=== PATIENT | male | born 1935 | race Caucasian/White ===

== ENCOUNTER → 2016-05-25 | Outpatient (REF) | payer MEDICARE, MEDICAID ==
[~2016-05-25] MED LIST: AZELASTINE; BENA25CA PO; BENT10CA PO; CALC05CR TOP; CEPH500C PO; CIPR-250 PO; CIPR500T3 PO; CLON1TAB PO; DEPA250C PO; DULC5TAB PO; GABA100C PO; GABA300C2 PO; HALO5OI TOP; IMOD2CHW PO; KLON1TAB PO; MACR100C3 PO; MAG400TA PO; META28.35 PO; MICR10CA PO; NAPR500T2 PO; NIFE15CA PO; OXYB10TA PO; PERC5TAB6 PO; PERCOCET PO; PRED20TA PO; PRIN10TA PO; REST0.05 OU; TOPA50TA PO; TRIA0.5O TOP; VANC50VL PO; VERA24TASA PO; VITA100072 PO; VITA100072 SC; ZANA4CAP PO; ZINC60OI TOP; [UNRECOGNIZED DRUG - OTHER] PO
[2016-05-26 11:51] LABS: MEAN CORPUSCULAR HEMOGLOBIN 24.1 pg (27.0-33.0); MEAN CORPUSCULAR HGB CONC 30.1 g/dl (32.0-36.5); MEAN CORPUSCULAR VOLUME 80.1 fl (80.0-96.0); WHITE BLOOD COUNT 9.7 K/mm3 (4.0-10.0)
== END | disposition home or self-care (01) ==
LOC: M SFHCCLAY 15:34
PROVIDERS: ATTEND Family Medicine
DX: D50.0 Iron deficiency anemia secondary to blood loss (chronic) (principal)
CPT/HCPCS: 36415; 85027; G0463

== ENCOUNTER → 2016-06-17 | Outpatient (CLI) | payer MEDICARE, MEDICAID ==
--- NOTE | 2016-06-17 15:19 | REP ---
LEFT KNEE SERIES: Five views of the left knee are performed. There is no acute fracture or dislocation. There is mild medial joint space narrowing. There is moderate diffuse chondrocalcinosis. Soft tissue calcifications are also seen posteriorly which may be bursal or tendinous. There are vascular calcifications as well. There is a mild to moderate joint effusion. IMPRESSION: Mild degenerative changes with chondrocalcinosis. Mild to moderate joint effusion. Findings are essentially unchanged compared to the prior exam of 12/06/2014.
== END ==
LOC: M CLY 13:51
PROVIDERS: ATTEND Family Medicine
DX: R30.0 Dysuria (principal); M17.12 Unilateral primary osteoarthritis, left knee; M11.20 Other chondrocalcinosis, unspecified site
CPT/HCPCS: 73564; 81002; 87086; G0463

== ENCOUNTER → 2016-06-17 | Outpatient (REF) | payer MEDICARE, MEDICAID | LOC: M SFHCCLAY 12:43 | PROVIDERS: ATTEND Family Medicine | DX: R30.0 Dysuria (principal) ==

== ENCOUNTER → 2016-07-01 | Outpatient (CLI) | payer MEDICARE, MEDICAID ==
--- NOTE | 2016-07-01 14:10 | REP ---
Clinical: Pain. Assess Technique: AP and frog lateral views of the left hip. Comparison: 09/05/2014. Findings: Moderate arthritic degenerative changes appears similar to prior examination. Findings include increased sclerosis to the acetabular roof with spurring at the acetabular margins, predominantly medial joint space narrowing. No acute fracture dislocation. Impression: Moderate arthritic degenerative changes.
== END ==
LOC: M CLY 12:48
PROVIDERS: ATTEND Family Medicine
DX: M16.12 Unilateral primary osteoarthritis, left hip (principal)
CPT/HCPCS: 73502; 81002; G0463

== ENCOUNTER → 2016-07-15 | Outpatient (REF) | payer MEDICARE, MEDICAID | LOC: M SFHCCLAY 15:38 | PROVIDERS: ATTEND Family Medicine | DX: R35.0 Frequency of micturition (principal); Z85.038 Personal history of other malignant neoplasm of large intestine; R15.2 Fecal urgency; F41.1 Generalized anxiety disorder; F31.9 Bipolar disorder, unspecified; M11.262 Other chondrocalcinosis, left knee | CPT/HCPCS: 87086; G0463 ==

== ENCOUNTER → 2016-07-29 | Outpatient (CLI) | payer MEDICARE, MEDICAID ==
--- NOTE | 2016-07-29 17:25 | REP ---
LUMBAR SPINE, FIVE VIEWS: HISTORY: Back pain. COMPARISON: 05/13/2009. There is no acute fracture or subluxation. The intervertebral discs are decreased in height consistent with disc degeneration. Osteophytes are present throughout the lumbar spine. There is narrowing of the L3-4 through L5-S1 facet joints. A surgical slip is present overlying the left L4-5 facets. IMPRESSION: Degenerative change as described above.
== END ==
LOC: M CLY 15:18
PROVIDERS: ATTEND Family Medicine
DX: M51.36 Other intervertebral disc degeneration, lumbar region (principal); M51.37 Other intervertebral disc degeneration, lumbosacral region
CPT/HCPCS: 72110; G0463

== ENCOUNTER → 2016-08-10 | Outpatient (REF) | payer MEDICARE, MEDICAID ==
[2016-08-10 17:42] LABS: MEAN CORPUSCULAR HEMOGLOBIN 25.1 pg (27.0-33.0); MEAN CORPUSCULAR HGB CONC 29.7 g/dl (32.0-36.5); MEAN CORPUSCULAR VOLUME 84.6 fl (80.0-96.0); RED CELL DISTRIBUTION WIDTH 16.6 % (11.5-14.5); WHITE BLOOD COUNT 8.1 K/mm3 (4.0-10.0)
[2016-08-10 19:40] LABS: VITAMIN B12 LEVEL 138 PG/ML (247-911)
[2016-08-10 19:41] LABS: FOLATE 17.1 NG/ML (>5.4)
[2016-08-10 19:43] LABS: ALBUMIN 3.2 GM/DL (3.2-5.2); ALBUMIN/GLOBULIN RATIO 0.94 (1.00-1.93); ALKALINE PHOSPHATASE 91 U/L (45-117); ALT/SGPT 17 U/L (12-78); ANION GAP 7 MEQ/L (8-16); AST/SGOT 9 U/L (15-37); BILIRUBIN,TOTAL 0.2 MG/DL (0.2-1.0); BLOOD UREA NITROGEN 12 MG/DL (7-18); CALCIUM LEVEL 8.3 MG/DL (8.8-10.2); CARBON DIOXIDE LEVEL 27 MEQ/L (21-32); CHLORIDE LEVEL 105 MEQ/L (98-107); CREATININE FOR GFR 0.67 MG/DL (0.70-1.30); GLOMERULAR FILTRATION RATE > 60.0 (>42); GLUCOSE, FASTING 93 MG/DL (83-110); POTASSIUM SERUM 3.9 MEQ/L (3.5-5.1); SODIUM LEVEL 139 MEQ/L (136-145); TOTAL PROTEIN 6.6 GM/DL (6.4-8.2)
== END ==
LOC: M SFHCCLAY 07:42
PROVIDERS: ATTEND Family Medicine
DX: D50.0 Iron deficiency anemia secondary to blood loss (chronic) (principal); C20 Malignant neoplasm of rectum; Z79.52 Long term (current) use of systemic steroids; Z79.1 Long term (current) use of non-steroidal anti-inflammatories (NSAID); Z79.899 Other long term (current) drug therapy

== ENCOUNTER → 2016-08-10 | Outpatient (CLI) | payer MEDICARE, MEDICAID ==
--- NOTE | 2016-08-10 14:38 | REP ---
CHEST, TWO VIEWS: HISTORY: Bronchitis. COMPARISON: 10/17/2015 There is elevation of the right hemidiaphragm. Linear density is present in the right lower lobe consistent with scar. The left lung is clear. The heart is normal in size. The pulmonary vasculature is normal in appearance. The bony structure is intact. IMPRESSION: Right lower lobe scar.
== END ==
LOC: M CLY 13:50
PROVIDERS: ATTEND Family Medicine
DX: J40 Bronchitis, not specified as acute or chronic (principal); J98.4 Other disorders of lung; D50.0 Iron deficiency anemia secondary to blood loss (chronic); Z79.52 Long term (current) use of systemic steroids; Z79.899 Other long term (current) drug therapy; C20 Malignant neoplasm of rectum; Z79.1 Long term (current) use of non-steroidal anti-inflammatories (NSAID)
CPT/HCPCS: 71020; 80053; 82607; 82746; 84443; 85027; G0463

== ENCOUNTER → 2016-10-05 | Outpatient (REF) | payer MEDICARE, MEDICAID ==
[~2016-10-05] MED LIST changes: +APAP325T4 PO; +DESITIN EXT; +HYDR-3363 PO; +HYDR25OIN TOP; +MACR100C43 PO; +OXYB15TA PO; +PERC5TAB12 PO; -PERC5TAB6 PO; +PROAAER10 INH; +REFR0.1D OP
[2016-10-05 18:22] LABS: ALBUMIN 3.9 GM/DL (3.2-5.2); ALBUMIN/GLOBULIN RATIO 1.22 (1.00-1.93); ALKALINE PHOSPHATASE 80 U/L (45-117); ALT/SGPT 19 U/L (12-78); ANION GAP 8 MEQ/L (8-16); AST/SGOT 15 U/L (15-37); BILIRUBIN,TOTAL 0.5 MG/DL (0.2-1.0); BLOOD UREA NITROGEN 16 MG/DL (7-18); CALCIUM LEVEL 9.1 MG/DL (8.8-10.2); CARBON DIOXIDE LEVEL 28 MEQ/L (21-32); CHLORIDE LEVEL 105 MEQ/L (98-107); CREATININE FOR GFR 0.74 MG/DL (0.70-1.30); GLOMERULAR FILTRATION RATE > 60.0 (>42); GLUCOSE, FASTING 96 MG/DL (83-110); POTASSIUM SERUM 3.9 MEQ/L (3.5-5.1); SODIUM LEVEL 141 MEQ/L (136-145); TOTAL PROTEIN 7.1 GM/DL (6.4-8.2)
[2016-10-05 20:38] LABS: MEAN CORPUSCULAR HEMOGLOBIN 24.3 pg (27.0-33.0); MEAN CORPUSCULAR HGB CONC 29.7 g/dl (32.0-36.5); MEAN CORPUSCULAR VOLUME 82.1 fl (80.0-96.0); WHITE BLOOD COUNT 6.7 K/mm3 (4.0-10.0)
== END ==
LOC: M SFHCCLAY 11:27
PROVIDERS: ATTEND Family Medicine
DX: N30.00 Acute cystitis without hematuria (principal); D50.0 Iron deficiency anemia secondary to blood loss (chronic); Z85.038 Personal history of other malignant neoplasm of large intestine
CPT/HCPCS: 80053; 81001; 85027; 87086; G0463

== ENCOUNTER → 2016-10-26 | Outpatient (REF) | payer MEDICARE | LOC: M SFHCCLAY 11:07 | PROVIDERS: ATTEND Family Medicine | DX: R35.0 Frequency of micturition (principal) ==

== ENCOUNTER → 2016-12-14 | Outpatient (REF) | payer MEDICARE, MEDICAID ==
[2016-12-15 12:02] LABS: MEAN CORPUSCULAR HGB CONC 29.5 g/dl (32.0-36.5); RED CELL DISTRIBUTION WIDTH 16.9 % (11.5-14.5); WHITE BLOOD COUNT 9.7 K/mm3 (4.0-10.0)
== END ==
LOC: M SFHCCLAY 15:55
PROVIDERS: ATTEND Family Medicine
DX: D50.0 Iron deficiency anemia secondary to blood loss (chronic) (principal)
CPT/HCPCS: 85027; G0463

== ENCOUNTER 2016-12-22 08:37 | Outpatient (CLI) | payer MEDICARE, MEDICAID ==
[~2016-12-22] VITALS: Ht 167.6 cm; Wt 86.4 kg
[~2016-12-22 08:37] MED LIST changes: -APAP325T4 PO; -DESITIN EXT; -HYDR-3363 PO; -HYDR25OIN TOP; -OXYB15TA PO; -PROAAER10 INH; -REFR0.1D OP
[2016-12-22] MEDS ORDERED: HYDR-3363 PO (08:54)
[2016-12-22] MEDS ORDERED: OXYB15TA PO (08:54)
[2016-12-22] MEDS ORDERED: APAP325T4 PO (08:55)
[2016-12-22] MEDS ORDERED: HYDR25OIN TOP (08:55)
[2016-12-22] MEDS ORDERED: PROAAER10 INH (08:55)
[2016-12-22] MEDS ORDERED: DESITIN EXT (08:55)
[2016-12-22] MEDS ORDERED: REFR0.1D OP (08:55)
[2016-12-22] MEDS ORDERED: diphenhydrAMINE 50 MG CAP PO ONE (13:00)
== END 2016-12-22 17:30 | disposition home or self-care (01) ==
LOC: M INFU 08:37
PROVIDERS: ATTEND Family Medicine
DX: D50.0 Iron deficiency anemia secondary to blood loss (chronic) (principal); Z85.038 Personal history of other malignant neoplasm of large intestine; Z72.0 Tobacco use; Z88.0 Allergy status to penicillin; Z88.2 Allergy status to sulfonamides; Z88.8 Allergy status to other drugs, medicaments and biological substances; Z79.899 Other long term (current) drug therapy
CPT/HCPCS: 36415; 36430; 86850; 86900; 86901; 86920; P9016

== ENCOUNTER 2017-02-02 20:17 | Emergency (ER) | payer MEDICARE, MEDICAID ==
[~2017-02-02] VITALS: Ht 175.3 cm; Wt 84.1 kg
[~2017-02-02 20:17] MED LIST changes: +APAP325T4 PO; +DESITIN EXT; +HYDR-3363 PO; +HYDR25OIN TOP; +OXYB15TA PO; +PROAAER10 INH; +REFR0.1D OP
[2017-02-02] MEDS ORDERED: LORazepam 1 MG TAB PO ONE (22:15)
[2017-02-03] MEDS ORDERED: clonazePAM 1 MG TAB PO ONE
[2017-02-03 06:27] VITALS: BP 139/63
[2017-02-03] MEDS ORDERED: KLON1TAB PO (06:35)
== END 2017-02-03 06:55 | disposition home or self-care (01) ==
LOC: M ED 20:17
DX: F41.1 Generalized anxiety disorder (principal); F13.239 Sedative, hypnotic or anxiolytic dependence with withdrawal, unspecified; Z79.899 Other long term (current) drug therapy; Z88.0 Allergy status to penicillin; Z88.2 Allergy status to sulfonamides; Z88.8 Allergy status to other drugs, medicaments and biological substances; Z88.6 Allergy status to analgesic agent

== ENCOUNTER 2017-02-25 16:06 | Inpatient (IN) | payer MEDICARE, MEDICAID ==
[~2017-02-25] VITALS: Ht 175.3 cm; Wt 82.7 kg
[~2017-02-25 16:06] MED LIST changes: -REFR0.1D OP; +REFR0.1D OU
[2017-02-25 17:27] LABS: MEAN CORPUSCULAR HEMOGLOBIN 26.4 pg (27.0-33.0); MEAN CORPUSCULAR HGB CONC 31.3 g/dl (32.0-36.5); MEAN CORPUSCULAR VOLUME 84.3 fl (80.0-96.0); PLATELET COUNT, AUTOMATED 368 10^3/uL (150-450); RED CELL DISTRIBUTION WIDTH 17.6 % (11.5-14.5); WHITE BLOOD COUNT 12.4 10^3/uL (4.0-10.0)
[2017-02-25 17:52] LABS: METHADONE URINE NEGATIVE (NEGATIVE)
[2017-02-25 18:02] LABS: ALBUMIN 3.7 GM/DL (3.2-5.2); ALBUMIN/GLOBULIN RATIO 1.09 (1.00-1.93); ALKALINE PHOSPHATASE 82 U/L (45-117); ALT/SGPT 21 U/L (12-78); ANION GAP 9 MEQ/L (8-16); AST/SGOT 15 U/L (7-37); BILIRUBIN,DIRECT 0.1 MG/DL (0.0-0.2); BILIRUBIN,TOTAL 0.4 MG/DL (0.2-1.0); BLOOD UREA NITROGEN 18 MG/DL (7-18); CALCIUM LEVEL 8.9 MG/DL (8.8-10.2); CARBON DIOXIDE LEVEL 28 MEQ/L (21-32); CHLORIDE LEVEL 102 MEQ/L (98-107); CREATININE FOR GFR 0.97 MG/DL (0.70-1.30); GLOMERULAR FILTRATION RATE > 60.0 (>35); GLUCOSE, FASTING 94 MG/DL (83-110); POTASSIUM SERUM 3.6 MEQ/L (3.5-5.1); SODIUM LEVEL 139 MEQ/L (136-145); TOTAL PROTEIN 7.1 GM/DL (6.4-8.2)
[2017-02-25] MEDS ORDERED: clonazePAM 1 MG TAB PO ONE (18:30)
[2017-02-25] MEDS ORDERED: clonazePAM 0.5 MG TAB PO ONE ×2 (19:00→22:50)
--- NOTE | 2017-02-25 20:00 | REPUSA ---
CT of the head Clinical history: altered mental status. Protocol: Multiple axial CT images obtained with 5 mm slice thickness were obtained through the head without administration of contrast. Findings: The ventricles and sulci are symmetric but prominent in size bilaterally. There are periven tricular areas of low attenuation throughout the deep white matter. There is no evidence of acute hem orrhage or infarct. There is no midline shift, mass effect, or extra-axial fluid collection. The osse ous structures are unremarkable. The visualized paranasal sinuses and mastoid air cells are clear. Impression: No acute hemorrhage or infarct. 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
[2017-02-25] MEDS ORDERED: traZODone 50 MG TAB PO PRN (22:30)
[2017-02-25] MEDS ORDERED: MOM 30ML SUSPENSION UDC PO PRN (22:30)
[2017-02-25] MEDS ORDERED: MAALOX 30 ML SUSP *UDC PO PRN (22:30)
[2017-02-25] MEDS ORDERED: DOXE10CA PO (22:38)
[2017-02-25 23:10] VITALS: BP 181/91
[2017-02-25] MEDS ORDERED: OLANZapine ORAL DISINTEGRATING TAB 5MG PO PRN (23:30)
[2017-02-26] MEDS ORDERED: HYDROCORTISONE 2.5% 20GM OINTMENT TOP PRN (00:30)
[2017-02-26] MEDS ORDERED: DIAPER RELIEF PASTE (DESITIN) 60GM EXT PRN (00:30)
[2017-02-26] MEDS: MIRTAZAPINE 15 MG TAB PO PRN (01:06)
[2017-02-26] MEDS: OLANZapine ORAL DISINTEGRATING TAB 5MG PO SCH ×3 (06:00→20:18)
[2017-02-26 06:38] VITALS: BP 134/63
[2017-02-26] MEDS: ACETAMINOPHEN TAB 650MG DOSE (2X325MG) PO PRN (10:58)
[2017-02-26] MEDS: oxyBUTYnin *DITROPAN XL* 5 MG TABCR PO SCH (10:59)
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
[2017-02-26] MEDS: clonazePAM 0.5 MG TAB PO PRN (12:45)
[2017-02-26] MEDS: ALBUTEROL 90 MCG/ACT 8GM HFA INHALER INH PRN (12:45)
[2017-02-26] MEDS ORDERED: IPRATROPIUM 0.5MG/ALBUTEROL 2.5MG INH SOL UD 3ML (DUONEB)(J7620) NEB PRN (14:30)
--- NOTE | 2017-02-26 14:58 | REP ---
CHEST, TWO VIEWS: Two views of the chest are performed. Comparison 08/10/2016. There is bibasilar fibroatelectatic change which appears stable compared to the prior study. There is again mild elevation of the right hemidiaphragm. Heart is not significantly enlarged. No acute infiltrate is seen. There is calcified tortuous aorta. Mediastinal silhouette is unchanged. There are degenerative changes of the spine. IMPRESSION: Stable chronic changes. No acute infiltrate. Signed by Jessee Garay MD 02/26/2017 04:20 P
[2017-02-26 15:19] LABS: BASO # 0.1 10^3/uL (0.0-0.2); BASO % 0.7 % (0.0-1.0); EOS # 0.6 10^3/uL (0.0-0.50); EOS % 4.7 % (0.0-3.0); IMMATURE GRANULOCYTE % 0.3 % (0-0); LYMPH # 1.3 10^3/uL (1.5-4.5); LYMPH % 10.7 % (24.0-44.0); MEAN CORPUSCULAR HGB CONC 30.9 g/dl (32.0-36.5); MEAN CORPUSCULAR VOLUME 83.9 fl (80.0-96.0); MONO # 1.6 10^3/uL (0.0-0.8); MONO % 13.7 % (0.0-5.0); NEUTROPHILS # 8.2 10^3/uL (1.8-7.7); NEUTROPHILS % 69.9 % (36.0-66.0); PLATELET COUNT, AUTOMATED 422 10^3/uL (150-450); RED CELL DISTRIBUTION WIDTH 17.6 % (11.5-14.5); WHITE BLOOD COUNT 11.7 10^3/uL (4.0-10.0)
--- NOTE | 2017-02-26 15:19 | CR.PDOC ---
[facility] Consultation Consultation DATE OF CONSULTATION: Feb 25, 2017 at 16:06 PRIMARY CARE PHYSICIAN: Dr. Lewis REFERRING PROVIDER: Dr. Duncan ATTENDING PHYSICIAN: Dr. Mcfarlane REASON FOR CONSULTATION/CHIEF COMPLAINT: Shortness of breath. HISTORY OF PRESENT ILLNESS: Mr. Cosme is an 81-year-old male admitted to the in-patient mental health unit for bipolar disorder who admits to shortness of breath. He states that his shortness of breath and productive cough of ellis/white phlegm has been getting worse over the last week. Reports shortness of breath with rest and ambulation. Sleep has been interrupted due to inability to lay flat which results in worsening of cough. Walks with a cane. Admits to orthopnea, nasal congestion, sore throat, chest pain/congestion , back pain, itchy/watery eyes. Received influenza and pneumonia vaccine. Denies fever, night sweats, chills, headache, peripheral edema, change to bowel/ bladder habits ALLERGIES: Please see below. HOME MEDICATIONS: Please see below. PAST MEDICAL HISTORY: 1. Hypertension. 2. Recurrent urinary tract infection. 3. History of Clostridium difficile infection. 4. Carpal tunnel syndrome. 5. Gout. 6. Degenerative joint disease. 7. Anxiety. 8. Rectal cancer. 9. Migraine. 10. Benign prostatic hyperplasia. 11. Constipation. PAST SURGICAL HISTORY: 1. Carpal tunnel repair. 2. Laparoscopic low anterior resection converted to open low anterior resection. 3. Urinary cystoscopy. 4. Bilateral ureteral catheter placement. 5. Tonsillectomy. 6. Teeth extraction. 7. Nasal surgery. 8. Colostomy with reversal. FAMILY HISTORY: Father: , 95, old age. Mother: , 85, old age. Siblings: - Brother: Alive, healthy. Children: - Son: Alive, healthy. - Son: , brain tumor. 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/[employer] Tobacco use: Current ETOH: Current, 1/2 PPD for 30+ years Illicit drug use: Denies IV drug use: Denies REVIEW OF SYSTEMS: CONSTITUTIONAL: Denies fever, night sweats, chills HEENT: Admits to left ear pain; denies headache CARDIOVASCULAR: Admits to chest pain/chest congestion RESPIRATORY: Admits to shortness of breath with rest and ambulation GENITOURINARY: Denies changes to bowel habits MUSCULOSKELETAL: Admits to back pain GASTROINTESTINAL: Admits to nausea, vomiting; denies abdominal pain SKIN: Admits to multiple skin lesions on face NEUROLOGICAL: Denies numbness, tingling PSYCHIATRIC: Bipolar disorder ENDOCRINE: HEMATOLOGIC/LYMPHATIC: Denies bleeding ALLERGIC/IMMUNOLOGIC: Admits to sore throat, cough, itchy/watery eyes PHYSICAL EXAMINATION: VITAL SIGNS: Please see below. GENERAL APPEARANCE: Elderly male, walks with a cane, transported to examination room by wheelchair, but is ambulatory, HEENT: Atraumatic, normocephalic, PERRL, EOMI, wears spectacles; several areas of excoriation noted around the pinna, mandible, and occiput; oral mucosa appears somewhat dry; left ear external auditory canal is without erythema, edema, or excoriation, TM is somewhat dull and bulging; right ear external auditory canal is without erythema, edema, or excoriation, TM is clear without bulging or retraction; nasal septum appears midline; turbinates are boggy bilaterally, nasal discharge is noted bilaterally and right nares is completely obscured with yellow-florencia discharge RESPIRATORY: Clear to auscultation bilaterally, poor inspiratory and expiratory airway excursion, no wheeze, rhonchi, crackles appreciated CARDIOVASCULAR: Grade II/ systolic murmur appreciated pansystolically ABDOMEN: Soft, non-tender, non-distended, bowel sounds appreciated, healed surgical incisions are clean, dry, intact EXTREMITIES: Radial and posterior pulses equal, symmetrical, +2, trace pitting edema noted around the bilateral ankles NEUROLOGICAL: CN II-XII grossly intact PSYCHIATRIC: Pressured speech, but alert and conversant LABORATORY DATA: Please see below. ASSESSMENT/PLAN: Mr. Cosme is an 81-year-old male with cough and shortness of breath, likely sinusitis/rhinitis. 1. Sinusitis/rhinitis: Obtaining respiratory panel, blood culture, CRP, CBC with differential, CMP, magnesium level. Chest x-ray obtained, report is pending. However, it does not appear that there are any consolidations. Due to patient's medication allergies he will be started on Avelox. Will also symptomatically treated nasal congestion with Mucinex, Claritin, Flonase, and DuoNebs. Tylenol for pain and discomfort. Will obtain CBC with differential and CRP on Tuesday. 2. Anxiety/depression: Continue with Clonazepam and Remeron. 3. Bipolar disorder: Continue with Zyprexa. 4. Hypertension: Continue with Captopril. 5. Constipation: Continue with Milk of Magnesia. 6. Heartburn: Continue with Mylanta. 7. Bladder dysfunction: Continue with Oxybutynin. Vital Signs/I&O Vital Signs Date Time Temp Pulse Resp B/P (MAP) Pulse Ox O2 Delivery O2 Flow Rate FiO2 02/26/17 10:58 134/63 02/26/17 06:38 98.0 68 16 Room Air 02/25/17 22:26 98 Laboratory Data Labs 24H Laboratory Tests 2 02/25/17 16:46: Nucleated Red Blood Cells % (auto) 0.0, Anion Gap 9, Glomerular Filtration Rate > 60.0, Calcium Level 8.9, Aspartate Amino Transf (AST/SGOT) 15, Alanine Aminotransferase (ALT/SGPT) 21, Alkaline Phosphatase 82, Total Bilirubin 0.4, Direct Bilirubin 0.1, Total Protein 7.1, Albumin 3.7, Albumin/Globulin Ratio 1.09, Thyroid Stimulating Hormone (TSH) 1.240, Salicylates Level < 1.7L, Urine Amphetamines Screen NEGATIVE, Urine Benzodiazepines Screen NEGATIVE, Urine Opiates Screen NEGATIVE, Urine Methadone Screen NEGATIVE, Acetaminophen Level < 2.0L, Urine Barbiturates Screen NEGATIVE, Urine Phencyclidine Screen NEGATIVE, Urine Cocaine Metabolite Screen NEGATIVE, Urine Cannabinoids Screen NEGATIVE, Ethyl Alcohol Level 0.004 CBC/BMP Laboratory Tests 02/25/17 16:46 Red Blood Count 3.56 L, Mean Corpuscular Volume 84.3, Mean Corpuscular Hemoglobin 26.4 L, Mean Corpuscular Hemoglobin Concent 31.3 L, Red Cell Distribution Width 17.6 H Allergies Coded Allergies: Penicillins (Verified Allergy, Intermediate, RASH, 09/04/14) Penicillins Cross Reactors (Verified Allergy, Intermediate, RASH, 09/04/14) Nabumetone (Verified Allergy, Unknown, 09/04/14) Cyclobenzaprine (Verified Adverse Reaction, Intermediate, OFFSET LITHOGRAPHIC PRESS OPERATOR SIDE EFFECTS , 09/04/14) Sulfa Drugs (Verified Adverse Reaction, Mild, N/V, 09/04/14) Sulfa Drugs Cross Reactors (Verified Adverse Reaction, Mild, N/V, 09/04/14) Sulfamethoxazole (Verified Adverse Reaction, Mild, N/V, 09/04/14) Trimethoprim (Verified Adverse Reaction, Mild, N/V, 09/04/14) Home Medications Scheduled Clonazepam (Clonazepam) 1 Mg Tab, 1.5 MG PO QHS, (Reported) Oxybutynin Chloride (Oxybutynin Chloride ER) 15 Mg Tab, 15 MG PO DAILY, ( Reported) Scheduled PRN Acetaminophen (Apap) 325 Mg Tab, 325 MG PO Q6H PRN for PAIN, (Reported) Albuterol Sulfate (Proair Hfa) 108 Mcg/Act Aer, 2 PUFF INH Q4HP PRN for SOB/ WHEEZING, (Reported) Carboxymethylcellulose Sodium (Refresh Plus) 1 Ea Ashley, 1 DROP OU TID PRN for EYE IRRITATION, (Reported) Desitin (Desitin) 1 Dose/60 Gm Oin, 1 DOSE EXT PRN PRN for RASH/ITCHING, ( Reported) APPLY TO BUTTOCKS Doxepin HCl (Doxepin HCl) 10 Mg Cap, 10 MG PO TID PRN for ANXIETY/AGITATION, ( Reported) Hydrocortisone (Hydrocortisone 2.5%) 1 Dose/20 Gm Oint, 0 TOP BIDP PRN for RASH/ ITCHING, (Reported) APPLY TO BUTTOCKS Hydroxyzine HCl (Hydroxyzine HCl) 25 Mg Tab, 25 MG PO Q8H PRN for ANXIETY, ( Reported) GME ATTESTATION GME ATTESTATION My faculty preceptor for this patient encounter was physically present during the encounter and was fully available. All aspects of the patient interview, examination, medical decision making process, and medical care plan development were reviewed and approved by the faculty preceptor. The faculty preceptor is aware and concurs with the plan as stated in the body of this note and will attest to such by his/her cosignature. ATTENDING NOTE I have both independently examined this patient as well as reviewed the note. I have discussed in detail with the resident the findings and plan of treatment as documented in the residents note. I will continue to follow the patient and offer further guidance to the patients care as necessary during this hospital stay. TERESA Ortiz MD, DO Feb 26, 2017 13:30 CARLINE MCFARLANE MD Mar 02, 2017 11:31
[2017-02-26 15:43] LABS: ALBUMIN 3.3 GM/DL (3.2-5.2); ALKALINE PHOSPHATASE 76 U/L (45-117); ALT/SGPT 19 U/L (12-78); ANION GAP 6 MEQ/L (8-16); AST/SGOT 12 U/L (7-37); BILIRUBIN,TOTAL 0.3 MG/DL (0.2-1.0); BLOOD UREA NITROGEN 19 MG/DL (7-18); CALCIUM LEVEL 9.1 MG/DL (8.8-10.2); CARBON DIOXIDE LEVEL 30 MEQ/L (21-32); CHLORIDE LEVEL 103 MEQ/L (98-107); CREATININE FOR GFR 0.91 MG/DL (0.70-1.30); GLOMERULAR FILTRATION RATE > 60.0 (>35); GLUCOSE, FASTING 92 MG/DL (83-110); MAGNESIUM LEVEL 2.1 MG/DL (1.8-2.4); POTASSIUM SERUM 3.8 MEQ/L (3.5-5.1); SODIUM LEVEL 139 MEQ/L (136-145); TOTAL PROTEIN 6.6 GM/DL (6.4-8.2)
[2017-02-26] MEDS: MOXIFLOXACIN 400 MG TAB PO SCH (17:32)
[2017-02-26 18:00] VITALS: BP 141/71
[2017-02-26] MEDS: guaiFENesin ER 600 MG TAB PO SCH (20:18)
[2017-02-26] MEDS: LORATADINE 10 MG TAB PO SCH (20:19)
[2017-02-26] MEDS: FLUTICASONE PROP 0.05% NASAL SPRAY 16 GM (FLONASE) SCH (20:21)
[2017-02-26] MEDS: IPRATROPIUM 0.5MG/ALBUTEROL 2.5MG INH SOL UD 3ML (DUONEB)(J7620) NEB SCH (20:44)
[2017-02-27] MEDS: IPRATROPIUM 0.5MG/ALBUTEROL 2.5MG INH SOL UD 3ML (DUONEB)(J7620) NEB SCH ×5 (01:19→23:40)
[2017-02-27] MEDS: MOXIFLOXACIN 400 MG TAB PO SCH (06:15)
[2017-02-27] MEDS: OLANZapine ORAL DISINTEGRATING TAB 5MG PO SCH ×3 (06:15→20:18)
[2017-02-27 06:50] VITALS: BP 146/65
[2017-02-27] MEDS: FLUTICASONE PROP 0.05% NASAL SPRAY 16 GM (FLONASE) SCH ×2 (09:00→20:22)
[2017-02-27] MEDS: oxyBUTYnin *DITROPAN XL* 5 MG TABCR PO SCH (10:18)
[2017-02-27] MEDS: guaiFENesin ER 600 MG TAB PO SCH ×2 (10:18→20:19)
[2017-02-27 18:00] VITALS: BP 134/64
--- NOTE | 2017-02-27 19:49 | MHIPNPDOC ---
[facility] Progress Note Progress Note DATE OF SERVICE: 02/27/17 HISTORY: 81 year old male with history of Panic Disorder and untreated and undiagnosed Bipolar Disorder VITAL SIGNS: See below. NEW TEST RESULTS: N/A CURRENT MEDICATIONS: See below. MENTAL STATUS EXAMINATION: Patient is a 81-year old male, who is alert, irritable, mildly uncooperative, dressed in hospital clothes Speech: Is Rapid/pressured. Language skills are Fair. Thought processes including: Tangential/circumstantial. Thought content: Fixed on his medical problems and his panic attacks Abstract reasoning, and computation: Not assessed at this time. Description of associations: loose Description of abnormal or psychotic thoughts: Grandiose delusions, denies SI/HI , denies A/V cherry.. Judgment: Poor. Insight: Poor. Orientation: Oriented to place and person. Recent and remote memory: Fair Attention span and concentration: Distractible. Language: Unable to assess at this time. Fund of knowledge: Fair. Mood: Irritable/anxious. Affect: irritable/anxious DIAGNOSES: 1. Unspecified bipolar disorder 2. Panic Disorder ASSESSMENT: Patient continues to exhibit signs and symptoms of maciel and anxiety but he has improved since yesterday. will f/u. MANAGEMENT PLAN: Will continue with the same treatment plan TIME SPENT: 20 minutes. Vital Signs Vital Signs Date Time Temp Pulse Resp B/P (MAP) Pulse Ox O2 Delivery O2 Flow Rate FiO2 02/27/17 15:56 140/63 02/27/17 06:50 99.8 75 16 Room Air 02/25/17 22:26 98 Current Medications Current Medications Acetaminophen (Tylenol Tab) 650 mg Q6HP PRN PO HEADACHE or DISCOMFORT Last administered on 02/26/17 10:58; Start 02/25/17 at 22:30; Stop 03/27/17 at 22 :29 Al Hydrox/Mg Hydrox/Simethicone (Mylanta) 30 ml Q4HP PRN PO HEARTBURN/ INDIGESTION; Start 02/25/17 at 22:30; Stop 03/27/17 at 22:29 Albuterol Sulfate (Proventil, Ventolin Hfa) 2 puff Q4HP PRN INH SOB/WHEEZING Last administered on 02/26/17 12:45; Start 02/26/17 at 00:30; Stop 03/28/17 at 00:29 Albuterol/ Ipratropium (Duoneb (Ipr 0.5mg/Alb 2.5mg)) 3 ml Q2HP PRN NEB SOB/ WHEEZING; Start 02/26/17 at 14:30; Stop 03/28/17 at 14:29 Albuterol/ Ipratropium (Duoneb (Ipr 0.5mg/Alb 2.5mg)) 3 ml RQ6H NEB Last administered on 02/27/17 14:05; Start 02/26/17 at 20:00; Stop 03/28/17 at 19 :59 Captopril (CAPOten) 25 mg TID PO Last administered on 02/27/17 15:56; Start 02/25/17 at 23:00; Stop 03/27/17 at 22:59 Clonazepam (KlonoPIN) 0.5 mg BID PRN PO anxiety Last administered on 12:45; Start 02/26/17 at 09:00; Stop 03/05/17 at 08:59 Cod Liver Oil/ Zinc Oxide (Desitin) APPLY TO BUTTOCKS BIDP PRN EXT RASH/ ITCHING Last administered on 02/27/17 15:58; Start 02/26/17 at 00:30; Stop 03/28/17 at 00:29 Fluticasone Propionate (Flonase 0.05% Nasal [place]) 1 spray BID NA Last administered on 02/26/17 20:21; Start 02/26/17 at 21:00; Stop 03/28/17 at 20 :59 Guaifenesin (Mucinex Tab Er) 1,200 mg BID PO Last administered on 02/27/17 10 :18; Start 02/26/17 at 21:00; Stop 03/28/17 at 20:59 Home Med (Med Rec Complete!) ASDIRECTED XX ; Start 02/25/17 at 22:45; Stop at 22:45; Status DC Hydrocortisone (Hydrocortisone 2.5% Ointment) APPLY TO BUTTOCKS BIDP PRN TOP RASH/ITCHING; Start 02/26/17 at 00:30; Stop 03/28/17 at 00:29 Loratadine (Claritin) 10 mg QHS PO Last administered on 02/26/17 20:19; Start 02/26/17 at 21:00; Stop 03/28/17 at 20:59 Magnesium Hydroxide (Milk Of Magnesia) 30 ml DAILYPRN PRN PO CONSTIPATION; Start 02/25/17 at 22:30; Stop 03/27/17 at 22:29 Mirtazapine (Remeron) 15 mg QHS PRN PO insomnia Last administered on 01:06; Start 02/25/17 at 23:30; Stop 03/27/17 at 23:29 Moxifloxacin HCl (Avelox) 400 mg DAILY@06 PO Last administered on 02/27/17 06 :15; Start 02/26/17 at 16:00; Stop 03/05/17 at 15:59 Olanzapine (ZyPREXA ZYDIS) 5 mg Q6HP PRN PO ANXIETY/AGITATION; Start 02/25 at 23:30; Stop 02/26/17 at 00:30; Status DC Olanzapine (ZyPREXA ZYDIS) 5 mg Q8H PO Last administered on 02/27/17 15: 58; Start 02/26/17 at 06:00; Stop 03/27/17 at 05:59 Oxybutynin Chloride (Ditropan Xl) 15 mg DAILY PO Last administered on 10:18; Start 02/26/17 at 09:00; Stop 03/28/17 at 08:59 Trazodone HCl (Desyrel) 50 mg QHSP PRN PO INSOMNIA; Start 02/25/17 at 22:30; Stop 02/25/17 at 23:25; Status DC Allergies Coded Allergies: Penicillins (Verified Allergy, Intermediate, RASH, 09/04/14) Penicillins Cross Reactors (Verified Allergy, Intermediate, RASH, 09/04/14) Nabumetone (Verified Allergy, Unknown, 09/04/14) Cyclobenzaprine (Verified Adverse Reaction, Intermediate, LIQUOR RECTIFIER SIDE EFFECTS , 09/04/14) Sulfa Drugs (Verified Adverse Reaction, Mild, N/V, 09/04/14) Sulfa Drugs Cross Reactors (Verified Adverse Reaction, Mild, N/V, 09/04/14) Sulfamethoxazole (Verified Adverse Reaction, Mild, N/V, 09/04/14) Trimethoprim (Verified Adverse Reaction, Mild, N/V, 09/04/14) ZACH PEREA MD Feb 27, 2017 19:49
[2017-02-27] MEDS: LORATADINE 10 MG TAB PO SCH (20:19)
[2017-02-28] MEDS: OLANZapine ORAL DISINTEGRATING TAB 5MG PO SCH ×3 (06:14→20:08)
[2017-02-28] MEDS: MOXIFLOXACIN 400 MG TAB PO SCH (06:14)
[2017-02-28 06:45] VITALS: BP_SYST 130; BP_SYST 134; BP_DIAS 65; BP_DIAS 70
[2017-02-28 07:24] LABS: BASO # 0.1 10^3/uL (0.0-0.2); BASO % 0.6 % (0.0-1.0); EOS # 0.6 10^3/uL (0.0-0.50); EOS % 4.6 % (0.0-3.0); IMMATURE GRANULOCYTE % 0.3 % (0-0); LYMPH # 1.5 10^3/uL (1.5-4.5); LYMPH % 12.1 % (24.0-44.0); MEAN CORPUSCULAR HEMOGLOBIN 26.3 pg (27.0-33.0); MEAN CORPUSCULAR HGB CONC 31.4 g/dl (32.0-36.5); MEAN CORPUSCULAR VOLUME 83.7 fl (80.0-96.0); MONO % 16.7 % (0.0-5.0); NEUTROPHILS # 8.2 10^3/uL (1.8-7.7); NEUTROPHILS % 65.7 % (36.0-66.0); PLATELET COUNT, AUTOMATED 391 10^3/uL (150-450); RED CELL DISTRIBUTION WIDTH 17.6 % (11.5-14.5); WHITE BLOOD COUNT 12.5 10^3/uL (4.0-10.0)
[2017-02-28 07:52] LABS: ANION GAP 5 MEQ/L (8-16); BLOOD UREA NITROGEN 17 MG/DL (7-18); CALCIUM LEVEL 8.8 MG/DL (8.8-10.2); CARBON DIOXIDE LEVEL 30 MEQ/L (21-32); CHLORIDE LEVEL 107 MEQ/L (98-107); CREATININE FOR GFR 0.82 MG/DL (0.70-1.30); GLOMERULAR FILTRATION RATE > 60.0 (>35); GLUCOSE, FASTING 99 MG/DL (83-110); MAGNESIUM LEVEL 1.9 MG/DL (1.8-2.4); POTASSIUM SERUM 3.6 MEQ/L (3.5-5.1); SODIUM LEVEL 142 MEQ/L (136-145)
[2017-02-28 08:16] LABS: ADD MANUAL DIFFER NO; DIFF SLIDE NUMBER 2; MONO # 2.1 10^3/uL (0.0-0.8); POSITIVE DIFF POS FLAG
[2017-02-28] MEDS: FLUTICASONE PROP 0.05% NASAL SPRAY 16 GM (FLONASE) SCH ×2 (09:00→20:07)
[2017-02-28] MEDS: IPRATROPIUM 0.5MG/ALBUTEROL 2.5MG INH SOL UD 3ML (DUONEB)(J7620) NEB SCH ×4 (09:09→23:40)
[2017-02-28] MEDS: guaiFENesin ER 600 MG TAB PO SCH ×2 (09:28→20:08)
[2017-02-28] MEDS: oxyBUTYnin *DITROPAN XL* 5 MG TABCR PO SCH (09:28)
--- NOTE | 2017-02-28 10:13 | IPNPDOC ---
Date Seen The patient was seen on 02/28/17. Progress Note PCP: Dr Lewis ATTENDING: Dr. Kun Lujan HPI: 81[facility], being medically examined today. Nursing requesting pain consult, PT eval for Chronic LBP. Denies any fevers, chills, weakness, fatigue, WERNER, CP, SOB, cough, palpitations, abdominal pain, N/V/D or changes in bowel or bladder habits. PAST MEDICAL HISTORY: 1. Hypertension. 2. Recurrent urinary tract infection. 3. History of Clostridium difficile infection. 4. Carpal tunnel syndrome. 5. Gout. 6. Degenerative joint disease. 7. Anxiety. 8. Rectal cancer. 9. Migraine. 10. Benign prostatic hyperplasia. 11. Constipation. PAST SURGICAL HISTORY: 1. Carpal tunnel repair. 2. Laparoscopic low anterior resection converted to open low anterior resection. 3. Urinary cystoscopy. 4. Bilateral ureteral catheter placement. 5. Tonsillectomy. 6. Teeth extraction. 7. Nasal surgery. 8. Colostomy with reversal. PE: GEN: 81yoM, appears stated age. Well-nourished, well developed. No acute distress. Alert and oriented x 3. Pleasant, interactive. HEENT: Normocephalic, atraumatic. Sclera are nonicteric. Conjunctiva without injection. Nose midline. No facial asymmetry. Moist mucous membranes. Pharynx CHEST: Regular rate and rhythm, +S1, +S2 LUNGS: Clear to auscultation bilaterally. No wheezes, rales, or rhonchi. ABD: Round, soft, non-tender, non-distended. +Bowel sounds throughout. EXT: No lower extremity edema appreciated. SKIN: No rashes. NEURO: Alert and oriented x 3. Cranial nerves III-XII are intact. No focal deficits appreciated. EKG: pending. LS XR 07/26 There is no acute fracture or subluxation. The intervertebral discs are decreased in height consistent with disc degeneration. Osteophytes are present throughout the lumbar spine. There is narrowing of the L3-4 through L5-S1 facet joints. A surgical slip is present overlying the left L4-5 facets. Respiratory Panel not yet obtained. BC x [address] Head 02/25/17 No acute hemorrhage or infarct. Findings are consistent with age-related atrophy and chronic small vessel ischemic disease A&P: 1. Psych. Plan per Psychiatry. Obtain baseline EKG to assure the safety of psychiatric medications as they can prolong the QT interval. 2. Sinusitis/rhinitis: T ma 99.8. Respiratory panel pending. blood culture x 2 neg. CRP 3.36 CXR 02/26/17 Stable chronic changes. No acute infiltrate. Avelox D2/7. Continue Mucinex, Claritin, Flonase, and DuoNebs. Tylenol for pain and discomfort. Recheck CBC/BMP in am. 3. Hypertension: Continue with Captopril. 4. Bladder dysfunction: Continue with Oxybutynin. 5. Chronic LBP. Update imaging, CT LS spine requested. PT eval. Pain mgmt consult. Tylenol as needed. 6. Follow up with PCP on discharge. VS, I&O, 24H, Fishbone Vital Signs/I&O Vital Signs Date Time Temp Pulse Resp B/P (MAP) Pulse Ox O2 Delivery O2 Flow Rate FiO2 02/28/17 09:28 142/65 02/28/17 06:45 98.8 71 20 02/27/17 06:50 Room Air 02/25/17 22:26 98 Laboratory Data 24H LABS Laboratory Tests 2 02/28/17 07:06: Immature Granulocyte % (Auto) 0.3H, White Blood Count 12.5H, Red Blood Count 3.38L, Hemoglobin 8.9L, Hematocrit 28.3L, Mean Corpuscular Volume 83.7, Mean Corpuscular Hemoglobin 26.3L, Mean Corpuscular Hemoglobin Concent 31.4L, Red Cell Distribution Width 17.6H, Platelet Count 391, Neutrophils (%) (Auto) 65.7, Lymphocytes (%) (Auto) 12.1L, Monocytes (%) (Auto) 16.7H, Eosinophils (%) (Auto ) 4.6H, Basophils (%) (Auto) 0.6, Neutrophils # (Auto) 8.2H, Lymphocytes # (Auto ) 1.5, Monocytes # (Auto) 2.1H, Eosinophils # (Auto) 0.6H, Basophils # (Auto) 0.1, Immature Granulocyte # (Auto) 0.0, Nucleated Red Blood Cells % (auto) 0.0, Anion Gap 5L, Glomerular Filtration Rate > 60.0, Blood Urea Nitrogen 17, Creatinine 0.82, Sodium Level 142, Potassium Level 3.6, Chloride Level 107, Carbon Dioxide Level 30, Calcium Level 8.8, Magnesium Level 1.9, C-Reactive Protein, Quantitative 3.36H CBC/BMP Laboratory Tests 02/28/17 07:06 Red Blood Count 3.38 L, Mean Corpuscular Volume 83.7, Mean Corpuscular Hemoglobin 26.3 L, Mean Corpuscular Hemoglobin Concent 31.4 L, Red Cell Distribution Width 17.6 H, Neutrophils (%) (Auto) 65.7, Lymphocytes (%) (Auto) 12.1 L, Monocytes (%) (Auto) 16.7 H, Eosinophils (%) (Auto) 4.6 H, Basophils (% ) (Auto) 0.6, Neutrophils # (Auto) 8.2 H, Lymphocytes # (Auto) 1.5, Monocytes # (Auto) 2.1 H, Eosinophils # (Auto) 0.6 H, Basophils # (Auto) 0.1, Calcium Level 8.8 Microbiology Microbiology 02/26/17 Blood Culture - Preliminary, Resulted No growth after 24 hours . All specim... 02/26/17 Blood Culture - Preliminary, Resulted No growth after 24 hours . All specim... Alyssa Gonzalez Feb 28, 2017 10:13
--- NOTE | 2017-02-28 12:09 | REP ---
CT STUDY LUMBAR SPINE WITHOUT CONTRAST: HISTORY: Pain. Comparison imaging is of the abdomen and pelvis by CT scanning dated September 07, 2014. TECHNIQUE: Helical scanning is acquired. 4 mm axial images are reformatted. Coronal and sagittal multiplanar re-formation images are generated and reviewed. CT FINDINGS: Incidental note is made of a 7 mm opacity in the descending duodenum probably in the duodenal diverticulum. There is a cyst in the lower pole of the right kidney which measures 3.9 cm in greatest diameter. This is unchanged. There is a smaller cyst posteriorly in the right kidney and another is partially seen at the lower pole of the left kidney. Normal caliber aorta. Vascular calcification is noted. There is a metallic opacity in the dorsal paraspinal musculature to the left of midline at the level of the L3-4 interlaminar space. This is unchanged from the 2015 prior study. Lumbar vertebral body heights are preserved. There is some straightening. There is no evidence of spondylolysis or spondylolisthesis. There is degenerative spondylosis change fairly diffusely. There is advanced degenerative disc narrowing at L4-5. There is diffuse posterior disc bulging at L4-5. Mild facet hypertrophy is noted. There is diffuse disc bulging and some disc calcification at L5-S1. Mild central L5-S1 disc protrusion is seen. There is mild facet hypertrophy bilaterally at L5-S1. No bony neural foraminal encroachment is seen. There is left-sided neural foraminal narrowing at L4-5 due to disc bulging and disc calcification. At L3-4, borderline canal size is seen due to ligamentum flavum hypertrophy and diffuse disc bulging. There is calcification of the bulging disc in the right foraminal segment but no significant neural foraminal compromise is seen. At L2-3, there is similar mild central canal stenosis due to diffuse bulging of calcified disc. Ligamentum flavum hypertrophy and developmentally short pedicles contributes to central canal stenosis at L2-3. At L1-2, there is mild diffuse disc bulging. Canal size is adequate. Mild ligamentum flavum hypertrophy is seen. At T12-L1, there is no significant finding. IMPRESSION: Degenerative spondylosis changes with degenerative disc disease most pronounced at L4-5. There is diffuse bulging of multiple disc margins with disc margin calcification at several levels. Central canal narrowing is felt to be evident at L2-3 and to a lesser extent at L3-4 left-sided L4-5 neural foraminal narrowing. Signed by Gerardo Solano MD 02/28/2017 01:12 P
--- NOTE | 2017-02-28 13:51 | HPE ---
DATE OF ADMISSION: 02/25/2017 Please refer to psychiatric history and evaluation for further details on this admission. This examination and history is intended for medical issues which may need treatment, followup or consult on this 81-year-old male. PRIMARY CARE PHYSICIAN: Dr. Lewis. ALLERGIES: CYCLOBENZAPRINE, NABUMETONE, PENICILLIN, SULFA, SULFA DRUG CROSS REACTORS, BACTRIM. SOCIAL HISTORY: Lives in [place]. 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 Smokes one half pack of cigarettes per day. Recreational drug use: None. LABORATORY STUDIES: White count 12.4, repeat on the 11.7, hemoglobin and hematocrit 9.4 and 30. Repeat on 9.5 and 30.7. CMP on the was normal. On the , electrolytes were normal. BUN was 19. Creatinine was 0.9. CRP was 2.89. Troponin was less than 0.02. Toxicology was negative. PAST MEDICAL HISTORY: Hypertension. Recurrent urinary tract infections (UTI)s. He has an appointment to see Dr. Cason in [place] on 03/02/2017 for urology. Carpal tunnel syndrome. Gout. Degenerative joint disease. History of anxiety. History of panic attacks. History of rectal cancer. History of migraine. History of benign prostatic hypertrophy (BPH). PAST SURGICAL HISTORY: Carpal tunnel repair. Laparoscopic low anterior resection converted to open low anterior resection. Urinary cystoscopy. Bilateral ureteral catheter placement. Tonsillectomy. Teeth extraction. Nasal surgery. Colostomy with reversal. HOME MEDICATIONS: - Tylenol 650 by mouth every 6 hours as needed for pain - clonazepam 1.5 mg by mouth daily at bedtime - Doxepin 10 mg by mouth three times daily as needed anxiety, agitation - hydroxyzine 25 mg by mouth every 8 hours as needed anxiety - Refresh plus eye solution one drop both eyes three times daily as needed eye irritation - ProAir two puffs by mouth every 4 hours as needed for shortness of breath or wheeze - Desitin one dose externally as needed rash, itching - hydrocortisone 2.5% three times daily as needed for itching - oxybutynin 15 mg by mouth daily REVIEW OF SYSTEMS: Patient was seen on Tuesday afternoon for complaint of cough, mucous production, shortness of breath, showed no acute infiltrate. Patient was started on fluticasone for postnasal drip, Mucinex, Claritin, Avelox, nebulizer. He states the mucous is less. He is having no fever or chills. Decreased cough. He has no hemoptysis. No wheezing. Otherwise ten system review is unremarkable. PHYSICAL EXAMINATION: 81-year-old cooperative male in no acute distress. Height 69 inches, weight 82.7 kg. BMI 26.9. The patient is alert and oriented. Pupils equal and reactive to light. Extraocular movements intact. Pharynx, tongue and gums pink and moist. Tongue is midline. Neck is supple, without lymphadenopathy. No thyromegaly. No goiter. Chest clear to auscultation, without wheeze or retraction. Heart is regular with grade 2/6 murmur. Abdomen benign. Bowel sounds positive. Genitourinary ()/Rectal: Not done. Extremities show no cyanosis, clubbing. Trace pitting edema bilateral pedal and ankle. Peripheral pulses equal and palpable bilaterally. Skin is warm and dry. Cranial nerves III-XII grossly intact. Patient ambulating with a cane. IMPRESSION AND PLAN: Sinusitis, rhinitis, upper respiratory infection (URI) with slow improvement. Continue medications and nebs as ordered by Dr. Garvey. Chronic back pain, walks with cane. Tylenol as needed for pain and discomfort. Hypertension, stable. Heartburn, continue Mylanta. No current complaints. Psychiatric: Plan per psychiatry. Followup with Dr. Cason for urological. He has scheduled 03/02/2017. If he is here, we will need to have that rescheduled.
--- NOTE | 2017-02-28 16:17 | MHIPNPDOC ---
[facility] Progress Note Progress Note DATE OF SERVICE: 02/28/17 HISTORY: 81 year old male with history of Panic Disorder and untreated and undiagnosed Bipolar Disorder VITAL SIGNS: See below. NEW TEST RESULTS: 02/28/17 07:06: Immature Granulocyte % (Auto) 0.3H, White Blood Count 12.5H, Red Blood Count 3.38L, Hemoglobin 8.9L, Hematocrit 28.3L, Mean Corpuscular Volume 83.7, Mean Corpuscular Hemoglobin 26.3L, Mean Corpuscular Hemoglobin Concent 31.4L, Red Cell Distribution Width 17.6H, Platelet Count 391, Neutrophils (%) (Auto) 65.7, Lymphocytes (%) (Auto) 12.1L, Monocytes (%) (Auto) 16.7H, Eosinophils (%) (Auto ) 4.6H, Basophils (%) (Auto) 0.6, Neutrophils # (Auto) 8.2H, Lymphocytes # (Auto ) 1.5, Monocytes # (Auto) 2.1H, Eosinophils # (Auto) 0.6H, Basophils # (Auto) 0.1, Immature Granulocyte # (Auto) 0.0, Nucleated Red Blood Cells % (auto) 0.0, Anion Gap 5L, Glomerular Filtration Rate > 60.0, Blood Urea Nitrogen 17, Creatinine 0.82, Sodium Level 142, Potassium Level 3.6, Chloride Level 107, Carbon Dioxide Level 30, Calcium Level 8.8, Magnesium Level 1.9, C-Reactive Protein, Quantitative 3.36H CURRENT MEDICATIONS: See below. MENTAL STATUS EXAMINATION: Patient is a 81-year old male, who is alert, sleepy, tired, with fair eye contact, dressed in hospital clothes Speech: continues to be pressured Language skills are Fair. Thought processes including: circumstantial Thought content: Anxious thoughts about medical problems Abstract reasoning, and computation: Not assessed at this time. Description of associations: loose Description of abnormal or psychotic thoughts: Grandiose delusions, denies SI/HI , denies A/V cherry.. Judgment: Poor. Insight: Poor. Orientation: Oriented to place and person. Recent and remote memory: Fair Attention span and concentration: Slightly less distractible. Language: Unable to assess at this time. Fund of knowledge: Fair. Mood: anxious. Affect: Less irritable DIAGNOSES: 1. Unspecified bipolar disorder 2. Panic Disorder ASSESSMENT: Patient is tired and states he is not feeling well. he complained of back pain and Alyssa SCHWARTZ allowed him to have his brace. A PT consult was placed and apparently the patient doesn't need a walker. Patient has been taking Zyprexa and has been taking his Klonopin. Hopefull, with Zyprexa he will be stabilized. Will f/u MANAGEMENT PLAN: Will continue with the same treatment plan TIME SPENT: 20 minutes. Vital Signs Vital Signs Date Time Temp Pulse Resp B/P (MAP) Pulse Ox O2 Delivery O2 Flow Rate FiO2 02/28/17 09:52 Room Air 02/28/17 09:28 142/65 02/28/17 06:45 98.8 71 20 02/25/17 22:26 98 Laboratory Data 24H Labs Laboratory Tests 2 02/28/17 07:06: Immature Granulocyte % (Auto) 0.3H, White Blood Count 12.5H, Red Blood Count 3.38L, Hemoglobin 8.9L, Hematocrit 28.3L, Mean Corpuscular Volume 83.7, Mean Corpuscular Hemoglobin 26.3L, Mean Corpuscular Hemoglobin Concent 31.4L, Red Cell Distribution Width 17.6H, Platelet Count 391, Neutrophils (%) (Auto) 65.7, Lymphocytes (%) (Auto) 12.1L, Monocytes (%) (Auto) 16.7H, Eosinophils (%) (Auto ) 4.6H, Basophils (%) (Auto) 0.6, Neutrophils # (Auto) 8.2H, Lymphocytes # (Auto ) 1.5, Monocytes # (Auto) 2.1H, Eosinophils # (Auto) 0.6H, Basophils # (Auto) 0.1, Immature Granulocyte # (Auto) 0.0, Nucleated Red Blood Cells % (auto) 0.0, Anion Gap 5L, Glomerular Filtration Rate > 60.0, Blood Urea Nitrogen 17, Creatinine 0.82, Sodium Level 142, Potassium Level 3.6, Chloride Level 107, Carbon Dioxide Level 30, Calcium Level 8.8, Magnesium Level 1.9, C-Reactive Protein, Quantitative 3.36H CBC/BMP Laboratory Tests 02/28/17 07:06 Red Blood Count 3.38 L, Mean Corpuscular Volume 83.7, Mean Corpuscular Hemoglobin 26.3 L, Mean Corpuscular Hemoglobin Concent 31.4 L, Red Cell Distribution Width 17.6 H, Neutrophils (%) (Auto) 65.7, Lymphocytes (%) (Auto) 12.1 L, Monocytes (%) (Auto) 16.7 H, Eosinophils (%) (Auto) 4.6 H, Basophils (% ) (Auto) 0.6, Neutrophils # (Auto) 8.2 H, Lymphocytes # (Auto) 1.5, Monocytes # (Auto) 2.1 H, Eosinophils # (Auto) 0.6 H, Basophils # (Auto) 0.1, Calcium Level 8.8 Current Medications Current Medications Acetaminophen (Tylenol Tab) 650 mg Q6HP PRN PO HEADACHE or DISCOMFORT Last administered on 02/26/17 10:58; Start 02/25/17 at 22:30; Stop 03/27/17 at 22 :29 Al Hydrox/Mg Hydrox/Simethicone (Mylanta) 30 ml Q4HP PRN PO HEARTBURN/ INDIGESTION; Start 02/25/17 at 22:30; Stop 03/27/17 at 22:29 Albuterol Sulfate (Proventil, Ventolin Hfa) 2 puff Q4HP PRN INH SOB/WHEEZING Last administered on 02/26/17 12:45; Start 02/26/17 at 00:30; Stop 03/28/17 at 00:29 Albuterol/ Ipratropium (Duoneb (Ipr 0.5mg/Alb 2.5mg)) 3 ml Q2HP PRN NEB SOB/ WHEEZING; Start 02/26/17 at 14:30; Stop 03/28/17 at 14:29 Albuterol/ Ipratropium (Duoneb (Ipr 0.5mg/Alb 2.5mg)) 3 ml RQ6H NEB Last administered on 02/28/17 09:09; Start 02/26/17 at 20:00; Stop 03/28/17 at 19 :59 Captopril (CAPOten) 25 mg TID PO Last administered on 02/28/17 09:28; Start 02/25/17 at 23:00; Stop 03/27/17 at 22:59 Clonazepam (KlonoPIN) 0.5 mg BID PRN PO anxiety Last administered on 12:45; Start 02/26/17 at 09:00; Stop 03/05/17 at 08:59 Cod Liver Oil/ Zinc Oxide (Desitin) APPLY TO BUTTOCKS BIDP PRN EXT RASH/ ITCHING Last administered on 02/27/17 15:58; Start 02/26/17 at 00:30; Stop 03/28/17 at 00:29 Fluticasone Propionate (Flonase 0.05% Nasal [place]) 1 spray BID NA Last administered on 02/27/17 20:22; Start 02/26/17 at 21:00; Stop 03/28/17 at 20 :59 Guaifenesin (Mucinex Tab Er) 1,200 mg BID PO Last administered on 02/28/17 09 :28; Start 02/26/17 at 21:00; Stop 03/28/17 at 20:59 Home Med (Med Rec Complete!) ASDIRECTED XX ; Start 02/25/17 at 22:45; Stop at 22:45; Status DC Hydrocortisone (Hydrocortisone 2.5% Ointment) APPLY TO BUTTOCKS BIDP PRN TOP RASH/ITCHING; Start 02/26/17 at 00:30; Stop 03/28/17 at 00:29 Loratadine (Claritin) 10 mg QHS PO Last administered on 02/27/17 20:19; Start 02/26/17 at 21:00; Stop 03/28/17 at 20:59 Magnesium Hydroxide (Milk Of Magnesia) 30 ml DAILYPRN PRN PO CONSTIPATION; Start 02/25/17 at 22:30; Stop 03/27/17 at 22:29 Mirtazapine (Remeron) 15 mg QHS PRN PO insomnia Last administered on 01:06; Start 02/25/17 at 23:30; Stop 03/27/17 at 23:29 Moxifloxacin HCl (Avelox) 400 mg DAILY@06 PO Last administered on 02/28/17 06 :14; Start 02/26/17 at 16:00; Stop 03/05/17 at 15:59 Olanzapine (ZyPREXA ZYDIS) 5 mg Q6HP PRN PO ANXIETY/AGITATION; Start 02/25 at 23:30; Stop 02/26/17 at 00:30; Status DC Olanzapine (ZyPREXA ZYDIS) 5 mg Q8H PO Last administered on 02/28/17 13: 13; Start 02/26/17 at 06:00; Stop 03/27/17 at 05:59 Oxybutynin Chloride (Ditropan Xl) 15 mg DAILY PO Last administered on 09:28; Start 02/26/17 at 09:00; Stop 03/28/17 at 08:59 Trazodone HCl (Desyrel) 50 mg QHSP PRN PO INSOMNIA; Start 02/25/17 at 22:30; Stop 02/25/17 at 23:25; Status DC Allergies Coded Allergies: Penicillins (Verified Allergy, Intermediate, RASH, 09/04/14) Penicillins Cross Reactors (Verified Allergy, Intermediate, RASH, 09/04/14) Nabumetone (Verified Allergy, Unknown, 09/04/14) Cyclobenzaprine (Verified Adverse Reaction, Intermediate, 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
[2017-02-28] MEDS: ACETAMINOPHEN TAB 650MG DOSE (2X325MG) PO PRN (16:24)
--- NOTE | 2017-02-28 17:08 | REP ---
Clinical: Right lower extremity pain and swelling . Technique: Garay scale and color Doppler evaluation using linear high frequency transducer. Findings: Ultrasound examination of the right lower extremity deep venous structures from the common femoral vein to the popliteal vein demonstrates normal compressibility flow and wave patterns in response to respiration and augmentation. There is no evidence for deep venous thrombosis. Impression: No evidence for deep venous thrombosis. Signed by Marcelino Garcia MD 02/28/2017 05:00 P
[2017-02-28 18:00] VITALS: BP 135/76
[2017-02-28 18:07] VITALS: BP 102/51
[2017-02-28] MEDS: clonazePAM 0.5 MG TAB PO PRN (20:07)
[2017-02-28] MEDS: LORATADINE 10 MG TAB PO SCH (20:07)
--- NOTE | 2017-02-28 21:18 | ECGEPIP ---
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
[2017-03-01] MEDS: MOXIFLOXACIN 400 MG TAB PO SCH (05:48)
[2017-03-01] MEDS: OLANZapine ORAL DISINTEGRATING TAB 5MG PO SCH ×2 (05:48→13:28)
[2017-03-01] MEDS: ALBUTEROL 90 MCG/ACT 8GM HFA INHALER INH PRN (06:22)
[2017-03-01 06:55] VITALS: BP 151/68
[2017-03-01] MEDS: ACETAMINOPHEN TAB 650MG DOSE (2X325MG) PO PRN ×2 (07:16→16:04)
[2017-03-01] MEDS: IPRATROPIUM 0.5MG/ALBUTEROL 2.5MG INH SOL UD 3ML (DUONEB)(J7620) NEB SCH ×3 (07:20→21:18)
[2017-03-01 07:42] VITALS: BP 151/67
--- NOTE | 2017-03-01 08:14 | ECGEPIP ---
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
[2017-03-01] MEDS: FLUTICASONE PROP 0.05% NASAL SPRAY 16 GM (FLONASE) SCH ×2 (09:39→20:32)
[2017-03-01] MEDS: guaiFENesin ER 600 MG TAB PO SCH ×2 (09:39→20:32)
[2017-03-01] MEDS: oxyBUTYnin *DITROPAN XL* 5 MG TABCR PO SCH (09:40)
[2017-03-01 10:29] LABS: MEAN CORPUSCULAR HEMOGLOBIN 25.9 pg (27.0-33.0); MEAN CORPUSCULAR HGB CONC 31.2 g/dl (32.0-36.5); PLATELET COUNT, AUTOMATED 405 10^3/uL (150-450); RED CELL DISTRIBUTION WIDTH 17.2 % (11.5-14.5); WHITE BLOOD COUNT 13.7 10^3/uL (4.0-10.0)
[2017-03-01] MEDS: clonazePAM 0.5 MG TAB PO SCH ×2 (17:00→20:31)
[2017-03-01 18:00] VITALS: BP 141/67
--- NOTE | 2017-03-01 18:00 | MHIPNPDOC ---
[facility] Progress Note Progress Note DATE OF SERVICE: 03/01/17 HISTORY: 81 year old male with history of Panic Disorder and untreated and undiagnosed Bipolar Disorder VITAL SIGNS: See below. NEW TEST RESULTS: Red Blood Count 3.52 L, Mean Corpuscular Volume 83.0, Mean Corpuscular Hemoglobin 25.9 L, Mean Corpuscular Hemoglobin Concent 31.2 L, Red Cell Distribution Width 17.2 H CURRENT MEDICATIONS: See below. MENTAL STATUS EXAMINATION: Patient is a 81-year old male, who is alert, wide awake, cooperative, pleasant Speech: continues to rapid and pressured but a little less Language skills are Fair. Thought processes including: circumstantial and tangential but less than before Thought content: Anxious thoughts about medical problems Abstract reasoning, and computation: Not assessed at this time. Description of associations: loose Description of abnormal or psychotic thoughts: Grandiose delusions, denies SI/HI , denies A/V cherry. Judgment: Poor. Insight: Poor. Orientation: Oriented to place and person. Recent and remote memory: Fair Attention span and concentration: Slightly less distractible. Language: Unable to assess at this time. Fund of knowledge: Fair. Mood: anxious. Affect: Less irritable DIAGNOSES: 1. Unspecified bipolar disorder 2. Panic Disorder ASSESSMENT: Preoccupied by not being to walk, he wants to use the wheelchair but he was evaluated by PT and they said he can walk on his own, he doesn't need it. He will be encouraged to walk on his own. will continue on the same medications because he is doing better with zyprexa, he has been taking it. MANAGEMENT PLAN: Will continue with the same treatment plan TIME SPENT: 20 minutes. Vital Signs Vital Signs Date Time Temp Pulse Resp B/P (MAP) Pulse Ox O2 Delivery O2 Flow Rate FiO2 03/01/17 15:33 141/67 03/01/17 09:00 Room Air 03/01/17 07:42 99.8 88 18 90 Laboratory Data 24H Labs Laboratory Tests 2 03/01/17 10:17: Nucleated Red Blood Cells % (auto) 0.0 CBC/BMP Laboratory Tests 03/01/17 10:17 Red Blood Count 3.52 L, Mean Corpuscular Volume 83.0, Mean Corpuscular Hemoglobin 25.9 L, Mean Corpuscular Hemoglobin Concent 31.2 L, Red Cell Distribution Width 17.2 H Current Medications Current Medications Acetaminophen (Tylenol Tab) 650 mg Q6HP PRN PO HEADACHE or DISCOMFORT Last administered on 03/01/17 16:04; Start 02/25/17 at 22:30; Stop 03/27/17 at 22 :29 Al Hydrox/Mg Hydrox/Simethicone (Mylanta) 30 ml Q4HP PRN PO HEARTBURN/ INDIGESTION; Start 02/25/17 at 22:30; Stop 03/27/17 at 22:29 Albuterol Sulfate (Proventil, Ventolin Hfa) 2 puff Q4HP PRN INH SOB/WHEEZING Last administered on 03/01/17 06:22; Start 02/26/17 at 00:30; Stop 03/28/17 at 00:29 Albuterol/ Ipratropium (Duoneb (Ipr 0.5mg/Alb 2.5mg)) 3 ml Q2HP PRN NEB SOB/ WHEEZING; Start 02/26/17 at 14:30; Stop 03/28/17 at 14:29 Albuterol/ Ipratropium (Duoneb (Ipr 0.5mg/Alb 2.5mg)) 3 ml RQ6H NEB Last administered on 03/01/17 14:08; Start 02/26/17 at 20:00; Stop 03/28/17 at 19 :59 Captopril (CAPOten) 25 mg TID PO Last administered on 03/01/17 15:33; Start 02/25/17 at 23:00; Stop 03/27/17 at 22:59 Clonazepam (KlonoPIN) 0.5 mg BID PRN PO anxiety Last administered on 20:07; Start 02/26/17 at 09:00; Stop 03/05/17 at 08:59 Cod Liver Oil/ Zinc Oxide (Desitin) APPLY TO BUTTOCKS BIDP PRN EXT RASH/ ITCHING Last administered on 02/27/17 15:58; Start 02/26/17 at 00:30; Stop 03/28/17 at 00:29 Fluticasone Propionate (Flonase 0.05% Nasal [place]) 1 spray BID NA Last administered on 03/01/17 09:39; Start 02/26/17 at 21:00; Stop 03/28/17 at 20 :59 Guaifenesin (Mucinex Tab Er) 1,200 mg BID PO Last administered on 03/01/17 09 :39; Start 02/26/17 at 21:00; Stop 03/28/17 at 20:59 Home Med (Med Rec Complete!) ASDIRECTED XX ; Start 02/25/17 at 22:45; Stop at 22:45; Status DC Hydrocortisone (Hydrocortisone 2.5% Ointment) APPLY TO BUTTOCKS BIDP PRN TOP RASH/ITCHING; Start 02/26/17 at 00:30; Stop 03/28/17 at 00:29 Loratadine (Claritin) 10 mg QHS PO Last administered on 02/28/17 20:07; Start 02/26/17 at 21:00; Stop 03/28/17 at 20:59 Magnesium Hydroxide (Milk Of Magnesia) 30 ml DAILYPRN PRN PO CONSTIPATION; Start 02/25/17 at 22:30; Stop 03/27/17 at 22:29 Mirtazapine (Remeron) 15 mg QHS PRN PO insomnia Last administered on 01:06; Start 02/25/17 at 23:30; Stop 03/27/17 at 23:29 Moxifloxacin HCl (Avelox) 400 mg DAILY@06 PO Last administered on 03/01/17 05 :48; Start 02/26/17 at 16:00; Stop 03/05/17 at 15:59 Olanzapine (ZyPREXA ZYDIS) 5 mg Q6HP PRN PO ANXIETY/AGITATION; Start 02/25 at 23:30; Stop 02/26/17 at 00:30; Status DC Olanzapine (ZyPREXA ZYDIS) 5 mg Q8H PO Last administered on 03/01/17 13: 28; Start 02/26/17 at 06:00; Stop 03/27/17 at 05:59 Oxybutynin Chloride (Ditropan Xl) 15 mg DAILY PO Last administered on 09:40; Start 02/26/17 at 09:00; Stop 03/28/17 at 08:59 Trazodone HCl (Desyrel) 50 mg QHSP PRN PO INSOMNIA; Start 02/25/17 at 22:30; Stop 02/25/17 at 23:25; Status DC Allergies Coded Allergies: Penicillins (Verified Allergy, Intermediate, RASH, 09/04/14) Penicillins Cross Reactors (Verified Allergy, Intermediate, RASH, 09/04/14) Nabumetone (Verified Allergy, Unknown, 09/04/14) Cyclobenzaprine (Verified Adverse Reaction, Intermediate, PERSONAL CARE AIDE SIDE EFFECTS , 09/04/14) Sulfa Drugs (Verified Adverse Reaction, Mild, N/V, 09/04/14) Sulfa Drugs Cross Reactors (Verified Adverse Reaction, Mild, N/V, 09/04/14) Sulfamethoxazole (Verified Adverse Reaction, Mild, N/V, 09/04/14) Trimethoprim (Verified Adverse Reaction, Mild, N/V, 09/04/14) ZACH PEREA MD Mar 01, 2017 18:00
[2017-03-01] MEDS: LORATADINE 10 MG TAB PO SCH (20:31)
[2017-03-01] MEDS: MIRTAZAPINE 15 MG TAB PO PRN (20:33)
[2017-03-02] MEDS: IPRATROPIUM 0.5MG/ALBUTEROL 2.5MG INH SOL UD 3ML (DUONEB)(J7620) NEB SCH ×4 (01:45→20:00)
[2017-03-02] MEDS: MOXIFLOXACIN 400 MG TAB PO SCH (06:32)
[2017-03-02 06:33] VITALS: BP 135/66
[2017-03-02] MEDS: ACETAMINOPHEN TAB 650MG DOSE (2X325MG) PO PRN ×2 (08:39→18:11)
--- NOTE | 2017-03-02 09:57 | REP ---
Duplex extremity venous ultrasound: Right lower extremity History: Pain in the right calf and swelling. Question DVT. Findings: The deep veins are anechoic and fully compressible from the groin to the popliteal fossa in the right lower extremity. Color flow imaging is homogeneous. Spectral Doppler interrogation demonstrates intact respiratory variation in flow and normal manual augmentation of flow. There is no evidence of deep vein thrombosis. Impression: Negative right lower extremity duplex venous ultrasound. No evidence of deep vein thrombosis. Signed by Gerardo Solano MD 03/02/2017 09:49 A
[2017-03-02] MEDS: clonazePAM 0.5 MG TAB PO SCH ×4 (10:28→21:00)
[2017-03-02] MEDS: FLUTICASONE PROP 0.05% NASAL SPRAY 16 GM (FLONASE) SCH ×2 (10:28→21:00)
[2017-03-02] MEDS: guaiFENesin ER 600 MG TAB PO SCH ×2 (10:28→21:00)
[2017-03-02] MEDS: oxyBUTYnin *DITROPAN XL* 5 MG TABCR PO SCH (10:28)
--- NOTE | 2017-03-02 12:09 | REP ---
RIGHT ANKLE: Four views of the right ankle are performed. There is no acute fracture or dislocation. Ankle mortise is anatomic. There appear to be linear ligamentous calcifications just distal to the malleoli. Linear tendinous calcifications are seen along the inferior and posterior calcaneus. There are mild vascular calcifications. IMPRESSION: Tendinous and ligamentous calcifications. No fracture or dislocation. Signed by Jessee Garay MD 03/02/2017 01:54 P
--- NOTE | 2017-03-02 12:10 | REP ---
RIGHT FOOT SERIES: Four views of the right foot are performed. There is no acute fracture or dislocation. There are linear tendinous calcifications along the posterior and inferior calcaneus. There is mild joint space narrowing and subchondral sclerosis at the first metatarsophalangeal joint with mild spurring as well. Mild vascular calcifications are seen in the soft tissues. IMPRESSION: Mild degenerative changes. No fracture or dislocation. Signed by Jessee Garay MD 03/02/2017 01:54 P
[2017-03-02] MEDS: OLANZapine ORAL DISINTEGRATING TAB 5MG PO SCH ×2 (15:33→20:00)
--- NOTE | 2017-03-02 18:09 | MHIPNPDOC ---
[facility] Progress Note Progress Note DATE OF SERVICE: 03/02/17 HISTORY: 81 year old male with history of Panic Disorder and untreated and undiagnosed Bipolar Disorder VITAL SIGNS: See below. NEW TEST RESULTS: RIGHT ANKLE: Four views of the right ankle are performed. There is no acute fracture or dislocation. Ankle mortise is anatomic. There appear to be linear ligamentous calcifications just distal to the malleoli. Linear tendinous calcifications are seen along the inferior and posterior calcaneus. There are mild vascular calcifications. IMPRESSION: Tendinous and ligamentous calcifications. No fracture or dislocation. 2. Duplex extremity venous ultrasound: Right lower extremity History: Pain in the right calf and swelling. Question DVT. Findings: The deep veins are anechoic and fully compressible from the groin to the popliteal fossa in the right lower extremity. Color flow imaging is homogeneous. Spectral Doppler interrogation demonstrates intact respiratory variation in flow and normal manual augmentation of flow. There is no evidence of deep vein thrombosis. Impression: Negative right lower extremity duplex venous ultrasound. No evidence of deep vein thrombosis. CURRENT MEDICATIONS: See below. MENTAL STATUS EXAMINATION: Patient is a 81-year old male, who is alert, cooperative, pleasant, talkative, good eye contact Speech: Rapid and pressured speech but less than before Language skills are good Thought processes including: circumstantial Thought content: Anxious thoughts about his foot being swollen and inflamed Abstract reasoning, and computation: Not assessed at this time. Description of associations: loose Description of abnormal or psychotic thoughts: Grandiose delusions, denies SI/HI , denies A/V cherry. Judgment: Poor. Insight: Poor. Orientation: Oriented to place and person. Recent and remote memory: Fair Attention span and concentration: Slightly less distractible. Language: Unable to assess at this time. Fund of knowledge: Fair. Mood: anxious. Affect: Less irritable DIAGNOSES: 1. Unspecified bipolar disorder 2. Panic Disorder ASSESSMENT: MANAGEMENT PLAN: Will continue with the same treatment plan TIME SPENT: 20 minutes. Vital Signs Vital Signs Date Time Temp Pulse Resp B/P (MAP) Pulse Ox O2 Delivery O2 Flow Rate FiO2 03/02/17 15:34 135/66 03/02/17 08:30 Room Air 03/02/17 06:33 102.0 86 20 03/01/17 18:00 90 Current Medications Current Medications Acetaminophen (Tylenol Tab) 650 mg Q6HP PRN PO HEADACHE or DISCOMFORT Last administered on 03/02/17 08:39; Start 02/25/17 at 22:30; Stop 03/27/17 at 22 :29 Al Hydrox/Mg Hydrox/Simethicone (Mylanta) 30 ml Q4HP PRN PO HEARTBURN/ INDIGESTION; Start 02/25/17 at 22:30; Stop 03/27/17 at 22:29 Albuterol Sulfate (Proventil, Ventolin Hfa) 2 puff Q4HP PRN INH SOB/WHEEZING Last administered on 03/01/17 06:22; Start 02/26/17 at 00:30; Stop 03/28/17 at 00:29 Albuterol/ Ipratropium (Duoneb (Ipr 0.5mg/Alb 2.5mg)) 3 ml Q2HP PRN NEB SOB/ WHEEZING; Start 02/26/17 at 14:30; Stop 03/28/17 at 14:29 Albuterol/ Ipratropium (Duoneb (Ipr 0.5mg/Alb 2.5mg)) 3 ml RQ6H NEB Last administered on 03/02/17 13:59; Start 02/26/17 at 20:00; Stop 03/28/17 at 19 :59 Captopril (CAPOten) 25 mg TID PO Last administered on 03/02/17 15:34; Start 02/25/17 at 23:00; Stop 03/27/17 at 22:59 Clonazepam (KlonoPIN) 0.5 mg BID PRN PO anxiety Last administered on 20:07; Start 02/26/17 at 09:00; Stop 03/01/17 at 18:45; Status DC Clonazepam (KlonoPIN) 0.5 mg QID PO Last administered on 03/02/17 10:28; Start 03/01/17 at 17:00; Stop 03/10/17 at 16:59 Cod Liver Oil/ Zinc Oxide (Desitin) APPLY TO BUTTOCKS BIDP PRN EXT RASH/ ITCHING Last administered on 02/27/17 15:58; Start 02/26/17 at 00:30; Stop 03/28/17 at 00:29 Fluticasone Propionate (Flonase 0.05% Nasal [place]) 1 spray BID NA Last administered on 03/02/17 10:28; Start 02/26/17 at 21:00; Stop 03/28/17 at 20 :59 Guaifenesin (Mucinex Tab Er) 1,200 mg BID PO Last administered on 03/02/17 10 :28; Start 02/26/17 at 21:00; Stop 03/28/17 at 20:59 Home Med (Med Rec Complete!) ASDIRECTED XX ; Start 02/25/17 at 22:45; Stop at 22:45; Status DC Hydrocortisone (Hydrocortisone 2.5% Ointment) APPLY TO BUTTOCKS BIDP PRN TOP RASH/ITCHING; Start 02/26/17 at 00:30; Stop 03/28/17 at 00:29 Loratadine (Claritin) 10 mg QHS PO Last administered on 03/01/17 20:31; Start 02/26/17 at 21:00; Stop 03/28/17 at 20:59 Magnesium Hydroxide (Milk Of Magnesia) 30 ml DAILYPRN PRN PO CONSTIPATION Last administered on 03/01/17 19:00; Start 02/25/17 at 22:30; Stop 03/27/17 at 22 :29 Mirtazapine (Remeron) 15 mg QHS PRN PO insomnia Last administered on 20:33; Start 02/25/17 at 23:30; Stop 03/27/17 at 23:29 Moxifloxacin HCl (Avelox) 400 mg DAILY@06 PO Last administered on 03/02/17 06 :32; Start 02/26/17 at 16:00; Stop 03/05/17 at 15:59 Olanzapine (ZyPREXA ZYDIS) 5 mg Q6H PO Last administered on 03/02/17 15: 33; Start 03/02/17 at 14:00; Stop 04/01/17 at 13:59 Olanzapine (ZyPREXA ZYDIS) 5 mg Q6HP PRN PO ANXIETY/AGITATION; Start 02/25 at 23:30; Stop 02/26/17 at 00:30; Status DC Olanzapine (ZyPREXA ZYDIS) 5 mg Q8H PO Last administered on 03/01/17 13: 28; Start 02/26/17 at 06:00; Stop 03/01/17 at 18:02; Status DC Oxybutynin Chloride (Ditropan Xl) 15 mg DAILY PO Last administered on t 10:28; Start 02/26/17 at 09:00; Stop 03/28/17 at 08:59 Trazodone HCl (Desyrel) 50 mg QHSP PRN PO INSOMNIA; Start 02/25/17 at 22:30; Stop 02/25/17 at 23:25; Status DC Allergies Coded Allergies: Penicillins (Verified Allergy, Intermediate, RASH, 09/04/14) Penicillins Cross Reactors (Verified Allergy, Intermediate, RASH, 09/04/14) Nabumetone (Verified Allergy, Unknown, 09/04/14) Cyclobenzaprine (Verified Adverse Reaction, Intermediate, CRATE ICER SIDE EFFECTS , 09/04/14) Sulfa Drugs (Verified Adverse Reaction, Mild, N/V, 09/04/14) Sulfa Drugs Cross Reactors (Verified Adverse Reaction, Mild, N/V, 09/04/14) Sulfamethoxazole (Verified Adverse Reaction, Mild, N/V, 09/04/14) Trimethoprim (Verified Adverse Reaction, Mild, N/V, 09/04/14) ZACH PEREA MD Mar 02, 2017 18:09
[2017-03-02] MEDS: LORATADINE 10 MG TAB PO SCH (21:00)
[2017-03-03] MEDS: IPRATROPIUM 0.5MG/ALBUTEROL 2.5MG INH SOL UD 3ML (DUONEB)(J7620) NEB SCH ×3 (02:00→13:52)
[2017-03-03] MEDS: ACETAMINOPHEN TAB 650MG DOSE (2X325MG) PO PRN ×3 (03:17→16:12)
[2017-03-03] MEDS: OLANZapine ORAL DISINTEGRATING TAB 5MG PO SCH ×3 (03:17→16:13)
[2017-03-03] MEDS: MOXIFLOXACIN 400 MG TAB PO SCH (06:18)
[2017-03-03 06:39] VITALS: BP 119/58
[2017-03-03 08:04] LABS: ALBUMIN 2.5 GM/DL (3.2-5.2); ALBUMIN/GLOBULIN RATIO 0.56 (1.00-1.93); ALKALINE PHOSPHATASE 66 U/L (45-117); ALT/SGPT 13 U/L (12-78); ANION GAP 8 MEQ/L (8-16); AST/SGOT 11 U/L (7-37); BILIRUBIN,DIRECT < 0.1 MG/DL (0.0-0.2); BILIRUBIN,TOTAL 0.3 MG/DL (0.2-1.0); BLOOD UREA NITROGEN 26 MG/DL (7-18); CALCIUM LEVEL 8.9 MG/DL (8.8-10.2); CARBON DIOXIDE LEVEL 26 MEQ/L (21-32); CHLORIDE LEVEL 106 MEQ/L (98-107); CREATININE FOR GFR 0.62 MG/DL (0.70-1.30); GLOMERULAR FILTRATION RATE > 60.0 (>35); GLUCOSE, FASTING 92 MG/DL (83-110); POTASSIUM SERUM 3.5 MEQ/L (3.5-5.1); SODIUM LEVEL 140 MEQ/L (136-145)
[2017-03-03] MEDS ORDERED: DOXYCYCLINE HYCLATE 100 MG TAB PO SCH (09:00)
[2017-03-03] MEDS: FLUTICASONE PROP 0.05% NASAL SPRAY 16 GM (FLONASE) SCH (09:00)
[2017-03-03 09:45] LABS: BASO # 0.1 10^3/uL (0.0-0.2); BASO % 0.4 % (0.0-1.0); EOS # 0.1 10^3/uL (0.0-0.50); EOS % 0.5 % (0.0-3.0); IMMATURE GRANULOCYTE % 0.4 % (0-0); LYMPH # 0.9 10^3/uL (1.5-4.5); LYMPH % 5.7 % (24.0-44.0); MEAN CORPUSCULAR HEMOGLOBIN 25.9 pg (27.0-33.0); MEAN CORPUSCULAR VOLUME 83.8 fl (80.0-96.0); MONO % 16.3 % (0.0-5.0); NEUTROPHILS # 11.9 10^3/uL (1.8-7.7); NEUTROPHILS % 76.7 % (36.0-66.0); PLATELET COUNT, AUTOMATED 484 10^3/uL (150-450); WHITE BLOOD COUNT 15.5 10^3/uL (4.0-10.0)
[2017-03-03 10:04] LABS: MONO # 2.5 10^3/uL (0.0-0.8); POSITIVE DIFF POS FLAG
[2017-03-03] MEDS: clonazePAM 0.5 MG TAB PO SCH ×2 (10:31→16:13)
[2017-03-03] MEDS: guaiFENesin ER 600 MG TAB PO SCH (10:33)
[2017-03-03] MEDS: oxyBUTYnin *DITROPAN XL* 5 MG TABCR PO SCH (10:33)
--- NOTE | 2017-03-03 11:50 | REP ---
Clinical: Sinusitis. Technique: Jayden Quintana, lateral views of the sinuses. Findings: Mild mucosal thickening cannot be excluded. No fluid level. Osseous structures are intact. Impression: Cannot exclude mucosal thickening to the sinuses. No fluid level. Signed by Marcelino Garcia MD 03/03/2017 11:42 A
--- NOTE | 2017-03-03 12:11 | IPNPDOC ---
Text Note Date of Service The patient was seen on 03/03/17. NOTE Subjective: Patient is an 81 year old male with a PMHx of HTN, Rectal CA, BPH, Migraine headaches, Anxiety, Bipolar disorder, Gout, Hx of recurrent UTI and Hx of C. diff infection who presented to [facility] with panic attacks and was making suicidal / homicidal threats. [facility] and hospitalist team was consulted for fever. Patient was seen and examined at the bedside. He notes that his right foot is in pain. He has been having a sore throat and cough that has been persistant for weeks as he has reported. He has been spiking fevers over the last few days. Objective: Vitals (See below) General: Lying in bed, no acute distress, comfortable, Awake and alert HEENT: NC, AT CVS: RRR, +S1S2 Lungs: Fair air entry b/l, -w/r/r Abdomen: Soft, ND, NT Extremities: Right foot with 2+ pitting edema on anterior side, +tenderness- Calf tenderness Assessment and plan: Right foot pain with swelling - possibly 2/2 tendon rupture - Was called by [facility] you for evaluation of right foot pain and swelling - No evidence of erythema was noted on physical exam - Patient has been febrile over the last 2 days - Duplex ultrasound 02/28 and 03/02: Negative for any acute DVT - Ankle and foot x-ray on 1121: Negative for acute fracture - We will get MRI of right foot to evaluate for soft tissue pathology Fever - possibly 2/2 upper respiratory tract infection, will reevaluate for other etiologies - Noted to have sore throat and cough that has been nonproductive - Physical without any adventitious lung sounds - Tmax of 101.9F noted on 03/01 - Leukocytosis and CRP noted to have increased - Will get repeat blood cultures, urine analysis and urine culture - Will get chest x-ray, Sinus x-ray, MRI foot - Discontinue moxifloxacin - Start doxycycline HTN - Continue with Captopril Rectal CA BPH Migraine headaches Anxiety / Bipolar disorder - Management by psychiatric provider Gout Bladder Dysfunction - Continue oxybutynin Chronic Lower back pain - Continue Tylenol Hx of recurrent UTI and Hx of C. diff infection VS,Fishbone, I+O VS, Fishbone, I+O Laboratory Tests 03/03/17 07:29 Calcium Level 8.9, Aspartate Amino Transf (AST/SGOT) 11, Alanine Aminotransferase (ALT/SGPT) 13, Alkaline Phosphatase 66, Total Bilirubin 0.3, Direct Bilirubin < 0.1, Total Protein 7.0, Albumin 2.5 L 03/03/17 09:36 Red Blood Count 3.70 L, Mean Corpuscular Volume 83.8, Mean Corpuscular Hemoglobin 25.9 L, Mean Corpuscular Hemoglobin Concent 31.0 L, Red Cell Distribution Width 17.0 H, Neutrophils (%) (Auto) 76.7 H, Lymphocytes (%) (Auto ) 5.7 L, Monocytes (%) (Auto) 16.3 H, Eosinophils (%) (Auto) 0.5, Basophils (%) (Auto) 0.4, Neutrophils # (Auto) 11.9 H, Lymphocytes # (Auto) 0.9 L, Monocytes # (Auto) 2.5 H, Eosinophils # (Auto) 0.1, Basophils # (Auto) 0.1 Vital Signs Date Time Temp Pulse Resp B/P (MAP) Pulse Ox O2 Delivery O2 Flow Rate FiO2 03/03/17 10:33 120/72 03/03/17 06:39 99.7 76 16 Room Air 03/01/17 18:00 90 TERESA CONTRERAS MD Mar 03, 2017 12:11
--- NOTE | 2017-03-03 13:24 | REP ---
Clinical: Chest pain. Dyspnea. Technique: PA and lateral. Comparison: 02/26/2017. Findings: Bibasilar atelectasis/infiltrates and small right pleural effusion have increased from prior examination. Mediastinum and cardiac silhouette are stable. No pneumothorax. Skeletal structures intact. Impression: Increasing bibasilar atelectasis/infiltrates and small right pleural effusion. Signed by Marcelino Garcia MD 03/03/2017 01:15 P
[2017-03-03 16:13] VITALS: BP 120/72
[2017-03-03 16:16] VITALS: BP 131/60
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
--- NOTE | 2017-03-06 08:17 | REP ---
Clinical: Pain and swelling with inability to bear weight. Technique: Axial and sagittal STIR, axial and coronal T1, and coronal T2 sequences without contrast. Findings: Moderate soft tissue and subcutaneous swelling and edema/infiltration primarily over the mid and forefoot is appreciated without obvious drainable collection or suspected abscess. There is a moderate effusion to the ankle and predominantly along the posterior tibia in relation to the flexor analysis longus tendon possibly reflecting a synovitis. The visualized Achilles tendon appears intact and normal. The remainder of the visualized musculotendinous structures through the foot appear intact and without evidence for rupture. The osseous structures demonstrate mild arthritic changes involving the first metatarsophalangeal and interphalangeal joint as well as involving the tarsal and tarsometatarsal joints including small areas of subchondral edema and small periarticular cystic changes as well as marginal spurring. There is no evidence for acute fracture. Impression: 1. Swelling, edema and infiltration of the soft tissues suggest the possibility of cellulitis. 2. Small to moderate effusion at the ankle closely approximating the flexor hallicis longus tendon suggesting the possibility of synovitis. 3. Mild/early moderate arthritic changes. Signed by Marcelino Garcia MD 03/06/2017 08:09 A
== END 2017-03-03 18:14 | disposition short-term general hospital (02) | DRG 885 ==
LOC: EDBD 16:06 → M ED 16:06 → M ED INP 22:00 → M PSY 22:37
PROVIDERS: ADMIT Psychiatry & Neurology Psychiatry; ATTEND Psychiatry & Neurology Psychiatry
DX: F31.9 Bipolar disorder, unspecified (principal); J18.9 Pneumonia, unspecified organism; R45.851 Suicidal ideations; F41.0 Panic disorder [episodic paroxysmal anxiety]; R45.850 Homicidal ideations; Z79.899 Other long term (current) drug therapy; Z88.0 Allergy status to penicillin; Z88.2 Allergy status to sulfonamides; Z88.8 Allergy status to other drugs, medicaments and biological substances; I10 Essential (primary) hypertension; M10.9 Gout, unspecified; K59.00 Constipation, unspecified; G43.909 Migraine, unspecified, not intractable, without status migrainosus; M19.90 Unspecified osteoarthritis, unspecified site; N40.0 Benign prostatic hyperplasia without lower urinary tract symptoms; Z85.048 Personal history of other malignant neoplasm of rectum, rectosigmoid junction, and anus; F17.210 Nicotine dependence, cigarettes, uncomplicated; Z68.26 Body mass index [BMI] 26.0-26.9, adult; M54.5 Low back pain

== ENCOUNTER 2017-03-03 18:25 | Inpatient (IN) | payer MEDICARE, MEDICAID ==
[~2017-03-03 18:25] MED LIST changes: +ALBUTEROL 90 MCG/ACT 8GM HFA INHALER INH; -APAP325T4 PO; -AZELASTINE; -BENA25CA PO; -BENT10CA PO; -CALC05CR TOP; -CEPH500C PO; -CIPR-250 PO; -CIPR500T3 PO; -CLON1TAB PO; -DEPA250C PO; -DESITIN EXT; +DIAPER RELIEF PASTE (DESITIN) 60GM TOP; -DULC5TAB PO; -GABA100C PO; -GABA300C2 PO; -HALO5OI TOP; -HYDR-3363 PO; -HYDR25OIN TOP; +HYDROCORTISONE 2.5% 20GM OINTMENT TOP; -IMOD2CHW PO; +IPRATROPIUM 0.5MG/ALBUTEROL 2.5MG INH SOL UD 3ML (DUONEB)(J7620) NEB; -KLON1TAB PO; -MACR100C3 PO; -MACR100C43 PO; -MAG400TA PO; -META28.35 PO; -MICR10CA PO; +MOM 30ML SUSPENSION UDC PO; -NAPR500T2 PO; -NIFE15CA PO; -OXYB10TA PO; -OXYB15TA PO; -PERC5TAB12 PO; -PERCOCET PO; -PRED20TA PO; -PRIN10TA PO; -PROAAER10 INH; -REFR0.1D OU; -REST0.05 OU; -TOPA50TA PO; -TRIA0.5O TOP; -VANC50VL PO; -VERA24TASA PO; -VITA100072 PO; -VITA100072 SC; -ZANA4CAP PO; -ZINC60OI TOP; -[UNRECOGNIZED DRUG - OTHER] PO
[2017-03-03 19:11] LABS: URIC ACID 4.7 MG/DL (3.5-7.2)
[2017-03-03 19:15] LABS: LACTIC ACID SEPSIS PROTOCOL 1.8 MMOL/L (0.4-2.0)
[2017-03-03] MEDS: FLUTICASONE PROP 0.05% NASAL SPRAY 16 GM (FLONASE) (20:15)
[2017-03-03] MEDS: LACTOBACILLUS ACIDOPHILUS CAP (BACID) PO (20:16)
[2017-03-03] MEDS: OLANZapine ORAL DISINTEGRATING TAB 5MG PO (20:16)
[2017-03-03] MEDS: clonazePAM 0.5 MG TAB PO (20:16)
[2017-03-03] MEDS: guaiFENesin ER 600 MG TAB PO (20:16)
[2017-03-03] MEDS: MIRTAZAPINE 15 MG TAB PO (20:17)
[2017-03-03] MEDS: LORATADINE 10 MG TAB PO (20:17)
[2017-03-03] MEDS: NS 1,000 ML IV (20:17)
[2017-03-03] MEDS: MEROPENEM INJ 500 MG in APPROPRIATE DILUENT 1 EA IV (20:18)
[2017-03-03] MEDS: VANCOMYCIN HCL 1,000 MG, VIAL MATE ADAPTER 1 EACH in D5W 250 ML IV (21:01)
[2017-03-03] MEDS: ACETAMINOPHEN TAB 650MG DOSE (2X325MG) PO (22:01)
[2017-03-03] MEDS: IPRATROPIUM 0.5MG/ALBUTEROL 2.5MG INH SOL UD 3ML (DUONEB)(J7620) NEB (22:42)
[2017-03-04] MEDS: diphenhydrAMINE 25 MG CAP PO (00:49)
[2017-03-04] MEDS: OLANZapine ORAL DISINTEGRATING TAB 5MG PO ×4 (00:54→19:57)
[2017-03-04] MEDS: IPRATROPIUM 0.5MG/ALBUTEROL 2.5MG INH SOL UD 3ML (DUONEB)(J7620) NEB ×4 (02:00→21:41)
[2017-03-04] MEDS: ACETAMINOPHEN TAB 650MG DOSE (2X325MG) PO ×3 (02:27→20:41)
[2017-03-04] MEDS: MEROPENEM INJ 500 MG in APPROPRIATE DILUENT 1 EA IV ×3 (04:13→19:57)
[2017-03-04 06:40] LABS: BASO % 0.3 % (0.0-1.0); EOS # 0.2 10^3/uL (0.0-0.50); EOS % 1.1 % (0.0-3.0); HEMATOCRIT 24.4 % (42.0-52.0); HEMOGLOBIN 7.8 g/dl (14.0-18.0); IMMATURE GRANULOCYTE # 0.1 10^3/uL (0-0); IMMATURE GRANULOCYTE % 0.4 % (0-0); LYMPH # 0.9 10^3/uL (1.5-4.5); LYMPH % 6.5 % (24.0-44.0); MEAN CORPUSCULAR HEMOGLOBIN 26.2 pg (27.0-33.0); MEAN CORPUSCULAR VOLUME 81.9 fl (80.0-96.0); MONO # 2.2 10^3/uL (0.0-0.8); MONO % 16.7 % (0.0-5.0); PLATELET COUNT, AUTOMATED 389 10^3/uL (150-450); POSITIVE DIFF POS FLAG; RED BLOOD COUNT 2.98 10^6/uL (4.30-6.10); RED CELL DISTRIBUTION WIDTH 17.2 % (11.5-14.5); WHITE BLOOD COUNT 13.4 10^3/uL (4.0-10.0)
[2017-03-04 06:54] LABS: ANION GAP 7 MEQ/L (8-16); BLOOD UREA NITROGEN 24 MG/DL (7-18); CALCIUM LEVEL 8.4 MG/DL (8.8-10.2); CARBON DIOXIDE LEVEL 27 MEQ/L (21-32); CHLORIDE LEVEL 105 MEQ/L (98-107); GLOMERULAR FILTRATION RATE > 60.0 (>35); GLUCOSE, FASTING 109 MG/DL (83-110); POTASSIUM SERUM 3.2 MEQ/L (3.5-5.1); SODIUM LEVEL 139 MEQ/L (136-145)
[2017-03-04] MEDS: POTASSIUM CHLORIDE 10 MEQ SR TABLET PO (08:15)
[2017-03-04] MEDS: guaiFENesin ER 600 MG TAB PO ×2 (08:15→20:41)
[2017-03-04] MEDS: FLUTICASONE PROP 0.05% NASAL SPRAY 16 GM (FLONASE) ×2 (08:15→20:59)
[2017-03-04] MEDS: oxyBUTYnin *DITROPAN XL* 5 MG TABCR PO (08:16)
[2017-03-04] MEDS: LACTOBACILLUS ACIDOPHILUS CAP (BACID) PO ×2 (08:16→20:41)
[2017-03-04] MEDS: clonazePAM 0.5 MG TAB PO ×4 (08:16→20:40)
[2017-03-04] MEDS: ENOXAPARIN 40 MG/0.4 ML SYRINGE (J1650) SC (08:16)
[2017-03-04 10:12] LABS: ABG BASE EXCESS 3.2 (-2.0-2.0); ABG HCO3 27.4 MEQ/L (22.0-26.0); ABG O2 SATURATION 94.1 % (95.0-99.0); ABG PARTIAL PRESSURE CO2 40.4 mmHg (35.0-45.0); ABG PARTIAL PRESSURE O2 68.9 mmHg (75.0-100.0); ABG STANDARD HCO3 27.3 MEQ/L (22.0-26.0); ABG TOTAL CO2 28.7 MEQ/L (23.0-31.0)
[2017-03-04 12:02] LABS: HEMATOCRIT 27.5 % (42.0-52.0); HEMOGLOBIN 8.6 g/dl (14.0-18.0)
[2017-03-04] MEDS: VANCOMYCIN HCL 1,000 MG, VIAL MATE ADAPTER 1 EACH in D5W 250 ML IV ×2 (13:21→21:18)
[2017-03-04] MEDS: LORATADINE 10 MG TAB PO (20:40)
[2017-03-04] MEDS: MIRTAZAPINE 15 MG TAB PO (20:40)
[2017-03-05] MEDS: OLANZapine ORAL DISINTEGRATING TAB 5MG PO ×4 (01:59→20:37)
[2017-03-05] MEDS: IPRATROPIUM 0.5MG/ALBUTEROL 2.5MG INH SOL UD 3ML (DUONEB)(J7620) NEB ×4 (02:00→20:13)
[2017-03-05] MEDS: MEROPENEM INJ 500 MG in APPROPRIATE DILUENT 1 EA IV ×3 (03:04→20:37)
[2017-03-05 05:53] LABS: BASO % 0.2 % (0.0-1.0); EOS # 0.1 10^3/uL (0.0-0.50); EOS % 0.4 % (0.0-3.0); HEMATOCRIT 27.3 % (42.0-52.0); HEMOGLOBIN 8.6 g/dl (14.0-18.0); IMMATURE GRANULOCYTE # 0.1 10^3/uL (0-0); IMMATURE GRANULOCYTE % 0.6 % (0-0); LYMPH % 5.9 % (24.0-44.0); MEAN CORPUSCULAR HEMOGLOBIN 25.6 pg (27.0-33.0); MEAN CORPUSCULAR HGB CONC 31.5 g/dl (32.0-36.5); MEAN CORPUSCULAR VOLUME 81.3 fl (80.0-96.0); MONO % 17.5 % (0.0-5.0); NEUTROPHILS # 12.2 10^3/uL (1.8-7.7); NEUTROPHILS % 75.4 % (36.0-66.0); PLATELET COUNT, AUTOMATED 446 10^3/uL (150-450); RED BLOOD COUNT 3.36 10^6/uL (4.30-6.10); RED CELL DISTRIBUTION WIDTH 16.9 % (11.5-14.5); WHITE BLOOD COUNT 16.2 10^3/uL (4.0-10.0)
[2017-03-05 06:13] LABS: ANION GAP 10 MEQ/L (8-16); BLOOD UREA NITROGEN 16 MG/DL (7-18); CALCIUM LEVEL 8.4 MG/DL (8.8-10.2); CARBON DIOXIDE LEVEL 25 MEQ/L (21-32); CHLORIDE LEVEL 104 MEQ/L (98-107); CREATININE FOR GFR 0.62 MG/DL (0.70-1.30); GLOMERULAR FILTRATION RATE > 60.0 (>35); GLUCOSE, FASTING 116 MG/DL (83-110); POTASSIUM SERUM 3.8 MEQ/L (3.5-5.1); SODIUM LEVEL 139 MEQ/L (136-145)
[2017-03-05 06:39] LABS: MONO # 2.8 10^3/uL (0.0-0.8); POSITIVE DIFF POS FLAG
[2017-03-05] MEDS: FLUTICASONE PROP 0.05% NASAL SPRAY 16 GM (FLONASE) ×2 (09:00→21:37)
[2017-03-05] MEDS: VANCOMYCIN HCL 1,000 MG, VIAL MATE ADAPTER 1 EACH in D5W 250 ML IV ×2 (09:00→22:14)
[2017-03-05] MEDS: LACTOBACILLUS ACIDOPHILUS CAP (BACID) PO ×2 (09:00→21:37)
[2017-03-05] MEDS: ENOXAPARIN 40 MG/0.4 ML SYRINGE (J1650) SC (09:00)
[2017-03-05] MEDS: guaiFENesin ER 600 MG TAB PO ×2 (09:00→21:37)
[2017-03-05] MEDS: oxyBUTYnin *DITROPAN XL* 5 MG TABCR PO (09:01)
[2017-03-05] MEDS: clonazePAM 0.5 MG TAB PO ×4 (09:03→21:37)
[2017-03-05] MEDS: ACETAMINOPHEN TAB 650MG DOSE (2X325MG) PO (13:13)
[2017-03-05] MEDS: MIRTAZAPINE 15 MG TAB PO (20:37)
[2017-03-05] MEDS: diphenhydrAMINE 25 MG CAP PO (21:37)
[2017-03-06] MEDS: OLANZapine ORAL DISINTEGRATING TAB 5MG PO ×4 (01:19→20:51)
[2017-03-06] MEDS: MEROPENEM INJ 500 MG in APPROPRIATE DILUENT 1 EA IV ×3 (03:27→20:51)
[2017-03-06] MEDS: VANCOMYCIN HCL 1,000 MG, VIAL MATE ADAPTER 1 EACH in D5W 250 ML IV ×3 (05:01→21:34)
[2017-03-06 07:01] LABS: HEMATOCRIT 25.4 % (42.0-52.0); HEMOGLOBIN 8.1 g/dl (14.0-18.0); MEAN CORPUSCULAR HEMOGLOBIN 25.9 pg (27.0-33.0); MEAN CORPUSCULAR HGB CONC 31.9 g/dl (32.0-36.5); MEAN CORPUSCULAR VOLUME 81.2 fl (80.0-96.0); PLATELET COUNT, AUTOMATED 418 10^3/uL (150-450); RED BLOOD COUNT 3.13 10^6/uL (4.30-6.10); WHITE BLOOD COUNT 17.3 10^3/uL (4.0-10.0)
[2017-03-06 07:22] LABS: ANION GAP 8 MEQ/L (8-16); BLOOD UREA NITROGEN 22 MG/DL (7-18); CARBON DIOXIDE LEVEL 27 MEQ/L (21-32); CHLORIDE LEVEL 104 MEQ/L (98-107); CREATININE FOR GFR 0.62 MG/DL (0.70-1.30); GLOMERULAR FILTRATION RATE > 60.0 (>35); GLUCOSE, FASTING 123 MG/DL (83-110); POTASSIUM SERUM 3.4 MEQ/L (3.5-5.1); SODIUM LEVEL 139 MEQ/L (136-145)
[2017-03-06 07:35] LABS: ADD MANUAL DIFFER YES; DIFF SLIDE NUMBER 35; POSITIVE DIFF POS FLAG
[2017-03-06 07:37] LABS: BASOPHILS 1 % (0-4); LYMPHOCYTES 3 % (16-52); MONOCYTES 13 % (0-8); NEUTROPHILS 83 % (35-75); PLATELET ESTIMATE INCREASED (NORMAL)
[2017-03-06 07:38] LABS: ANISOCYTOSIS 1+
[2017-03-06] MEDS ORDERED: ISOVUE-370 76% 100ML VIAL (Q9967) As Ordered (08:04)
[2017-03-06] MEDS: IPRATROPIUM 0.5MG/ALBUTEROL 2.5MG INH SOL UD 3ML (DUONEB)(J7620) NEB ×4 (08:08→19:42)
[2017-03-06 08:12] LABS: LACTIC ACID SEPSIS PROTOCOL 0.8 MMOL/L (0.4-2.0)
[2017-03-06] MEDS: ENOXAPARIN 40 MG/0.4 ML SYRINGE (J1650) SC (09:00)
[2017-03-06] MEDS: clonazePAM 0.5 MG TAB PO ×4 (10:12→20:51)
[2017-03-06] MEDS: LACTOBACILLUS ACIDOPHILUS CAP (BACID) PO ×2 (10:14→20:51)
[2017-03-06] MEDS: oxyBUTYnin *DITROPAN XL* 5 MG TABCR PO (10:14)
[2017-03-06] MEDS: POTASSIUM CHLORIDE 10 MEQ SR TABLET PO (10:15)
[2017-03-06] MEDS: guaiFENesin ER 600 MG TAB PO ×2 (10:18→20:50)
[2017-03-06] MEDS: FLUTICASONE PROP 0.05% NASAL SPRAY 16 GM (FLONASE) ×2 (10:18→21:00)
[2017-03-06] MEDS: NS 1,000 ML IV ×2 (11:42→17:30)
[2017-03-06 12:50] LABS: VANCOMYCIN LEVEL TROUGH 13.5 UG/ML (10.0-20.0)
[2017-03-06] MEDS: ACETAMINOPHEN 325 MG TAB PO (17:30)
[2017-03-06] MEDS: ACETAMINOPHEN TAB 650MG DOSE (2X325MG) PO (20:50)
[2017-03-06] MEDS: MIRTAZAPINE 15 MG TAB PO (20:51)
[2017-03-07] MEDS: IPRATROPIUM 0.5MG/ALBUTEROL 2.5MG INH SOL UD 3ML (DUONEB)(J7620) NEB ×4 (00:17→19:59)
[2017-03-07] MEDS: OLANZapine ORAL DISINTEGRATING TAB 5MG PO ×4 (01:22→20:57)
[2017-03-07] MEDS: MEROPENEM INJ 500 MG in APPROPRIATE DILUENT 1 EA IV ×3 (03:37→20:00)
[2017-03-07] MEDS: VANCOMYCIN HCL 1,000 MG, VIAL MATE ADAPTER 1 EACH in D5W 250 ML IV ×3 (04:12→22:09)
[2017-03-07] MEDS: MORPHINE 2 MG/ML 1ML SYRINGE IV ×2 (06:27→22:57)
[2017-03-07 07:07] LABS: BASO % 0.2 % (0.0-1.0); EOS # 0.2 10^3/uL (0.0-0.50); EOS % 0.9 % (0.0-3.0); HEMATOCRIT 24.6 % (42.0-52.0); HEMOGLOBIN 7.9 g/dl (14.0-18.0); IMMATURE GRANULOCYTE # 0.1 10^3/uL (0-0); IMMATURE GRANULOCYTE % 0.5 % (0-0); LYMPH % 5.5 % (24.0-44.0); MEAN CORPUSCULAR HGB CONC 32.1 g/dl (32.0-36.5); MEAN CORPUSCULAR VOLUME 80.9 fl (80.0-96.0); NEUTROPHILS # 14.1 10^3/uL (1.8-7.7); NEUTROPHILS % 80.9 % (36.0-66.0); PLATELET COUNT, AUTOMATED 436 10^3/uL (150-450); RED BLOOD COUNT 3.04 10^6/uL (4.30-6.10); RED CELL DISTRIBUTION WIDTH 17.2 % (11.5-14.5); WHITE BLOOD COUNT 17.4 10^3/uL (4.0-10.0)
[2017-03-07 07:11] LABS: MONO # 2.1 10^3/uL (0.0-0.8); POSITIVE DIFF POS FLAG
[2017-03-07 07:27] LABS: ANION GAP 9 MEQ/L (8-16); BLOOD UREA NITROGEN 30 MG/DL (7-18); CALCIUM LEVEL 8.4 MG/DL (8.8-10.2); CARBON DIOXIDE LEVEL 27 MEQ/L (21-32); CHLORIDE LEVEL 104 MEQ/L (98-107); CREATININE FOR GFR 0.71 MG/DL (0.70-1.30); GLOMERULAR FILTRATION RATE > 60.0 (>35); GLUCOSE, FASTING 116 MG/DL (83-110); MAGNESIUM LEVEL 2.4 MG/DL (1.8-2.4); POTASSIUM SERUM 3.9 MEQ/L (3.5-5.1); SODIUM LEVEL 140 MEQ/L (136-145)
[2017-03-07] MEDS: ENOXAPARIN 40 MG/0.4 ML SYRINGE (J1650) SC (08:18)
[2017-03-07] MEDS: guaiFENesin ER 600 MG TAB PO (08:19)
[2017-03-07] MEDS: FLUTICASONE PROP 0.05% NASAL SPRAY 16 GM (FLONASE) ×2 (08:19→22:10)
[2017-03-07] MEDS: oxyBUTYnin *DITROPAN XL* 5 MG TABCR PO (08:19)
[2017-03-07] MEDS: ACETAMINOPHEN TAB 650MG DOSE (2X325MG) PO ×3 (08:21→20:56)
[2017-03-07] MEDS: LACTOBACILLUS ACIDOPHILUS CAP (BACID) PO ×2 (08:23→22:09)
[2017-03-07] MEDS: clonazePAM 0.5 MG TAB PO ×4 (08:42→22:09)
[2017-03-07 12:03] LABS: HEMATOCRIT 23.9 % (42.0-52.0); HEMOGLOBIN 7.6 g/dl (14.0-18.0)
[2017-03-07 16:06] LABS: FERRITIN 78 NG/ML (26-388); IRON (FE) 10 UG/DL (65-175); PERCENT SATURATION 4.2 % (19.7-50.0); TOTAL IRON BINDING CAPACITY 240 UG/DL (250-450)
[2017-03-07 16:21] LABS: REASON FOR REVIEW COMPREHENSIVE REVIEW; SLIDE REVIEW Report; SOURCE PERIPHERAL SMEAR
[2017-03-07 16:53] LABS: FOLATE 13.6 NG/ML (>5.4)
[2017-03-07 19:07] LABS: URIC ACID 3.2 MG/DL (3.5-7.2)
[2017-03-07] MEDS: predniSONE 20 MG TAB PO (20:58)
[2017-03-07] MEDS ORDERED: guaiFENesin 200 MG TAB PO (21:00)
[2017-03-07] MEDS: guaiFENesin 200 MG TAB PO (22:09)
[2017-03-07] MEDS: MIRTAZAPINE 15 MG TAB PO (22:09)
[2017-03-07 23:35] LABS: IMMEDIATE SPIN CROSSMATCH 1 2
[2017-03-08] MEDS: IPRATROPIUM 0.5MG/ALBUTEROL 2.5MG INH SOL UD 3ML (DUONEB)(J7620) NEB ×4 (01:10→20:43)
[2017-03-08] MEDS: OLANZapine ORAL DISINTEGRATING TAB 5MG PO ×4 (01:43→21:26)
[2017-03-08] MEDS: guaiFENesin 200 MG TAB PO ×6 (01:43→21:26)
[2017-03-08] MEDS: ACETAMINOPHEN TAB 650MG DOSE (2X325MG) PO ×3 (01:44→17:54)
[2017-03-08] MEDS: MEROPENEM INJ 500 MG in APPROPRIATE DILUENT 1 EA IV ×3 (04:00→21:26)
[2017-03-08 04:18] LABS: VANCOMYCIN LEVEL TROUGH 16.9 UG/ML (10.0-20.0)
[2017-03-08] MEDS: NS 1,000 ML IV ×5 (05:26→21:25)
[2017-03-08] MEDS: VANCOMYCIN HCL 1,000 MG, VIAL MATE ADAPTER 1 EACH in D5W 250 ML IV ×3 (05:26→21:27)
[2017-03-08 08:13] LABS: ANION GAP 8 MEQ/L (8-16); BLOOD UREA NITROGEN 27 MG/DL (7-18); CALCIUM LEVEL 8.9 MG/DL (8.8-10.2); CARBON DIOXIDE LEVEL 27 MEQ/L (21-32); CHLORIDE LEVEL 106 MEQ/L (98-107); GLOMERULAR FILTRATION RATE > 60.0 (>35); GLUCOSE, FASTING 121 MG/DL (83-110); POTASSIUM SERUM 4.4 MEQ/L (3.5-5.1); RHEUMATOID FACTOR QUANT < 10.0 IU/ML (0-15.0); SODIUM LEVEL 141 MEQ/L (136-145)
[2017-03-08 09:53] LABS: CSF RBC < 2 10^3/uL (<2)
[2017-03-08 09:54] LABS: APPEARANCE, CSF CLEAR (CLEAR); COLOR, CSF COLORLESS (COLORLESS); CSF TUBE# CELL CNT TUBE 1; CSF WBC 3 /uL (0-10)
[2017-03-08 09:55] LABS: APPEARANCE, CSF CLEAR (CLEAR); COLOR, CSF COLORLESS (COLORLESS); CSF DIFF IF INDICATED? NO (NO); CSF RBC < 2 10^3/uL (<2); CSF TUBE# CELL CNT TUBE 4; CSF WBC 2 /uL (0-10)
[2017-03-08 10:09] LABS: BASO % 0.1 % (0.0-1.0); EOS % 0.1 % (0.0-3.0); HEMATOCRIT 28.3 % (42.0-52.0); HEMOGLOBIN 9.1 g/dl (14.0-18.0); IMMATURE GRANULOCYTE # 0.1 10^3/uL (0-0); IMMATURE GRANULOCYTE % 0.5 % (0-0); LYMPH # 0.7 10^3/uL (1.5-4.5); LYMPH % 4.9 % (24.0-44.0); MEAN CORPUSCULAR HEMOGLOBIN 26.7 pg (27.0-33.0); MEAN CORPUSCULAR HGB CONC 32.2 g/dl (32.0-36.5); MONO # 1.5 10^3/uL (0.0-0.8); MONO % 11.2 % (0.0-5.0); NEUTROPHILS # 11.3 10^3/uL (1.8-7.7); NEUTROPHILS % 83.2 % (36.0-66.0); PLATELET COUNT, AUTOMATED 450 10^3/uL (150-450); RED BLOOD COUNT 3.41 10^6/uL (4.30-6.10); WHITE BLOOD COUNT 13.6 10^3/uL (4.0-10.0)
[2017-03-08 10:12] LABS: CSF TUBE# GLU TUBE 2; CSF TUBE# TP TUBE 2; GLUCOSE CSF 85 MG/DL (40-75); TOTAL PROTEIN,CSF 37.9 MG/DL (15-45)
[2017-03-08] MEDS: clonazePAM 0.5 MG TAB PO ×4 (10:18→21:26)
[2017-03-08] MEDS: LACTOBACILLUS ACIDOPHILUS CAP (BACID) PO ×2 (10:18→21:26)
[2017-03-08] MEDS: oxyBUTYnin 5 MG TAB PO ×2 (10:18→21:26)
[2017-03-08] MEDS: predniSONE 20 MG TAB PO (10:18)
[2017-03-08] MEDS: FLUTICASONE PROP 0.05% NASAL SPRAY 16 GM (FLONASE) ×2 (10:19→21:27)
[2017-03-08 10:36] LABS: ERYTHROCYTE SEDIMENTATION RATE 128 mm/hr (0-20)
[2017-03-08] MEDS: MIRTAZAPINE 15 MG TAB PO (21:26)
[2017-03-08] MEDS: MORPHINE 2 MG/ML 1ML SYRINGE IV (23:53)
[2017-03-09] MEDS: guaiFENesin 200 MG TAB PO ×4 (01:00→13:06)
[2017-03-09] MEDS: OLANZapine ORAL DISINTEGRATING TAB 5MG PO ×4 (01:46→20:42)
[2017-03-09] MEDS: IPRATROPIUM 0.5MG/ALBUTEROL 2.5MG INH SOL UD 3ML (DUONEB)(J7620) NEB ×4 (02:00→19:58)
[2017-03-09] MEDS: MEROPENEM INJ 500 MG in APPROPRIATE DILUENT 1 EA IV ×2 (04:57→13:06)
[2017-03-09] MEDS: VANCOMYCIN HCL 1,000 MG, VIAL MATE ADAPTER 1 EACH in D5W 250 ML IV ×2 (04:57→15:29)
[2017-03-09] MEDS: MORPHINE 2 MG/ML 1ML SYRINGE IV (06:17)
[2017-03-09 07:11] LABS: ANION GAP 7 MEQ/L (8-16); BLOOD UREA NITROGEN 21 MG/DL (7-18); CALCIUM LEVEL 8.7 MG/DL (8.8-10.2); CARBON DIOXIDE LEVEL 28 MEQ/L (21-32); CHLORIDE LEVEL 106 MEQ/L (98-107); CREATININE FOR GFR 0.52 MG/DL (0.70-1.30); GLOMERULAR FILTRATION RATE > 60.0 (>35); GLUCOSE, FASTING 95 MG/DL (83-110); POTASSIUM SERUM 3.8 MEQ/L (3.5-5.1); SODIUM LEVEL 141 MEQ/L (136-145)
[2017-03-09 07:16] LABS: BASO % 0.1 % (0.0-1.0); EOS # 0.3 10^3/uL (0.0-0.50); EOS % 1.8 % (0.0-3.0); HEMATOCRIT 27.9 % (42.0-52.0); IMMATURE GRANULOCYTE # 0.1 10^3/uL (0-0); IMMATURE GRANULOCYTE % 0.8 % (0-0); LYMPH # 1.1 10^3/uL (1.5-4.5); LYMPH % 8.2 % (24.0-44.0); MEAN CORPUSCULAR HEMOGLOBIN 26.5 pg (27.0-33.0); MEAN CORPUSCULAR HGB CONC 32.3 g/dl (32.0-36.5); MEAN CORPUSCULAR VOLUME 82.3 fl (80.0-96.0); MONO # 1.6 10^3/uL (0.0-0.8); MONO % 11.8 % (0.0-5.0); NEUTROPHILS # 10.6 10^3/uL (1.8-7.7); NEUTROPHILS % 77.3 % (36.0-66.0); PLATELET COUNT, AUTOMATED 489 10^3/uL (150-450); RED BLOOD COUNT 3.39 10^6/uL (4.30-6.10); RED CELL DISTRIBUTION WIDTH 17.1 % (11.5-14.5); WHITE BLOOD COUNT 13.7 10^3/uL (4.0-10.0)
[2017-03-09] MEDS: ENOXAPARIN 40 MG/0.4 ML SYRINGE (J1650) SC (09:03)
[2017-03-09] MEDS: predniSONE 20 MG TAB PO (09:03)
[2017-03-09] MEDS: LACTOBACILLUS ACIDOPHILUS CAP (BACID) PO ×2 (09:04→20:41)
[2017-03-09] MEDS: clonazePAM 0.5 MG TAB PO ×4 (09:04→20:41)
[2017-03-09] MEDS: oxyBUTYnin 5 MG TAB PO ×2 (09:04→20:42)
[2017-03-09] MEDS: FLUTICASONE PROP 0.05% NASAL SPRAY 16 GM (FLONASE) ×2 (09:09→20:42)
[2017-03-09] MEDS: LIDOCAINE 1% MDV 20ML VIAL SC (09:09)
[2017-03-09 09:15] LABS: NT-PRO BNP 803 PG/ML (<450)
[2017-03-09 17:13] LABS: RETIC HEMOGLOBIN EQUIVALENT 24.9 pg (24-36); RETICULOCYTE # 27.6 10^9/L (17-77); RETICULOCYTE % 0.8 % (0.5-1.5)
[2017-03-09 17:19] LABS: ALBUMIN 1.8 GM/DL (3.2-5.2); ALBUMIN/GLOBULIN RATIO 0.38 (1.00-1.93); ALKALINE PHOSPHATASE 158 U/L (45-117); ALT/SGPT 78 U/L (12-78); AST/SGOT 73 U/L (7-37); BILIRUBIN,DIRECT 0.1 MG/DL (0.0-0.2); BILIRUBIN,TOTAL 0.3 MG/DL (0.2-1.0); TOTAL PROTEIN 6.6 GM/DL (6.4-8.2)
[2017-03-09 17:40] LABS: FERRITIN 96 NG/ML (26-388); IRON (FE) 11 UG/DL (65-175); PERCENT SATURATION 4.3 % (19.7-50.0); TOTAL IRON BINDING CAPACITY 254 UG/DL (250-450)
[2017-03-09] MEDS: ACETAMINOPHEN TAB 650MG DOSE (2X325MG) PO (17:45)
[2017-03-09] MEDS: FUROSEMIDE 40 MG/4 ML VIAL (J1940) IV (17:45)
[2017-03-09] MEDS: diphenhydrAMINE 25 MG CAP PO (20:41)
[2017-03-09] MEDS: MIRTAZAPINE 15 MG TAB PO (20:41)
[2017-03-10 00:07] LABS: ANTINUCLEAR ANTIBODIES DIRECT Negative (Negative)
[2017-03-10 00:07] LABS: CYCLIC CITRULLINATED PEPTIDE 7 units (0-19)
[2017-03-10] MEDS: IPRATROPIUM 0.5MG/ALBUTEROL 2.5MG INH SOL UD 3ML (DUONEB)(J7620) NEB ×3 (01:16→13:19)
[2017-03-10] MEDS: OLANZapine ORAL DISINTEGRATING TAB 5MG PO ×4 (01:43→22:02)
[2017-03-10] MEDS: ACETAMINOPHEN TAB 650MG DOSE (2X325MG) PO ×5 (01:43→22:02)
[2017-03-10 06:53] LABS: BASO % 0.2 % (0.0-1.0); EOS # 0.4 10^3/uL (0.0-0.50); EOS % 2.9 % (0.0-3.0); HEMATOCRIT 30.3 % (42.0-52.0); HEMOGLOBIN 9.5 g/dl (14.0-18.0); IMMATURE GRANULOCYTE # 0.2 10^3/uL (0-0); IMMATURE GRANULOCYTE % 1.4 % (0-0); LYMPH # 1.2 10^3/uL (1.5-4.5); LYMPH % 9.1 % (24.0-44.0); MEAN CORPUSCULAR HEMOGLOBIN 25.8 pg (27.0-33.0); MEAN CORPUSCULAR HGB CONC 31.4 g/dl (32.0-36.5); MEAN CORPUSCULAR VOLUME 82.3 fl (80.0-96.0); MONO # 1.7 10^3/uL (0.0-0.8); MONO % 13.1 % (0.0-5.0); NEUTROPHILS # 9.6 10^3/uL (1.8-7.7); NEUTROPHILS % 73.3 % (36.0-66.0); PLATELET COUNT, AUTOMATED 549 10^3/uL (150-450); RED BLOOD COUNT 3.68 10^6/uL (4.30-6.10); RED CELL DISTRIBUTION WIDTH 16.8 % (11.5-14.5); WHITE BLOOD COUNT 13.1 10^3/uL (4.0-10.0)
[2017-03-10 07:17] LABS: ANION GAP 6 MEQ/L (8-16); BLOOD UREA NITROGEN 18 MG/DL (7-18); C REACTIVE PROTEIN QUANTITATIV 9.77 MG/DL (0.00-0.30); CALCIUM LEVEL 8.4 MG/DL (8.8-10.2); CARBON DIOXIDE LEVEL 32 MEQ/L (21-32); CHLORIDE LEVEL 102 MEQ/L (98-107); CREATININE FOR GFR 0.55 MG/DL (0.70-1.30); GLOMERULAR FILTRATION RATE > 60.0 (>35); GLUCOSE, FASTING 94 MG/DL (83-110); POTASSIUM SERUM 4.1 MEQ/L (3.5-5.1); SODIUM LEVEL 140 MEQ/L (136-145)
[2017-03-10] MEDS: clonazePAM 0.5 MG TAB PO ×3 (08:42→17:51)
[2017-03-10] MEDS: FLUTICASONE PROP 0.05% NASAL SPRAY 16 GM (FLONASE) ×2 (08:43→22:01)
[2017-03-10] MEDS: LACTOBACILLUS ACIDOPHILUS CAP (BACID) PO ×2 (08:43→22:00)
[2017-03-10] MEDS: ENOXAPARIN 40 MG/0.4 ML SYRINGE (J1650) SC (08:43)
[2017-03-10] MEDS: predniSONE 20 MG TAB PO (08:43)
[2017-03-10] MEDS: oxyBUTYnin 5 MG TAB PO ×2 (08:43→22:02)
[2017-03-10] MEDS: FUROSEMIDE 40 MG/4 ML VIAL (J1940) IV (11:03)
[2017-03-10] MEDS ORDERED: POLYVINYL ALCOHOL OPHTH SOLN 15 ML(LIQUITEARS) OU (13:00)
[2017-03-10] MEDS: diphenhydrAMINE 25 MG CAP PO (22:01)
[2017-03-10] MEDS: MIRTAZAPINE 15 MG TAB PO (22:01)
[2017-03-11] MEDS: IPRATROPIUM 0.5MG/ALBUTEROL 2.5MG INH SOL UD 3ML (DUONEB)(J7620) NEB ×5 (00:01→19:30)
[2017-03-11] MEDS: OLANZapine ORAL DISINTEGRATING TAB 5MG PO ×4 (02:18→20:42)
[2017-03-11] MEDS: ACETAMINOPHEN TAB 650MG DOSE (2X325MG) PO ×3 (02:18→20:42)
[2017-03-11 08:25] LABS: ERYTHROCYTE SEDIMENTATION RATE 118 mm/hr (0-20)
[2017-03-11] MEDS: LACTOBACILLUS ACIDOPHILUS CAP (BACID) PO ×2 (08:39→20:42)
[2017-03-11] MEDS: predniSONE 20 MG TAB PO (08:40)
[2017-03-11] MEDS: oxyBUTYnin 5 MG TAB PO ×2 (08:40→20:41)
[2017-03-11] MEDS: ENOXAPARIN 40 MG/0.4 ML SYRINGE (J1650) SC (08:40)
[2017-03-11] MEDS: FLUTICASONE PROP 0.05% NASAL SPRAY 16 GM (FLONASE) ×2 (08:40→20:51)
[2017-03-11 12:46] LABS: HEMATOCRIT 33.8 % (42.0-52.0); HEMOGLOBIN 10.7 g/dl (14.0-18.0); MEAN CORPUSCULAR HEMOGLOBIN 26.2 pg (27.0-33.0); MEAN CORPUSCULAR HGB CONC 31.7 g/dl (32.0-36.5); MEAN CORPUSCULAR VOLUME 82.8 fl (80.0-96.0); PLATELET COUNT, AUTOMATED 696 10^3/uL (150-450); RED BLOOD COUNT 4.08 10^6/uL (4.30-6.10); RED CELL DISTRIBUTION WIDTH 17.2 % (11.5-14.5); WHITE BLOOD COUNT 13.6 10^3/uL (4.0-10.0)
[2017-03-11 13:07] LABS: ANION GAP 6 MEQ/L (8-16); BLOOD UREA NITROGEN 27 MG/DL (7-18); CALCIUM LEVEL 9.3 MG/DL (8.8-10.2); CARBON DIOXIDE LEVEL 35 MEQ/L (21-32); CHLORIDE LEVEL 99 MEQ/L (98-107); CREATININE FOR GFR 0.65 MG/DL (0.70-1.30); GLOMERULAR FILTRATION RATE > 60.0 (>35); GLUCOSE, FASTING 148 MG/DL (83-110); POTASSIUM SERUM 4.4 MEQ/L (3.5-5.1); SODIUM LEVEL 140 MEQ/L (136-145)
[2017-03-11] MEDS: clonazePAM 0.5 MG TAB PO ×3 (14:18→20:42)
[2017-03-11] MEDS: diphenhydrAMINE 25 MG CAP PO (20:42)
[2017-03-11] MEDS: MIRTAZAPINE 15 MG TAB PO (20:42)
[2017-03-12 00:09] LABS: VIT B12 UNSAT BINDING CAPACITY 1472 pg/mL (725-2045)
[2017-03-12] MEDS: IPRATROPIUM 0.5MG/ALBUTEROL 2.5MG INH SOL UD 3ML (DUONEB)(J7620) NEB ×5 (02:00→20:54)
[2017-03-12] MEDS: ACETAMINOPHEN TAB 650MG DOSE (2X325MG) PO (02:58)
[2017-03-12] MEDS: OLANZapine ORAL DISINTEGRATING TAB 5MG PO ×4 (02:58→21:28)
[2017-03-12 05:51] LABS: HEMATOCRIT 29.7 % (42.0-52.0); HEMOGLOBIN 9.3 g/dl (14.0-18.0); MEAN CORPUSCULAR HEMOGLOBIN 26.1 pg (27.0-33.0); MEAN CORPUSCULAR HGB CONC 31.3 g/dl (32.0-36.5); MEAN CORPUSCULAR VOLUME 83.4 fl (80.0-96.0); PLATELET COUNT, AUTOMATED 681 10^3/uL (150-450); RED BLOOD COUNT 3.56 10^6/uL (4.30-6.10); RED CELL DISTRIBUTION WIDTH 17.2 % (11.5-14.5); WHITE BLOOD COUNT 13.1 10^3/uL (4.0-10.0)
[2017-03-12 06:06] LABS: ANION GAP 7 MEQ/L (8-16); BLOOD UREA NITROGEN 24 MG/DL (7-18); CALCIUM LEVEL 8.9 MG/DL (8.8-10.2); CARBON DIOXIDE LEVEL 34 MEQ/L (21-32); CHLORIDE LEVEL 101 MEQ/L (98-107); CREATININE FOR GFR 0.62 MG/DL (0.70-1.30); GLOMERULAR FILTRATION RATE > 60.0 (>35); GLUCOSE, FASTING 92 MG/DL (83-110); POTASSIUM SERUM 3.8 MEQ/L (3.5-5.1); SODIUM LEVEL 142 MEQ/L (136-145)
[2017-03-12] MEDS: LACTOBACILLUS ACIDOPHILUS CAP (BACID) PO ×2 (10:20→21:29)
[2017-03-12] MEDS: predniSONE 20 MG TAB PO (10:20)
[2017-03-12] MEDS: oxyBUTYnin 5 MG TAB PO ×2 (10:21→21:00)
[2017-03-12] MEDS: clonazePAM 0.5 MG TAB PO ×2 (10:21→23:53)
[2017-03-12] MEDS: ENOXAPARIN 40 MG/0.4 ML SYRINGE (J1650) SC (10:22)
[2017-03-12] MEDS: FLUTICASONE PROP 0.05% NASAL SPRAY 16 GM (FLONASE) ×2 (10:23→21:31)
[2017-03-12] MEDS: MIRTAZAPINE 15 MG TAB PO (21:31)
[2017-03-13] MEDS: OLANZapine ORAL DISINTEGRATING TAB 5MG PO ×4 (03:00→21:23)
[2017-03-13 06:11] LABS: HEMATOCRIT 31.4 % (42.0-52.0); HEMOGLOBIN 9.9 g/dl (14.0-18.0); MEAN CORPUSCULAR HGB CONC 31.5 g/dl (32.0-36.5); MEAN CORPUSCULAR VOLUME 82.4 fl (80.0-96.0); PLATELET COUNT, AUTOMATED 761 10^3/uL (150-450); RED BLOOD COUNT 3.81 10^6/uL (4.30-6.10); RED CELL DISTRIBUTION WIDTH 17.3 % (11.5-14.5)
[2017-03-13 06:30] LABS: ANION GAP 5 MEQ/L (8-16); BLOOD UREA NITROGEN 19 MG/DL (7-18); CALCIUM LEVEL 9.2 MG/DL (8.8-10.2); CARBON DIOXIDE LEVEL 33 MEQ/L (21-32); CHLORIDE LEVEL 102 MEQ/L (98-107); CREATININE FOR GFR 0.59 MG/DL (0.70-1.30); GLOMERULAR FILTRATION RATE > 60.0 (>35); GLUCOSE, FASTING 94 MG/DL (83-110); SODIUM LEVEL 140 MEQ/L (136-145)
[2017-03-13] MEDS: IPRATROPIUM 0.5MG/ALBUTEROL 2.5MG INH SOL UD 3ML (DUONEB)(J7620) NEB ×4 (08:41→23:32)
[2017-03-13] MEDS: LACTOBACILLUS ACIDOPHILUS CAP (BACID) PO ×2 (11:15→21:23)
[2017-03-13] MEDS: clonazePAM 0.5 MG TAB PO ×4 (11:15→21:23)
[2017-03-13] MEDS: predniSONE 20 MG TAB PO (11:16)
[2017-03-13] MEDS: oxyBUTYnin 5 MG TAB PO ×2 (11:17→21:24)
[2017-03-13] MEDS: ENOXAPARIN 40 MG/0.4 ML SYRINGE (J1650) SC (11:19)
[2017-03-13] MEDS: FLUTICASONE PROP 0.05% NASAL SPRAY 16 GM (FLONASE) ×2 (11:19→21:24)
[2017-03-13] MEDS: ACETAMINOPHEN TAB 650MG DOSE (2X325MG) PO ×3 (11:20→21:23)
[2017-03-13] MEDS: MIRTAZAPINE 15 MG TAB PO (21:23)
[2017-03-14] MEDS: OLANZapine ORAL DISINTEGRATING TAB 5MG PO ×5 (02:00→21:01)
[2017-03-14] MEDS: IPRATROPIUM 0.5MG/ALBUTEROL 2.5MG INH SOL UD 3ML (DUONEB)(J7620) NEB ×3 (07:21→20:00)
[2017-03-14 07:38] LABS: HEMATOCRIT 31.9 % (42.0-52.0); HEMOGLOBIN 9.9 g/dl (14.0-18.0); MEAN CORPUSCULAR HEMOGLOBIN 26.2 pg (27.0-33.0); MEAN CORPUSCULAR VOLUME 84.4 fl (80.0-96.0); PLATELET COUNT, AUTOMATED 845 10^3/uL (150-450); RED BLOOD COUNT 3.78 10^6/uL (4.30-6.10); RED CELL DISTRIBUTION WIDTH 17.2 % (11.5-14.5)
[2017-03-14 07:53] LABS: ANION GAP 4 MEQ/L (8-16); BLOOD UREA NITROGEN 17 MG/DL (7-18); CALCIUM LEVEL 9.3 MG/DL (8.8-10.2); CARBON DIOXIDE LEVEL 34 MEQ/L (21-32); CHLORIDE LEVEL 102 MEQ/L (98-107); CREATININE FOR GFR 0.64 MG/DL (0.70-1.30); GLOMERULAR FILTRATION RATE > 60.0 (>35); GLUCOSE, FASTING 90 MG/DL (83-110); POTASSIUM SERUM 4.1 MEQ/L (3.5-5.1); SODIUM LEVEL 140 MEQ/L (136-145)
[2017-03-14] MEDS: FLUTICASONE PROP 0.05% NASAL SPRAY 16 GM (FLONASE) ×2 (09:00→21:02)
[2017-03-14] MEDS: clonazePAM 0.5 MG TAB PO ×4 (09:10→21:00)
[2017-03-14] MEDS: predniSONE 20 MG TAB PO (09:10)
[2017-03-14] MEDS: oxyBUTYnin 5 MG TAB PO ×2 (09:10→20:59)
[2017-03-14] MEDS: LACTOBACILLUS ACIDOPHILUS CAP (BACID) PO ×2 (09:11→21:00)
[2017-03-14] MEDS: ENOXAPARIN 40 MG/0.4 ML SYRINGE (J1650) SC (09:11)
[2017-03-14] MEDS: ACETAMINOPHEN TAB 650MG DOSE (2X325MG) PO ×3 (09:12→21:01)
[2017-03-14] MEDS: MOM 30ML SUSPENSION UDC PO (13:11)
[2017-03-14 15:34] LABS: C REACTIVE PROTEIN QUANTITATIV 2.31 MG/DL (0.00-0.30)
[2017-03-14] MEDS: MIRTAZAPINE 15 MG TAB PO (21:00)
[2017-03-15] MEDS: IPRATROPIUM 0.5MG/ALBUTEROL 2.5MG INH SOL UD 3ML (DUONEB)(J7620) NEB ×4 (00:01→22:55)
[2017-03-15] MEDS: ACETAMINOPHEN TAB 650MG DOSE (2X325MG) PO ×4 (01:08→21:56)
[2017-03-15] MEDS: clonazePAM 0.5 MG TAB PO ×5 (01:09→20:16)
[2017-03-15] MEDS: OLANZapine ORAL DISINTEGRATING TAB 5MG PO ×4 (01:09→20:16)
[2017-03-15] MEDS: ENOXAPARIN 40 MG/0.4 ML SYRINGE (J1650) SC (08:38)
[2017-03-15] MEDS: LACTOBACILLUS ACIDOPHILUS CAP (BACID) PO ×2 (08:40→20:16)
[2017-03-15] MEDS: predniSONE 20 MG TAB PO (08:41)
[2017-03-15] MEDS: oxyBUTYnin 5 MG TAB PO ×2 (08:41→20:16)
[2017-03-15] MEDS: FLUTICASONE PROP 0.05% NASAL SPRAY 16 GM (FLONASE) ×2 (08:42→20:17)
[2017-03-15 08:49] LABS: HEMOGLOBIN 10.5 g/dl (14.0-18.0); MEAN CORPUSCULAR HEMOGLOBIN 25.8 pg (27.0-33.0); MEAN CORPUSCULAR HGB CONC 30.9 g/dl (32.0-36.5); MEAN CORPUSCULAR VOLUME 83.5 fl (80.0-96.0); PLATELET COUNT, AUTOMATED 902 10^3/uL (150-450); RED BLOOD COUNT 4.07 10^6/uL (4.30-6.10); RED CELL DISTRIBUTION WIDTH 17.3 % (11.5-14.5); WHITE BLOOD COUNT 13.7 10^3/uL (4.0-10.0)
[2017-03-15 09:13] LABS: ANION GAP 6 MEQ/L (8-16); BLOOD UREA NITROGEN 20 MG/DL (7-18); CALCIUM LEVEL 9.2 MG/DL (8.8-10.2); CARBON DIOXIDE LEVEL 34 MEQ/L (21-32); CHLORIDE LEVEL 99 MEQ/L (98-107); CREATININE FOR GFR 0.81 MG/DL (0.70-1.30); GLOMERULAR FILTRATION RATE > 60.0 (>35); GLUCOSE, FASTING 129 MG/DL (83-110); SODIUM LEVEL 139 MEQ/L (136-145)
[2017-03-15] MEDS: MOM 30ML SUSPENSION UDC PO (14:39)
[2017-03-15] MEDS: SENOKOT S TAB PO ×2 (14:39→20:17)
[2017-03-15] MEDS: MIRTAZAPINE 15 MG TAB PO (20:16)
[2017-03-16] MEDS: IPRATROPIUM 0.5MG/ALBUTEROL 2.5MG INH SOL UD 3ML (DUONEB)(J7620) NEB ×4 (02:00→20:37)
[2017-03-16] MEDS: OLANZapine ORAL DISINTEGRATING TAB 5MG PO ×4 (03:00→20:33)
[2017-03-16 07:30] LABS: HEMATOCRIT 31.9 % (42.0-52.0); HEMOGLOBIN 9.9 g/dl (14.0-18.0); MEAN CORPUSCULAR VOLUME 83.7 fl (80.0-96.0); PLATELET COUNT, AUTOMATED 871 10^3/uL (150-450); RED BLOOD COUNT 3.81 10^6/uL (4.30-6.10); RED CELL DISTRIBUTION WIDTH 17.3 % (11.5-14.5); WHITE BLOOD COUNT 12.1 10^3/uL (4.0-10.0)
[2017-03-16 07:43] LABS: ANION GAP 4 MEQ/L (8-16); BLOOD UREA NITROGEN 23 MG/DL (7-18); CALCIUM LEVEL 9.2 MG/DL (8.8-10.2); CARBON DIOXIDE LEVEL 34 MEQ/L (21-32); CHLORIDE LEVEL 101 MEQ/L (98-107); CREATININE FOR GFR 0.74 MG/DL (0.70-1.30); GLOMERULAR FILTRATION RATE > 60.0 (>35); GLUCOSE, FASTING 86 MG/DL (83-110); POTASSIUM SERUM 4.5 MEQ/L (3.5-5.1); SODIUM LEVEL 139 MEQ/L (136-145)
[2017-03-16] MEDS: oxyBUTYnin 5 MG TAB PO ×2 (08:08→20:34)
[2017-03-16] MEDS: ENOXAPARIN 40 MG/0.4 ML SYRINGE (J1650) SC (08:08)
[2017-03-16] MEDS: ACETAMINOPHEN TAB 650MG DOSE (2X325MG) PO ×2 (08:08→20:36)
[2017-03-16] MEDS: LACTOBACILLUS ACIDOPHILUS CAP (BACID) PO ×2 (08:08→20:35)
[2017-03-16] MEDS: SENOKOT S TAB PO ×2 (08:09→20:44)
[2017-03-16] MEDS: predniSONE 20 MG TAB PO (08:09)
[2017-03-16] MEDS: clonazePAM 0.5 MG TAB PO ×4 (08:09→20:35)
[2017-03-16] MEDS: FLUTICASONE PROP 0.05% NASAL SPRAY 16 GM (FLONASE) ×2 (08:10→20:44)
[2017-03-16] MEDS: MIRTAZAPINE 15 MG TAB PO (20:35)
[2017-03-17] MEDS: IPRATROPIUM 0.5MG/ALBUTEROL 2.5MG INH SOL UD 3ML (DUONEB)(J7620) NEB ×4 (01:37→19:40)
[2017-03-17] MEDS: OLANZapine ORAL DISINTEGRATING TAB 5MG PO ×4 (03:29→20:40)
[2017-03-17 06:44] LABS: HEMATOCRIT 31.7 % (42.0-52.0); MEAN CORPUSCULAR HEMOGLOBIN 26.2 pg (27.0-33.0); MEAN CORPUSCULAR HGB CONC 31.5 g/dl (32.0-36.5); MEAN CORPUSCULAR VOLUME 83.2 fl (80.0-96.0); PLATELET COUNT, AUTOMATED 813 10^3/uL (150-450); RED BLOOD COUNT 3.81 10^6/uL (4.30-6.10); RED CELL DISTRIBUTION WIDTH 17.2 % (11.5-14.5); WHITE BLOOD COUNT 11.5 10^3/uL (4.0-10.0)
[2017-03-17 07:01] LABS: ANION GAP 8 MEQ/L (8-16); BLOOD UREA NITROGEN 25 MG/DL (7-18); CALCIUM LEVEL 8.9 MG/DL (8.8-10.2); CARBON DIOXIDE LEVEL 31 MEQ/L (21-32); CHLORIDE LEVEL 103 MEQ/L (98-107); CREATININE FOR GFR 0.94 MG/DL (0.70-1.30); GLOMERULAR FILTRATION RATE > 60.0 (>35); GLUCOSE, FASTING 93 MG/DL (83-110); POTASSIUM SERUM 4.2 MEQ/L (3.5-5.1); SODIUM LEVEL 142 MEQ/L (136-145)
[2017-03-17] MEDS: clonazePAM 0.5 MG TAB PO ×4 (08:12→20:39)
[2017-03-17] MEDS: LACTOBACILLUS ACIDOPHILUS CAP (BACID) PO ×2 (08:12→20:39)
[2017-03-17] MEDS: FLUTICASONE PROP 0.05% NASAL SPRAY 16 GM (FLONASE) ×2 (08:13→20:40)
[2017-03-17] MEDS: ENOXAPARIN 40 MG/0.4 ML SYRINGE (J1650) SC (08:13)
[2017-03-17] MEDS: oxyBUTYnin 5 MG TAB PO ×2 (08:13→20:39)
[2017-03-17] MEDS: predniSONE 20 MG TAB PO (08:13)
[2017-03-17] MEDS: SENOKOT S TAB PO ×2 (08:13→20:40)
[2017-03-17] MEDS: ACETAMINOPHEN TAB 650MG DOSE (2X325MG) PO ×3 (08:13→20:39)
[2017-03-17] MEDS ORDERED: ISOVUE-370 76% 100ML VIAL (Q9967) As Ordered (14:30)
[2017-03-17] MEDS: NORCO, ANEXSIA 5/325MG TABLET (HYDROcodone/ACETAMINOPHEN) PO (17:37)
[2017-03-17] MEDS: MIRTAZAPINE 15 MG TAB PO (20:40)
[2017-03-18] MEDS: NORCO, ANEXSIA 5/325MG TABLET (HYDROcodone/ACETAMINOPHEN) PO ×3 (01:17→19:57)
[2017-03-18] MEDS: OLANZapine ORAL DISINTEGRATING TAB 5MG PO ×4 (01:18→19:57)
[2017-03-18] MEDS: IPRATROPIUM 0.5MG/ALBUTEROL 2.5MG INH SOL UD 3ML (DUONEB)(J7620) NEB ×4 (02:00→20:29)
[2017-03-18 06:57] LABS: HEMATOCRIT 31.7 % (42.0-52.0); HEMOGLOBIN 9.8 g/dl (14.0-18.0); MEAN CORPUSCULAR HEMOGLOBIN 25.8 pg (27.0-33.0); MEAN CORPUSCULAR HGB CONC 30.9 g/dl (32.0-36.5); MEAN CORPUSCULAR VOLUME 83.4 fl (80.0-96.0); PLATELET COUNT, AUTOMATED 828 10^3/uL (150-450); RED CELL DISTRIBUTION WIDTH 17.2 % (11.5-14.5); WHITE BLOOD COUNT 11.8 10^3/uL (4.0-10.0)
[2017-03-18 07:13] LABS: ANION GAP 7 MEQ/L (8-16); BLOOD UREA NITROGEN 21 MG/DL (7-18); CALCIUM LEVEL 9.2 MG/DL (8.8-10.2); CARBON DIOXIDE LEVEL 29 MEQ/L (21-32); CHLORIDE LEVEL 104 MEQ/L (98-107); CREATININE FOR GFR 0.75 MG/DL (0.70-1.30); GLOMERULAR FILTRATION RATE > 60.0 (>35); GLUCOSE, FASTING 88 MG/DL (83-110); POTASSIUM SERUM 4.1 MEQ/L (3.5-5.1); SODIUM LEVEL 140 MEQ/L (136-145)
[2017-03-18] MEDS: ENOXAPARIN 40 MG/0.4 ML SYRINGE (J1650) SC (09:00)
[2017-03-18] MEDS: LACTOBACILLUS ACIDOPHILUS CAP (BACID) PO ×2 (09:00→19:58)
[2017-03-18] MEDS: SENOKOT S TAB PO ×2 (09:01→19:58)
[2017-03-18] MEDS: clonazePAM 0.5 MG TAB PO ×4 (09:01→20:00)
[2017-03-18] MEDS: oxyBUTYnin 5 MG TAB PO ×2 (09:01→19:59)
[2017-03-18] MEDS: predniSONE 20 MG TAB PO (09:01)
[2017-03-18] MEDS: FLUTICASONE PROP 0.05% NASAL SPRAY 16 GM (FLONASE) ×2 (09:02→20:00)
[2017-03-18 10:40] LABS: ALPHA FETOPROTEIN TUMOR QUANT 2.6 NG/ML (<8.1); CARCINOEMBRYONIC ANTIGEN 3.6 NG/ML (<2.5)
[2017-03-18] MEDS: MIRTAZAPINE 15 MG TAB PO (20:00)
[2017-03-19] MEDS: IPRATROPIUM 0.5MG/ALBUTEROL 2.5MG INH SOL UD 3ML (DUONEB)(J7620) NEB ×4 (01:15→21:09)
[2017-03-19] MEDS: OLANZapine ORAL DISINTEGRATING TAB 5MG PO ×4 (02:20→19:39)
[2017-03-19] MEDS: ACETAMINOPHEN TAB 650MG DOSE (2X325MG) PO ×2 (02:20→17:24)
[2017-03-19] MEDS: NORCO, ANEXSIA 5/325MG TABLET (HYDROcodone/ACETAMINOPHEN) PO ×2 (05:46→19:39)
[2017-03-19 06:56] LABS: HEMATOCRIT 31.9 % (42.0-52.0); HEMOGLOBIN 9.9 g/dl (14.0-18.0); MEAN CORPUSCULAR HEMOGLOBIN 25.9 pg (27.0-33.0); MEAN CORPUSCULAR VOLUME 83.5 fl (80.0-96.0); PLATELET COUNT, AUTOMATED 817 10^3/uL (150-450); RED BLOOD COUNT 3.82 10^6/uL (4.30-6.10); RED CELL DISTRIBUTION WIDTH 17.3 % (11.5-14.5); WHITE BLOOD COUNT 11.5 10^3/uL (4.0-10.0)
[2017-03-19 07:11] LABS: ANION GAP 5 MEQ/L (8-16); BLOOD UREA NITROGEN 25 MG/DL (7-18); CALCIUM LEVEL 9.2 MG/DL (8.8-10.2); CARBON DIOXIDE LEVEL 31 MEQ/L (21-32); CHLORIDE LEVEL 103 MEQ/L (98-107); CREATININE FOR GFR 0.69 MG/DL (0.70-1.30); GLOMERULAR FILTRATION RATE > 60.0 (>35); GLUCOSE, FASTING 104 MG/DL (83-110); POTASSIUM SERUM 3.9 MEQ/L (3.5-5.1); SODIUM LEVEL 139 MEQ/L (136-145)
[2017-03-19] MEDS: ENOXAPARIN 40 MG/0.4 ML SYRINGE (J1650) SC (09:00)
[2017-03-19] MEDS: LACTOBACILLUS ACIDOPHILUS CAP (BACID) PO ×2 (09:00→21:51)
[2017-03-19] MEDS: predniSONE 20 MG TAB PO (09:00)
[2017-03-19] MEDS: clonazePAM 0.5 MG TAB PO ×4 (09:00→21:52)
[2017-03-19] MEDS: FLUTICASONE PROP 0.05% NASAL SPRAY 16 GM (FLONASE) ×2 (09:00→21:53)
[2017-03-19] MEDS: SENOKOT S TAB PO ×2 (10:27→21:52)
[2017-03-19] MEDS: oxyBUTYnin 5 MG TAB PO ×2 (10:27→21:52)
[2017-03-19] MEDS: MOM 30ML SUSPENSION UDC PO (17:23)
[2017-03-19] MEDS: MIRTAZAPINE 15 MG TAB PO (21:52)
[2017-03-20] MEDS: IPRATROPIUM 0.5MG/ALBUTEROL 2.5MG INH SOL UD 3ML (DUONEB)(J7620) NEB ×3 (01:52→20:01)
[2017-03-20] MEDS: OLANZapine ORAL DISINTEGRATING TAB 5MG PO ×4 (02:00→19:57)
[2017-03-20 06:54] LABS: HEMATOCRIT 32.5 % (42.0-52.0); HEMOGLOBIN 10.2 g/dl (14.0-18.0); MEAN CORPUSCULAR HEMOGLOBIN 26.2 pg (27.0-33.0); MEAN CORPUSCULAR HGB CONC 31.4 g/dl (32.0-36.5); MEAN CORPUSCULAR VOLUME 83.5 fl (80.0-96.0); PLATELET COUNT, AUTOMATED 781 10^3/uL (150-450); RED BLOOD COUNT 3.89 10^6/uL (4.30-6.10); RED CELL DISTRIBUTION WIDTH 17.3 % (11.5-14.5); WHITE BLOOD COUNT 12.7 10^3/uL (4.0-10.0)
[2017-03-20 07:11] LABS: ANION GAP 6 MEQ/L (8-16); BLOOD UREA NITROGEN 25 MG/DL (7-18); CALCIUM LEVEL 9.4 MG/DL (8.8-10.2); CARBON DIOXIDE LEVEL 31 MEQ/L (21-32); CHLORIDE LEVEL 103 MEQ/L (98-107); CREATININE FOR GFR 0.69 MG/DL (0.70-1.30); GLOMERULAR FILTRATION RATE > 60.0 (>35); GLUCOSE, FASTING 88 MG/DL (83-110); SODIUM LEVEL 140 MEQ/L (136-145)
[2017-03-20] MEDS: ENOXAPARIN 40 MG/0.4 ML SYRINGE (J1650) SC (09:00)
[2017-03-20] MEDS: FLUTICASONE PROP 0.05% NASAL SPRAY 16 GM (FLONASE) ×2 (09:00→21:30)
[2017-03-20] MEDS: SENOKOT S TAB PO ×2 (10:50→21:28)
[2017-03-20] MEDS: clonazePAM 0.5 MG TAB PO ×4 (10:51→21:28)
[2017-03-20] MEDS: predniSONE 20 MG TAB PO (10:51)
[2017-03-20] MEDS: oxyBUTYnin 5 MG TAB PO ×2 (10:51→21:27)
[2017-03-20] MEDS: LACTOBACILLUS ACIDOPHILUS CAP (BACID) PO ×2 (10:52→21:28)
[2017-03-20] MEDS: NORCO, ANEXSIA 5/325MG TABLET (HYDROcodone/ACETAMINOPHEN) PO (19:57)
[2017-03-20] MEDS: MIRTAZAPINE 15 MG TAB PO (21:28)
[2017-03-21] MEDS: OLANZapine ORAL DISINTEGRATING TAB 5MG PO ×4 (02:00→20:22)
[2017-03-21] MEDS: IPRATROPIUM 0.5MG/ALBUTEROL 2.5MG INH SOL UD 3ML (DUONEB)(J7620) NEB ×4 (02:00→20:01)
[2017-03-21] MEDS: FLUTICASONE PROP 0.05% NASAL SPRAY 16 GM (FLONASE) ×2 (09:56→20:23)
[2017-03-21] MEDS: predniSONE 20 MG TAB PO (09:56)
[2017-03-21] MEDS: ENOXAPARIN 40 MG/0.4 ML SYRINGE (J1650) SC (09:56)
[2017-03-21] MEDS: oxyBUTYnin 5 MG TAB PO ×2 (09:57→20:23)
[2017-03-21] MEDS: LACTOBACILLUS ACIDOPHILUS CAP (BACID) PO ×2 (09:57→20:23)
[2017-03-21] MEDS: SENOKOT S TAB PO ×2 (09:58→20:23)
[2017-03-21] MEDS: clonazePAM 0.5 MG TAB PO ×4 (09:58→20:23)
[2017-03-21] MEDS: NORCO, ANEXSIA 5/325MG TABLET (HYDROcodone/ACETAMINOPHEN) PO ×2 (09:58→17:01)
[2017-03-21] MEDS: MIRTAZAPINE 15 MG TAB PO (20:23)
[2017-03-21] MEDS: ACETAMINOPHEN TAB 650MG DOSE (2X325MG) PO (21:38)
[2017-03-22] MEDS: OLANZapine ORAL DISINTEGRATING TAB 5MG PO ×4 (02:00→21:32)
[2017-03-22 06:51] LABS: HEMATOCRIT 31.1 % (42.0-52.0); HEMOGLOBIN 9.8 g/dl (14.0-18.0); MEAN CORPUSCULAR HGB CONC 31.5 g/dl (32.0-36.5); MEAN CORPUSCULAR VOLUME 82.5 fl (80.0-96.0); PLATELET COUNT, AUTOMATED 582 10^3/uL (150-450); RED BLOOD COUNT 3.77 10^6/uL (4.30-6.10); RED CELL DISTRIBUTION WIDTH 17.3 % (11.5-14.5); WHITE BLOOD COUNT 11.7 10^3/uL (4.0-10.0)
[2017-03-22 07:11] LABS: ANION GAP 8 MEQ/L (8-16); BLOOD UREA NITROGEN 34 MG/DL (7-18); CALCIUM LEVEL 8.7 MG/DL (8.8-10.2); CARBON DIOXIDE LEVEL 29 MEQ/L (21-32); CHLORIDE LEVEL 107 MEQ/L (98-107); CREATININE FOR GFR 1.07 MG/DL (0.70-1.30); GLUCOSE, FASTING 102 MG/DL (83-110); POTASSIUM SERUM 3.9 MEQ/L (3.5-5.1); SODIUM LEVEL 144 MEQ/L (136-145)
[2017-03-22 07:12] LABS: GLOMERULAR FILTRATION RATE > 60.0 (>35)
[2017-03-22] MEDS: IPRATROPIUM 0.5MG/ALBUTEROL 2.5MG INH SOL UD 3ML (DUONEB)(J7620) NEB ×3 (07:47→20:50)
[2017-03-22] MEDS: LACTOBACILLUS ACIDOPHILUS CAP (BACID) PO ×2 (08:35→21:32)
[2017-03-22] MEDS: clonazePAM 0.5 MG TAB PO ×4 (08:35→21:34)
[2017-03-22] MEDS: NORCO, ANEXSIA 5/325MG TABLET (HYDROcodone/ACETAMINOPHEN) PO (08:35)
[2017-03-22] MEDS: oxyBUTYnin 5 MG TAB PO ×2 (08:35→21:37)
[2017-03-22] MEDS: SENOKOT S TAB PO ×2 (08:35→21:34)
[2017-03-22] MEDS: ENOXAPARIN 40 MG/0.4 ML SYRINGE (J1650) SC (08:36)
[2017-03-22] MEDS: FLUTICASONE PROP 0.05% NASAL SPRAY 16 GM (FLONASE) ×2 (08:36→21:37)
[2017-03-22] MEDS: MIRTAZAPINE 15 MG TAB PO (21:34)
[2017-03-23] MEDS: IPRATROPIUM 0.5MG/ALBUTEROL 2.5MG INH SOL UD 3ML (DUONEB)(J7620) NEB ×4 (01:54→20:43)
[2017-03-23] MEDS: OLANZapine ORAL DISINTEGRATING TAB 5MG PO ×4 (02:00→21:05)
[2017-03-23] MEDS: NORCO, ANEXSIA 5/325MG TABLET (HYDROcodone/ACETAMINOPHEN) PO ×2 (05:38→21:08)
[2017-03-23] MEDS: SENOKOT S TAB PO ×2 (07:56→21:05)
[2017-03-23] MEDS: oxyBUTYnin 5 MG TAB PO ×2 (07:56→21:06)
[2017-03-23] MEDS: clonazePAM 0.5 MG TAB PO ×4 (07:56→21:05)
[2017-03-23] MEDS: LACTOBACILLUS ACIDOPHILUS CAP (BACID) PO ×2 (07:56→21:05)
[2017-03-23] MEDS: ENOXAPARIN 40 MG/0.4 ML SYRINGE (J1650) SC (07:57)
[2017-03-23] MEDS: FLUTICASONE PROP 0.05% NASAL SPRAY 16 GM (FLONASE) ×2 (07:57→21:08)
[2017-03-23] MEDS: MIRTAZAPINE 15 MG TAB PO (21:06)
[2017-03-24] MEDS: IPRATROPIUM 0.5MG/ALBUTEROL 2.5MG INH SOL UD 3ML (DUONEB)(J7620) NEB ×4 (01:51→20:00)
[2017-03-24] MEDS: OLANZapine ORAL DISINTEGRATING TAB 5MG PO ×4 (01:54→20:25)
[2017-03-24] MEDS: NORCO, ANEXSIA 5/325MG TABLET (HYDROcodone/ACETAMINOPHEN) PO ×2 (06:51→21:15)
[2017-03-24] MEDS: clonazePAM 0.5 MG TAB PO ×4 (09:27→20:25)
[2017-03-24] MEDS: LACTOBACILLUS ACIDOPHILUS CAP (BACID) PO ×2 (09:27→20:24)
[2017-03-24] MEDS: SENOKOT S TAB PO ×2 (09:27→20:25)
[2017-03-24] MEDS: oxyBUTYnin 5 MG TAB PO ×2 (09:27→20:25)
[2017-03-24] MEDS: FLUTICASONE PROP 0.05% NASAL SPRAY 16 GM (FLONASE) ×2 (09:28→20:25)
[2017-03-24] MEDS: ENOXAPARIN 40 MG/0.4 ML SYRINGE (J1650) SC (09:28)
[2017-03-24] MEDS: MIRTAZAPINE 15 MG TAB PO (20:24)
[2017-03-24] MEDS: NYSTATIN 100,000 UNITS/GM TOPICAL PWD 15 GM TOP (21:00)
[2017-03-25] MEDS: IPRATROPIUM 0.5MG/ALBUTEROL 2.5MG INH SOL UD 3ML (DUONEB)(J7620) NEB ×5 (01:16→23:55)
[2017-03-25] MEDS: OLANZapine ORAL DISINTEGRATING TAB 5MG PO ×4 (01:52→19:47)
[2017-03-25] MEDS: NORCO, ANEXSIA 5/325MG TABLET (HYDROcodone/ACETAMINOPHEN) PO (03:17)
[2017-03-25 07:13] LABS: HEMATOCRIT 31.5 % (42.0-52.0); HEMOGLOBIN 9.8 g/dl (14.0-18.0); MEAN CORPUSCULAR HEMOGLOBIN 25.9 pg (27.0-33.0); MEAN CORPUSCULAR HGB CONC 31.1 g/dl (32.0-36.5); MEAN CORPUSCULAR VOLUME 83.1 fl (80.0-96.0); PLATELET COUNT, AUTOMATED 400 10^3/uL (150-450); RED BLOOD COUNT 3.79 10^6/uL (4.30-6.10); RED CELL DISTRIBUTION WIDTH 17.2 % (11.5-14.5)
[2017-03-25 07:34] LABS: ANION GAP 8 MEQ/L (8-16); BLOOD UREA NITROGEN 44 MG/DL (7-18); CARBON DIOXIDE LEVEL 29 MEQ/L (21-32); CHLORIDE LEVEL 104 MEQ/L (98-107); CREATININE FOR GFR 1.56 MG/DL (0.70-1.30); GLOMERULAR FILTRATION RATE 45.8 (>35); GLUCOSE, FASTING 86 MG/DL (83-110); POTASSIUM SERUM 4.2 MEQ/L (3.5-5.1); SODIUM LEVEL 141 MEQ/L (136-145)
[2017-03-25] MEDS: oxyBUTYnin 5 MG TAB PO ×2 (08:28→19:49)
[2017-03-25] MEDS: clonazePAM 0.5 MG TAB PO ×4 (08:34→19:49)
[2017-03-25] MEDS: SENOKOT S TAB PO ×2 (08:35→19:48)
[2017-03-25] MEDS: LACTOBACILLUS ACIDOPHILUS CAP (BACID) PO ×2 (08:37→19:48)
[2017-03-25] MEDS: ENOXAPARIN 40 MG/0.4 ML SYRINGE (J1650) SC (08:42)
[2017-03-25] MEDS: FLUTICASONE PROP 0.05% NASAL SPRAY 16 GM (FLONASE) ×2 (08:43→19:49)
[2017-03-25] MEDS: NYSTATIN 100,000 UNITS/GM TOPICAL PWD 15 GM TOP ×2 (08:44→19:50)
[2017-03-25] MEDS: diphenhydrAMINE 25 MG CAP PO (19:47)
[2017-03-25] MEDS: amLODIPine 10 MG TAB PO (19:47)
[2017-03-25] MEDS: MIRTAZAPINE 15 MG TAB PO (19:49)
[2017-03-26] MEDS: NORCO, ANEXSIA 5/325MG TABLET (HYDROcodone/ACETAMINOPHEN) PO ×3 (00:07→13:50)
[2017-03-26] MEDS: OLANZapine ORAL DISINTEGRATING TAB 5MG PO ×4 (02:17→21:21)
[2017-03-26] MEDS: IPRATROPIUM 0.5MG/ALBUTEROL 2.5MG INH SOL UD 3ML (DUONEB)(J7620) NEB ×3 (07:54→19:48)
[2017-03-26 08:04] LABS: ANION GAP 5 MEQ/L (8-16); BLOOD UREA NITROGEN 42 MG/DL (7-18); CALCIUM LEVEL 9.2 MG/DL (8.8-10.2); CARBON DIOXIDE LEVEL 31 MEQ/L (21-32); CHLORIDE LEVEL 105 MEQ/L (98-107); CREATININE FOR GFR 1.41 MG/DL (0.70-1.30); GLOMERULAR FILTRATION RATE 51.5 (>35); GLUCOSE, FASTING 84 MG/DL (83-110); POTASSIUM SERUM 4.2 MEQ/L (3.5-5.1); SODIUM LEVEL 141 MEQ/L (136-145)
[2017-03-26] MEDS: LACTOBACILLUS ACIDOPHILUS CAP (BACID) PO ×2 (09:00→21:20)
[2017-03-26] MEDS: oxyBUTYnin 5 MG TAB PO ×2 (11:57→21:20)
[2017-03-26] MEDS: clonazePAM 0.5 MG TAB PO ×4 (11:57→21:20)
[2017-03-26] MEDS: FLUTICASONE PROP 0.05% NASAL SPRAY 16 GM (FLONASE) ×2 (11:57→21:21)
[2017-03-26] MEDS: SENOKOT S TAB PO ×2 (11:57→21:20)
[2017-03-26] MEDS: ENOXAPARIN 40 MG/0.4 ML SYRINGE (J1650) SC (11:57)
[2017-03-26] MEDS: NYSTATIN 100,000 UNITS/GM TOPICAL PWD 15 GM TOP ×2 (11:58→21:21)
[2017-03-26] MEDS: MIRTAZAPINE 15 MG TAB PO (21:20)
[2017-03-26] MEDS: amLODIPine 10 MG TAB PO (21:20)
[2017-03-26] MEDS: diphenhydrAMINE 25 MG CAP PO (21:21)
[2017-03-27] MEDS: IPRATROPIUM 0.5MG/ALBUTEROL 2.5MG INH SOL UD 3ML (DUONEB)(J7620) NEB ×4 (01:43→20:00)
[2017-03-27] MEDS: OLANZapine ORAL DISINTEGRATING TAB 5MG PO ×4 (02:04→18:32)
[2017-03-27] MEDS: NORCO, ANEXSIA 5/325MG TABLET (HYDROcodone/ACETAMINOPHEN) PO ×2 (05:09→22:15)
[2017-03-27 08:19] LABS: ANION GAP 8 MEQ/L (8-16); BLOOD UREA NITROGEN 35 MG/DL (7-18); CARBON DIOXIDE LEVEL 29 MEQ/L (21-32); CHLORIDE LEVEL 106 MEQ/L (98-107); CREATININE FOR GFR 1.52 MG/DL (0.70-1.30); GLOMERULAR FILTRATION RATE 47.2 (>35); GLUCOSE, FASTING 91 MG/DL (83-110); POTASSIUM SERUM 4.5 MEQ/L (3.5-5.1); SODIUM LEVEL 143 MEQ/L (136-145)
[2017-03-27] MEDS: SENOKOT S TAB PO ×2 (09:00→22:16)
[2017-03-27] MEDS: FLUTICASONE PROP 0.05% NASAL SPRAY 16 GM (FLONASE) ×2 (09:00→22:16)
[2017-03-27] MEDS: NYSTATIN 100,000 UNITS/GM TOPICAL PWD 15 GM TOP ×2 (09:00→22:16)
[2017-03-27] MEDS: LACTOBACILLUS ACIDOPHILUS CAP (BACID) PO ×2 (09:00→22:14)
[2017-03-27] MEDS: ENOXAPARIN 40 MG/0.4 ML SYRINGE (J1650) SC (09:00)
[2017-03-27] MEDS: oxyBUTYnin 5 MG TAB PO ×2 (09:00→22:14)
[2017-03-27] MEDS: clonazePAM 0.5 MG TAB PO ×4 (09:00→22:16)
[2017-03-27] MEDS: amLODIPine 10 MG TAB PO (22:15)
[2017-03-27] MEDS: MIRTAZAPINE 15 MG TAB PO (22:16)
[2017-03-28] MEDS: IPRATROPIUM 0.5MG/ALBUTEROL 2.5MG INH SOL UD 3ML (DUONEB)(J7620) NEB ×4 (02:00→20:01)
[2017-03-28] MEDS: OLANZapine ORAL DISINTEGRATING TAB 5MG PO ×4 (02:00→21:50)
[2017-03-28 07:09] LABS: HEMATOCRIT 30.3 % (42.0-52.0); HEMOGLOBIN 9.6 g/dl (14.0-18.0); MEAN CORPUSCULAR HEMOGLOBIN 26.3 pg (27.0-33.0); MEAN CORPUSCULAR HGB CONC 31.7 g/dl (32.0-36.5); PLATELET COUNT, AUTOMATED 229 10^3/uL (150-450); RED BLOOD COUNT 3.65 10^6/uL (4.30-6.10); RED CELL DISTRIBUTION WIDTH 16.8 % (11.5-14.5); WHITE BLOOD COUNT 7.5 10^3/uL (4.0-10.0)
[2017-03-28 07:28] LABS: ANION GAP 8 MEQ/L (8-16); BLOOD UREA NITROGEN 32 MG/DL (7-18); CALCIUM LEVEL 9.4 MG/DL (8.8-10.2); CARBON DIOXIDE LEVEL 29 MEQ/L (21-32); CHLORIDE LEVEL 107 MEQ/L (98-107); CREATININE FOR GFR 1.43 MG/DL (0.70-1.30); GLOMERULAR FILTRATION RATE 50.7 (>35); GLUCOSE, FASTING 84 MG/DL (83-110); SODIUM LEVEL 144 MEQ/L (136-145)
[2017-03-28] MEDS: SENOKOT S TAB PO ×2 (09:12→21:51)
[2017-03-28] MEDS: oxyBUTYnin 5 MG TAB PO ×2 (09:12→21:50)
[2017-03-28] MEDS: clonazePAM 0.5 MG TAB PO ×4 (09:12→21:51)
[2017-03-28] MEDS: LACTOBACILLUS ACIDOPHILUS CAP (BACID) PO ×2 (09:12→21:50)
[2017-03-28] MEDS: FLUTICASONE PROP 0.05% NASAL SPRAY 16 GM (FLONASE) ×2 (09:19→21:51)
[2017-03-28] MEDS: NYSTATIN 100,000 UNITS/GM TOPICAL PWD 15 GM TOP ×2 (09:19→21:51)
[2017-03-28] MEDS: ENOXAPARIN 40 MG/0.4 ML SYRINGE (J1650) SC (09:20)
[2017-03-28] MEDS: NORCO, ANEXSIA 5/325MG TABLET (HYDROcodone/ACETAMINOPHEN) PO ×2 (13:25→21:51)
[2017-03-28] MEDS: MOM 30ML SUSPENSION UDC PO (13:27)
[2017-03-28] MEDS: amLODIPine 10 MG TAB PO (21:51)
[2017-03-28] MEDS: MIRTAZAPINE 15 MG TAB PO (21:51)
[2017-03-29] MEDS: IPRATROPIUM 0.5MG/ALBUTEROL 2.5MG INH SOL UD 3ML (DUONEB)(J7620) NEB ×4 (01:35→20:00)
[2017-03-29] MEDS: OLANZapine ORAL DISINTEGRATING TAB 5MG PO ×4 (02:25→21:29)
[2017-03-29] MEDS: ACETAMINOPHEN TAB 650MG DOSE (2X325MG) PO ×2 (02:26→21:28)
[2017-03-29 08:17] LABS: ANION GAP 9 MEQ/L (8-16); BLOOD UREA NITROGEN 31 MG/DL (7-18); CARBON DIOXIDE LEVEL 30 MEQ/L (21-32); CHLORIDE LEVEL 105 MEQ/L (98-107); CREATININE FOR GFR 1.55 MG/DL (0.70-1.30); GLOMERULAR FILTRATION RATE 46.2 (>35); GLUCOSE, FASTING 106 MG/DL (83-110); SODIUM LEVEL 144 MEQ/L (136-145)
[2017-03-29] MEDS: LACTOBACILLUS ACIDOPHILUS CAP (BACID) PO ×2 (09:35→21:29)
[2017-03-29] MEDS: oxyBUTYnin 5 MG TAB PO ×2 (09:35→21:29)
[2017-03-29] MEDS: SENOKOT S TAB PO ×2 (09:36→21:29)
[2017-03-29] MEDS: clonazePAM 0.5 MG TAB PO ×4 (09:36→21:29)
[2017-03-29] MEDS: MIRALAX *UNIT DOSE* 17GM PACKET PO (09:37)
[2017-03-29] MEDS: ENOXAPARIN 40 MG/0.4 ML SYRINGE (J1650) SC (09:45)
[2017-03-29] MEDS: FLUTICASONE PROP 0.05% NASAL SPRAY 16 GM (FLONASE) ×2 (09:46→21:55)
[2017-03-29] MEDS: NYSTATIN 100,000 UNITS/GM TOPICAL PWD 15 GM TOP ×2 (09:47→21:56)
[2017-03-29] MEDS: MIRTAZAPINE 15 MG TAB PO (21:29)
[2017-03-29] MEDS: amLODIPine 10 MG TAB PO (21:55)
[2017-03-30] MEDS: IPRATROPIUM 0.5MG/ALBUTEROL 2.5MG INH SOL UD 3ML (DUONEB)(J7620) NEB ×4 (01:28→20:00)
[2017-03-30] MEDS: OLANZapine ORAL DISINTEGRATING TAB 5MG PO ×5 (02:00→20:18)
[2017-03-30] MEDS: NORCO, ANEXSIA 5/325MG TABLET (HYDROcodone/ACETAMINOPHEN) PO ×2 (02:22→09:27)
[2017-03-30] MEDS: oxyBUTYnin 5 MG TAB PO ×2 (08:21→20:18)
[2017-03-30] MEDS: clonazePAM 0.5 MG TAB PO ×4 (08:22→20:18)
[2017-03-30] MEDS: LACTOBACILLUS ACIDOPHILUS CAP (BACID) PO ×2 (08:22→20:17)
[2017-03-30] MEDS: SENOKOT S TAB PO ×2 (08:22→20:17)
[2017-03-30] MEDS: ENOXAPARIN 40 MG/0.4 ML SYRINGE (J1650) SC (08:32)
[2017-03-30] MEDS: NYSTATIN 100,000 UNITS/GM TOPICAL PWD 15 GM TOP ×2 (08:34→20:19)
[2017-03-30] MEDS: FLUTICASONE PROP 0.05% NASAL SPRAY 16 GM (FLONASE) ×2 (08:34→20:18)
[2017-03-30] MEDS: MIRALAX *UNIT DOSE* 17GM PACKET PO (08:35)
[2017-03-30] MEDS: MIRTAZAPINE 15 MG TAB PO (20:18)
[2017-03-30] MEDS: amLODIPine 10 MG TAB PO (20:18)
[2017-03-31] MEDS: IPRATROPIUM 0.5MG/ALBUTEROL 2.5MG INH SOL UD 3ML (DUONEB)(J7620) NEB ×4 (02:00→20:00)
[2017-03-31] MEDS: OLANZapine ORAL DISINTEGRATING TAB 5MG PO ×4 (02:00→19:54)
[2017-03-31 07:10] LABS: HEMATOCRIT 30.7 % (42.0-52.0); HEMOGLOBIN 9.6 g/dl (14.0-18.0); MEAN CORPUSCULAR HEMOGLOBIN 25.7 pg (27.0-33.0); MEAN CORPUSCULAR HGB CONC 31.3 g/dl (32.0-36.5); MEAN CORPUSCULAR VOLUME 82.1 fl (80.0-96.0); PLATELET COUNT, AUTOMATED 159 10^3/uL (150-450); RED BLOOD COUNT 3.74 10^6/uL (4.30-6.10); RED CELL DISTRIBUTION WIDTH 16.6 % (11.5-14.5)
[2017-03-31 07:30] LABS: ANION GAP 5 MEQ/L (8-16); BLOOD UREA NITROGEN 21 MG/DL (7-18); CALCIUM LEVEL 9.6 MG/DL (8.8-10.2); CARBON DIOXIDE LEVEL 32 MEQ/L (21-32); CHLORIDE LEVEL 106 MEQ/L (98-107); CREATININE FOR GFR 1.42 MG/DL (0.70-1.30); GLOMERULAR FILTRATION RATE 51.1 (>35); GLUCOSE, FASTING 90 MG/DL (83-110); POTASSIUM SERUM 4.1 MEQ/L (3.5-5.1); SODIUM LEVEL 143 MEQ/L (136-145)
[2017-03-31] MEDS: FLUTICASONE PROP 0.05% NASAL SPRAY 16 GM (FLONASE) ×2 (08:39→19:55)
[2017-03-31] MEDS: NYSTATIN 100,000 UNITS/GM TOPICAL PWD 15 GM TOP ×2 (08:39→19:56)
[2017-03-31] MEDS: LACTOBACILLUS ACIDOPHILUS CAP (BACID) PO ×2 (08:40→19:55)
[2017-03-31] MEDS: ENOXAPARIN 40 MG/0.4 ML SYRINGE (J1650) SC (08:40)
[2017-03-31] MEDS: SENOKOT S TAB PO ×2 (08:41→19:55)
[2017-03-31] MEDS: clonazePAM 0.5 MG TAB PO ×4 (08:41→19:55)
[2017-03-31] MEDS: oxyBUTYnin 5 MG TAB PO ×2 (08:41→19:55)
[2017-03-31] MEDS: NORCO, ANEXSIA 5/325MG TABLET (HYDROcodone/ACETAMINOPHEN) PO ×2 (10:36→17:17)
[2017-03-31] MEDS: predniSONE 10 MG TAB PO (13:29)
[2017-03-31] MEDS: MIRTAZAPINE 15 MG TAB PO (19:55)
[2017-03-31] MEDS: amLODIPine 10 MG TAB PO (19:56)
[2017-04-01] MEDS: OLANZapine ORAL DISINTEGRATING TAB 5MG PO ×4 (01:17→21:06)
[2017-04-01] MEDS: IPRATROPIUM 0.5MG/ALBUTEROL 2.5MG INH SOL UD 3ML (DUONEB)(J7620) NEB ×4 (02:00→19:53)
[2017-04-01 07:42] LABS: ANION GAP 7 MEQ/L (8-16); BLOOD UREA NITROGEN 19 MG/DL (7-18); CALCIUM LEVEL 9.3 MG/DL (8.8-10.2); CARBON DIOXIDE LEVEL 32 MEQ/L (21-32); CHLORIDE LEVEL 105 MEQ/L (98-107); CREATININE FOR GFR 1.16 MG/DL (0.70-1.30); GLOMERULAR FILTRATION RATE > 60.0 (>35); GLUCOSE, FASTING 82 MG/DL (83-110); POTASSIUM SERUM 3.5 MEQ/L (3.5-5.1); SODIUM LEVEL 144 MEQ/L (136-145)
[2017-04-01] MEDS: SENOKOT S TAB PO ×2 (09:23→21:06)
[2017-04-01] MEDS: LACTOBACILLUS ACIDOPHILUS CAP (BACID) PO ×2 (09:23→21:06)
[2017-04-01] MEDS: oxyBUTYnin 5 MG TAB PO ×2 (09:23→21:06)
[2017-04-01] MEDS: clonazePAM 0.5 MG TAB PO ×4 (09:23→21:06)
[2017-04-01] MEDS: NORCO, ANEXSIA 5/325MG TABLET (HYDROcodone/ACETAMINOPHEN) PO (09:28)
[2017-04-01] MEDS: MIRALAX *UNIT DOSE* 17GM PACKET PO (09:30)
[2017-04-01] MEDS: NYSTATIN 100,000 UNITS/GM TOPICAL PWD 15 GM TOP ×2 (09:32→21:07)
[2017-04-01] MEDS: FLUTICASONE PROP 0.05% NASAL SPRAY 16 GM (FLONASE) ×2 (09:32→21:07)
[2017-04-01] MEDS: ENOXAPARIN 40 MG/0.4 ML SYRINGE (J1650) SC (09:33)
[2017-04-01] MEDS: MOM 30ML SUSPENSION UDC PO (17:18)
[2017-04-01] MEDS: amLODIPine 10 MG TAB PO (21:06)
[2017-04-01] MEDS: MIRTAZAPINE 15 MG TAB PO (21:06)
[2017-04-02] MEDS: OLANZapine ORAL DISINTEGRATING TAB 5MG PO ×3 (02:00→20:02)
[2017-04-02] MEDS: IPRATROPIUM 0.5MG/ALBUTEROL 2.5MG INH SOL UD 3ML (DUONEB)(J7620) NEB ×4 (02:00→20:00)
[2017-04-02] MEDS: LACTOBACILLUS ACIDOPHILUS CAP (BACID) PO ×2 (08:12→20:03)
[2017-04-02] MEDS: NYSTATIN 100,000 UNITS/GM TOPICAL PWD 15 GM TOP ×2 (08:12→20:11)
[2017-04-02] MEDS: MOM 30ML SUSPENSION UDC PO ×2 (08:12→20:02)
[2017-04-02] MEDS: oxyBUTYnin 5 MG TAB PO ×2 (08:12→20:02)
[2017-04-02] MEDS: NORCO, ANEXSIA 5/325MG TABLET (HYDROcodone/ACETAMINOPHEN) PO ×2 (08:13→20:03)
[2017-04-02] MEDS: clonazePAM 0.5 MG TAB PO ×4 (08:13→20:03)
[2017-04-02] MEDS: FLUTICASONE PROP 0.05% NASAL SPRAY 16 GM (FLONASE) ×2 (08:13→20:10)
[2017-04-02] MEDS: MIRALAX *UNIT DOSE* 17GM PACKET PO (08:13)
[2017-04-02] MEDS: SENOKOT S TAB PO ×2 (08:13→20:02)
[2017-04-02] MEDS: ENOXAPARIN 40 MG/0.4 ML SYRINGE (J1650) SC (08:13)
[2017-04-02 09:00] LABS: ANION GAP 7 MEQ/L (8-16); BLOOD UREA NITROGEN 17 MG/DL (7-18); CALCIUM LEVEL 9.1 MG/DL (8.8-10.2); CARBON DIOXIDE LEVEL 34 MEQ/L (21-32); CHLORIDE LEVEL 103 MEQ/L (98-107); CREATININE FOR GFR 1.23 MG/DL (0.70-1.30); GLOMERULAR FILTRATION RATE > 60.0 (>35); GLUCOSE, FASTING 114 MG/DL (83-110); POTASSIUM SERUM 3.6 MEQ/L (3.5-5.1); SODIUM LEVEL 144 MEQ/L (136-145)
[2017-04-02] MEDS ORDERED: FLEET ENEMA PR (17:30)
[2017-04-02] MEDS: amLODIPine 10 MG TAB PO (20:03)
[2017-04-03] MEDS: IPRATROPIUM 0.5MG/ALBUTEROL 2.5MG INH SOL UD 3ML (DUONEB)(J7620) NEB ×4 (01:07→20:00)
[2017-04-03] MEDS: SENOKOT S TAB PO ×2 (09:00→19:53)
[2017-04-03 09:22] LABS: HEMATOCRIT 29.6 % (42.0-52.0); HEMOGLOBIN 9.2 g/dl (14.0-18.0); MEAN CORPUSCULAR HEMOGLOBIN 25.9 pg (27.0-33.0); MEAN CORPUSCULAR HGB CONC 31.1 g/dl (32.0-36.5); MEAN CORPUSCULAR VOLUME 83.4 fl (80.0-96.0); PLATELET COUNT, AUTOMATED 199 10^3/uL (150-450); RED BLOOD COUNT 3.55 10^6/uL (4.30-6.10); RED CELL DISTRIBUTION WIDTH 16.4 % (11.5-14.5); WHITE BLOOD COUNT 7.5 10^3/uL (4.0-10.0)
[2017-04-03 09:48] LABS: ANION GAP 6 MEQ/L (8-16); BLOOD UREA NITROGEN 13 MG/DL (7-18); CALCIUM LEVEL 8.7 MG/DL (8.8-10.2); CARBON DIOXIDE LEVEL 34 MEQ/L (21-32); CHLORIDE LEVEL 105 MEQ/L (98-107); CREATININE FOR GFR 1.04 MG/DL (0.70-1.30); GLOMERULAR FILTRATION RATE > 60.0 (>35); GLUCOSE, FASTING 88 MG/DL (83-110); POTASSIUM SERUM 3.8 MEQ/L (3.5-5.1); SODIUM LEVEL 145 MEQ/L (136-145)
[2017-04-03] MEDS: ENOXAPARIN 40 MG/0.4 ML SYRINGE (J1650) SC (10:46)
[2017-04-03] MEDS: LACTOBACILLUS ACIDOPHILUS CAP (BACID) PO ×2 (10:47→19:49)
[2017-04-03] MEDS: oxyBUTYnin 5 MG TAB PO ×2 (10:47→19:49)
[2017-04-03] MEDS: clonazePAM 0.5 MG TAB PO ×4 (10:48→19:49)
[2017-04-03] MEDS: FLUTICASONE PROP 0.05% NASAL SPRAY 16 GM (FLONASE) ×2 (10:48→19:52)
[2017-04-03] MEDS: OLANZapine 10 MG TAB PO ×2 (10:48→19:48)
[2017-04-03] MEDS: NYSTATIN 100,000 UNITS/GM TOPICAL PWD 15 GM TOP ×2 (10:49→19:52)
[2017-04-03] MEDS: NORCO, ANEXSIA 5/325MG TABLET (HYDROcodone/ACETAMINOPHEN) PO (17:31)
[2017-04-03] MEDS: MIRTAZAPINE 15 MG TAB PO (19:48)
[2017-04-03] MEDS: amLODIPine 10 MG TAB PO (19:48)
[2017-04-04] MEDS: IPRATROPIUM 0.5MG/ALBUTEROL 2.5MG INH SOL UD 3ML (DUONEB)(J7620) NEB ×3 (07:07→21:28)
[2017-04-04] MEDS: SENOKOT S TAB PO ×2 (09:00→21:20)
[2017-04-04 09:25] LABS: ANION GAP 7 MEQ/L (8-16); BLOOD UREA NITROGEN 14 MG/DL (7-18); CALCIUM LEVEL 8.7 MG/DL (8.8-10.2); CARBON DIOXIDE LEVEL 34 MEQ/L (21-32); CHLORIDE LEVEL 104 MEQ/L (98-107); CREATININE FOR GFR 1.26 MG/DL (0.70-1.30); GLOMERULAR FILTRATION RATE 58.6 (>35); GLUCOSE, FASTING 105 MG/DL (83-110); POTASSIUM SERUM 3.8 MEQ/L (3.5-5.1); SODIUM LEVEL 145 MEQ/L (136-145)
[2017-04-04] MEDS: LACTOBACILLUS ACIDOPHILUS CAP (BACID) PO ×2 (10:23→21:20)
[2017-04-04] MEDS: OLANZapine 10 MG TAB PO ×2 (10:24→21:19)
[2017-04-04] MEDS: oxyBUTYnin 5 MG TAB PO ×2 (10:24→21:20)
[2017-04-04] MEDS: clonazePAM 0.5 MG TAB PO ×4 (10:24→21:00)
[2017-04-04] MEDS: ENOXAPARIN 40 MG/0.4 ML SYRINGE (J1650) SC (10:31)
[2017-04-04] MEDS: FLUTICASONE PROP 0.05% NASAL SPRAY 16 GM (FLONASE) ×2 (10:32→21:21)
[2017-04-04] MEDS: NYSTATIN 100,000 UNITS/GM TOPICAL PWD 15 GM TOP ×2 (10:33→21:20)
[2017-04-04] MEDS: amLODIPine 10 MG TAB PO (21:20)
[2017-04-04] MEDS: MIRTAZAPINE 15 MG TAB PO (21:20)
[2017-04-05] MEDS: NORCO, ANEXSIA 5/325MG TABLET (HYDROcodone/ACETAMINOPHEN) PO ×3 (00:28→16:01)
[2017-04-05] MEDS: IPRATROPIUM 0.5MG/ALBUTEROL 2.5MG INH SOL UD 3ML (DUONEB)(J7620) NEB ×4 (02:00→20:00)
[2017-04-05] MEDS: SENOKOT S TAB PO ×2 (10:52→21:26)
[2017-04-05] MEDS: LACTOBACILLUS ACIDOPHILUS CAP (BACID) PO ×3 (10:52→21:00)
[2017-04-05] MEDS: oxyBUTYnin 5 MG TAB PO ×2 (10:52→21:25)
[2017-04-05] MEDS: clonazePAM 0.5 MG TAB PO ×4 (10:52→21:00)
[2017-04-05] MEDS: OLANZapine 10 MG TAB PO ×2 (10:52→21:26)
[2017-04-05] MEDS: FLUTICASONE PROP 0.05% NASAL SPRAY 16 GM (FLONASE) ×2 (10:53→21:24)
[2017-04-05] MEDS: NYSTATIN 100,000 UNITS/GM TOPICAL PWD 15 GM TOP ×2 (10:53→21:25)
[2017-04-05] MEDS: ENOXAPARIN 40 MG/0.4 ML SYRINGE (J1650) SC (10:53)
[2017-04-05] MEDS: MIRTAZAPINE 15 MG TAB PO (21:26)
[2017-04-05] MEDS: amLODIPine 10 MG TAB PO (21:26)
[2017-04-06] MEDS: NORCO, ANEXSIA 5/325MG TABLET (HYDROcodone/ACETAMINOPHEN) PO ×2 (00:06→23:04)
[2017-04-06] MEDS: IPRATROPIUM 0.5MG/ALBUTEROL 2.5MG INH SOL UD 3ML (DUONEB)(J7620) NEB ×3 (07:28→19:13)
[2017-04-06] MEDS: LACTOBACILLUS ACIDOPHILUS CAP (BACID) PO ×2 (08:34→23:05)
[2017-04-06] MEDS: oxyBUTYnin 5 MG TAB PO ×2 (08:34→23:05)
[2017-04-06] MEDS: clonazePAM 0.5 MG TAB PO ×3 (08:34→17:00)
[2017-04-06] MEDS: OLANZapine 10 MG TAB PO ×2 (08:35→23:05)
[2017-04-06] MEDS: SENOKOT S TAB PO ×2 (08:35→23:06)
[2017-04-06] MEDS: ENOXAPARIN 40 MG/0.4 ML SYRINGE (J1650) SC (08:40)
[2017-04-06] MEDS: NYSTATIN 100,000 UNITS/GM TOPICAL PWD 15 GM TOP ×2 (08:41→23:07)
[2017-04-06] MEDS: FLUTICASONE PROP 0.05% NASAL SPRAY 16 GM (FLONASE) ×2 (08:41→23:07)
[2017-04-06] MEDS: amLODIPine 10 MG TAB PO (23:06)
[2017-04-06] MEDS: MIRTAZAPINE 15 MG TAB PO (23:06)
[2017-04-07] MEDS: IPRATROPIUM 0.5MG/ALBUTEROL 2.5MG INH SOL UD 3ML (DUONEB)(J7620) NEB ×4 (01:28→20:27)
[2017-04-07] MEDS: NORCO, ANEXSIA 5/325MG TABLET (HYDROcodone/ACETAMINOPHEN) PO ×3 (07:17→22:32)
[2017-04-07] MEDS: LACTOBACILLUS ACIDOPHILUS CAP (BACID) PO ×2 (09:31→22:07)
[2017-04-07] MEDS: oxyBUTYnin 5 MG TAB PO ×2 (09:32→22:08)
[2017-04-07] MEDS: OLANZapine 10 MG TAB PO ×2 (09:32→22:06)
[2017-04-07] MEDS: SENOKOT S TAB PO ×2 (09:32→22:09)
[2017-04-07] MEDS: NYSTATIN 100,000 UNITS/GM TOPICAL PWD 15 GM TOP ×2 (09:38→22:10)
[2017-04-07] MEDS: ENOXAPARIN 40 MG/0.4 ML SYRINGE (J1650) SC (09:39)
[2017-04-07] MEDS: FLUTICASONE PROP 0.05% NASAL SPRAY 16 GM (FLONASE) ×2 (09:40→22:10)
[2017-04-07] MEDS: amLODIPine 10 MG TAB PO (21:00)
[2017-04-07] MEDS: MIRTAZAPINE 15 MG TAB PO (22:10)
[2017-04-08] MEDS: IPRATROPIUM 0.5MG/ALBUTEROL 2.5MG INH SOL UD 3ML (DUONEB)(J7620) NEB ×4 (01:54→20:00)
[2017-04-08] MEDS: FLUTICASONE PROP 0.05% NASAL SPRAY 16 GM (FLONASE) ×2 (08:59→22:31)
[2017-04-08] MEDS: oxyBUTYnin 5 MG TAB PO ×2 (08:59→22:32)
[2017-04-08] MEDS: ENOXAPARIN 40 MG/0.4 ML SYRINGE (J1650) SC (09:00)
[2017-04-08] MEDS: LACTOBACILLUS ACIDOPHILUS CAP (BACID) PO ×2 (09:00→22:33)
[2017-04-08] MEDS: SENOKOT S TAB PO ×2 (09:00→22:32)
[2017-04-08] MEDS: OLANZapine 10 MG TAB PO ×2 (09:00→22:33)
[2017-04-08] MEDS: NYSTATIN 100,000 UNITS/GM TOPICAL PWD 15 GM TOP ×2 (13:37→22:31)
[2017-04-08] MEDS: NORCO, ANEXSIA 5/325MG TABLET (HYDROcodone/ACETAMINOPHEN) PO (13:37)
[2017-04-08] MEDS: MIRTAZAPINE 15 MG TAB PO (22:33)
[2017-04-08] MEDS: amLODIPine 10 MG TAB PO (22:36)
[2017-04-09] MEDS: NORCO, ANEXSIA 5/325MG TABLET (HYDROcodone/ACETAMINOPHEN) PO (01:15)
[2017-04-09] MEDS: IPRATROPIUM 0.5MG/ALBUTEROL 2.5MG INH SOL UD 3ML (DUONEB)(J7620) NEB ×4 (02:00→20:00)
[2017-04-09 09:44] LABS: HEMOGLOBIN 9.9 g/dl (14.0-18.0); MEAN CORPUSCULAR HEMOGLOBIN 26.3 pg (27.0-33.0); MEAN CORPUSCULAR HGB CONC 31.9 g/dl (32.0-36.5); MEAN CORPUSCULAR VOLUME 82.4 fl (80.0-96.0); PLATELET COUNT, AUTOMATED 544 10^3/uL (150-450); RED BLOOD COUNT 3.76 10^6/uL (4.30-6.10); RED CELL DISTRIBUTION WIDTH 16.8 % (11.5-14.5); WHITE BLOOD COUNT 9.9 10^3/uL (4.0-10.0)
[2017-04-09] MEDS: LACTOBACILLUS ACIDOPHILUS CAP (BACID) PO ×2 (10:20→21:07)
[2017-04-09] MEDS: SENOKOT S TAB PO ×2 (10:20→21:07)
[2017-04-09] MEDS: oxyBUTYnin 5 MG TAB PO ×2 (10:21→21:08)
[2017-04-09] MEDS: OLANZapine 10 MG TAB PO ×2 (10:21→21:07)
[2017-04-09] MEDS: FLUTICASONE PROP 0.05% NASAL SPRAY 16 GM (FLONASE) ×2 (10:23→21:07)
[2017-04-09] MEDS: ENOXAPARIN 40 MG/0.4 ML SYRINGE (J1650) SC (10:23)
[2017-04-09] MEDS: NYSTATIN 100,000 UNITS/GM TOPICAL PWD 15 GM TOP ×2 (10:23→21:08)
[2017-04-09] MEDS: clonazePAM 0.5 MG TAB PO ×2 (10:48→21:14)
[2017-04-09] MEDS: MIRTAZAPINE 15 MG TAB PO (21:07)
[2017-04-09] MEDS: amLODIPine 10 MG TAB PO (21:07)
[2017-04-10] MEDS: IPRATROPIUM 0.5MG/ALBUTEROL 2.5MG INH SOL UD 3ML (DUONEB)(J7620) NEB ×4 (02:00→20:00)
[2017-04-10] MEDS: clonazePAM 0.5 MG TAB PO ×4 (06:11→23:41)
[2017-04-10] MEDS: SENOKOT S TAB PO ×2 (09:00→22:04)
[2017-04-10] MEDS: LACTOBACILLUS ACIDOPHILUS CAP (BACID) PO ×2 (09:46→22:05)
[2017-04-10] MEDS: oxyBUTYnin 5 MG TAB PO ×2 (09:46→22:03)
[2017-04-10] MEDS: FLUTICASONE PROP 0.05% NASAL SPRAY 16 GM (FLONASE) ×2 (09:47→22:05)
[2017-04-10] MEDS: OLANZapine 10 MG TAB PO ×2 (09:47→22:03)
[2017-04-10] MEDS: ENOXAPARIN 40 MG/0.4 ML SYRINGE (J1650) SC (09:47)
[2017-04-10] MEDS: NYSTATIN 100,000 UNITS/GM TOPICAL PWD 15 GM TOP ×2 (09:48→22:06)
[2017-04-10] MEDS: MIRTAZAPINE 15 MG TAB PO (22:05)
[2017-04-10] MEDS: amLODIPine 10 MG TAB PO (22:10)
[2017-04-11] MEDS: IPRATROPIUM 0.5MG/ALBUTEROL 2.5MG INH SOL UD 3ML (DUONEB)(J7620) NEB ×4 (02:00→21:14)
[2017-04-11] MEDS: clonazePAM 0.5 MG TAB PO ×3 (05:37→20:09)
[2017-04-11] MEDS: oxyBUTYnin 5 MG TAB PO ×2 (09:33→20:10)
[2017-04-11] MEDS: OLANZapine 10 MG TAB PO ×2 (09:33→20:09)
[2017-04-11] MEDS: SENOKOT S TAB PO ×2 (09:34→20:09)
[2017-04-11] MEDS: ENOXAPARIN 40 MG/0.4 ML SYRINGE (J1650) SC (09:34)
[2017-04-11] MEDS: LACTOBACILLUS ACIDOPHILUS CAP (BACID) PO ×2 (09:34→20:14)
[2017-04-11] MEDS: FLUTICASONE PROP 0.05% NASAL SPRAY 16 GM (FLONASE) ×2 (09:35→20:17)
[2017-04-11] MEDS: NYSTATIN 100,000 UNITS/GM TOPICAL PWD 15 GM TOP ×2 (09:35→20:15)
[2017-04-11] MEDS: NORCO, ANEXSIA 5/325MG TABLET (HYDROcodone/ACETAMINOPHEN) PO (15:25)
[2017-04-11] MEDS: clonazePAM 1 MG TAB PO (20:08)
[2017-04-11] MEDS: MIRTAZAPINE 15 MG TAB PO (20:09)
[2017-04-11] MEDS: amLODIPine 10 MG TAB PO (20:09)
[2017-04-12] MEDS: IPRATROPIUM 0.5MG/ALBUTEROL 2.5MG INH SOL UD 3ML (DUONEB)(J7620) NEB ×4 (02:00→20:41)
[2017-04-12] MEDS: LACTOBACILLUS ACIDOPHILUS CAP (BACID) PO ×2 (08:40→22:09)
[2017-04-12] MEDS: oxyBUTYnin 5 MG TAB PO ×2 (08:40→22:09)
[2017-04-12] MEDS: SENOKOT S TAB PO ×2 (08:41→22:10)
[2017-04-12] MEDS: clonazePAM 0.5 MG TAB PO ×3 (08:41→22:10)
[2017-04-12] MEDS: OLANZapine 10 MG TAB PO ×2 (08:57→22:09)
[2017-04-12] MEDS: ENOXAPARIN 40 MG/0.4 ML SYRINGE (J1650) SC (09:01)
[2017-04-12] MEDS: FLUTICASONE PROP 0.05% NASAL SPRAY 16 GM (FLONASE) ×2 (09:02→22:09)
[2017-04-12] MEDS: NYSTATIN 100,000 UNITS/GM TOPICAL PWD 15 GM TOP ×2 (09:03→22:08)
[2017-04-12] MEDS: NORCO, ANEXSIA 5/325MG TABLET (HYDROcodone/ACETAMINOPHEN) PO ×2 (15:08→22:11)
[2017-04-12] MEDS: MOM 30ML SUSPENSION UDC PO (18:20)
[2017-04-12] MEDS: MAALOX 30 ML SUSP *UDC PO (18:20)
[2017-04-12] MEDS: ACETAMINOPHEN TAB 650MG DOSE (2X325MG) PO (18:20)
[2017-04-12] MEDS: clonazePAM 1 MG TAB PO (22:09)
[2017-04-12] MEDS: MIRTAZAPINE 15 MG TAB PO (22:09)
[2017-04-12] MEDS: amLODIPine 10 MG TAB PO (22:10)
[2017-04-13] MEDS: IPRATROPIUM 0.5MG/ALBUTEROL 2.5MG INH SOL UD 3ML (DUONEB)(J7620) NEB ×4 (02:00→19:40)
[2017-04-13] MEDS: ACETAMINOPHEN TAB 650MG DOSE (2X325MG) PO ×2 (02:55→20:15)
[2017-04-13] MEDS: SENOKOT S TAB PO ×2 (09:34→20:13)
[2017-04-13] MEDS: oxyBUTYnin 5 MG TAB PO ×2 (09:34→20:13)
[2017-04-13] MEDS: clonazePAM 0.5 MG TAB PO ×3 (09:34→20:13)
[2017-04-13] MEDS: LACTOBACILLUS ACIDOPHILUS CAP (BACID) PO ×2 (09:34→20:12)
[2017-04-13] MEDS: OLANZapine 10 MG TAB PO ×2 (09:35→20:13)
[2017-04-13] MEDS: ENOXAPARIN 40 MG/0.4 ML SYRINGE (J1650) SC (09:39)
[2017-04-13] MEDS: NYSTATIN 100,000 UNITS/GM TOPICAL PWD 15 GM TOP ×2 (09:40→20:14)
[2017-04-13] MEDS: FLUTICASONE PROP 0.05% NASAL SPRAY 16 GM (FLONASE) ×2 (09:40→20:13)
[2017-04-13] MEDS: MOM 30ML SUSPENSION UDC PO (16:19)
[2017-04-13] MEDS: MIRALAX *UNIT DOSE* 17GM PACKET PO (16:19)
[2017-04-13] MEDS: clonazePAM 1 MG TAB PO (20:13)
[2017-04-13] MEDS: MIRTAZAPINE 15 MG TAB PO (20:13)
[2017-04-13] MEDS: amLODIPine 10 MG TAB PO (20:13)
[2017-04-13] MEDS: NORCO, ANEXSIA 5/325MG TABLET (HYDROcodone/ACETAMINOPHEN) PO (21:33)
[2017-04-14] MEDS: IPRATROPIUM 0.5MG/ALBUTEROL 2.5MG INH SOL UD 3ML (DUONEB)(J7620) NEB ×3 (00:46→13:39)
[2017-04-14] MEDS: MAALOX 30 ML SUSP *UDC PO (09:00)
[2017-04-14] MEDS: ENOXAPARIN 40 MG/0.4 ML SYRINGE (J1650) SC (09:00)
[2017-04-14] MEDS: oxyBUTYnin 5 MG TAB PO (09:00)
[2017-04-14] MEDS: clonazePAM 0.5 MG TAB PO (09:00)
[2017-04-14] MEDS: FLUTICASONE PROP 0.05% NASAL SPRAY 16 GM (FLONASE) (09:00)
[2017-04-14] MEDS: LACTOBACILLUS ACIDOPHILUS CAP (BACID) PO (09:00)
[2017-04-14] MEDS: OLANZapine 10 MG TAB PO (09:00)
[2017-04-14] MEDS: MIRALAX *UNIT DOSE* 17GM PACKET PO (09:00)
[2017-04-14] MEDS: MOM 30ML SUSPENSION UDC PO (09:00)
[2017-04-14] MEDS: NYSTATIN 100,000 UNITS/GM TOPICAL PWD 15 GM TOP (09:01)
[2017-04-14] MEDS: NORCO, ANEXSIA 5/325MG TABLET (HYDROcodone/ACETAMINOPHEN) PO (09:01)
[2017-04-14] MEDS: SENOKOT S TAB PO (09:01)
== END 2017-04-14 14:35 | DRG 554 ==
LOC: M MS5PR 18:25
PROVIDERS: Internal Medicine
PROC: 30233N1 Transfusion of Nonautologous Red Blood Cells into Peripheral Vein, Percutaneous Approach (ICD-10-PCS; 2017-03-07)
PROC: 009U3ZX Drainage of Spinal Canal, Percutaneous Approach, Diagnostic (ICD-10-PCS; principal; 2017-03-08)
DX: M13.0 Polyarthritis, unspecified (principal); L03.115 Cellulitis of right lower limb; N17.9 Acute kidney failure, unspecified; R45.851 Suicidal ideations; D64.9 Anemia, unspecified; M10.9 Gout, unspecified; J06.9 Acute upper respiratory infection, unspecified; I10 Essential (primary) hypertension; N32.81 Overactive bladder; F17.210 Nicotine dependence, cigarettes, uncomplicated; F41.0 Panic disorder [episodic paroxysmal anxiety]; J44.9 Chronic obstructive pulmonary disease, unspecified; M54.5 Low back pain; F31.9 Bipolar disorder, unspecified; Z85.048 Personal history of other malignant neoplasm of rectum, rectosigmoid junction, and anus; Z87.440 Personal history of urinary (tract) infections; Z79.899 Other long term (current) drug therapy; Z88.0 Allergy status to penicillin; Z88.2 Allergy status to sulfonamides; Z88.8 Allergy status to other drugs, medicaments and biological substances

== ENCOUNTER → 2017-04-19 | Outpatient (REF) | payer MEDICARE, MEDICAID ==
[2017-04-19 12:50] LABS: HEMATOCRIT 32.2 % (42.0-52.0); HEMOGLOBIN 10.3 g/dl (14.0-18.0); MEAN CORPUSCULAR HEMOGLOBIN 25.7 pg (27.0-33.0); MEAN CORPUSCULAR VOLUME 80.3 fl (80.0-96.0); PLATELET COUNT, AUTOMATED 406 10^3/uL (150-450); RED BLOOD COUNT 4.01 10^6/uL (4.30-6.10); RED CELL DISTRIBUTION WIDTH 17.1 % (11.5-14.5); WHITE BLOOD COUNT 14.8 10^3/uL (4.0-10.0)
[2017-04-19 13:21] LABS: ANION GAP 7 MEQ/L (8-16); BLOOD UREA NITROGEN 23 MG/DL (7-18); CALCIUM LEVEL 9.6 MG/DL (8.8-10.2); CARBON DIOXIDE LEVEL 29 MEQ/L (21-32); CHLORIDE LEVEL 103 MEQ/L (98-107); CREATININE FOR GFR 0.98 MG/DL (0.70-1.30); GLOMERULAR FILTRATION RATE > 60.0 (>35); GLUCOSE, FASTING 111 MG/DL (83-110); POTASSIUM SERUM 4.1 MEQ/L (3.5-5.1); SODIUM LEVEL 139 MEQ/L (136-145)
== END ==
LOC: SKLAB4 11:34
DX: J98.11 Atelectasis (principal); R50.9 Fever, unspecified
CPT/HCPCS: 71045

== ENCOUNTER → 2017-04-21 | Outpatient (REF) ==
[2017-04-21 09:42] LABS: HEMATOCRIT 29.4 % (42.0-52.0); HEMOGLOBIN 9.3 g/dl (14.0-18.0); MEAN CORPUSCULAR HEMOGLOBIN 25.5 pg (27.0-33.0); MEAN CORPUSCULAR HGB CONC 31.6 g/dl (32.0-36.5); MEAN CORPUSCULAR VOLUME 80.8 fl (80.0-96.0); PLATELET COUNT, AUTOMATED 376 10^3/uL (150-450); RED BLOOD COUNT 3.64 10^6/uL (4.30-6.10); RED CELL DISTRIBUTION WIDTH 17.5 % (11.5-14.5); WHITE BLOOD COUNT 11.8 10^3/uL (4.0-10.0)
[2017-04-21 10:20] LABS: ANION GAP 7 MEQ/L (8-16); BLOOD UREA NITROGEN 19 MG/DL (7-18); CALCIUM LEVEL 9.2 MG/DL (8.8-10.2); CARBON DIOXIDE LEVEL 29 MEQ/L (21-32); CHLORIDE LEVEL 106 MEQ/L (98-107); CREATININE FOR GFR 0.77 MG/DL (0.70-1.30); GLOMERULAR FILTRATION RATE > 60.0 (>35); GLUCOSE, FASTING 126 MG/DL (83-110); POTASSIUM SERUM 3.7 MEQ/L (3.5-5.1); SODIUM LEVEL 142 MEQ/L (136-145)
== END ==
LOC: SKLAB5 06:57
DX: Z79.899 Other long term (current) drug therapy (principal)

== ENCOUNTER → 2017-04-25 | Outpatient (REF) | LOC: SKLAB4 12:11 | DX: D64.9 Anemia, unspecified (principal); F31.9 Bipolar disorder, unspecified; F41.9 Anxiety disorder, unspecified ==

== ENCOUNTER → 2017-05-02 | Outpatient (REF) | payer MEDICARE, MEDICAID | LOC: SKLAB4 14:12 | DX: R07.89 Other chest pain (principal) | CPT/HCPCS: 93005 ==

== ENCOUNTER 2017-05-06 19:13 | Inpatient (IN) | payer MEDICARE, MEDICAID, OTHER ==
[2017-05-06] MEDS: NS 1,000 ML IV (19:30)
[2017-05-06] MEDS: IPRATROPIUM 0.5MG/ALBUTEROL 2.5MG INH SOL UD 3ML (DUONEB)(J7620) NEB ×3 (20:21→20:28)
[2017-05-06 20:28] LABS: ABG HCO3 30.1 MEQ/L (22.0-26.0); ABG O2 SATURATION 94.7 % (95.0-99.0); ABG PARTIAL PRESSURE O2 67.5 mmHg (75.0-100.0); ABG STANDARD HCO3 31.7 MEQ/L (22.0-26.0); ABG TOTAL CO2 31.1 MEQ/L (23.0-31.0); ABG pH (ARTERIAL) 7.578 UNITS (7.350-7.450)
[2017-05-06 20:38] LABS: BASO # 0.1 10^3/uL (0.0-0.2); BASO % 0.5 % (0.0-1.0); EOS # 0.4 10^3/uL (0.0-0.50); EOS % 2.6 % (0.0-3.0); HEMATOCRIT 30.7 % (42.0-52.0); HEMOGLOBIN 9.8 g/dl (14.0-18.0); IMMATURE GRANULOCYTE # 0.1 10^3/uL (0-0); IMMATURE GRANULOCYTE % 0.4 % (0-0); LYMPH # 1.5 10^3/uL (1.5-4.5); LYMPH % 10.7 % (24.0-44.0); MEAN CORPUSCULAR HEMOGLOBIN 25.4 pg (27.0-33.0); MEAN CORPUSCULAR HGB CONC 31.9 g/dl (32.0-36.5); MEAN CORPUSCULAR VOLUME 79.5 fl (80.0-96.0); MONO % 14.2 % (0.0-5.0); NEUTROPHILS # 9.8 10^3/uL (1.8-7.7); NEUTROPHILS % 71.6 % (36.0-66.0); PLATELET COUNT, AUTOMATED 745 10^3/uL (150-450); RED BLOOD COUNT 3.86 10^6/uL (4.30-6.10); RED CELL DISTRIBUTION WIDTH 17.7 % (11.5-14.5); WHITE BLOOD COUNT 13.8 10^3/uL (4.0-10.0)
[2017-05-06 21:05] LABS: ALBUMIN 2.6 GM/DL (3.2-5.2); ALBUMIN/GLOBULIN RATIO 0.52 (1.00-1.93); ALKALINE PHOSPHATASE 188 U/L (45-117); ALT/SGPT 28 U/L (12-78); ANION GAP 8 MEQ/L (8-16); AST/SGOT 24 U/L (7-37); BILIRUBIN,DIRECT 0.1 MG/DL (0.0-0.2); BILIRUBIN,TOTAL 0.4 MG/DL (0.2-1.0); CALCIUM LEVEL 9.9 MG/DL (8.8-10.2); CARBON DIOXIDE LEVEL 31 MEQ/L (21-32); CHLORIDE LEVEL 96 MEQ/L (98-107); CPK CREATINE PHOSPHOKINASE 19 U/L (39-308); CREATININE FOR GFR 1.08 MG/DL (0.70-1.30); GLOMERULAR FILTRATION RATE > 60.0 (>35); GLUCOSE, FASTING 140 MG/DL (70-100); SODIUM LEVEL 135 MEQ/L (136-145); TOTAL PROTEIN 7.6 GM/DL (6.4-8.2); TROPONIN I < 0.02 NG/ML (< 0.10)
[2017-05-06 21:09] LABS: BLOOD UREA NITROGEN 25 MG/DL (7-18); MB/CK RELATIVE INDEX 5.26 (< OR =4); NT-PRO BNP 404 PG/ML (<450)
[2017-05-06 21:10] LABS: LACTIC ACID SEPSIS PROTOCOL 1.8 MMOL/L (0.4-2.0)
[2017-05-06 21:10] LABS: POTASSIUM SERUM 5.2 MEQ/L (3.5-5.1)
[2017-05-06 21:25] LABS: PROTHROMBIN TIME 14.4 SECONDS (12.4-14.5)
[2017-05-06] MEDS: MOXIFLOXACIN HCL 400 MG in APPROPRIATE DILUENT 1 EA IV (22:15)
[2017-05-06] MEDS ORDERED: ONDANSETRON 4MG/2ML VIAL (J2405) IV (22:15)
[2017-05-06] MEDS: NS 500 ML IV (22:45)
[2017-05-07 00:20] LABS: CPK CREATINE PHOSPHOKINASE 13 U/L (39-308); MB/CK RELATIVE INDEX 7.69 (< OR =4); TROPONIN I < 0.02 NG/ML (< 0.10)
[2017-05-07] MEDS: ACETAMINOPHEN TAB 650MG DOSE (2X325MG) PO ×2 (02:32→23:04)
[2017-05-07] MEDS: SOD POLYSTYRENE SULFONATE SUSP 15 GM/60 ML UD PO (02:38)
[2017-05-07] MEDS: CLINDAMYCIN 600 MG in APPROPRIATE DILUENT 1 EA IV ×2 (02:39→09:24)
[2017-05-07] MEDS: CALCIUM GLUCONATE 1,000 MG in D5W MINI-BAG PLUS 100 ML IV (03:27)
[2017-05-07 07:48] LABS: BASO # 0.1 10^3/uL (0.0-0.2); BASO % 0.4 % (0.0-1.0); EOS # 0.2 10^3/uL (0.0-0.50); EOS % 1.6 % (0.0-3.0); HEMOGLOBIN 8.6 g/dl (14.0-18.0); IMMATURE GRANULOCYTE # 0.1 10^3/uL (0-0); IMMATURE GRANULOCYTE % 0.6 % (0-0); LYMPH # 1.2 10^3/uL (1.5-4.5); LYMPH % 9.2 % (24.0-44.0); MEAN CORPUSCULAR HEMOGLOBIN 25.4 pg (27.0-33.0); MEAN CORPUSCULAR HGB CONC 31.9 g/dl (32.0-36.5); MEAN CORPUSCULAR VOLUME 79.9 fl (80.0-96.0); MONO # 1.9 10^3/uL (0.0-0.8); MONO % 14.5 % (0.0-5.0); NEUTROPHILS # 9.4 10^3/uL (1.8-7.7); NEUTROPHILS % 73.7 % (36.0-66.0); PLATELET COUNT, AUTOMATED 647 10^3/uL (150-450); RED BLOOD COUNT 3.38 10^6/uL (4.30-6.10); RED CELL DISTRIBUTION WIDTH 17.6 % (11.5-14.5); WHITE BLOOD COUNT 12.8 10^3/uL (4.0-10.0)
[2017-05-07 08:20] LABS: ANION GAP 7 MEQ/L (8-16); BLOOD UREA NITROGEN 23 MG/DL (7-18); CALCIUM LEVEL 9.8 MG/DL (8.8-10.2); CARBON DIOXIDE LEVEL 31 MEQ/L (21-32); CHLORIDE LEVEL 100 MEQ/L (98-107); CPK CREATINE PHOSPHOKINASE 16 U/L (39-308); CREATININE FOR GFR 0.88 MG/DL (0.70-1.30); GLOMERULAR FILTRATION RATE > 60.0 (>35); GLUCOSE, FASTING 109 MG/DL (70-100); POTASSIUM SERUM 4.4 MEQ/L (3.5-5.1); SODIUM LEVEL 138 MEQ/L (136-145); TROPONIN I < 0.02 NG/ML (< 0.10)
[2017-05-07 08:21] LABS: MB/CK RELATIVE INDEX 6.25 (< OR =4)
[2017-05-07] MEDS: LACTOBACILLUS ACIDOPHILUS CAP (BACID) PO ×2 (09:24→17:53)
[2017-05-07] MEDS: ENOXAPARIN 30 MG/0.3 ML SYR (J1650) SC (09:24)
[2017-05-07] MEDS ORDERED: DOXEPIN 10 MG CAP PO (11:15)
[2017-05-07] MEDS ORDERED: **NOTE PATIENT COMMENT** MISC XX (11:15)
[2017-05-07] MEDS: OLANZapine 5 MG TAB PO ×2 (12:21→21:57)
[2017-05-07] MEDS: clonazePAM 0.5 MG TAB PO ×3 (12:21→21:57)
[2017-05-07] MEDS: MEROPENEM INJ 1 GM in APPROPRIATE DILUENT 1 EA IV ×2 (12:21→21:57)
[2017-05-07 15:41] LABS: CPK CREATINE PHOSPHOKINASE 16 U/L (39-308); MB/CK RELATIVE INDEX 6.25 (< OR =4); TROPONIN I < 0.02 NG/ML (< 0.10)
[2017-05-07] MEDS ORDERED: MOXIFLOXACIN 400 MG TAB PO (18:00)
[2017-05-07] MEDS: MIRTAZAPINE 15 MG TAB PO (21:57)
[2017-05-08] MEDS: MEROPENEM INJ 1 GM in APPROPRIATE DILUENT 1 EA IV ×3 (04:18→20:05)
[2017-05-08 07:48] LABS: BASO # 0.1 10^3/uL (0.0-0.2); BASO % 0.6 % (0.0-1.0); EOS # 0.4 10^3/uL (0.0-0.50); EOS % 3.2 % (0.0-3.0); HEMATOCRIT 27.8 % (42.0-52.0); HEMOGLOBIN 8.8 g/dl (14.0-18.0); IMMATURE GRANULOCYTE # 0.1 10^3/uL (0-0); IMMATURE GRANULOCYTE % 0.8 % (0-0); LYMPH # 1.3 10^3/uL (1.5-4.5); MEAN CORPUSCULAR HEMOGLOBIN 25.1 pg (27.0-33.0); MEAN CORPUSCULAR HGB CONC 31.7 g/dl (32.0-36.5); MEAN CORPUSCULAR VOLUME 79.4 fl (80.0-96.0); MONO # 1.5 10^3/uL (0.0-0.8); MONO % 12.5 % (0.0-5.0); NEUTROPHILS # 8.5 10^3/uL (1.8-7.7); NEUTROPHILS % 71.9 % (36.0-66.0); PLATELET COUNT, AUTOMATED 636 10^3/uL (150-450); RED CELL DISTRIBUTION WIDTH 17.8 % (11.5-14.5); WHITE BLOOD COUNT 11.9 10^3/uL (4.0-10.0)
[2017-05-08 07:57] LABS: ANION GAP 9 MEQ/L (8-16); BLOOD UREA NITROGEN 19 MG/DL (7-18); CALCIUM LEVEL 9.2 MG/DL (8.8-10.2); CARBON DIOXIDE LEVEL 30 MEQ/L (21-32); CHLORIDE LEVEL 103 MEQ/L (98-107); CREATININE FOR GFR 0.69 MG/DL (0.70-1.30); GLOMERULAR FILTRATION RATE > 60.0 (>35); GLUCOSE, FASTING 84 MG/DL (70-100); POTASSIUM SERUM 3.8 MEQ/L (3.5-5.1); SODIUM LEVEL 142 MEQ/L (136-145)
[2017-05-08] MEDS: LACTOBACILLUS ACIDOPHILUS CAP (BACID) PO ×2 (08:08→17:51)
[2017-05-08] MEDS: clonazePAM 0.5 MG TAB PO ×3 (08:08→20:05)
[2017-05-08] MEDS: ENOXAPARIN 30 MG/0.3 ML SYR (J1650) SC (08:09)
[2017-05-08] MEDS: OLANZapine 5 MG TAB PO ×2 (08:09→20:05)
[2017-05-08] MEDS: ACETAMINOPHEN TAB 650MG DOSE (2X325MG) PO (14:59)
[2017-05-08] MEDS: MIRTAZAPINE 15 MG TAB PO (20:04)
[2017-05-09] MEDS: ACETAMINOPHEN TAB 650MG DOSE (2X325MG) PO ×2 (01:09→20:42)
[2017-05-09] MEDS: MEROPENEM INJ 1 GM in APPROPRIATE DILUENT 1 EA IV ×3 (04:34→20:42)
[2017-05-09] MEDS: KETOROLAC 30 MG/ML VIAL (J1885) IV (05:45)
[2017-05-09 06:07] LABS: BASO # 0.1 10^3/uL (0.0-0.2); BASO % 0.6 % (0.0-1.0); EOS # 0.3 10^3/uL (0.0-0.50); HEMATOCRIT 27.9 % (42.0-52.0); HEMOGLOBIN 8.8 g/dl (14.0-18.0); IMMATURE GRANULOCYTE # 0.1 10^3/uL (0-0); IMMATURE GRANULOCYTE % 0.7 % (0-0); LYMPH # 1.1 10^3/uL (1.5-4.5); LYMPH % 9.8 % (24.0-44.0); MEAN CORPUSCULAR HGB CONC 31.5 g/dl (32.0-36.5); MEAN CORPUSCULAR VOLUME 79.3 fl (80.0-96.0); MONO # 1.3 10^3/uL (0.0-0.8); MONO % 11.2 % (0.0-5.0); NEUTROPHILS # 8.5 10^3/uL (1.8-7.7); NEUTROPHILS % 74.7 % (36.0-66.0); PLATELET COUNT, AUTOMATED 597 10^3/uL (150-450); RED BLOOD COUNT 3.52 10^6/uL (4.30-6.10); RED CELL DISTRIBUTION WIDTH 17.6 % (11.5-14.5); WHITE BLOOD COUNT 11.4 10^3/uL (4.0-10.0)
[2017-05-09 06:35] LABS: ANION GAP 8 MEQ/L (8-16); BLOOD UREA NITROGEN 17 MG/DL (7-18); CALCIUM LEVEL 9.3 MG/DL (8.8-10.2); CARBON DIOXIDE LEVEL 28 MEQ/L (21-32); CHLORIDE LEVEL 105 MEQ/L (98-107); CREATININE FOR GFR 0.63 MG/DL (0.70-1.30); GLOMERULAR FILTRATION RATE > 60.0 (>35); GLUCOSE, FASTING 96 MG/DL (70-100); POTASSIUM SERUM 3.6 MEQ/L (3.5-5.1); SODIUM LEVEL 141 MEQ/L (136-145)
[2017-05-09] MEDS: clonazePAM 0.5 MG TAB PO ×3 (09:07→20:42)
[2017-05-09] MEDS: OLANZapine 5 MG TAB PO ×2 (09:08→20:42)
[2017-05-09] MEDS: ENOXAPARIN 30 MG/0.3 ML SYR (J1650) SC (09:08)
[2017-05-09] MEDS: LACTOBACILLUS ACIDOPHILUS CAP (BACID) PO ×2 (09:09→16:16)
[2017-05-09] MEDS ORDERED: VARIBAR NECTAR 40% w/v 240ML SUSP BTL As Ordered (11:59)
[2017-05-09] MEDS ORDERED: VARIBAR PUDDING 40% w/v 230ML TUBE As Ordered (12:00)
[2017-05-09] MEDS ORDERED: E-Z-PAQUE 96% w/w SUSP 176GM BTL As Ordered (12:00)
[2017-05-09] MEDS: MIRTAZAPINE 15 MG TAB PO (20:42)
[2017-05-09] MEDS: POTASSIUM CHLORIDE 10 MEQ SR TABLET PO (22:14)
[2017-05-10] MEDS: KETOROLAC 30 MG/ML VIAL (J1885) IV (01:16)
[2017-05-10] MEDS: MEROPENEM INJ 1 GM in APPROPRIATE DILUENT 1 EA IV ×3 (05:14→21:01)
[2017-05-10 07:00] LABS: BASO # 0.1 10^3/uL (0.0-0.2); BASO % 0.7 % (0.0-1.0); EOS # 0.5 10^3/uL (0.0-0.50); EOS % 4.4 % (0.0-3.0); HEMATOCRIT 26.6 % (42.0-52.0); HEMOGLOBIN 8.4 g/dl (14.0-18.0); IMMATURE GRANULOCYTE # 0.1 10^3/uL (0-0); IMMATURE GRANULOCYTE % 1.1 % (0-0); LYMPH # 1.3 10^3/uL (1.5-4.5); MEAN CORPUSCULAR HEMOGLOBIN 25.6 pg (27.0-33.0); MEAN CORPUSCULAR HGB CONC 31.6 g/dl (32.0-36.5); MEAN CORPUSCULAR VOLUME 81.1 fl (80.0-96.0); MONO # 1.3 10^3/uL (0.0-0.8); MONO % 12.5 % (0.0-5.0); NEUTROPHILS # 7.3 10^3/uL (1.8-7.7); NEUTROPHILS % 69.3 % (36.0-66.0); PLATELET COUNT, AUTOMATED 529 10^3/uL (150-450); RED BLOOD COUNT 3.28 10^6/uL (4.30-6.10); RED CELL DISTRIBUTION WIDTH 17.7 % (11.5-14.5); WHITE BLOOD COUNT 10.5 10^3/uL (4.0-10.0)
[2017-05-10 07:19] LABS: ANION GAP 6 MEQ/L (8-16); BLOOD UREA NITROGEN 17 MG/DL (7-18); CALCIUM LEVEL 9.4 MG/DL (8.8-10.2); CARBON DIOXIDE LEVEL 30 MEQ/L (21-32); CHLORIDE LEVEL 106 MEQ/L (98-107); CREATININE FOR GFR 0.61 MG/DL (0.70-1.30); GLOMERULAR FILTRATION RATE > 60.0 (>35); GLUCOSE, FASTING 84 MG/DL (70-100); POTASSIUM SERUM 3.9 MEQ/L (3.5-5.1); SODIUM LEVEL 142 MEQ/L (136-145)
[2017-05-10] MEDS: LIDOCAINE 5% OINT 30 GM TOP (09:00)
[2017-05-10] MEDS: LACTOBACILLUS ACIDOPHILUS CAP (BACID) PO ×2 (09:27→18:09)
[2017-05-10] MEDS: OLANZapine 5 MG TAB PO ×2 (09:27→21:01)
[2017-05-10] MEDS: GABAPENTIN 100 MG CAP PO ×2 (09:27→21:01)
[2017-05-10] MEDS: ENOXAPARIN 30 MG/0.3 ML SYR (J1650) SC (09:28)
[2017-05-10] MEDS: clonazePAM 0.5 MG TAB PO ×3 (10:22→21:00)
[2017-05-10 13:27] LABS: C REACTIVE PROTEIN QUANTITATIV 9.47 MG/DL (0.00-0.30)
[2017-05-10] MEDS: predniSONE 20 MG TAB PO (14:04)
[2017-05-10] MEDS: ACETAMINOPHEN TAB 650MG DOSE (2X325MG) PO (21:00)
[2017-05-10] MEDS: MIRTAZAPINE 15 MG TAB PO (21:01)
[2017-05-10] MEDS: FERROUS GLUCONATE 324 MG TAB PO (21:01)
[2017-05-11] MEDS: LevoFLOXacin 500 MG TABLET PO (05:51)
[2017-05-11 06:29] LABS: BASO % 0.2 % (0.0-1.0); EOS % 0.2 % (0.0-3.0); HEMATOCRIT 27.3 % (42.0-52.0); HEMOGLOBIN 8.5 g/dl (14.0-18.0); IMMATURE GRANULOCYTE # 0.1 10^3/uL (0-0); IMMATURE GRANULOCYTE % 0.7 % (0-0); LYMPH # 1.2 10^3/uL (1.5-4.5); LYMPH % 11.6 % (24.0-44.0); MEAN CORPUSCULAR HEMOGLOBIN 25.1 pg (27.0-33.0); MEAN CORPUSCULAR HGB CONC 31.1 g/dl (32.0-36.5); MEAN CORPUSCULAR VOLUME 80.8 fl (80.0-96.0); MONO # 0.9 10^3/uL (0.0-0.8); MONO % 8.3 % (0.0-5.0); NEUTROPHILS # 8.2 10^3/uL (1.8-7.7); PLATELET COUNT, AUTOMATED 540 10^3/uL (150-450); RED BLOOD COUNT 3.38 10^6/uL (4.30-6.10); RED CELL DISTRIBUTION WIDTH 17.8 % (11.5-14.5); WHITE BLOOD COUNT 10.4 10^3/uL (4.0-10.0)
[2017-05-11 06:47] LABS: ANION GAP 6 MEQ/L (8-16); BLOOD UREA NITROGEN 17 MG/DL (7-18); C REACTIVE PROTEIN QUANTITATIV 5.71 MG/DL (0.00-0.30); CALCIUM LEVEL 9.3 MG/DL (8.8-10.2); CARBON DIOXIDE LEVEL 29 MEQ/L (21-32); CHLORIDE LEVEL 106 MEQ/L (98-107); CREATININE FOR GFR 0.52 MG/DL (0.70-1.30); GLOMERULAR FILTRATION RATE > 60.0 (>35); GLUCOSE, FASTING 121 MG/DL (70-100); POTASSIUM SERUM 4.1 MEQ/L (3.5-5.1); SODIUM LEVEL 141 MEQ/L (136-145)
[2017-05-11] MEDS: GABAPENTIN 100 MG CAP PO ×2 (09:19→21:59)
[2017-05-11] MEDS: ENOXAPARIN 30 MG/0.3 ML SYR (J1650) SC (09:19)
[2017-05-11] MEDS: LACTOBACILLUS ACIDOPHILUS CAP (BACID) PO ×2 (09:19→16:57)
[2017-05-11] MEDS: clonazePAM 0.5 MG TAB PO ×3 (09:20→22:00)
[2017-05-11] MEDS: predniSONE 20 MG TAB PO ×2 (09:20→10:22)
[2017-05-11] MEDS: OLANZapine 5 MG TAB PO ×2 (09:20→22:00)
[2017-05-11] MEDS: FERROUS GLUCONATE 324 MG TAB PO ×2 (09:21→22:00)
[2017-05-11] MEDS: LIDOCAINE 5% OINT 30 GM TOP (09:21)
[2017-05-11] MEDS: ACETAMINOPHEN TAB 650MG DOSE (2X325MG) PO (09:42)
[2017-05-11 09:51] LABS: VITAMIN B12 LEVEL 301 PG/ML (247-911)
[2017-05-11 09:52] LABS: FOLATE 14.7 NG/ML (>5.4)
[2017-05-11] MEDS: PERCOCET 5MG/325MG TAB PO (10:22)
[2017-05-11] MEDS: MIRTAZAPINE 15 MG TAB PO (22:00)
[2017-05-12 00:07] LABS: BODY FLUID CULTURE Not Indicated (.); LEGIONELLA ANTIGEN URINE Negative (Negative); ORGANISM ID Not indicated. (.); SPECIMEN SOURCE Urine (.); URINE STREP PNEUMONIAE ANTIGEN Negative (Negative)
[2017-05-12] MEDS: LevoFLOXacin 500 MG TABLET PO (05:41)
[2017-05-12] MEDS: ACETAMINOPHEN TAB 650MG DOSE (2X325MG) PO (05:41)
[2017-05-12] MEDS: OLANZapine 5 MG TAB PO (09:51)
[2017-05-12] MEDS: GABAPENTIN 400 MG CAP PO (09:51)
[2017-05-12] MEDS: FERROUS GLUCONATE 324 MG TAB PO (09:51)
[2017-05-12] MEDS: LACTOBACILLUS ACIDOPHILUS CAP (BACID) PO (09:51)
[2017-05-12] MEDS: clonazePAM 0.5 MG TAB PO (09:51)
[2017-05-12] MEDS: predniSONE 20 MG TAB PO (09:52)
[2017-05-12] MEDS: LIDOCAINE 5% OINT 30 GM TOP (09:57)
== END 2017-05-12 14:04 | DRG 195 ==
LOC: M MSPAV 05-11 14:25 → M ED 19:13 → M ED INP 22:06
DX: J18.9 Pneumonia, unspecified organism (principal); J69.0 Pneumonitis due to inhalation of food and vomit; F31.9 Bipolar disorder, unspecified; I10 Essential (primary) hypertension; M06.9 Rheumatoid arthritis, unspecified; N40.0 Benign prostatic hyperplasia without lower urinary tract symptoms; Z85.038 Personal history of other malignant neoplasm of large intestine; Z88.0 Allergy status to penicillin; Z79.899 Other long term (current) drug therapy; Z88.2 Allergy status to sulfonamides; Z88.8 Allergy status to other drugs, medicaments and biological substances; F03.90 Unspecified dementia, unspecified severity, without behavioral disturbance, psychotic disturbance, mood disturbance, and anxiety

== ENCOUNTER → 2017-05-30 | Outpatient (REF) | payer MEDICARE, MEDICAID ==
[2017-05-30 10:42] LABS: INFLUENZA A AMPLIFICATION NEGATIVE (NEGATIVE); INFLUENZA B AMPLIFICATION NEGATIVE (NEGATIVE); RSV AMPLIFICATION NEGATIVE (NEGATIVE)
== END ==
LOC: SKLAB4 09:47
DX: R50.9 Fever, unspecified (principal)
CPT/HCPCS: 87631

== ENCOUNTER → 2017-08-08 | Outpatient (REF) | payer MEDICARE, MEDICAID ==
[2017-08-08 12:52] LABS: HEMATOCRIT 39.8 % (42.0-52.0); HEMOGLOBIN 12.4 g/dl (13.5-17.5); MEAN CORPUSCULAR HEMOGLOBIN 25.9 pg (27.0-33.0); MEAN CORPUSCULAR HGB CONC 31.2 g/dl (32.0-36.5); MEAN CORPUSCULAR VOLUME 83.1 fl (80.0-96.0); PLATELET COUNT, AUTOMATED 458 10^3/uL (150-450); RED BLOOD COUNT 4.79 10^6/uL (4.30-6.10); RED CELL DISTRIBUTION WIDTH 16.5 % (11.5-14.5); WHITE BLOOD COUNT 12.3 10^3/uL (4.0-10.0)
[2017-08-08 13:22] LABS: ANION GAP 6 MEQ/L (8-16); BLOOD UREA NITROGEN 22 MG/DL (7-18); CALCIUM LEVEL 10.2 MG/DL (8.8-10.2); CARBON DIOXIDE LEVEL 33 MEQ/L (21-32); CHLORIDE LEVEL 102 MEQ/L (98-107); CREATININE FOR GFR 0.77 MG/DL (0.70-1.30); GLOMERULAR FILTRATION RATE > 60.0 (>35); GLUCOSE, FASTING 104 MG/DL (70-100); POTASSIUM SERUM 4.2 MEQ/L (3.5-5.1); SODIUM LEVEL 141 MEQ/L (136-145)
== END ==
LOC: SKLAB4 11:58
DX: R50.9 Fever, unspecified (principal); R06.02 Shortness of breath
CPT/HCPCS: 71046

== ENCOUNTER → 2017-08-10 | Outpatient (REF) | payer MEDICARE, MEDICAID | LOC: SKLAB4 08:00 | DX: D64.9 Anemia, unspecified (principal); R06.02 Shortness of breath; R50.9 Fever, unspecified | CPT/HCPCS: 82270 ==

== ENCOUNTER → 2017-08-11 | Outpatient (REF) | payer MEDICARE, MEDICAID | LOC: SKLAB4 09:51 | DX: R19.5 Other fecal abnormalities (principal) | CPT/HCPCS: 82270 ==

== ENCOUNTER → 2017-10-31 | Outpatient (REF) | payer MEDICARE, MEDICAID ==
[2017-10-31 08:33] LABS: HEMATOCRIT 36.2 % (42.0-52.0); HEMOGLOBIN 11.9 g/dl (13.5-17.5); MEAN CORPUSCULAR HGB CONC 32.9 g/dl (32.0-36.5); MEAN CORPUSCULAR VOLUME 85.2 fl (80.0-96.0); PLATELET COUNT, AUTOMATED 267 10^3/uL (150-450); RED BLOOD COUNT 4.25 10^6/uL (4.30-6.10); RED CELL DISTRIBUTION WIDTH 17.2 % (11.5-14.5); WHITE BLOOD COUNT 8.2 10^3/uL (4.0-10.0)
[2017-10-31 08:48] LABS: ALBUMIN 3.3 GM/DL (3.2-5.2); ALBUMIN/GLOBULIN RATIO 1.03 (1.00-1.93); ALKALINE PHOSPHATASE 85 U/L (45-117); ALT/SGPT 13 U/L (12-78); ANION GAP 6 MEQ/L (8-16); AST/SGOT 8 U/L (7-37); BILIRUBIN,TOTAL 0.3 MG/DL (0.2-1.0); BLOOD UREA NITROGEN 22 MG/DL (7-18); CALCIUM LEVEL 9.1 MG/DL (8.8-10.2); CARBON DIOXIDE LEVEL 31 MEQ/L (21-32); CHLORIDE LEVEL 104 MEQ/L (98-107); CREATININE FOR GFR 0.76 MG/DL (0.70-1.30); GLOMERULAR FILTRATION RATE > 60.0 (>35); GLUCOSE, FASTING 86 MG/DL (70-100); IRON (FE) 41 UG/DL (65-175); SODIUM LEVEL 141 MEQ/L (136-145); TOTAL PROTEIN 6.5 GM/DL (6.4-8.2)
== END ==
LOC: SKLAB4 09:43
DX: D64.9 Anemia, unspecified (principal); I10 Essential (primary) hypertension
CPT/HCPCS: 83540

== ENCOUNTER → 2017-11-07 | Outpatient (REF) | payer MEDICARE, MEDICAID ==
[2017-11-07 11:45] LABS: ANION GAP 8 MEQ/L (8-16); BLOOD UREA NITROGEN 19 MG/DL (7-18); CALCIUM LEVEL 9.3 MG/DL (8.8-10.2); CARBON DIOXIDE LEVEL 29 MEQ/L (21-32); CHLORIDE LEVEL 105 MEQ/L (98-107); CREATININE FOR GFR 0.68 MG/DL (0.70-1.30); GLOMERULAR FILTRATION RATE > 60.0 (>35); GLUCOSE, FASTING 91 MG/DL (70-100); POTASSIUM SERUM 4.2 MEQ/L (3.5-5.1); SODIUM LEVEL 142 MEQ/L (136-145); TROPONIN I < 0.02 NG/ML (< 0.10)
== END ==
LOC: SKLAB4 10:15
DX: I47.1 Supraventricular tachycardia (principal); Z87.448 Personal history of other diseases of urinary system
CPT/HCPCS: 93005

== ENCOUNTER → 2017-11-09 | Outpatient (REF) | payer MEDICARE, MEDICAID | LOC: SKLAB4 08:31 | DX: R00.0 Tachycardia, unspecified (principal) | CPT/HCPCS: 93225 ==

== ENCOUNTER → 2017-11-16 | Outpatient (REF) | payer MEDICARE, MEDICAID ==
[2017-11-16 18:39] LABS: BASO # 0.1 10^3/uL (0.0-0.2); BASO % 0.4 % (0.0-1.0); EOS # 0.2 10^3/uL (0.0-0.50); EOS % 1.1 % (0.0-3.0); HEMOGLOBIN 12.1 g/dl (13.5-17.5); IMMATURE GRANULOCYTE % 0.7 % (0-3.0); LYMPH # 1.5 10^3/uL (1.5-4.5); LYMPH % 8.5 % (24.0-44.0); MEAN CORPUSCULAR HEMOGLOBIN 29.2 pg (27.0-33.0); MEAN CORPUSCULAR HGB CONC 33.6 g/dl (32.0-36.5); MONO # 1.6 10^3/uL (0.0-0.8); MONO % 9.4 % (0.0-5.0); NEUTROPHILS # 13.9 10^3/uL (1.8-7.7); NEUTROPHILS % 79.9 % (36.0-66.0); PLATELET COUNT, AUTOMATED 247 10^3/uL (150-450); RED BLOOD COUNT 4.14 10^6/uL (4.30-6.10); RED CELL DISTRIBUTION WIDTH 16.2 % (11.5-14.5); WHITE BLOOD COUNT 17.4 10^3/uL (4.0-10.0)
[2017-11-16 18:53] LABS: ANION GAP 10 MEQ/L (8-16); BLOOD UREA NITROGEN 21 MG/DL (7-18); CALCIUM LEVEL 9.1 MG/DL (8.8-10.2); CARBON DIOXIDE LEVEL 28 MEQ/L (21-32); CHLORIDE LEVEL 101 MEQ/L (98-107); CREATININE FOR GFR 0.93 MG/DL (0.70-1.30); GLOMERULAR FILTRATION RATE > 60.0 (>35); GLUCOSE, FASTING 156 MG/DL (70-100); POTASSIUM SERUM 4.3 MEQ/L (3.5-5.1); SODIUM LEVEL 139 MEQ/L (136-145)
[2017-11-16 19:44] LABS: APPEARANCE, URINE CLOUDY (CLEAR); BACTERIA, URINE AUTO 3+ (NEGATIVE); BILIRUBIN, URINE AUTO NEGATIVE (NEGATIVE); BLOOD, URINE BLOOD 1+ (NEGATIVE); COLOR, URINE YELLOW (YELLOW); GLUCOSE, URINE (UA) AUTO NEGATIVE (NEGATIVE); KETONE, URINE AUTO NEGATIVE (NEGATIVE); LEUKOCYTE ESTERASE, URINE AUTO 3+ (NEGATIVE); NITRITE, URINE AUTO POSITIVE (NEGATIVE); PROTEIN, URINE AUTO 1+ mg/dL (NEGATIVE); RBC, URINE AUTO 34 /HPF (0-3); SPECIFIC GRAVITY URINE AUTO 1.016 (1.002-1.035); SQUAMOUS EPITHELIAL CELL UR AU 0 /HPF (0-6); UROBILINOGEN, URINE AUTO 0.2 mg/dL (0.0-2.0); WBC, URINE AUTO TNTC /HPF (0-3)
== END ==
LOC: SKLAB4 17:19
DX: R06.02 Shortness of breath (principal); R10.9 Unspecified abdominal pain
CPT/HCPCS: 71046

== ENCOUNTER 2017-11-19 21:05 | Inpatient (IN) | payer MEDICARE, MEDICAID ==
[~2017-11-19 21:05] MED LIST changes: -ALBUTEROL 90 MCG/ACT 8GM HFA INHALER INH; -DIAPER RELIEF PASTE (DESITIN) 60GM TOP; -HYDROCORTISONE 2.5% 20GM OINTMENT TOP; -IPRATROPIUM 0.5MG/ALBUTEROL 2.5MG INH SOL UD 3ML (DUONEB)(J7620) NEB; -MOM 30ML SUSPENSION UDC PO; +clonazePAM 0.5 MG TAB PO
[2017-11-19] MEDS: METOPROLOL 5 MG/5 ML VIAL IV (21:44)
[2017-11-19 21:50] LABS: BASO # 0.1 10^3/uL (0.0-0.2); BASO % 0.9 % (0.0-1.0); EOS # 0.4 10^3/uL (0.0-0.50); EOS % 4.1 % (0.0-3.0); HEMATOCRIT 39.8 % (42.0-52.0); HEMOGLOBIN 12.9 g/dl (13.5-17.5); IMMATURE GRANULOCYTE % 1.1 % (0-3.0); LYMPH # 1.4 10^3/uL (1.5-4.5); LYMPH % 16.6 % (24.0-44.0); MEAN CORPUSCULAR HEMOGLOBIN 28.4 pg (27.0-33.0); MEAN CORPUSCULAR HGB CONC 32.4 g/dl (32.0-36.5); MEAN CORPUSCULAR VOLUME 87.5 fl (80.0-96.0); MONO # 1.2 10^3/uL (0.0-0.8); MONO % 14.3 % (0.0-5.0); NEUTROPHILS # 5.4 10^3/uL (1.8-7.7); PLATELET COUNT, AUTOMATED 307 10^3/uL (150-450); RED BLOOD COUNT 4.55 10^6/uL (4.30-6.10); RED CELL DISTRIBUTION WIDTH 15.6 % (11.5-14.5); WHITE BLOOD COUNT 8.5 10^3/uL (4.0-10.0)
[2017-11-19] MEDS: NS 500 ML IV (22:00)
[2017-11-19 22:07] LABS: PARTIAL THROMBOPLASTIN TIME 31.6 SECONDS (25.4-37.6); PROTHROMBIN TIME 14.3 SECONDS (12.1-14.4)
[2017-11-19 22:13] LABS: ALBUMIN 3.4 GM/DL (3.2-5.2); ALBUMIN/GLOBULIN RATIO 0.83 (1.00-1.93); ALKALINE PHOSPHATASE 106 U/L (45-117); ALT/SGPT 20 U/L (12-78); ANION GAP 8 MEQ/L (8-16); AST/SGOT 11 U/L (7-37); BILIRUBIN,DIRECT < 0.1 MG/DL (0.0-0.2); BILIRUBIN,TOTAL 0.2 MG/DL (0.2-1.0); BLOOD UREA NITROGEN 21 MG/DL (7-18); C REACTIVE PROTEIN QUANTITATIV 3.54 MG/DL (0.00-0.30); CALCIUM LEVEL 9.1 MG/DL (8.8-10.2); CARBON DIOXIDE LEVEL 28 MEQ/L (21-32); CHLORIDE LEVEL 104 MEQ/L (98-107); CPK CREATINE PHOSPHOKINASE 40 U/L (39-308); CREATININE FOR GFR 0.89 MG/DL (0.70-1.30); GLOMERULAR FILTRATION RATE > 60.0 (>35); GLUCOSE, FASTING 130 MG/DL (70-100); LIPASE 114 U/L (73-393); POTASSIUM SERUM 4.1 MEQ/L (3.5-5.1); SODIUM LEVEL 140 MEQ/L (136-145); TOTAL PROTEIN 7.5 GM/DL (6.4-8.2); TROPONIN I < 0.02 NG/ML (< 0.10)
[2017-11-19 22:18] LABS: CK-MB VALUE MASS 1.5 NG/ML (<3.6); MB/CK RELATIVE INDEX 3.75 (< OR =4); NT-PRO BNP 595 PG/ML (<450)
[2017-11-20] MEDS: MEROPENEM INJ 1 GM in APPROPRIATE DILUENT 1 EA IV (00:10)
[2017-11-20] MEDS ORDERED: ACETAMINOPHEN 325 MG TAB PO (00:30)
[2017-11-20] MEDS ORDERED: POLYVINYL ALCOHOL OPHTH SOLN 15 ML(LIQUITEARS) OU ×2 (00:30)
[2017-11-20] MEDS ORDERED: MIRALAX *UNIT DOSE* 17GM PACKET PO (00:30)
[2017-11-20] MEDS ORDERED: FLEET ENEMA PR (00:30)
[2017-11-20] MEDS ORDERED: MAALOX 30 ML SUSP *UDC PO (00:30)
[2017-11-20] MEDS ORDERED: HYDROCORTISONE 2.5% 20GM OINTMENT TOP (00:30)
[2017-11-20] MEDS ORDERED: MOM 30ML SUSPENSION UDC PO (00:30)
[2017-11-20] MEDS ORDERED: BISACODYL 10 MG SUPP PR (00:30)
[2017-11-20 00:46] LABS: LACTIC ACID SEPSIS PROTOCOL 1.9 MMOL/L (0.4-2.0)
[2017-11-20 00:54] LABS: FREE T4 1.03 NG/DL (0.76-1.46)
[2017-11-20] MEDS ORDERED: PILL CRUSHER/CUTTER 1 EACH XX (01:00)
[2017-11-20] MEDS: NS 1,000 ML IV ×3 (01:05→20:08)
[2017-11-20] MEDS ORDERED: ACETAMINOPHEN TAB 650MG DOSE (2X325MG) PO (01:15)
[2017-11-20] MEDS ORDERED: IPRATROPIUM 0.5MG/ALBUTEROL 2.5MG INH SOL UD 3ML (DUONEB)(J7620) NEB (01:15)
[2017-11-20] MEDS: FLEET ENEMA PR (03:09)
[2017-11-20] MEDS: LevoFLOXacin IV 750 MG in APPROPRIATE DILUENT 1 EA IV (03:20)
[2017-11-20] MEDS ORDERED: NORCO, ANEXSIA 5/325MG TABLET (HYDROcodone/ACETAMINOPHEN) PO (03:45)
[2017-11-20 07:58] LABS: HEMATOCRIT 39.9 % (42.0-52.0); HEMOGLOBIN 12.8 g/dl (13.5-17.5); MEAN CORPUSCULAR HEMOGLOBIN 28.3 pg (27.0-33.0); MEAN CORPUSCULAR HGB CONC 32.1 g/dl (32.0-36.5); MEAN CORPUSCULAR VOLUME 88.1 fl (80.0-96.0); PLATELET COUNT, AUTOMATED 250 10^3/uL (150-450); RED BLOOD COUNT 4.53 10^6/uL (4.30-6.10); RED CELL DISTRIBUTION WIDTH 15.6 % (11.5-14.5); WHITE BLOOD COUNT 10.3 10^3/uL (4.0-10.0)
[2017-11-20 08:12] LABS: ANION GAP 8 MEQ/L (8-16); BLOOD UREA NITROGEN 19 MG/DL (7-18); CALCIUM LEVEL 8.7 MG/DL (8.8-10.2); CARBON DIOXIDE LEVEL 28 MEQ/L (21-32); CHLORIDE LEVEL 105 MEQ/L (98-107); CREATININE FOR GFR 0.68 MG/DL (0.70-1.30); GLOMERULAR FILTRATION RATE > 60.0 (>35); GLUCOSE, FASTING 90 MG/DL (70-100); POTASSIUM SERUM 3.9 MEQ/L (3.5-5.1); SODIUM LEVEL 141 MEQ/L (136-145)
[2017-11-20] MEDS: METOPROLOL TART 25 MG TABLET PO ×3 (09:41→20:13)
[2017-11-20] MEDS: guaiFENesin ER 600 MG TAB PO ×2 (09:41→20:09)
[2017-11-20] MEDS: GABAPENTIN 400 MG CAP PO ×2 (09:41→20:10)
[2017-11-20] MEDS: clonazePAM 0.5 MG TAB PO ×2 (09:41→20:09)
[2017-11-20] MEDS: APIXABAN 5 MG TAB (ELIQUIS) PO ×2 (09:41→20:09)
[2017-11-20] MEDS: MULTIVITAMINS/MINERALS THERAP 1 TAB PO (09:41)
[2017-11-20] MEDS: FERROUS GLUCONATE 324 MG TAB PO ×2 (09:41→20:09)
[2017-11-20] MEDS: DOXEPIN 10 MG CAP PO ×2 (09:41→20:09)
[2017-11-20] MEDS: FLUTICASONE PROP 0.05% NASAL SPRAY 16 GM (FLONASE) ×2 (09:42→20:09)
[2017-11-20] MEDS: oxyBUTYnin *DITROPAN XL* 5 MG TABCR PO (09:44)
[2017-11-20] MEDS: OLANZapine 2.5MG TABLET PO ×2 (09:45→20:09)
[2017-11-20] MEDS: NORCO, ANEXSIA 5/325MG TABLET (HYDROcodone/ACETAMINOPHEN) PO (09:45)
[2017-11-20] MEDS: MIRTAZAPINE 15 MG TAB PO (20:09)
[2017-11-21] MEDS ORDERED: FUROSEMIDE 20 MG/2 ML VIAL (J1940) As Ordered (00:02)
[2017-11-21] MEDS: NORCO, ANEXSIA 5/325MG TABLET (HYDROcodone/ACETAMINOPHEN) PO ×2 (00:05→21:37)
[2017-11-21] MEDS: FUROSEMIDE 20 MG/2 ML VIAL (J1940) IV ×2 (00:06→01:53)
[2017-11-21] MEDS: FERROUS GLUCONATE 324 MG TAB PO ×2 (09:04→21:00)
[2017-11-21] MEDS: clonazePAM 0.5 MG TAB PO ×2 (09:04→21:00)
[2017-11-21] MEDS: guaiFENesin ER 600 MG TAB PO ×2 (09:05→21:00)
[2017-11-21] MEDS: MULTIVITAMINS/MINERALS THERAP 1 TAB PO (09:05)
[2017-11-21] MEDS: oxyBUTYnin *DITROPAN XL* 5 MG TABCR PO (09:05)
[2017-11-21] MEDS: GABAPENTIN 400 MG CAP PO ×2 (09:05→21:00)
[2017-11-21] MEDS: DOXEPIN 10 MG CAP PO ×2 (09:05→21:00)
[2017-11-21] MEDS: APIXABAN 5 MG TAB (ELIQUIS) PO ×2 (09:05→21:00)
[2017-11-21] MEDS: OLANZapine 2.5MG TABLET PO ×2 (09:05→21:00)
[2017-11-21] MEDS: METOPROLOL TART 25 MG TABLET PO ×2 (09:06→21:00)
[2017-11-21] MEDS: FLUTICASONE PROP 0.05% NASAL SPRAY 16 GM (FLONASE) ×2 (09:06→21:01)
[2017-11-21] MEDS: MIRTAZAPINE 15 MG TAB PO (21:00)
[2017-11-21] MEDS: LevoFLOXacin IV 750 MG in APPROPRIATE DILUENT 1 EA IV ×2 (23:06)
[2017-11-22 08:18] LABS: BASO # 0.1 10^3/uL (0.0-0.2); BASO % 0.6 % (0.0-1.0); EOS # 0.3 10^3/uL (0.0-0.50); EOS % 3.3 % (0.0-3.0); HEMATOCRIT 36.2 % (42.0-52.0); HEMOGLOBIN 11.9 g/dl (13.5-17.5); LYMPH # 1.2 10^3/uL (1.5-4.5); LYMPH % 12.2 % (24.0-44.0); MEAN CORPUSCULAR HEMOGLOBIN 28.7 pg (27.0-33.0); MEAN CORPUSCULAR HGB CONC 32.9 g/dl (32.0-36.5); MEAN CORPUSCULAR VOLUME 87.2 fl (80.0-96.0); MONO # 1.5 10^3/uL (0.0-0.8); MONO % 15.9 % (0.0-5.0); NEUTROPHILS # 6.3 10^3/uL (1.8-7.7); PLATELET COUNT, AUTOMATED 280 10^3/uL (150-450); RED BLOOD COUNT 4.15 10^6/uL (4.30-6.10); RED CELL DISTRIBUTION WIDTH 14.9 % (11.5-14.5); WHITE BLOOD COUNT 9.4 10^3/uL (4.0-10.0)
[2017-11-22] MEDS: MULTIVITAMINS/MINERALS THERAP 1 TAB PO (08:41)
[2017-11-22] MEDS: GABAPENTIN 400 MG CAP PO ×2 (08:41→20:56)
[2017-11-22] MEDS: FERROUS GLUCONATE 324 MG TAB PO ×2 (08:42→20:56)
[2017-11-22] MEDS: oxyBUTYnin *DITROPAN XL* 5 MG TABCR PO (08:42)
[2017-11-22] MEDS: OLANZapine 2.5MG TABLET PO ×2 (08:42→20:56)
[2017-11-22] MEDS: APIXABAN 5 MG TAB (ELIQUIS) PO ×2 (08:42→20:56)
[2017-11-22] MEDS: DOXEPIN 10 MG CAP PO ×2 (08:42→20:56)
[2017-11-22] MEDS: guaiFENesin ER 600 MG TAB PO ×2 (08:42→20:56)
[2017-11-22] MEDS: clonazePAM 0.5 MG TAB PO ×2 (08:43→20:56)
[2017-11-22] MEDS: FLUTICASONE PROP 0.05% NASAL SPRAY 16 GM (FLONASE) ×2 (08:43→20:56)
[2017-11-22] MEDS: METOPROLOL TART 25 MG TABLET PO ×2 (08:44→20:56)
[2017-11-22 08:51] LABS: ANION GAP 7 MEQ/L (8-16); BLOOD UREA NITROGEN 18 MG/DL (7-18); C REACTIVE PROTEIN QUANTITATIV 6.51 MG/DL (0.00-0.30); CALCIUM LEVEL 8.5 MG/DL (8.8-10.2); CARBON DIOXIDE LEVEL 30 MEQ/L (21-32); CHLORIDE LEVEL 105 MEQ/L (98-107); GLOMERULAR FILTRATION RATE > 60.0 (>35); GLUCOSE, FASTING 90 MG/DL (70-100); MAGNESIUM LEVEL 1.9 MG/DL (1.8-2.4); POTASSIUM SERUM 3.6 MEQ/L (3.5-5.1); SODIUM LEVEL 142 MEQ/L (136-145)
[2017-11-22] MEDS: MIRTAZAPINE 15 MG TAB PO (20:56)
[2017-11-22] MEDS: LevoFLOXacin IV 750 MG in APPROPRIATE DILUENT 1 EA IV (23:25)
[2017-11-22] MEDS: NORCO, ANEXSIA 5/325MG TABLET (HYDROcodone/ACETAMINOPHEN) PO (23:25)
[2017-11-23] MEDS: METOPROLOL TART 25 MG TABLET PO (09:00)
[2017-11-23] MEDS: GABAPENTIN 400 MG CAP PO (09:16)
[2017-11-23] MEDS: oxyBUTYnin *DITROPAN XL* 5 MG TABCR PO (09:17)
[2017-11-23] MEDS: MULTIVITAMINS/MINERALS THERAP 1 TAB PO (09:17)
[2017-11-23] MEDS: FERROUS GLUCONATE 324 MG TAB PO (09:17)
[2017-11-23] MEDS: APIXABAN 5 MG TAB (ELIQUIS) PO (09:17)
[2017-11-23] MEDS: DOXEPIN 10 MG CAP PO (09:17)
[2017-11-23] MEDS: guaiFENesin ER 600 MG TAB PO (09:17)
[2017-11-23] MEDS: clonazePAM 0.5 MG TAB PO (09:19)
[2017-11-23] MEDS: OLANZapine 2.5MG TABLET PO (09:19)
[2017-11-23] MEDS: FLUTICASONE PROP 0.05% NASAL SPRAY 16 GM (FLONASE) (09:19)
[2017-11-23] MEDS ORDERED: LevoFLOXacin 750 MG TABLET PO (18:00)
== END 2017-11-23 11:23 | DRG 178 ==
LOC: M ED INP 11-20 01:05 → M MSPAV 11-20 02:56 → M ED 21:05
DX: J69.0 Pneumonitis due to inhalation of food and vomit (principal); I50.32 Chronic diastolic (congestive) heart failure; I48.0 Paroxysmal atrial fibrillation; K21.9 Gastro-esophageal reflux disease without esophagitis; I11.0 Hypertensive heart disease with heart failure; E03.9 Hypothyroidism, unspecified; K59.00 Constipation, unspecified; F31.9 Bipolar disorder, unspecified; F41.9 Anxiety disorder, unspecified; R33.9 Retention of urine, unspecified; N40.0 Benign prostatic hyperplasia without lower urinary tract symptoms; R13.10 Dysphagia, unspecified; Z79.899 Other long term (current) drug therapy; Z88.0 Allergy status to penicillin; Z88.2 Allergy status to sulfonamides; Z88.8 Allergy status to other drugs, medicaments and biological substances; Z79.01 Long term (current) use of anticoagulants; Z85.048 Personal history of other malignant neoplasm of rectum, rectosigmoid junction, and anus

== ENCOUNTER → 2017-11-26 | Outpatient (CLI) | payer MEDICARE, MEDICAID | LOC: M LAB 22:14 → SKLAB4 22:35 → M LAB 22:35 | DX: N39.0 Urinary tract infection, site not specified (principal) ==

== ENCOUNTER 2017-11-27 21:26 | Inpatient (IN) | payer MEDICARE, MEDICAID ==
[2017-11-27] MEDS: FLUTICASONE PROP 0.05% NASAL SPRAY 16 GM (FLONASE) (21:00)
[2017-11-27] MEDS: MIRTAZAPINE 15 MG TAB PO (21:00)
[~2017-11-27 21:26] MED LIST changes: +SENOKOT S TAB PO; -clonazePAM 0.5 MG TAB PO
[2017-11-27] MEDS: NS 500 ML IV (22:00)
[2017-11-27 22:07] LABS: BASO # 0.1 10^3/uL (0.0-0.2); BASO % 0.6 % (0.0-1.0); EOS # 0.4 10^3/uL (0.0-0.50); EOS % 2.8 % (0.0-3.0); HEMATOCRIT 34.6 % (42.0-52.0); HEMOGLOBIN 11.3 g/dl (13.5-17.5); IMMATURE GRANULOCYTE % 1.1 % (0-3.0); LYMPH # 1.8 10^3/uL (1.5-4.5); LYMPH % 14.1 % (24.0-44.0); MEAN CORPUSCULAR HEMOGLOBIN 28.3 pg (27.0-33.0); MEAN CORPUSCULAR HGB CONC 32.7 g/dl (32.0-36.5); MEAN CORPUSCULAR VOLUME 86.7 fl (80.0-96.0); MONO # 1.4 10^3/uL (0.0-0.8); MONO % 10.9 % (0.0-5.0); NEUTROPHILS # 8.8 10^3/uL (1.8-7.7); NEUTROPHILS % 70.5 % (36.0-66.0); PLATELET COUNT, AUTOMATED 356 10^3/uL (150-450); RED BLOOD COUNT 3.99 10^6/uL (4.30-6.10); RED CELL DISTRIBUTION WIDTH 14.6 % (11.5-14.5); WHITE BLOOD COUNT 12.5 10^3/uL (4.0-10.0)
[2017-11-27] MEDS: METOPROLOL TART 25 MG TABLET PO (22:15)
[2017-11-27] MEDS: MEROPENEM INJ 1 GM in APPROPRIATE DILUENT 1 EA IV (22:30)
[2017-11-27 22:39] LABS: ALBUMIN/GLOBULIN RATIO 0.71 (1.00-1.93); ALKALINE PHOSPHATASE 87 U/L (45-117); ALT/SGPT 14 U/L (12-78); ANION GAP 7 MEQ/L (8-16); AST/SGOT 9 U/L (7-37); BILIRUBIN,DIRECT < 0.1 MG/DL (0.0-0.2); BILIRUBIN,TOTAL 0.2 MG/DL (0.2-1.0); BLOOD UREA NITROGEN 20 MG/DL (7-18); CALCIUM LEVEL 8.8 MG/DL (8.8-10.2); CARBON DIOXIDE LEVEL 30 MEQ/L (21-32); CHLORIDE LEVEL 103 MEQ/L (98-107); CK-MB VALUE MASS 1.4 NG/ML (<3.6); CPK CREATINE PHOSPHOKINASE 47 U/L (39-308); CREATININE FOR GFR 0.85 MG/DL (0.70-1.30); GLOMERULAR FILTRATION RATE > 60.0 (>35); GLUCOSE, FASTING 118 MG/DL (70-100); MB/CK RELATIVE INDEX 2.97 (< OR =4); NT-PRO BNP 2095 PG/ML (<450); POTASSIUM SERUM 4.3 MEQ/L (3.5-5.1); SODIUM LEVEL 140 MEQ/L (136-145); TOTAL PROTEIN 7.2 GM/DL (6.4-8.2); TROPONIN I 0.02 NG/ML (< 0.10)
[2017-11-27] MEDS ORDERED: FLEET ENEMA PR (23:30)
[2017-11-27] MEDS ORDERED: IPRATROPIUM 0.5MG/ALBUTEROL 2.5MG INH SOL UD 3ML (DUONEB)(J7620) INH (23:30)
[2017-11-27] MEDS ORDERED: MIRALAX *UNIT DOSE* 17GM PACKET PO (23:30)
[2017-11-27] MEDS ORDERED: HYDROCORTISONE 2.5% 20GM OINTMENT TOP (23:30)
[2017-11-27] MEDS ORDERED: POLYVINYL ALCOHOL OPHTH SOLN 15 ML(LIQUITEARS) OU (23:30)
[2017-11-27] MEDS: FUROSEMIDE 40 MG/4 ML VIAL (J1940) IV (23:59)
[2017-11-28] MEDS ORDERED: PILL CRUSHER/CUTTER 1 EACH XX (01:00)
[2017-11-28 05:12] LABS: BASO # 0.1 10^3/uL (0.0-0.2); BASO % 0.7 % (0.0-1.0); EOS # 0.3 10^3/uL (0.0-0.50); EOS % 3.5 % (0.0-3.0); HEMATOCRIT 29.6 % (42.0-52.0); HEMOGLOBIN 9.7 g/dl (13.5-17.5); IMMATURE GRANULOCYTE % 0.8 % (0-3.0); LYMPH # 1.5 10^3/uL (1.5-4.5); MEAN CORPUSCULAR HEMOGLOBIN 28.6 pg (27.0-33.0); MEAN CORPUSCULAR HGB CONC 32.8 g/dl (32.0-36.5); MEAN CORPUSCULAR VOLUME 87.3 fl (80.0-96.0); MONO # 1.1 10^3/uL (0.0-0.8); MONO % 12.3 % (0.0-5.0); NEUTROPHILS # 6.1 10^3/uL (1.8-7.7); NEUTROPHILS % 66.7 % (36.0-66.0); PLATELET COUNT, AUTOMATED 306 10^3/uL (150-450); RED BLOOD COUNT 3.39 10^6/uL (4.30-6.10); RED CELL DISTRIBUTION WIDTH 14.7 % (11.5-14.5); WHITE BLOOD COUNT 9.2 10^3/uL (4.0-10.0)
[2017-11-28 05:30] LABS: TROPONIN I 0.03 NG/ML (< 0.10)
[2017-11-28 05:44] LABS: ANION GAP 6 MEQ/L (8-16); BLOOD UREA NITROGEN 19 MG/DL (7-18); CALCIUM LEVEL 8.4 MG/DL (8.8-10.2); CARBON DIOXIDE LEVEL 31 MEQ/L (21-32); CHLORIDE LEVEL 103 MEQ/L (98-107); CREATININE FOR GFR 0.65 MG/DL (0.70-1.30); GLOMERULAR FILTRATION RATE > 60.0 (>35); GLUCOSE, FASTING 126 MG/DL (70-100); POTASSIUM SERUM 4.3 MEQ/L (3.5-5.1); SODIUM LEVEL 140 MEQ/L (136-145)
[2017-11-28] MEDS: IPRATROPIUM 0.5MG/ALBUTEROL 2.5MG INH SOL UD 3ML (DUONEB)(J7620) INH ×2 (07:41→12:00)
[2017-11-28] MEDS: clonazePAM 0.5 MG TAB PO ×2 (09:23→20:50)
[2017-11-28] MEDS: DOXEPIN 10 MG CAP PO ×2 (09:23→20:51)
[2017-11-28] MEDS: FERROUS GLUCONATE 324 MG TAB PO ×2 (09:24→20:50)
[2017-11-28] MEDS: OLANZapine 2.5MG TABLET PO ×2 (09:24→20:51)
[2017-11-28] MEDS: MULTIVITAMINS/MINERALS THERAP 1 TAB PO (09:24)
[2017-11-28] MEDS: APIXABAN 5 MG TAB (ELIQUIS) PO ×2 (09:24→20:50)
[2017-11-28] MEDS: SENOKOT S TAB PO ×2 (09:24→20:50)
[2017-11-28] MEDS: GABAPENTIN 400 MG CAP PO ×2 (09:24→20:50)
[2017-11-28] MEDS: oxyBUTYnin *DITROPAN XL* 5 MG TABCR PO (09:24)
[2017-11-28] MEDS: NORCO, ANEXSIA 5/325MG TABLET (HYDROcodone/ACETAMINOPHEN) PO ×3 (09:24→20:51)
[2017-11-28] MEDS: FLUTICASONE PROP 0.05% NASAL SPRAY 16 GM (FLONASE) ×2 (09:25→20:51)
[2017-11-28] MEDS: METOPROLOL TART 25 MG TABLET PO ×2 (09:25→20:26)
[2017-11-28] MEDS: guaiFENesin ER 600 MG TAB PO ×2 (09:25→20:50)
[2017-11-28] MEDS: LevoFLOXacin 750 MG TABLET PO (09:27)
[2017-11-28] MEDS: FUROSEMIDE 40 MG/4 ML VIAL (J1940) IV (12:46)
[2017-11-28] MEDS ORDERED: LEVALBUTEROL 1.25 MG/0.5 ML CONCENTRATE NEB INH (13:45)
[2017-11-28 14:35] LABS: TROPONIN I 0.03 NG/ML (< 0.10)
[2017-11-28] MEDS ORDERED: E-Z-PAQUE 96% w/w SUSP 176GM BTL As Ordered (15:02)
[2017-11-28] MEDS ORDERED: VARIBAR NECTAR 40% w/v 240ML SUSP BTL As Ordered (15:02)
[2017-11-28] MEDS ORDERED: VARIBAR PUDDING 40% w/v 230ML TUBE As Ordered (15:02)
[2017-11-28] MEDS: LEVALBUTEROL 1.25 MG/0.5 ML CONCENTRATE NEB INH ×3 (16:14→23:37)
[2017-11-28] MEDS: MORPHINE 4 MG/ML 1ML VIAL/SYRINGE (J2270) IV (18:39)
[2017-11-28] MEDS: MIRTAZAPINE 15 MG TAB PO (20:50)
[2017-11-28 22:34] LABS: TROPONIN I 0.02 NG/ML (< 0.10)
[2017-11-29] MEDS: LEVALBUTEROL 1.25 MG/0.5 ML CONCENTRATE NEB INH ×5 (04:00→19:43)
[2017-11-29] MEDS: LevoFLOXacin 750 MG TABLET PO (05:39)
[2017-11-29 05:46] LABS: BASO # 0.1 10^3/uL (0.0-0.2); BASO % 0.7 % (0.0-1.0); EOS # 0.3 10^3/uL (0.0-0.50); EOS % 3.7 % (0.0-3.0); HEMATOCRIT 29.6 % (42.0-52.0); HEMOGLOBIN 9.5 g/dl (13.5-17.5); IMMATURE GRANULOCYTE % 0.9 % (0-3.0); LYMPH # 1.3 10^3/uL (1.5-4.5); LYMPH % 15.9 % (24.0-44.0); MEAN CORPUSCULAR HEMOGLOBIN 28.4 pg (27.0-33.0); MEAN CORPUSCULAR HGB CONC 32.1 g/dl (32.0-36.5); MEAN CORPUSCULAR VOLUME 88.4 fl (80.0-96.0); MONO # 0.9 10^3/uL (0.0-0.8); MONO % 11.5 % (0.0-5.0); NEUTROPHILS # 5.5 10^3/uL (1.8-7.7); NEUTROPHILS % 67.3 % (36.0-66.0); PLATELET COUNT, AUTOMATED 329 10^3/uL (150-450); RED BLOOD COUNT 3.35 10^6/uL (4.30-6.10); RED CELL DISTRIBUTION WIDTH 14.6 % (11.5-14.5); WHITE BLOOD COUNT 8.1 10^3/uL (4.0-10.0)
[2017-11-29 06:11] LABS: ANION GAP 6 MEQ/L (8-16); BLOOD UREA NITROGEN 18 MG/DL (7-18); CALCIUM LEVEL 8.7 MG/DL (8.8-10.2); CARBON DIOXIDE LEVEL 32 MEQ/L (21-32); CHLORIDE LEVEL 103 MEQ/L (98-107); CREATININE FOR GFR 0.73 MG/DL (0.70-1.30); GLOMERULAR FILTRATION RATE > 60.0 (>35); GLUCOSE, FASTING 96 MG/DL (70-100); SODIUM LEVEL 141 MEQ/L (136-145)
[2017-11-29] MEDS: GABAPENTIN 400 MG CAP PO ×2 (10:02→20:15)
[2017-11-29] MEDS: APIXABAN 5 MG TAB (ELIQUIS) PO (10:02)
[2017-11-29] MEDS: guaiFENesin ER 600 MG TAB PO ×2 (10:02→20:14)
[2017-11-29] MEDS: METOPROLOL TART 25 MG TABLET PO ×2 (10:03→20:16)
[2017-11-29] MEDS: oxyBUTYnin *DITROPAN XL* 5 MG TABCR PO (10:03)
[2017-11-29] MEDS: DOXEPIN 10 MG CAP PO ×2 (10:03→20:14)
[2017-11-29] MEDS: clonazePAM 0.5 MG TAB PO ×2 (10:04→20:14)
[2017-11-29] MEDS: NORCO, ANEXSIA 5/325MG TABLET (HYDROcodone/ACETAMINOPHEN) PO ×3 (10:04→20:14)
[2017-11-29] MEDS: OLANZapine 2.5MG TABLET PO ×2 (10:04→20:14)
[2017-11-29] MEDS: MULTIVITAMINS/MINERALS THERAP 1 TAB PO (10:04)
[2017-11-29] MEDS: SENOKOT S TAB PO ×2 (10:04→20:14)
[2017-11-29] MEDS: FLUTICASONE PROP 0.05% NASAL SPRAY 16 GM (FLONASE) ×2 (10:04→20:16)
[2017-11-29] MEDS: FERROUS GLUCONATE 324 MG TAB PO ×2 (10:04→20:14)
[2017-11-29] MEDS: GASTROGRAFIN SOLUTION 30ML PO ×2 (11:30→12:00)
[2017-11-29 12:17] LABS: INR 1.33; PROTHROMBIN TIME 16.7 SECONDS (12.1-14.4)
[2017-11-29] MEDS ORDERED: ISOVUE-370 76% 100ML VIAL (Q9967) As Ordered (12:21)
[2017-11-29] MEDS: WARFARIN SOD 3 MG TAB PO (17:26)
[2017-11-29 19:12] LABS: APPEARANCE, URINE CLEAR (CLEAR); BACTERIA, URINE AUTO NEGATIVE (NEGATIVE); BILIRUBIN, URINE AUTO NEGATIVE (NEGATIVE); BLOOD, URINE BLOOD NEGATIVE (NEGATIVE); COLOR, URINE STRAW (YELLOW); GLUCOSE, URINE (UA) AUTO NEGATIVE (NEGATIVE); KETONE, URINE AUTO NEGATIVE (NEGATIVE); LEUKOCYTE ESTERASE, URINE AUTO NEGATIVE (NEGATIVE); NITRITE, URINE AUTO NEGATIVE (NEGATIVE); PROTEIN, URINE AUTO NEGATIVE (NEGATIVE); RBC, URINE AUTO 0 /HPF (0-3); SPECIFIC GRAVITY URINE AUTO 1.016 (1.002-1.035); SQUAMOUS EPITHELIAL CELL UR AU 0 /HPF (0-6); UROBILINOGEN, URINE AUTO 0.2 mg/dL (0.0-2.0); WBC, URINE AUTO 1 /HPF (0-3)
[2017-11-29] MEDS: MIRTAZAPINE 15 MG TAB PO (20:14)
[2017-11-29] MEDS: FINASTERIDE 5 MG TAB PO (20:14)
[2017-11-29] MEDS: ENOXAPARIN 80 MG/0.8 ML SYRINGE (J1650) SC (20:16)
[2017-11-30] MEDS: LEVALBUTEROL 1.25 MG/0.5 ML CONCENTRATE NEB INH ×6 (04:00→20:49)
[2017-11-30] MEDS: LevoFLOXacin 750 MG TABLET PO (06:00)
[2017-11-30 06:12] LABS: INR 1.13; PROTHROMBIN TIME 14.7 SECONDS (12.1-14.4)
[2017-11-30 08:11] LABS: BASO # 0.1 10^3/uL (0.0-0.2); BASO % 0.6 % (0.0-1.0); EOS # 0.3 10^3/uL (0.0-0.50); EOS % 3.1 % (0.0-3.0); HEMATOCRIT 30.5 % (42.0-52.0); HEMOGLOBIN 9.9 g/dl (13.5-17.5); IMMATURE GRANULOCYTE % 0.6 % (0-3.0); LYMPH # 1.2 10^3/uL (1.5-4.5); MEAN CORPUSCULAR HEMOGLOBIN 28.6 pg (27.0-33.0); MEAN CORPUSCULAR HGB CONC 32.5 g/dl (32.0-36.5); MEAN CORPUSCULAR VOLUME 88.2 fl (80.0-96.0); NEUTROPHILS # 5.8 10^3/uL (1.8-7.7); NEUTROPHILS % 69.7 % (36.0-66.0); PLATELET COUNT, AUTOMATED 373 10^3/uL (150-450); RED BLOOD COUNT 3.46 10^6/uL (4.30-6.10); RED CELL DISTRIBUTION WIDTH 14.6 % (11.5-14.5); WHITE BLOOD COUNT 8.4 10^3/uL (4.0-10.0)
[2017-11-30 08:21] LABS: ANION GAP 8 MEQ/L (8-16); BLOOD UREA NITROGEN 18 MG/DL (7-18); CALCIUM LEVEL 8.3 MG/DL (8.8-10.2); CARBON DIOXIDE LEVEL 31 MEQ/L (21-32); CHLORIDE LEVEL 104 MEQ/L (98-107); CREATININE FOR GFR 0.58 MG/DL (0.70-1.30); GLOMERULAR FILTRATION RATE > 60.0 (>35); GLUCOSE, FASTING 87 MG/DL (70-100); MAGNESIUM LEVEL 1.9 MG/DL (1.8-2.4); POTASSIUM SERUM 4.4 MEQ/L (3.5-5.1); SODIUM LEVEL 143 MEQ/L (136-145)
[2017-11-30] MEDS: ENOXAPARIN 80 MG/0.8 ML SYRINGE (J1650) SC ×2 (09:17→20:27)
[2017-11-30] MEDS: clonazePAM 0.5 MG TAB PO ×3 (09:19→22:51)
[2017-11-30] MEDS: SENOKOT S TAB PO ×2 (09:20→20:26)
[2017-11-30] MEDS: FERROUS GLUCONATE 324 MG TAB PO ×2 (09:20→20:25)
[2017-11-30] MEDS: DOXEPIN 10 MG CAP PO ×2 (09:20→20:24)
[2017-11-30] MEDS: NORCO, ANEXSIA 5/325MG TABLET (HYDROcodone/ACETAMINOPHEN) PO ×4 (09:20→20:25)
[2017-11-30] MEDS: GABAPENTIN 400 MG CAP PO ×2 (09:20→20:24)
[2017-11-30] MEDS: oxyBUTYnin *DITROPAN XL* 5 MG TABCR PO (09:20)
[2017-11-30] MEDS: MULTIVITAMINS/MINERALS THERAP 1 TAB PO (09:21)
[2017-11-30] MEDS: METOPROLOL TART 25 MG TABLET PO ×2 (09:21→20:26)
[2017-11-30] MEDS: guaiFENesin ER 600 MG TAB PO ×2 (09:21→20:26)
[2017-11-30] MEDS: OLANZapine 2.5MG TABLET PO ×2 (09:21→20:25)
[2017-11-30] MEDS: FLUTICASONE PROP 0.05% NASAL SPRAY 16 GM (FLONASE) ×2 (09:22→20:27)
[2017-11-30] MEDS: MOM 30ML SUSPENSION UDC PO (10:35)
[2017-11-30] MEDS: BISACODYL 10 MG SUPP PR (10:35)
[2017-11-30] MEDS: DICYCLOMINE 10 MG CAP PO (12:32)
[2017-11-30] MEDS: MAALOX 30 ML SUSP *UDC PO (13:40)
[2017-11-30] MEDS: WARFARIN SOD 3 MG TAB PO (16:46)
[2017-11-30 17:21] LABS: HEMATOCRIT 31.8 % (42.0-52.0); HEMOGLOBIN 10.5 g/dl (13.5-17.5)
[2017-11-30] MEDS: FINASTERIDE 5 MG TAB PO (20:26)
[2017-11-30] MEDS: MIRTAZAPINE 15 MG TAB PO (20:26)
[2017-12-01] MEDS: LEVALBUTEROL 1.25 MG/0.5 ML CONCENTRATE NEB INH ×6 (00:03→20:30)
[2017-12-01 06:28] LABS: BASO # 0.1 10^3/uL (0.0-0.2); BASO % 0.7 % (0.0-1.0); EOS # 0.3 10^3/uL (0.0-0.50); EOS % 2.9 % (0.0-3.0); HEMATOCRIT 30.3 % (42.0-52.0); HEMOGLOBIN 9.8 g/dl (13.5-17.5); IMMATURE GRANULOCYTE % 0.7 % (0-3.0); LYMPH # 1.3 10^3/uL (1.5-4.5); LYMPH % 15.2 % (24.0-44.0); MEAN CORPUSCULAR HEMOGLOBIN 27.9 pg (27.0-33.0); MEAN CORPUSCULAR HGB CONC 32.3 g/dl (32.0-36.5); MEAN CORPUSCULAR VOLUME 86.3 fl (80.0-96.0); MONO # 1.2 10^3/uL (0.0-0.8); MONO % 13.4 % (0.0-5.0); NEUTROPHILS # 5.8 10^3/uL (1.8-7.7); NEUTROPHILS % 67.1 % (36.0-66.0); PLATELET COUNT, AUTOMATED 387 10^3/uL (150-450); RED BLOOD COUNT 3.51 10^6/uL (4.30-6.10); RED CELL DISTRIBUTION WIDTH 14.6 % (11.5-14.5); WHITE BLOOD COUNT 8.7 10^3/uL (4.0-10.0)
[2017-12-01 06:38] LABS: PROTHROMBIN TIME 14.3 SECONDS (12.1-14.4)
[2017-12-01 06:42] LABS: ANION GAP 6 MEQ/L (8-16); BLOOD UREA NITROGEN 17 MG/DL (7-18); CALCIUM LEVEL 8.7 MG/DL (8.8-10.2); CARBON DIOXIDE LEVEL 33 MEQ/L (21-32); CHLORIDE LEVEL 101 MEQ/L (98-107); CREATININE FOR GFR 0.66 MG/DL (0.70-1.30); GLOMERULAR FILTRATION RATE > 60.0 (>35); GLUCOSE, FASTING 90 MG/DL (70-100); MAGNESIUM LEVEL 2.3 MG/DL (1.8-2.4); SODIUM LEVEL 140 MEQ/L (136-145)
[2017-12-01] MEDS: LevoFLOXacin 750 MG TABLET PO (06:49)
[2017-12-01] MEDS: FLUTICASONE PROP 0.05% NASAL SPRAY 16 GM (FLONASE) ×2 (09:00→20:05)
[2017-12-01] MEDS: clonazePAM 0.5 MG TAB PO ×3 (10:16→20:06)
[2017-12-01] MEDS: oxyBUTYnin *DITROPAN XL* 5 MG TABCR PO (10:16)
[2017-12-01] MEDS: OLANZapine 2.5MG TABLET PO ×2 (10:16→20:05)
[2017-12-01] MEDS: MULTIVITAMINS/MINERALS THERAP 1 TAB PO (10:16)
[2017-12-01] MEDS: guaiFENesin ER 600 MG TAB PO ×2 (10:17→20:06)
[2017-12-01] MEDS: DOXEPIN 10 MG CAP PO ×2 (10:17→20:06)
[2017-12-01] MEDS: METOPROLOL TART 25 MG TABLET PO ×2 (10:17→20:08)
[2017-12-01] MEDS: NORCO, ANEXSIA 5/325MG TABLET (HYDROcodone/ACETAMINOPHEN) PO ×3 (10:19→20:06)
[2017-12-01] MEDS: SENOKOT S TAB PO ×2 (10:19→20:06)
[2017-12-01] MEDS: ENOXAPARIN 80 MG/0.8 ML SYRINGE (J1650) SC ×2 (10:19→20:05)
[2017-12-01] MEDS: FERROUS GLUCONATE 324 MG TAB PO ×2 (10:19→20:09)
[2017-12-01] MEDS: GABAPENTIN 400 MG CAP PO ×2 (10:19→20:08)
[2017-12-01 11:49] LABS: C REACTIVE PROTEIN QUANTITATIV 2.02 MG/DL (0.00-0.30)
[2017-12-01 11:58] LABS: ERYTHROCYTE SEDIMENTATION RATE 85 mm/hr (0-20)
[2017-12-01] MEDS: DICYCLOMINE 10 MG CAP PO ×2 (15:49→23:53)
[2017-12-01] MEDS: WARFARIN SOD 3 MG TAB PO (17:16)
[2017-12-01] MEDS: BISACODYL 10 MG SUPP PR (17:16)
[2017-12-01] MEDS: FINASTERIDE 5 MG TAB PO (20:06)
[2017-12-01] MEDS: MIRTAZAPINE 15 MG TAB PO (20:09)
[2017-12-01] MEDS: MOM 30ML SUSPENSION UDC PO (22:49)
[2017-12-02] MEDS: NORCO, ANEXSIA 5/325MG TABLET (HYDROcodone/ACETAMINOPHEN) PO ×4 (02:51→21:01)
[2017-12-02] MEDS: LEVALBUTEROL 1.25 MG/0.5 ML CONCENTRATE NEB INH ×6 (03:57→19:49)
[2017-12-02] MEDS: guaiFENesin ER 600 MG TAB PO ×2 (09:23→21:02)
[2017-12-02] MEDS: DOXEPIN 10 MG CAP PO ×2 (09:23→21:02)
[2017-12-02] MEDS: clonazePAM 0.5 MG TAB PO ×3 (09:23→21:01)
[2017-12-02] MEDS: oxyBUTYnin *DITROPAN XL* 5 MG TABCR PO (09:24)
[2017-12-02] MEDS: SENOKOT S TAB PO ×2 (09:25→21:01)
[2017-12-02] MEDS: GABAPENTIN 400 MG CAP PO ×2 (09:25→21:02)
[2017-12-02] MEDS: MULTIVITAMINS/MINERALS THERAP 1 TAB PO (09:26)
[2017-12-02] MEDS: FERROUS GLUCONATE 324 MG TAB PO ×2 (09:26→21:02)
[2017-12-02] MEDS: METOPROLOL TART 25 MG TABLET PO ×2 (09:27→20:50)
[2017-12-02] MEDS: OLANZapine 2.5MG TABLET PO ×2 (09:28→21:02)
[2017-12-02] MEDS: FLUTICASONE PROP 0.05% NASAL SPRAY 16 GM (FLONASE) ×2 (09:29→21:02)
[2017-12-02] MEDS: ENOXAPARIN 80 MG/0.8 ML SYRINGE (J1650) SC (09:29)
[2017-12-02] MEDS: ACETAMINOPHEN TAB 650MG DOSE (2X325MG) PO (13:16)
[2017-12-02] MEDS: FINASTERIDE 5 MG TAB PO (21:02)
[2017-12-02] MEDS: MIRTAZAPINE 15 MG TAB PO (21:02)
[2017-12-03] MEDS: LEVALBUTEROL 1.25 MG/0.5 ML CONCENTRATE NEB INH ×7 (04:00→23:14)
[2017-12-03 06:14] LABS: BASO # 0.1 10^3/uL (0.0-0.2); EOS # 0.2 10^3/uL (0.0-0.50); EOS % 3.7 % (0.0-3.0); HEMATOCRIT 30.6 % (42.0-52.0); HEMOGLOBIN 9.8 g/dl (13.5-17.5); IMMATURE GRANULOCYTE % 0.3 % (0-3.0); LYMPH # 1.2 10^3/uL (1.5-4.5); LYMPH % 19.7 % (24.0-44.0); MEAN CORPUSCULAR HEMOGLOBIN 28.2 pg (27.0-33.0); MEAN CORPUSCULAR VOLUME 87.9 fl (80.0-96.0); MONO # 0.9 10^3/uL (0.0-0.8); MONO % 14.6 % (0.0-5.0); NEUTROPHILS # 3.8 10^3/uL (1.8-7.7); NEUTROPHILS % 60.7 % (36.0-66.0); PLATELET COUNT, AUTOMATED 375 10^3/uL (150-450); RED BLOOD COUNT 3.48 10^6/uL (4.30-6.10); RED CELL DISTRIBUTION WIDTH 14.6 % (11.5-14.5); WHITE BLOOD COUNT 6.2 10^3/uL (4.0-10.0)
[2017-12-03 06:29] LABS: INR 1.09; PROTHROMBIN TIME 14.2 SECONDS (12.1-14.4)
[2017-12-03 06:31] LABS: ANION GAP 3 MEQ/L (8-16); BLOOD UREA NITROGEN 17 MG/DL (7-18); CALCIUM LEVEL 8.7 MG/DL (8.8-10.2); CARBON DIOXIDE LEVEL 33 MEQ/L (21-32); CHLORIDE LEVEL 103 MEQ/L (98-107); CREATININE FOR GFR 0.61 MG/DL (0.70-1.30); GLOMERULAR FILTRATION RATE > 60.0 (>35); GLUCOSE, FASTING 89 MG/DL (70-100); MAGNESIUM LEVEL 2.1 MG/DL (1.8-2.4); SODIUM LEVEL 139 MEQ/L (136-145)
[2017-12-03] MEDS: METOPROLOL TART 25 MG TABLET PO ×2 (08:50→20:10)
[2017-12-03] MEDS: FERROUS GLUCONATE 324 MG TAB PO ×2 (08:56→20:09)
[2017-12-03] MEDS: GABAPENTIN 400 MG CAP PO ×2 (08:56→20:10)
[2017-12-03] MEDS: guaiFENesin ER 600 MG TAB PO ×2 (08:56→20:10)
[2017-12-03] MEDS: MULTIVITAMINS/MINERALS THERAP 1 TAB PO (08:56)
[2017-12-03] MEDS: SENOKOT S TAB PO ×2 (08:56→20:10)
[2017-12-03] MEDS: DOXEPIN 10 MG CAP PO ×2 (08:56→20:10)
[2017-12-03] MEDS: oxyBUTYnin *DITROPAN XL* 5 MG TABCR PO (08:56)
[2017-12-03] MEDS: OLANZapine 2.5MG TABLET PO ×2 (08:56→20:10)
[2017-12-03] MEDS: NORCO, ANEXSIA 5/325MG TABLET (HYDROcodone/ACETAMINOPHEN) PO ×2 (08:56→20:09)
[2017-12-03] MEDS: ASPIRIN 325 MG TAB PO (08:56)
[2017-12-03] MEDS: FLUTICASONE PROP 0.05% NASAL SPRAY 16 GM (FLONASE) ×2 (08:57→20:06)
[2017-12-03] MEDS: clonazePAM 0.5 MG TAB PO ×3 (08:57→20:08)
[2017-12-03] MEDS: MIRTAZAPINE 15 MG TAB PO (20:10)
[2017-12-03] MEDS: FINASTERIDE 5 MG TAB PO (20:10)
[2017-12-04] MEDS: LEVALBUTEROL 1.25 MG/0.5 ML CONCENTRATE NEB INH ×6 (03:28→23:37)
[2017-12-04] MEDS: ASPIRIN 325 MG TAB PO (08:16)
[2017-12-04] MEDS: FERROUS GLUCONATE 324 MG TAB PO ×2 (08:23→20:15)
[2017-12-04] MEDS: OLANZapine 2.5MG TABLET PO ×2 (08:23→20:14)
[2017-12-04] MEDS: GABAPENTIN 400 MG CAP PO ×2 (08:23→20:15)
[2017-12-04] MEDS: SENOKOT S TAB PO ×2 (08:23→20:15)
[2017-12-04] MEDS: DOXEPIN 10 MG CAP PO ×2 (08:23→20:15)
[2017-12-04] MEDS: MULTIVITAMINS/MINERALS THERAP 1 TAB PO (08:23)
[2017-12-04] MEDS: FLUTICASONE PROP 0.05% NASAL SPRAY 16 GM (FLONASE) ×2 (08:24→20:16)
[2017-12-04] MEDS: clonazePAM 0.5 MG TAB PO ×3 (08:24→20:15)
[2017-12-04] MEDS: guaiFENesin ER 600 MG TAB PO ×2 (08:24→20:15)
[2017-12-04] MEDS: oxyBUTYnin *DITROPAN XL* 5 MG TABCR PO (08:24)
[2017-12-04] MEDS: METOPROLOL TART 25 MG TABLET PO ×2 (08:24→09:33)
[2017-12-04] MEDS: NORCO, ANEXSIA 5/325MG TABLET (HYDROcodone/ACETAMINOPHEN) PO ×2 (08:24→20:15)
[2017-12-04 08:31] LABS: BASO # 0.1 10^3/uL (0.0-0.2); BASO % 1.1 % (0.0-1.0); EOS # 0.2 10^3/uL (0.0-0.50); EOS % 3.6 % (0.0-3.0); HEMATOCRIT 29.9 % (42.0-52.0); HEMOGLOBIN 9.6 g/dl (13.5-17.5); IMMATURE GRANULOCYTE % 0.4 % (0-3.0); LYMPH # 1.1 10^3/uL (1.5-4.5); LYMPH % 18.7 % (24.0-44.0); MEAN CORPUSCULAR HEMOGLOBIN 28.5 pg (27.0-33.0); MEAN CORPUSCULAR HGB CONC 32.1 g/dl (32.0-36.5); MEAN CORPUSCULAR VOLUME 88.7 fl (80.0-96.0); MONO # 0.8 10^3/uL (0.0-0.8); MONO % 14.4 % (0.0-5.0); NEUTROPHILS # 3.5 10^3/uL (1.8-7.7); NEUTROPHILS % 61.8 % (36.0-66.0); PLATELET COUNT, AUTOMATED 380 10^3/uL (150-450); RED BLOOD COUNT 3.37 10^6/uL (4.30-6.10); RED CELL DISTRIBUTION WIDTH 14.6 % (11.5-14.5); WHITE BLOOD COUNT 5.6 10^3/uL (4.0-10.0)
[2017-12-04 08:42] LABS: INR 1.03; PROTHROMBIN TIME 13.6 SECONDS (12.1-14.4)
[2017-12-04 08:53] LABS: ANION GAP 4 MEQ/L (8-16); BLOOD UREA NITROGEN 17 MG/DL (7-18); CALCIUM LEVEL 8.9 MG/DL (8.8-10.2); CARBON DIOXIDE LEVEL 34 MEQ/L (21-32); CHLORIDE LEVEL 102 MEQ/L (98-107); CREATININE FOR GFR 0.62 MG/DL (0.70-1.30); GLOMERULAR FILTRATION RATE > 60.0 (>35); GLUCOSE, FASTING 88 MG/DL (70-100); POTASSIUM SERUM 4.1 MEQ/L (3.5-5.1); SODIUM LEVEL 140 MEQ/L (136-145)
[2017-12-04] MEDS: DIGOXIN 0.25 MG TAB PO (11:58)
[2017-12-04] MEDS ORDERED: ISOVUE-370 76% 100ML VIAL (Q9967) As Ordered (12:53)
[2017-12-04] MEDS ORDERED: MIDAZOLAM INJ 2 MG/2 ML VIAL (J2250) As Ordered (13:48)
[2017-12-04] MEDS ORDERED: fentaNYL 100 MCG/2 ML INJECTION (J3010) As Ordered (13:48)
[2017-12-04] MEDS ORDERED: PHENYLephrine HCL 500 MCG/5 ML (100MCG/ML) SYRINGE (J2370) As Ordered (13:54)
[2017-12-04] MEDS: LR 1,000 ML IV (15:00)
[2017-12-04] MEDS ORDERED: PERCOCET 5MG/325MG TAB PO (15:00)
[2017-12-04] MEDS ORDERED: ONDANSETRON 4MG/2ML VIAL (J2405) IV (15:00)
[2017-12-04] MEDS: ePHEDrine SULFATE 25 MG/5 ML(5MG/ML) SYRINGE IV ×4 (15:20→15:29)
[2017-12-04] MEDS: ePHEDrine INJ 50 MG/ML VIAL IV ×4 (15:20→15:51)
[2017-12-04] MEDS ORDERED: HEPARIN DRIP 25,000 UNITS in APPROPRIATE DILUENT 1 EA IV (16:23)
[2017-12-04] MEDS: NS 1,000 ML IV (16:30)
[2017-12-04 17:01] LABS: PARTIAL THROMBOPLASTIN TIME 27.3 SECONDS (25.4-37.6)
[2017-12-04] MEDS: HEPARIN DRIP 25,000 UNITS in APPROPRIATE DILUENT 1 EA IV (18:17)
[2017-12-04] MEDS: AMIODARONE 200 MG TAB (PACERONE) PO (20:14)
[2017-12-04] MEDS: MIRTAZAPINE 15 MG TAB PO (20:15)
[2017-12-04] MEDS: FINASTERIDE 5 MG TAB PO (20:15)
[2017-12-05 00:20] LABS: PARTIAL THROMBOPLASTIN TIME 46.1 SECONDS (25.4-37.6)
[2017-12-05] MEDS: HEPARIN SOD (PORCINE) 5000 UNITS/ML VIAL IV (00:52)
[2017-12-05] MEDS: LEVALBUTEROL 1.25 MG/0.5 ML CONCENTRATE NEB INH ×7 (04:00→23:31)
[2017-12-05 06:10] LABS: BASO # 0.1 10^3/uL (0.0-0.2); BASO % 0.7 % (0.0-1.0); EOS # 0.3 10^3/uL (0.0-0.50); HEMOGLOBIN 9.2 g/dl (13.5-17.5); IMMATURE GRANULOCYTE % 0.4 % (0-3.0); LYMPH # 1.5 10^3/uL (1.5-4.5); LYMPH % 17.4 % (24.0-44.0); MEAN CORPUSCULAR HEMOGLOBIN 28.8 pg (27.0-33.0); MEAN CORPUSCULAR HGB CONC 32.9 g/dl (32.0-36.5); MEAN CORPUSCULAR VOLUME 87.8 fl (80.0-96.0); MONO # 1.3 10^3/uL (0.0-0.8); MONO % 15.6 % (0.0-5.0); NEUTROPHILS # 5.3 10^3/uL (1.8-7.7); NEUTROPHILS % 62.9 % (36.0-66.0); PLATELET COUNT, AUTOMATED 342 10^3/uL (150-450); RED BLOOD COUNT 3.19 10^6/uL (4.30-6.10); RED CELL DISTRIBUTION WIDTH 14.5 % (11.5-14.5); WHITE BLOOD COUNT 8.4 10^3/uL (4.0-10.0)
[2017-12-05 07:16] LABS: ANION GAP 7 MEQ/L (8-16); BLOOD UREA NITROGEN 18 MG/DL (7-18); CALCIUM LEVEL 8.4 MG/DL (8.8-10.2); CARBON DIOXIDE LEVEL 31 MEQ/L (21-32); CHLORIDE LEVEL 103 MEQ/L (98-107); CREATININE FOR GFR 0.67 MG/DL (0.70-1.30); GLOMERULAR FILTRATION RATE > 60.0 (>35); GLUCOSE, FASTING 120 MG/DL (70-100); MAGNESIUM LEVEL 2.1 MG/DL (1.8-2.4); POTASSIUM SERUM 4.1 MEQ/L (3.5-5.1); SODIUM LEVEL 141 MEQ/L (136-145)
[2017-12-05 08:00] LABS: PARTIAL THROMBOPLASTIN TIME 125.6 SECONDS (25.4-37.6)
[2017-12-05] MEDS: MULTIVITAMINS/MINERALS THERAP 1 TAB PO (09:53)
[2017-12-05] MEDS: guaiFENesin ER 600 MG TAB PO ×2 (09:55→21:56)
[2017-12-05] MEDS: ASPIRIN 325 MG TAB PO (09:55)
[2017-12-05] MEDS: oxyBUTYnin *DITROPAN XL* 5 MG TABCR PO (09:55)
[2017-12-05] MEDS: OLANZapine 2.5MG TABLET PO ×2 (09:55→21:56)
[2017-12-05] MEDS: GABAPENTIN 400 MG CAP PO ×2 (09:55→21:56)
[2017-12-05] MEDS: clonazePAM 0.5 MG TAB PO ×3 (09:55→21:56)
[2017-12-05] MEDS: AMIODARONE 200 MG TAB (PACERONE) PO ×2 (09:56→21:56)
[2017-12-05] MEDS: SENOKOT S TAB PO ×2 (09:56→21:56)
[2017-12-05] MEDS: DOXEPIN 10 MG CAP PO ×2 (09:56→21:00)
[2017-12-05] MEDS: FERROUS GLUCONATE 324 MG TAB PO ×2 (09:56→21:57)
[2017-12-05] MEDS: NORCO, ANEXSIA 5/325MG TABLET (HYDROcodone/ACETAMINOPHEN) PO ×2 (09:57→21:56)
[2017-12-05] MEDS: FLUTICASONE PROP 0.05% NASAL SPRAY 16 GM (FLONASE) ×2 (09:57→21:57)
[2017-12-05 12:02] LABS: C REACTIVE PROTEIN QUANTITATIV 1.38 MG/DL (0.00-0.30)
[2017-12-05 12:23] LABS: ERYTHROCYTE SEDIMENTATION RATE 55 mm/hr (0-20)
[2017-12-05 12:28] LABS: PARTIAL THROMBOPLASTIN TIME 26.8 SECONDS (25.4-37.6)
[2017-12-05 18:25] LABS: PARTIAL THROMBOPLASTIN TIME 26.9 SECONDS (25.4-37.6)
[2017-12-05] MEDS: DICYCLOMINE 10 MG CAP PO (21:56)
[2017-12-05] MEDS: MIRTAZAPINE 15 MG TAB PO (21:56)
[2017-12-05] MEDS: FINASTERIDE 5 MG TAB PO (21:57)
[2017-12-06 00:10] LABS: PARTIAL THROMBOPLASTIN TIME 26.7 SECONDS (25.4-37.6)
[2017-12-06] MEDS: LEVALBUTEROL 1.25 MG/0.5 ML CONCENTRATE NEB INH ×4 (08:10→20:05)
[2017-12-06 08:13] LABS: BASO # 0.1 10^3/uL (0.0-0.2); BASO % 0.7 % (0.0-1.0); EOS # 0.2 10^3/uL (0.0-0.50); EOS % 2.8 % (0.0-3.0); HEMATOCRIT 28.6 % (42.0-52.0); HEMOGLOBIN 9.3 g/dl (13.5-17.5); IMMATURE GRANULOCYTE % 0.4 % (0-3.0); LYMPH # 1.1 10^3/uL (1.5-4.5); LYMPH % 16.1 % (24.0-44.0); MEAN CORPUSCULAR HEMOGLOBIN 28.8 pg (27.0-33.0); MEAN CORPUSCULAR HGB CONC 32.5 g/dl (32.0-36.5); MEAN CORPUSCULAR VOLUME 88.5 fl (80.0-96.0); MONO % 14.5 % (0.0-5.0); NEUTROPHILS # 4.7 10^3/uL (1.8-7.7); NEUTROPHILS % 65.5 % (36.0-66.0); PLATELET COUNT, AUTOMATED 342 10^3/uL (150-450); RED BLOOD COUNT 3.23 10^6/uL (4.30-6.10); RED CELL DISTRIBUTION WIDTH 14.6 % (11.5-14.5); WHITE BLOOD COUNT 7.1 10^3/uL (4.0-10.0)
[2017-12-06 08:36] LABS: ANION GAP 6 MEQ/L (8-16); BLOOD UREA NITROGEN 14 MG/DL (7-18); CALCIUM LEVEL 8.6 MG/DL (8.8-10.2); CARBON DIOXIDE LEVEL 32 MEQ/L (21-32); CHLORIDE LEVEL 105 MEQ/L (98-107); CREATININE FOR GFR 0.66 MG/DL (0.70-1.30); GLOMERULAR FILTRATION RATE > 60.0 (>35); GLUCOSE, FASTING 90 MG/DL (70-100); MAGNESIUM LEVEL 1.9 MG/DL (1.8-2.4); POTASSIUM SERUM 4.2 MEQ/L (3.5-5.1); SODIUM LEVEL 143 MEQ/L (136-145)
[2017-12-06 08:38] LABS: PARTIAL THROMBOPLASTIN TIME 25.9 SECONDS (25.4-37.6)
[2017-12-06] MEDS: ASPIRIN 325 MG TAB PO (10:02)
[2017-12-06] MEDS: oxyBUTYnin *DITROPAN XL* 5 MG TABCR PO (10:02)
[2017-12-06] MEDS: OLANZapine 2.5MG TABLET PO ×2 (10:02→20:49)
[2017-12-06] MEDS: NORCO, ANEXSIA 5/325MG TABLET (HYDROcodone/ACETAMINOPHEN) PO ×2 (10:04→20:49)
[2017-12-06] MEDS: clonazePAM 0.5 MG TAB PO (10:04)
[2017-12-06] MEDS: MULTIVITAMINS/MINERALS THERAP 1 TAB PO (10:04)
[2017-12-06] MEDS: GABAPENTIN 400 MG CAP PO ×2 (10:04→20:49)
[2017-12-06] MEDS: AMIODARONE 200 MG TAB (PACERONE) PO ×2 (10:05→20:49)
[2017-12-06] MEDS: SENOKOT S TAB PO ×2 (10:05→20:49)
[2017-12-06] MEDS: DOXEPIN 10 MG CAP PO ×2 (10:05→20:50)
[2017-12-06] MEDS: FERROUS GLUCONATE 324 MG TAB PO ×3 (10:05→21:00)
[2017-12-06] MEDS: guaiFENesin ER 600 MG TAB PO ×2 (10:05→20:49)
[2017-12-06] MEDS: FLUTICASONE PROP 0.05% NASAL SPRAY 16 GM (FLONASE) ×2 (10:05→21:00)
[2017-12-06] MEDS ORDERED: VARIBAR PUDDING 40% w/v 230ML TUBE As Ordered (11:13)
[2017-12-06] MEDS ORDERED: VARIBAR NECTAR 40% w/v 240ML SUSP BTL As Ordered (11:13)
[2017-12-06] MEDS ORDERED: E-Z-PAQUE 96% w/w SUSP 176GM BTL As Ordered (11:13)
[2017-12-06] MEDS: clonazePAM 1 MG TAB PO ×3 (17:09→20:50)
[2017-12-06 18:26] LABS: PARTIAL THROMBOPLASTIN TIME 25.7 SECONDS (25.4-37.6)
[2017-12-06] MEDS: MIRTAZAPINE 15 MG TAB PO (20:50)
[2017-12-06] MEDS: FINASTERIDE 5 MG TAB PO (20:50)
[2017-12-07] MEDS: LEVALBUTEROL 1.25 MG/0.5 ML CONCENTRATE NEB INH ×6 (03:46→20:32)
[2017-12-07] MEDS: FLUTICASONE PROP 0.05% NASAL SPRAY 16 GM (FLONASE) ×2 (09:34→21:00)
[2017-12-07] MEDS: NORCO, ANEXSIA 5/325MG TABLET (HYDROcodone/ACETAMINOPHEN) PO ×4 (09:36→21:17)
[2017-12-07] MEDS: clonazePAM 1 MG TAB PO ×3 (09:36→21:17)
[2017-12-07] MEDS: FERROUS GLUCONATE 324 MG TAB PO ×2 (09:36→21:00)
[2017-12-07] MEDS: MULTIVITAMINS/MINERALS THERAP 1 TAB PO (09:36)
[2017-12-07] MEDS: OLANZapine 2.5MG TABLET PO ×2 (09:37→21:17)
[2017-12-07] MEDS: SENOKOT S TAB PO ×2 (09:37→21:16)
[2017-12-07] MEDS: DOXEPIN 10 MG CAP PO ×2 (09:37→21:17)
[2017-12-07] MEDS: GABAPENTIN 400 MG CAP PO ×2 (09:37→21:17)
[2017-12-07] MEDS: oxyBUTYnin *DITROPAN XL* 5 MG TABCR PO (09:37)
[2017-12-07] MEDS: ASPIRIN 325 MG TAB PO (09:38)
[2017-12-07] MEDS: guaiFENesin ER 600 MG TAB PO ×2 (09:38→21:17)
[2017-12-07] MEDS: AMIODARONE 200 MG TAB (PACERONE) PO ×2 (09:38→21:17)
[2017-12-07 10:39] LABS: BASO # 0.1 10^3/uL (0.0-0.2); EOS # 0.2 10^3/uL (0.0-0.50); EOS % 3.5 % (0.0-3.0); HEMATOCRIT 30.8 % (42.0-52.0); IMMATURE GRANULOCYTE % 0.4 % (0-3.0); LYMPH # 1.1 10^3/uL (1.5-4.5); LYMPH % 16.7 % (24.0-44.0); MEAN CORPUSCULAR HEMOGLOBIN 28.9 pg (27.0-33.0); MEAN CORPUSCULAR HGB CONC 32.5 g/dl (32.0-36.5); MONO % 14.5 % (0.0-5.0); NEUTROPHILS # 4.4 10^3/uL (1.8-7.7); NEUTROPHILS % 63.9 % (36.0-66.0); PLATELET COUNT, AUTOMATED 330 10^3/uL (150-450); RED BLOOD COUNT 3.46 10^6/uL (4.30-6.10); RED CELL DISTRIBUTION WIDTH 14.9 % (11.5-14.5); WHITE BLOOD COUNT 6.8 10^3/uL (4.0-10.0)
[2017-12-07 11:01] LABS: ANION GAP 7 MEQ/L (8-16); BLOOD UREA NITROGEN 15 MG/DL (7-18); C REACTIVE PROTEIN QUANTITATIV 0.71 MG/DL (0.00-0.30); CALCIUM LEVEL 8.8 MG/DL (8.8-10.2); CARBON DIOXIDE LEVEL 31 MEQ/L (21-32); CHLORIDE LEVEL 104 MEQ/L (98-107); CREATININE FOR GFR 0.66 MG/DL (0.70-1.30); GLOMERULAR FILTRATION RATE > 60.0 (>35); GLUCOSE, FASTING 79 MG/DL (70-100); MAGNESIUM LEVEL 1.9 MG/DL (1.8-2.4); POTASSIUM SERUM 4.5 MEQ/L (3.5-5.1); SODIUM LEVEL 142 MEQ/L (136-145)
[2017-12-07] MEDS: MIRTAZAPINE 15 MG TAB PO (21:17)
[2017-12-07] MEDS: FINASTERIDE 5 MG TAB PO (21:17)
[2017-12-08] MEDS: LEVALBUTEROL 1.25 MG/0.5 ML CONCENTRATE NEB INH ×3 (04:00→07:22)
[2017-12-08] MEDS: MULTIVITAMINS/MINERALS THERAP 1 TAB PO (09:04)
[2017-12-08] MEDS: OLANZapine 2.5MG TABLET PO (09:04)
[2017-12-08] MEDS: DOXEPIN 10 MG CAP PO (09:04)
[2017-12-08] MEDS: FERROUS GLUCONATE 324 MG TAB PO (09:04)
[2017-12-08] MEDS: ASPIRIN 325 MG TAB PO (09:04)
[2017-12-08] MEDS: guaiFENesin ER 600 MG TAB PO (09:04)
[2017-12-08] MEDS: GABAPENTIN 400 MG CAP PO (09:04)
[2017-12-08] MEDS: oxyBUTYnin *DITROPAN XL* 5 MG TABCR PO (09:04)
[2017-12-08] MEDS: NORCO, ANEXSIA 5/325MG TABLET (HYDROcodone/ACETAMINOPHEN) PO (09:04)
[2017-12-08] MEDS: FLUTICASONE PROP 0.05% NASAL SPRAY 16 GM (FLONASE) (09:05)
[2017-12-08] MEDS: SENOKOT S TAB PO (09:05)
[2017-12-08] MEDS: AMIODARONE 200 MG TAB (PACERONE) PO (09:05)
[2017-12-08] MEDS: clonazePAM 1 MG TAB PO (09:05)
== END 2017-12-08 11:15 | DRG 253 ==
LOC: M PCU 12-04 13:54 → M MSPAV 11-30 21:22 → M ED 21:26 → M ED INP 23:13
PROC: 06H03DZ Insertion of Intraluminal Device into Inferior Vena Cava, Percutaneous Approach (ICD-10-PCS; principal; 2017-12-04 13:00)
DX: I11.0 Hypertensive heart disease with heart failure (principal); I47.1 Supraventricular tachycardia; I82.411 Acute embolism and thrombosis of right femoral vein; I48.0 Paroxysmal atrial fibrillation; I50.31 Acute diastolic (congestive) heart failure; J44.9 Chronic obstructive pulmonary disease, unspecified; F31.9 Bipolar disorder, unspecified; N40.0 Benign prostatic hyperplasia without lower urinary tract symptoms; Z79.899 Other long term (current) drug therapy; Z88.0 Allergy status to penicillin; Z88.2 Allergy status to sulfonamides; Z88.8 Allergy status to other drugs, medicaments and biological substances; Z79.01 Long term (current) use of anticoagulants; Z85.038 Personal history of other malignant neoplasm of large intestine; Z87.891 Personal history of nicotine dependence

== ENCOUNTER → 2017-11-28 | Outpatient (REF) | payer MEDICARE, MEDICAID | LOC: SKLAB4 11:04 | DX: D64.9 Anemia, unspecified (principal); Z53.8 Procedure and treatment not carried out for other reasons ==

== ENCOUNTER → 2017-12-15 | Outpatient (REF) | payer MEDICAID, MEDICARE ==
[2017-12-15 08:12] LABS: HEMATOCRIT 29.6 % (42.0-52.0); HEMOGLOBIN 9.4 g/dl (13.5-17.5); MEAN CORPUSCULAR HGB CONC 31.8 g/dl (32.0-36.5); MEAN CORPUSCULAR VOLUME 91.4 fl (80.0-96.0); PLATELET COUNT, AUTOMATED 257 10^3/uL (150-450); RED BLOOD COUNT 3.24 10^6/uL (4.30-6.10); RED CELL DISTRIBUTION WIDTH 16.7 % (11.5-14.5); WHITE BLOOD COUNT 7.7 10^3/uL (4.0-10.0)
== END ==
LOC: SKLAB4 09:58
DX: D64.9 Anemia, unspecified (principal)

== ENCOUNTER → 2017-12-21 | Outpatient (REF) | payer MEDICARE, SELFPAY, MEDICAID ==
[2017-12-21 10:17] LABS: HEMOGLOBIN 10.7 g/dl (13.5-17.5); MEAN CORPUSCULAR HEMOGLOBIN 29.6 pg (27.0-33.0); MEAN CORPUSCULAR HGB CONC 32.4 g/dl (32.0-36.5); MEAN CORPUSCULAR VOLUME 91.4 fl (80.0-96.0); PLATELET COUNT, AUTOMATED 210 10^3/uL (150-450); RED BLOOD COUNT 3.61 10^6/uL (4.30-6.10); RED CELL DISTRIBUTION WIDTH 17.2 % (11.5-14.5); WHITE BLOOD COUNT 8.3 10^3/uL (4.0-10.0)
[2017-12-21 10:58] LABS: ANION GAP 10 MEQ/L (8-16); BLOOD UREA NITROGEN 19 MG/DL (7-18); CALCIUM LEVEL 9.2 MG/DL (8.8-10.2); CARBON DIOXIDE LEVEL 26 MEQ/L (21-32); CHLORIDE LEVEL 103 MEQ/L (98-107); GLOMERULAR FILTRATION RATE > 60.0 (>35); GLUCOSE, FASTING 111 MG/DL (70-100); POTASSIUM SERUM 4.5 MEQ/L (3.5-5.1); SODIUM LEVEL 139 MEQ/L (136-145)
== END ==
LOC: SKLAB4 01:50
DX: R10.2 Pelvic and perineal pain (principal)
CPT/HCPCS: 80048

== ENCOUNTER → 2017-12-22 | Outpatient (REF) ==
[2017-12-22 10:44] LABS: HEMATOCRIT 31.8 % (42.0-52.0); HEMOGLOBIN 10.3 g/dl (13.5-17.5); MEAN CORPUSCULAR HEMOGLOBIN 29.1 pg (27.0-33.0); MEAN CORPUSCULAR HGB CONC 32.4 g/dl (32.0-36.5); MEAN CORPUSCULAR VOLUME 89.8 fl (80.0-96.0); PLATELET COUNT, AUTOMATED 215 10^3/uL (150-450); RED BLOOD COUNT 3.54 10^6/uL (4.30-6.10); RED CELL DISTRIBUTION WIDTH 17.4 % (11.5-14.5)
== END ==
LOC: SKLAB4 09:21
DX: D64.9 Anemia, unspecified (principal)

== ENCOUNTER → 2017-12-23 | Outpatient (REF) ==
[2017-12-23 08:47] LABS: HEMATOCRIT 31.8 % (42.0-52.0); HEMOGLOBIN 10.4 g/dl (13.5-17.5); MEAN CORPUSCULAR HEMOGLOBIN 29.6 pg (27.0-33.0); MEAN CORPUSCULAR HGB CONC 32.7 g/dl (32.0-36.5); MEAN CORPUSCULAR VOLUME 90.6 fl (80.0-96.0); PLATELET COUNT, AUTOMATED 208 10^3/uL (150-450); RED BLOOD COUNT 3.51 10^6/uL (4.30-6.10); RED CELL DISTRIBUTION WIDTH 17.5 % (11.5-14.5); WHITE BLOOD COUNT 5.8 10^3/uL (4.0-10.0)
== END ==
LOC: SKLAB4 10:06
DX: D64.9 Anemia, unspecified (principal)

== ENCOUNTER → 2017-12-29 | Outpatient (REF) ==
[2017-12-29 14:08] LABS: HEMOGLOBIN 12.2 g/dl (13.5-17.5); MEAN CORPUSCULAR HEMOGLOBIN 29.5 pg (27.0-33.0); MEAN CORPUSCULAR HGB CONC 32.1 g/dl (32.0-36.5); MEAN CORPUSCULAR VOLUME 91.8 fl (80.0-96.0); PLATELET COUNT, AUTOMATED 338 10^3/uL (150-450); RED BLOOD COUNT 4.14 10^6/uL (4.30-6.10); RED CELL DISTRIBUTION WIDTH 16.9 % (11.5-14.5); WHITE BLOOD COUNT 6.2 10^3/uL (4.0-10.0)
== END ==
LOC: SKLAB4 09:22
DX: D64.9 Anemia, unspecified (principal)

== ENCOUNTER → 2018-01-05 | Outpatient (REF) | payer MEDICAID, MEDICARE ==
[2018-01-05 09:07] LABS: HEMATOCRIT 34.1 % (42.0-52.0); HEMOGLOBIN 11.1 g/dl (13.5-17.5); MEAN CORPUSCULAR HEMOGLOBIN 29.6 pg (27.0-33.0); MEAN CORPUSCULAR HGB CONC 32.6 g/dl (32.0-36.5); MEAN CORPUSCULAR VOLUME 90.9 fl (80.0-96.0); PLATELET COUNT, AUTOMATED 347 10^3/uL (150-450); RED BLOOD COUNT 3.75 10^6/uL (4.30-6.10); RED CELL DISTRIBUTION WIDTH 16.1 % (11.5-14.5); WHITE BLOOD COUNT 6.9 10^3/uL (4.0-10.0)
== END ==
LOC: SKLAB4 09:43
DX: D64.9 Anemia, unspecified (principal)
CPT/HCPCS: 36415

== ENCOUNTER → 2018-01-12 | Outpatient (REF) | payer MEDICARE, MEDICAID ==
[2018-01-12 09:20] LABS: HEMATOCRIT 36.4 % (42.0-52.0); HEMOGLOBIN 11.6 g/dl (13.5-17.5); MEAN CORPUSCULAR HEMOGLOBIN 29.6 pg (27.0-33.0); MEAN CORPUSCULAR HGB CONC 31.9 g/dl (32.0-36.5); MEAN CORPUSCULAR VOLUME 92.9 fl (80.0-96.0); PLATELET COUNT, AUTOMATED 282 10^3/uL (150-450); RED BLOOD COUNT 3.92 10^6/uL (4.30-6.10); RED CELL DISTRIBUTION WIDTH 15.7 % (11.5-14.5); WHITE BLOOD COUNT 7.7 10^3/uL (4.0-10.0)
== END ==
LOC: SKLAB4 09:51
DX: D64.9 Anemia, unspecified (principal)
CPT/HCPCS: 36415

== ENCOUNTER → 2018-01-19 | Outpatient (REF) | payer MEDICAID, MEDICARE ==
[2018-01-19 10:10] LABS: HEMATOCRIT 37.5 % (42.0-52.0); HEMOGLOBIN 12.2 g/dl (13.5-17.5); MEAN CORPUSCULAR HGB CONC 32.5 g/dl (32.0-36.5); MEAN CORPUSCULAR VOLUME 92.4 fl (80.0-96.0); PLATELET COUNT, AUTOMATED 239 10^3/uL (150-450); RED BLOOD COUNT 4.06 10^6/uL (4.30-6.10); RED CELL DISTRIBUTION WIDTH 15.1 % (11.5-14.5); WHITE BLOOD COUNT 6.3 10^3/uL (4.0-10.0)
== END ==
LOC: SKLAB4 10:02
DX: D64.9 Anemia, unspecified (principal)
CPT/HCPCS: 85027

== ENCOUNTER → 2018-01-23 | Outpatient (REF) | payer MEDICAID | LOC: SKLAB4 09:17 | DX: Z79.899 Other long term (current) drug therapy (principal) ==

== ENCOUNTER → 2018-02-02 | Outpatient (REF) | payer MEDICAID, MEDICARE | LOC: SKLAB4 10:03 | DX: E03.9 Hypothyroidism, unspecified (principal) | CPT/HCPCS: 84443 ==

== ENCOUNTER 2018-02-14 16:55 | Emergency (ER) | payer MEDICARE, MEDICAID ==
[2018-02-14 17:32] LABS: BASO # 0.1 10^3/uL (0.0-0.2); BASO % 0.8 % (0.0-1.0); EOS # 0.1 10^3/uL (0.0-0.50); EOS % 0.9 % (0.0-3.0); HEMATOCRIT 42.3 % (42.0-52.0); HEMOGLOBIN 13.8 g/dl (13.5-17.5); IMMATURE GRANULOCYTE % 0.4 % (0-3.0); LYMPH # 1.6 10^3/uL (1.5-4.5); MEAN CORPUSCULAR HEMOGLOBIN 29.9 pg (27.0-33.0); MEAN CORPUSCULAR HGB CONC 32.6 g/dl (32.0-36.5); MEAN CORPUSCULAR VOLUME 91.8 fl (80.0-96.0); MONO # 1.2 10^3/uL (0.0-0.8); MONO % 15.9 % (0.0-5.0); NEUTROPHILS # 4.8 10^3/uL (1.8-7.7); PLATELET COUNT, AUTOMATED 237 10^3/uL (150-450); RED BLOOD COUNT 4.61 10^6/uL (4.30-6.10); RED CELL DISTRIBUTION WIDTH 14.4 % (11.5-14.5); WHITE BLOOD COUNT 7.8 10^3/uL (4.0-10.0)
[2018-02-14 17:51] LABS: INR 1.02; PROTHROMBIN TIME 13.5 SECONDS (12.1-14.4)
[2018-02-14 17:52] LABS: PARTIAL THROMBOPLASTIN TIME 25.1 SECONDS (25.4-37.6)
[2018-02-14 18:04] LABS: ALBUMIN 3.4 GM/DL (3.2-5.2); ALBUMIN/GLOBULIN RATIO 0.92 (1.00-1.93); ALKALINE PHOSPHATASE 101 U/L (45-117); ALT/SGPT 19 U/L (12-78); ANION GAP 8 MEQ/L (8-16); AST/SGOT 15 U/L (7-37); BILIRUBIN,DIRECT < 0.1 MG/DL (0.0-0.2); BILIRUBIN,TOTAL 0.3 MG/DL (0.2-1.0); BLOOD UREA NITROGEN 27 MG/DL (7-18); CALCIUM LEVEL 9.1 MG/DL (8.8-10.2); CARBON DIOXIDE LEVEL 28 MEQ/L (21-32); CHLORIDE LEVEL 104 MEQ/L (98-107); CPK CREATINE PHOSPHOKINASE 52 U/L (39-308); CREATININE FOR GFR 0.94 MG/DL (0.70-1.30); FREE T4 1.13 NG/DL (0.76-1.46); GLOMERULAR FILTRATION RATE > 60.0 (>35); GLUCOSE, FASTING 101 MG/DL (70-100); MB/CK RELATIVE INDEX 5.38 (< OR =4); PHOSPHORUS LEVEL 3.4 MG/DL (2.5-4.9); POTASSIUM SERUM 4.1 MEQ/L (3.5-5.1); SODIUM LEVEL 140 MEQ/L (136-145); TOTAL PROTEIN 7.1 GM/DL (6.4-8.2); TROPONIN I < 0.02 NG/ML (< 0.10)
== END 2018-02-14 22:28 | disposition home or self-care (01) ==
LOC: M ED 16:55
DX: I47.1 Supraventricular tachycardia (principal); R94.31 Abnormal electrocardiogram [ECG] [EKG]; I10 Essential (primary) hypertension; E78.5 Hyperlipidemia, unspecified; J44.9 Chronic obstructive pulmonary disease, unspecified; F31.9 Bipolar disorder, unspecified; F43.10 Post-traumatic stress disorder, unspecified; K44.9 Diaphragmatic hernia without obstruction or gangrene; G43.909 Migraine, unspecified, not intractable, without status migrainosus; E53.8 Deficiency of other specified B group vitamins; Z86.19 Personal history of other infectious and parasitic diseases; Z85.048 Personal history of other malignant neoplasm of rectum, rectosigmoid junction, and anus; Z90.49 Acquired absence of other specified parts of digestive tract; Z87.891 Personal history of nicotine dependence; Z88.8 Allergy status to other drugs, medicaments and biological substances; Z88.2 Allergy status to sulfonamides; Z88.0 Allergy status to penicillin; Z79.899 Other long term (current) drug therapy; Z79.891 Long term (current) use of opiate analgesic
CPT/HCPCS: 71046

== ENCOUNTER → 2018-02-14 | Outpatient (REF) | payer MEDICARE, MEDICAID | LOC: SKLAB4 16:07 | DX: R00.0 Tachycardia, unspecified (principal) ==

== ENCOUNTER 2018-02-24 10:44 | Observation (INO) | payer MEDICARE, MEDICAID ==
[2018-02-24 11:22] LABS: BASO # 0.1 10^3/uL (0.0-0.2); BASO % 0.9 % (0.0-1.0); EOS # 0.1 10^3/uL (0.0-0.50); HEMATOCRIT 41.6 % (42.0-52.0); HEMOGLOBIN 13.8 g/dl (13.5-17.5); IMMATURE GRANULOCYTE % 0.4 % (0-3.0); LYMPH # 1.3 10^3/uL (1.5-4.5); LYMPH % 13.9 % (24.0-44.0); MEAN CORPUSCULAR HGB CONC 33.2 g/dl (32.0-36.5); MEAN CORPUSCULAR VOLUME 90.4 fl (80.0-96.0); MONO # 1.5 10^3/uL (0.0-0.8); MONO % 16.2 % (0.0-5.0); NEUTROPHILS # 6.1 10^3/uL (1.8-7.7); NEUTROPHILS % 67.6 % (36.0-66.0); PLATELET COUNT, AUTOMATED 279 10^3/uL (150-450); RED CELL DISTRIBUTION WIDTH 14.4 % (11.5-14.5)
[2018-02-24 11:33] LABS: INR 0.99; PARTIAL THROMBOPLASTIN TIME 24.7 SECONDS (25.4-37.6); PROTHROMBIN TIME 13.2 SECONDS (12.1-14.4)
[2018-02-24 12:02] LABS: ALBUMIN 3.8 GM/DL (3.2-5.2); ALBUMIN/GLOBULIN RATIO 1.09 (1.00-1.93); ALKALINE PHOSPHATASE 96 U/L (45-117); ALT/SGPT 22 U/L (12-78); ANION GAP 6 MEQ/L (8-16); AST/SGOT 12 U/L (7-37); BILIRUBIN,DIRECT < 0.1 MG/DL (0.0-0.2); BILIRUBIN,TOTAL 0.3 MG/DL (0.2-1.0); BLOOD UREA NITROGEN 24 MG/DL (7-18); CALCIUM LEVEL 9.8 MG/DL (8.8-10.2); CARBON DIOXIDE LEVEL 32 MEQ/L (21-32); CHLORIDE LEVEL 101 MEQ/L (98-107); CPK CREATINE PHOSPHOKINASE 51 U/L (39-308); CREATININE FOR GFR 1.15 MG/DL (0.70-1.30); FREE T4 1.16 NG/DL (0.76-1.46); GLOMERULAR FILTRATION RATE > 60.0 (>35); GLUCOSE, FASTING 140 MG/DL (70-100); LIPASE 100 U/L (73-393); MAGNESIUM LEVEL 2.2 MG/DL (1.8-2.4); MB/CK RELATIVE INDEX 4.51 (< OR =4); NT-PRO BNP 593 PG/ML (<450); PHOSPHORUS LEVEL 4.1 MG/DL (2.5-4.9); POTASSIUM SERUM 4.6 MEQ/L (3.5-5.1); SODIUM LEVEL 139 MEQ/L (136-145); TOTAL PROTEIN 7.3 GM/DL (6.4-8.2); TROPONIN I < 0.02 NG/ML (< 0.10)
[2018-02-24] MEDS: AMIODARONE HCL 150 MG in APPROPRIATE DILUENT 1 EA IV ×2 (12:36→13:38)
[2018-02-24 14:52] LABS: CPK CREATINE PHOSPHOKINASE 63 U/L (39-308); TROPONIN I 0.02 NG/ML (< 0.10)
[2018-02-24] MEDS: NS 500 ML IV (16:19)
[2018-02-24] MEDS: NORCO, ANEXSIA 5/325MG TABLET (HYDROcodone/ACETAMINOPHEN) PO (17:55)
[2018-02-24] MEDS: GABAPENTIN 400 MG CAP PO ×2 (17:55→21:00)
[2018-02-24] MEDS: clonazePAM 0.5 MG TAB PO ×2 (17:55→21:00)
[2018-02-24] MEDS ORDERED: BISACODYL 10 MG SUPP PR (18:30)
[2018-02-24] MEDS ORDERED: FLEET ENEMA PR (18:30)
[2018-02-24] MEDS ORDERED: MOM 30ML SUSPENSION UDC PO (18:30)
[2018-02-24] MEDS: MIRTAZAPINE 15 MG TAB PO (21:34)
[2018-02-24] MEDS: guaiFENesin ER 600 MG TAB PO (21:34)
[2018-02-24] MEDS: FERROUS GLUCONATE 324 MG TAB PO (21:34)
[2018-02-24] MEDS: AMIODARONE 200 MG TAB (PACERONE) PO (21:35)
[2018-02-24] MEDS: FLUTICASONE PROP 0.05% NASAL SPRAY 16 GM (FLONASE) (22:31)
[2018-02-24] MEDS: OLANZapine 2.5MG TABLET PO (22:31)
[2018-02-25] MEDS: NORCO, ANEXSIA 5/325MG TABLET (HYDROcodone/ACETAMINOPHEN) PO ×2 (00:34→18:40)
[2018-02-25 07:03] LABS: HEMATOCRIT 38.2 % (42.0-52.0); HEMOGLOBIN 12.3 g/dl (13.5-17.5); MEAN CORPUSCULAR HEMOGLOBIN 30.1 pg (27.0-33.0); MEAN CORPUSCULAR HGB CONC 32.2 g/dl (32.0-36.5); MEAN CORPUSCULAR VOLUME 93.4 fl (80.0-96.0); PLATELET COUNT, AUTOMATED 235 10^3/uL (150-450); RED BLOOD COUNT 4.09 10^6/uL (4.30-6.10); RED CELL DISTRIBUTION WIDTH 14.3 % (11.5-14.5); WHITE BLOOD COUNT 7.8 10^3/uL (4.0-10.0)
[2018-02-25 07:29] LABS: ANION GAP 4 MEQ/L (8-16); BLOOD UREA NITROGEN 25 MG/DL (7-18); CALCIUM LEVEL 8.8 MG/DL (8.8-10.2); CARBON DIOXIDE LEVEL 32 MEQ/L (21-32); CHLORIDE LEVEL 103 MEQ/L (98-107); CREATININE FOR GFR 0.95 MG/DL (0.70-1.30); GLOMERULAR FILTRATION RATE > 60.0 (>35); GLUCOSE, FASTING 81 MG/DL (70-100); POTASSIUM SERUM 4.5 MEQ/L (3.5-5.1); SODIUM LEVEL 139 MEQ/L (136-145)
[2018-02-25] MEDS ORDERED: ALBUTEROL SULFATE 2.5 MG/0.5 ML INH NEB SOLN NEB (07:30)
[2018-02-25] MEDS: FERROUS GLUCONATE 324 MG TAB PO ×2 (09:33→20:23)
[2018-02-25] MEDS: guaiFENesin ER 600 MG TAB PO ×2 (09:34→20:23)
[2018-02-25] MEDS: OLANZapine 2.5MG TABLET PO ×2 (09:34→20:23)
[2018-02-25] MEDS: clonazePAM 0.5 MG TAB PO ×2 (09:35→20:23)
[2018-02-25] MEDS: GABAPENTIN 400 MG CAP PO ×2 (09:35→20:23)
[2018-02-25] MEDS: AMIODARONE 200 MG TAB (PACERONE) PO ×2 (09:35→20:24)
[2018-02-25] MEDS: SENOKOT S TAB PO ×2 (09:35→20:23)
[2018-02-25] MEDS: FLUTICASONE PROP 0.05% NASAL SPRAY 16 GM (FLONASE) ×2 (09:35→20:24)
[2018-02-25] MEDS: MIRTAZAPINE 15 MG TAB PO (20:23)
[2018-02-25] MEDS ORDERED: ASPIRIN ENTERIC 325 MG TAB PO (21:30)
[2018-02-25] MEDS: ASPIRIN ENTERIC 325 MG TAB PO (23:57)
[2018-02-26] MEDS: NORCO, ANEXSIA 5/325MG TABLET (HYDROcodone/ACETAMINOPHEN) PO ×3 (02:55→17:09)
[2018-02-26] MEDS: guaiFENesin ER 600 MG TAB PO ×2 (10:47→20:05)
[2018-02-26] MEDS: FERROUS GLUCONATE 324 MG TAB PO ×2 (10:47→20:05)
[2018-02-26] MEDS: FLUTICASONE PROP 0.05% NASAL SPRAY 16 GM (FLONASE) ×2 (10:48→20:06)
[2018-02-26] MEDS: ASPIRIN ENTERIC 325 MG TAB PO (10:48)
[2018-02-26] MEDS: GABAPENTIN 400 MG CAP PO ×2 (10:48→20:05)
[2018-02-26] MEDS: clonazePAM 0.5 MG TAB PO ×2 (10:48→20:05)
[2018-02-26] MEDS: SENOKOT S TAB PO ×2 (10:48→20:05)
[2018-02-26] MEDS: OLANZapine 2.5MG TABLET PO ×2 (10:48→20:58)
[2018-02-26] MEDS: AMIODARONE 200 MG TAB (PACERONE) PO ×2 (10:49→20:05)
[2018-02-26] MEDS: LEVOTHYROXINE 12.5MCG PER 1/2 TAB (0.0125MG) PO (14:18)
[2018-02-26] MEDS: MIRTAZAPINE 15 MG TAB PO (20:05)
[2018-02-26] MEDS: NITROGLYCERIN 0.4 MG SUBL TABLET SL ×2 (20:40→20:57)
[2018-02-26 21:48] LABS: CPK CREATINE PHOSPHOKINASE 46 U/L (39-308); MB/CK RELATIVE INDEX 4.35 (< OR =4); TROPONIN I < 0.02 NG/ML (< 0.10)
[2018-02-26] MEDS: MORPHINE 4 MG/ML 1ML VIAL/SYRINGE (J2270) IV (21:53)
[2018-02-26] MEDS: LORazepam 2 MG/ML VIAL (J2060) IV (22:06)
[2018-02-27] MEDS: LEVOTHYROXINE 12.5MCG PER 1/2 TAB (0.0125MG) PO (06:06)
[2018-02-27 06:26] LABS: CPK CREATINE PHOSPHOKINASE 36 U/L (39-308); MB/CK RELATIVE INDEX 4.17 (< OR =4); TROPONIN I < 0.02 NG/ML (< 0.10)
[2018-02-27] MEDS: clonazePAM 0.5 MG TAB PO (09:00)
[2018-02-27] MEDS: GABAPENTIN 400 MG CAP PO (09:43)
[2018-02-27] MEDS: FERROUS GLUCONATE 324 MG TAB PO (09:43)
[2018-02-27] MEDS: guaiFENesin ER 600 MG TAB PO (09:43)
[2018-02-27] MEDS: AMIODARONE 200 MG TAB (PACERONE) PO (09:43)
[2018-02-27] MEDS: OLANZapine 2.5MG TABLET PO (09:43)
[2018-02-27] MEDS: ASPIRIN ENTERIC 325 MG TAB PO (09:43)
[2018-02-27] MEDS: SENOKOT S TAB PO (09:43)
[2018-02-27] MEDS: FLUTICASONE PROP 0.05% NASAL SPRAY 16 GM (FLONASE) (09:44)
[2018-02-27] MEDS: KETOROLAC 30 MG/ML VIAL (J1885) IV (10:30)
== END 2018-02-27 12:45 ==
LOC: M ED 10:44 → M ED INP 18:20 → M MSPAV 21:03
DX: J96.11 Chronic respiratory failure with hypoxia (principal); I48.0 Paroxysmal atrial fibrillation; I10 Essential (primary) hypertension; I50.32 Chronic diastolic (congestive) heart failure; M10.9 Gout, unspecified; F41.0 Panic disorder [episodic paroxysmal anxiety]; N40.0 Benign prostatic hyperplasia without lower urinary tract symptoms; Z79.82 Long term (current) use of aspirin; Z87.891 Personal history of nicotine dependence; Z79.899 Other long term (current) drug therapy; F31.9 Bipolar disorder, unspecified
CPT/HCPCS: J2270

== ENCOUNTER → 2018-02-27 | Outpatient (REF) | payer MEDICAID, MEDICARE | LOC: SKLAB4 09:46 | DX: I50.9 Heart failure, unspecified (principal); I11.0 Hypertensive heart disease with heart failure ==

== ENCOUNTER → 2018-03-27 | Outpatient (REF) | payer MEDICAID, MEDICARE ==
[2018-03-27 08:29] LABS: HEMOGLOBIN 11.1 g/dl (13.5-17.5); MEAN CORPUSCULAR HEMOGLOBIN 29.7 pg (27.0-33.0); MEAN CORPUSCULAR HGB CONC 31.7 g/dl (32.0-36.5); MEAN CORPUSCULAR VOLUME 93.6 fl (80.0-96.0); PLATELET COUNT, AUTOMATED 239 10^3/uL (150-450); RED BLOOD COUNT 3.74 10^6/uL (4.30-6.10); RED CELL DISTRIBUTION WIDTH 14.5 % (11.5-14.5); WHITE BLOOD COUNT 6.7 10^3/uL (4.0-10.0)
[2018-03-27 12:08] LABS: ANION GAP 6 MEQ/L (8-16); BLOOD UREA NITROGEN 27 MG/DL (7-18); CALCIUM LEVEL 8.5 MG/DL (8.8-10.2); CARBON DIOXIDE LEVEL 33 MEQ/L (21-32); CHLORIDE LEVEL 101 MEQ/L (98-107); CREATININE FOR GFR 0.91 MG/DL (0.70-1.30); GLOMERULAR FILTRATION RATE > 60.0 (>35); GLUCOSE, FASTING 92 MG/DL (70-100); POTASSIUM SERUM 4.6 MEQ/L (3.5-5.1); SODIUM LEVEL 140 MEQ/L (136-145)
[2018-03-27 12:16] LABS: VITAMIN B12 LEVEL 455 PG/ML (247-911)
[2018-03-27 13:34] LABS: ESTIMATED AVERAGE GLUCOSE 123 MG/DL (60-110); HEMOGLOBIN A1c 5.9 %
[2018-03-31 00:40] LABS: HOMOCYST(E)INE SERUM 15.3 umol/L (0.0-15.0)
[2018-03-31 00:40] LABS: Methylmalonic Acid 603 nmol/L (0-378)
== END ==
LOC: SKLAB4 11:22
DX: D64.9 Anemia, unspecified (principal); Z79.899 Other long term (current) drug therapy
CPT/HCPCS: 82607

== ENCOUNTER → 2018-04-13 | Outpatient (REF) | payer MEDICARE, MEDICAID ==
[~2018-04-13] MED LIST changes: +AKWASOL OU; +AMIO200T PO; +AMLO10TA5 PO; +APAP325T4 PO; +ASPI-222 PO; +AZELASTINE; +Acetaminophen Tab PO; +Artificial Tears OU; +BENA25CA PO; +BENT10CA PO; +BENZ-18 PO; +CALC05CR TOP; +CARD40TA PO; +CEPH500C PO; +CHLO1.4S2 PO; +CIPR-250 PO; +CIPR500T3 PO; +CLON0.25 PO; +CLON0.5T17 PO; +CLON0.5T8 PO; +CLON1TAB8 PO; +DEPA250C PO; +DESITIN EXT; +DOXE10CA PO; +DULC10SU2 PR; +DULC5TAB PO; +ELIQ5TAB PO; +ENSULIQ64 PO; +FERR325T16 PO; +FERR32TA PO; +FEVE650S3 PR; +FLEEENE4 PR; +FLUTISP; +GABA-845 PO; +GABA100C PO; +GABA300C2 PO; +HALO5OI TOP; +HYDR-3363 PO; +HYDR-3713 PO; +HYDR25OIN TOP; +IMOD2CHW PO; +IPRA0.00 INH; +KLON1TAB PO; +LEVA1TAB2 PO; +LEVA750T7 PO; +LEVO25TA5 PO; +LIDO5OIN28 TOP; +MACR100C3 PO; +MACR100C43 PO; +MAG400TA PO; +MELA5TAB17 PO; +MELA5TAB20 PO; +META28.35 PO; +METO25TA4 PO; +MICR10CA PO; +MILK120011 PO; +MIRA3350 PO; +MIRA33504 PO; +MIRT-15 PO; +MIRT15TA3 PO; +MUCI600T31 PO; +MYLASSUD PO; +MYLASUS16 PO; +NAPR500T2 PO; +NIFE15CA PO; +NORC1TAB4 PO; +NORCOTAB PO; +OLAN10TA2 PO; +OLAN2.5T PO; +OLAN5TAB PO; +OXYB10TA PO; +OXYB15TA PO; +PEG1POW PO; +PERC5TAB12 PO; +PERCOCET PO; +PRED10TA2 PO; +PRED20TA PO; +PRIN10TA PO; +PROAAER10 INH; +REFR0.1D OU; +REST0.05 OU; +SENN1TAB2 PO; -SENOKOT S TAB PO; +TOPA50TA PO; +TRIA0.5O TOP; +VANC50VL PO; +VERA24TASA PO; +VITA100072 PO; +VITA100072 SC; +VITMTA PO; +ZANA4CAP PO; +ZINC60OI TOP; +[UNRECOGNIZED DRUG - OTHER] PO
== END ==
LOC: SKLAB4 07:51
PROVIDERS: ATTEND Internal Medicine
DX: R94.6 Abnormal results of thyroid function studies (principal)

== ENCOUNTER → 2018-05-01 | Outpatient (REF) | payer MEDICARE, MEDICAID ==
--- NOTE | 2018-04-23 20:39 | IPNPDOC ---
Text Note Date of Service The patient was seen on 04/24/18. NOTE [facility] Progress Note DATE: 04/21/18, 04/24/18 Resident is seen in [facility] in [facility], fourth floor. His Colonoscopy results came back. Reviewed with patient. Restarted patient's anticoagulation. He noted occasional bright blood per rectum. Not every time. Patient complains of difficulty sleeping. The melatonin scheduled is not helping. Patient would l driss Klonopin to help him sleep. Patient has been having some discomfort in his legs. It mostly happens at night. He notes that the bengay has been helping. PAST MEDICAL HISTORY: 1. Heart failure, diastolic with recent echo in November 2017. 2. Atrial fibrillation/atrial flutter. Supraventricular tachycardia (SVT)/atrialtachycardia, regular today, rate controlled. Anticoagulated. 3. History of bipolar. 4. History of colon cancer. 5. History of right femoral deep vein thrombosis (DVT).Anticoagulated for other reason (#2) Also [place] filter in situ 6. Rectal cancer with distal colon resection, polyps on recent colonoscopy, tub ular and tubulovillous. 7. History of elevated right diaphragm. 8. History of chronic constipation, controlled on bowel medications. 9. Subclinical hypothyroidism. 10. Hypertension. 11. Chronic pain. 12. Depression/anxiety attacks. 13. History of rectal bleeding PAST SURGICAL HISTORY: 1. Colon cancer resection with colostomy. 2. Carpal tunnel repair on right hand. 3. Tonsillectomy. 4. Kaleb filter for DVT, retrievable. CURRENT MEDICATIONS: - [place] 5/325 twice a day and every 6 hours for pain - clonazepam 0.5 mg twice a day for anxiety - DuoNeb daily for chronic obstructive pulmonary disease (COPD). - gabapentin 400 mg twice a day for neuropathy - Remeron 15 mg at night for depression - Zyprexa 2.5 mg twice a day for bipolar - amiodarone 200 mg twice a day for his arrhythmia - aspirin 325 mg daily - Synthroid 12.5 mcg daily - senna plus two tablets daily - MiraLax in the evening - Mucinex 600 mg twice a day - melatonin 5 mg daily at night as needed for sleep - DuoNeb one dose as needed for wheezing - Mylanta 30 mL every 4 as needed for indigestion -Eliquis BID Patient has allergies to PENICILLIN, SULFA, FLEXERIL, and NABUMETONE. PHYSICAL EXAMINATION: GENERAL: Patient is lying in bed. Appears comfortable. No acute respiratory distress. HEENT: Atraumatic, normocephalic. Pupils equal and react to light and accommodation. HEART: Systolic murmur, 3/6 best heard right sternal border. LUNGS: Clear to auscultation. No rales appreciated. ABDOMEN: Soft. Bowel sounds appreciated. No pain to palpation. Some mild tenderness in lower right quadrant. LOWER EXTREMITIES: No edema noted. UPPER EXTREMITIES: Right hand medial two fingers contracture noted. ASSESSMENT AND PLAN: 1. Recent colonoscopy for history of colon cancer. Tubular and Tubulovillous noted. Likely will need repeat colonoscopy in a year or so. Follow up with Dr. Guillaume. 2. Atrial fibrillation/ flutter. Controlled on amiodarone 200 mg twice a day. Will continue with this medication at this time. Not on beta kishan or calcium channel kishan. Continue Eliquis BID. Monitor for rectal bleeding. Stop aspirin daily. 3. Chronic diastolic heart failure. Monitor patient for fluid overload. Continue current medication regimen. Consider beta kishan for patient, as he is not on at this time. 4. Restless leg. Starting Requip 0.25 mg QHS. If no benefit consider increasing Requip or increasing Klonopin. 5. Gait and mobility. Fall risk. Consider more PT. 6. Bipolar. Patient still continues to have delusional thoughts. Continue on his medication at this time. 7. Insomnia. Patient does report having some trouble sleeping. He reports used to being on clonazepam 1 mg at night. I note that patient does have melatonin as needed. Change melatonin to scheduled. Continue Clonazepam at current dose, 0.5 mg BID. Stopped Melatonin and started Ramelteon. Consider increasing evening dose of Clonazepam. 8. Nonocclusive right femoral deep vein thrombosis (DVT), not on anticoagulation at this time due to what appears to be a gastrointestinal (GI) bleed this year. Patient does have a [place] filter in place. Restarting anticoagulation for Atrial fibrillation/ flutter. Consider having kaleb filter removed. If retrievable 9. Chronic anxiety. Continue current medications. 10. Rectal pain. Continue opioids medications. Patient is on gabapentin possibly for this. Ordering labs to evaluate patient for peripheral neuropathy causes that may be reason for Gabapentin. 11. Possible chronic bronchitis. Patient is on inhalers for possible COPD. No previous diagnosis noted. May recommend PFT for patient to see if inhaler is needed. May have been started from previous admissions for pneumonia. 12. Colon cancer history. Patient had recent colonoscopy. Will see who follows patient for any changes. 13. Anemia, mild. Stable. Repeat lab in future. My faculty preceptor for this patient encounter was physically present during the encounter and was fully available. All aspects of the patient interview, examination, medical decision making process, and medical care plan development were reviewed and approved by the faculty preceptor. The faculty preceptor is aware and concurs with the plan as stated in the body of this note and will attest to such by his/her co-signature. GME ATTESTATION GME ATTESTATION My faculty preceptor for this patient encounter was physically present during the encounter and was fully available. All aspects of the patient interview, examination, medical decision making process, and medical care plan development were reviewed and approved by the faculty preceptor. The faculty preceptor is aware and concurs with the plan as stated in the body of this note and will attest to such by his/her cosignature. FRANKLIN BARROS DO Apr 23, 2018 20:31 Talita Price DO May 01, 2018 07:06
[2018-05-01 07:49] LABS: HEMATOCRIT 27.3 % (42.0-52.0); HEMOGLOBIN 8.2 g/dl (13.5-17.5); MEAN CORPUSCULAR HEMOGLOBIN 33.6 pg (27.0-33.0); MEAN CORPUSCULAR VOLUME 111.9 fl (80.0-96.0); PLATELET COUNT, AUTOMATED 298 10^3/uL (150-450); RED BLOOD COUNT 2.44 10^6/uL (4.30-6.10); WHITE BLOOD COUNT 7.2 10^3/uL (4.0-10.0)
[2018-05-01 08:27] LABS: ALBUMIN 3.6 GM/DL (3.2-5.2); ALT/SGPT 19 U/L (12-78); BILIRUBIN,TOTAL 0.2 MG/DL (0.2-1.0); BLOOD UREA NITROGEN 27 MG/DL (7-18); CALCIUM LEVEL 9.1 MG/DL (8.8-10.2); CARBON DIOXIDE LEVEL 29 MEQ/L (21-32); CHLORIDE LEVEL 102 MEQ/L (98-107); CREATININE FOR GFR 0.98 MG/DL (0.70-1.30); GLOMERULAR FILTRATION RATE > 60.0 (>35); GLUCOSE, FASTING 97 MG/DL (70-100); IRON (FE) 47 UG/DL (65-175); POTASSIUM SERUM 4.5 MEQ/L (3.5-5.1); SODIUM LEVEL 139 MEQ/L (136-145); TOTAL PROTEIN 6.7 GM/DL (6.4-8.2)
== END ==
LOC: SKLAB4 09:57
PROVIDERS: ATTEND Internal Medicine
DX: I50.9 Heart failure, unspecified (principal); E03.9 Hypothyroidism, unspecified

== ENCOUNTER → 2018-05-02 | Outpatient (REF) | payer MEDICARE, MEDICAID ==
[2018-05-02 07:37] LABS: HEMATOCRIT 24.7 % (42.0-52.0); HEMOGLOBIN 7.6 g/dl (13.5-17.5); MEAN CORPUSCULAR HEMOGLOBIN 34.4 pg (27.0-33.0); MEAN CORPUSCULAR HGB CONC 30.8 g/dl (32.0-36.5); MEAN CORPUSCULAR VOLUME 111.8 fl (80.0-96.0); PLATELET COUNT, AUTOMATED 264 10^3/uL (150-450); RED BLOOD COUNT 2.21 10^6/uL (4.30-6.10); WHITE BLOOD COUNT 4.5 10^3/uL (4.0-10.0)
== END ==
LOC: SKLAB4 07:26
PROVIDERS: ATTEND Internal Medicine
DX: D64.9 Anemia, unspecified (principal)

== ENCOUNTER → 2018-05-03 | Outpatient (REF) | payer MEDICARE, MEDICAID | LOC: SKLAB4 22:13 | PROVIDERS: ATTEND Internal Medicine | DX: D64.9 Anemia, unspecified (principal) ==

== ENCOUNTER → 2018-05-03 | Outpatient (REF) | payer MEDICARE, MEDICAID | LOC: SKLAB4 18:32 | PROVIDERS: ATTEND Internal Medicine | DX: D64.9 Anemia, unspecified (principal) ==

== ENCOUNTER → 2018-05-04 | Outpatient (REF) | payer MEDICARE, MEDICAID ==
[2018-05-04 08:28] LABS: EOS % 0.4 % (0.0-3.0); HEMATOCRIT 25.1 % (42.0-52.0); HEMOGLOBIN 7.7 g/dl (13.5-17.5); LYMPH # 1.2 10^3/uL (1.5-4.5); LYMPH % 22.2 % (24.0-44.0); MEAN CORPUSCULAR HEMOGLOBIN 33.9 pg (27.0-33.0); MEAN CORPUSCULAR HGB CONC 30.7 g/dl (32.0-36.5); MEAN CORPUSCULAR VOLUME 110.6 fl (80.0-96.0); MONO % 19.7 % (0.0-5.0); NEUTROPHILS # 2.9 10^3/uL (1.8-7.7); NEUTROPHILS % 56.3 % (36.0-66.0); PLATELET COUNT, AUTOMATED 273 10^3/uL (150-450); RED BLOOD COUNT 2.27 10^6/uL (4.30-6.10); WHITE BLOOD COUNT 5.2 10^3/uL (4.0-10.0)
[2018-05-04 08:29] LABS: BASO # 0.1 10^3/uL (0.0-0.2)
[2018-05-04 08:44] LABS: LDH LACTATE DEHYDROGENASE 137 U/L (87-241); TOTAL PROTEIN 5.7 GM/DL (6.4-8.2)
[2018-05-04 09:33] LABS: FOLATE 17.2 NG/ML (>5.4)
[2018-05-09 11:21] LABS: ALBUMIN 3.39 GM/DL (3.29-5.55); ALBUMIN % 59.4 % (55.8-66.1); ALPHA-1-GLOBULIN % 4.9 % (2.9-4.9); ALPHA-1-GLOBULINS 0.28 GM/DL (0.17-0.41); ALPHA-2-GLOBULINS % 10.6 % (7.1-11.8); BETA-1-GLOBULINS % 8.1 % (4.7-7.2); BETA-2-GLOBULINS % 6.6 % (3.2-6.5); GAMMA GLOBULIN % 10.4 % (11.1-18.8)
[2018-05-09 11:22] LABS: BETA-1-GLOBULINS 0.46 GM/DL (0.28-0.60); BETA-2-GLOBULINS 0.38 GM/DL (0.19-0.55); GAMMA GLOBULINS 0.59 GM/DL (0.65-1.58)
== END ==
LOC: SKLAB4 08:00
PROVIDERS: ATTEND Internal Medicine
DX: D64.9 Anemia, unspecified (principal)

== ENCOUNTER → 2018-05-08 | Outpatient (REF) | payer MEDICARE, MEDICAID ==
[2018-05-08 07:34] LABS: BASO # 0.1 10^3/uL (0.0-0.2); BASO % 1.1 % (0.0-1.0); EOS % 0.4 % (0.0-3.0); HEMATOCRIT 29.1 % (42.0-52.0); LYMPH # 1.4 10^3/uL (1.5-4.5); LYMPH % 25.1 % (24.0-44.0); MEAN CORPUSCULAR HEMOGLOBIN 33.8 pg (27.0-33.0); MEAN CORPUSCULAR HGB CONC 30.9 g/dl (32.0-36.5); MEAN CORPUSCULAR VOLUME 109.4 fl (80.0-96.0); MONO # 0.9 10^3/uL (0.0-0.8); MONO % 16.7 % (0.0-5.0); NEUTROPHILS % 56.3 % (36.0-66.0); PLATELET COUNT, AUTOMATED 358 10^3/uL (150-450); RED BLOOD COUNT 2.66 10^6/uL (4.30-6.10); WHITE BLOOD COUNT 5.4 10^3/uL (4.0-10.0)
== END ==
LOC: SKLAB4 11:37
PROVIDERS: ATTEND Internal Medicine
DX: D64.9 Anemia, unspecified (principal)

== ENCOUNTER → 2018-05-16 | Outpatient (REF) | payer MEDICARE, MEDICAID ==
[2018-05-16 08:13] LABS: BASO # 0.1 10^3/uL (0.0-0.2); BASO % 1.1 % (0.0-1.0); EOS % 0.4 % (0.0-3.0); HEMATOCRIT 30.4 % (42.0-52.0); HEMOGLOBIN 9.2 g/dl (13.5-17.5); LYMPH # 1.2 10^3/uL (1.5-4.5); LYMPH % 21.7 % (24.0-44.0); MEAN CORPUSCULAR HEMOGLOBIN 33.6 pg (27.0-33.0); MEAN CORPUSCULAR HGB CONC 30.3 g/dl (32.0-36.5); MEAN CORPUSCULAR VOLUME 110.9 fl (80.0-96.0); MONO % 17.3 % (0.0-5.0); NEUTROPHILS # 3.3 10^3/uL (1.8-7.7); NEUTROPHILS % 59.1 % (36.0-66.0); PLATELET COUNT, AUTOMATED 263 10^3/uL (150-450); RED BLOOD COUNT 2.74 10^6/uL (4.30-6.10); WHITE BLOOD COUNT 5.6 10^3/uL (4.0-10.0)
[2018-05-18 00:07] LABS: FREE LAMBDA LIGHT CHAINS SERUM 16.5 mg/L (5.7-26.3); KAPPA/LAMBDA RATIO SERUM 1.39 (0.26-1.65)
== END ==
LOC: SKLAB4 10:18
PROVIDERS: ATTEND Internal Medicine
DX: D64.9 Anemia, unspecified (principal)

== ENCOUNTER → 2018-05-17 | Outpatient (REF) | payer MEDICARE, MEDICAID ==
[2018-05-17 09:10] LABS: URINE TOTAL PROTEIN 17.8 MG/DL (0-12)
[2018-05-18 13:26] LABS: UPEP INTERPRETATION NO M-SPIKE NOTED; URINE VOLUME RANDOM ML
== END ==
LOC: SKLAB4 08:26
PROVIDERS: ATTEND Internal Medicine
DX: D64.9 Anemia, unspecified (principal)

== ENCOUNTER → 2018-05-29 | Outpatient (REF) | payer MEDICARE, MEDICAID ==
[2018-05-29 08:59] LABS: BASO # 0.1 10^3/uL (0.0-0.2); BASO % 1.1 % (0.0-1.0); EOS % 0.3 % (0.0-3.0); HEMATOCRIT 34.7 % (42.0-52.0); HEMOGLOBIN 10.7 g/dl (13.5-17.5); LYMPH # 0.9 10^3/uL (1.5-4.5); LYMPH % 14.1 % (24.0-44.0); MEAN CORPUSCULAR HEMOGLOBIN 33.2 pg (27.0-33.0); MEAN CORPUSCULAR HGB CONC 30.8 g/dl (32.0-36.5); MEAN CORPUSCULAR VOLUME 107.8 fl (80.0-96.0); MONO # 1.2 10^3/uL (0.0-0.8); NEUTROPHILS # 4.4 10^3/uL (1.8-7.7); NEUTROPHILS % 66.2 % (36.0-66.0); PLATELET COUNT, AUTOMATED 244 10^3/uL (150-450); RED BLOOD COUNT 3.22 10^6/uL (4.30-6.10); WHITE BLOOD COUNT 6.6 10^3/uL (4.0-10.0)
== END ==
LOC: SKLAB4 07:16
PROVIDERS: ATTEND Internal Medicine
DX: D64.9 Anemia, unspecified (principal)

== ENCOUNTER → 2018-06-08 | Outpatient (REF) | payer MEDICARE, MEDICAID ==
--- NOTE | 2018-06-08 16:57 | ECGEPIP ---
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 Electronically Signed On 06-08-2018 16:56:49 EST by Osman Becker
== END ==
LOC: SKLAB4 09:51
PROVIDERS: ATTEND Internal Medicine
DX: I50.9 Heart failure, unspecified (principal); I11.0 Hypertensive heart disease with heart failure; I35.0 Nonrheumatic aortic (valve) stenosis

== ENCOUNTER → 2018-06-14 | Outpatient (REF) | payer MEDICARE, MEDICAID ==
--- NOTE | 2018-06-14 19:05 | REP ---
CHEST, SINGLE VIEW: Single view of the chest is performed and compared to prior study of 02/24/2018. There is cardiomegaly again noted as well as calcification and tortuosity of the thoracic aorta. The mediastinal silhouette is unchanged. There is elevation of the right hemidiaphragm unchanged. Coarsened interstitial markings in each lung base are stable with no new infiltrate. IMPRESSION: No evidence of acute infiltrate. Electronically Signed by Jessee Garay MD 06/15/2018 12:27 A
== END ==
LOC: M RAD 17:40
PROVIDERS: ATTEND Internal Medicine
DX: R07.9 Chest pain, unspecified (principal)

== ENCOUNTER → 2018-06-19 | Outpatient (REF) | payer MEDICARE, MEDICAID ==
[2018-06-19 08:57] LABS: HEMATOCRIT 34.5 % (42.0-52.0); HEMOGLOBIN 10.8 g/dl (13.5-17.5); MEAN CORPUSCULAR HEMOGLOBIN 32.3 pg (27.0-33.0); MEAN CORPUSCULAR HGB CONC 31.3 g/dl (32.0-36.5); MEAN CORPUSCULAR VOLUME 103.3 fl (80.0-96.0); PLATELET COUNT, AUTOMATED 301 10^3/uL (150-450); RED BLOOD COUNT 3.34 10^6/uL (4.30-6.10); WHITE BLOOD COUNT 5.6 10^3/uL (4.0-10.0)
== END ==
LOC: SKLAB4 12:35
PROVIDERS: ATTEND Internal Medicine
DX: D64.9 Anemia, unspecified (principal)

== ENCOUNTER → 2018-07-07 | Outpatient (REF) | payer MEDICARE, MEDICAID ==
--- NOTE | 2018-07-07 12:35 | REP ---
ABDOMEN FLAT UPRIGHT, PA CHEST, FOUR VIEWS: HISTORY: Abdominal pain. COMPARISON: 06/14/2018 A small amount of air is present in small and large intestine. Several air fluid levels are present. There are no dilated loops of intestine. There is no pneumoperitoneum. There is elevation of the right hemidiaphragm. Parenchymal density is present i the right lower lobe consistent with atelectasis or infiltrate. The cardiac silhouette is enlarged. IMPRESSION: 1. Nonspecific bowel gas pattern. 2. Right lower lobe atelectasis or infiltrate. Electronically Signed by Rubens Lyons MD 07/07/2018 12:52 P
== END ==
LOC: SKLAB4 07:24
DX: R10.9 Unspecified abdominal pain (principal); J98.11 Atelectasis

== ENCOUNTER → 2018-07-24 | Outpatient (REF) | payer MEDICARE, MEDICAID ==
[~2018-07-24] MED LIST changes: -CALC05CR TOP; +DESI40PS3 EXT; -DESITIN EXT; +DOVO0.007 TOP; +HALO0.0511 TOP; -HALO5OI TOP; +HYDR-3715 PO; -NORC1TAB4 PO; +NORC1TAB7 PO; -NORCOTAB PO; -OLAN2.5T PO; +OLAN2.5T25 PO; +OXYC1TAB23 PO; -PERCOCET PO; -SENN1TAB2 PO; +SENN1TAB40 PO; +VITA100018 PO; +VITA100018 SC; -VITA100072 PO; -VITA100072 SC
[2018-07-24 08:02] LABS: HEMATOCRIT 33.4 % (42.0-52.0); HEMOGLOBIN 10.5 g/dl (13.5-17.5); MEAN CORPUSCULAR HEMOGLOBIN 32.1 pg (27.0-33.0); MEAN CORPUSCULAR HGB CONC 31.4 g/dl (32.0-36.5); MEAN CORPUSCULAR VOLUME 102.1 fl (80.0-96.0); PLATELET COUNT, AUTOMATED 222 10^3/uL (150-450); RED BLOOD COUNT 3.27 10^6/uL (4.30-6.10); WHITE BLOOD COUNT 5.1 10^3/uL (4.0-10.0)
== END ==
LOC: SKLAB4 10:39
DX: D64.9 Anemia, unspecified (principal); Z79.899 Other long term (current) drug therapy

== ENCOUNTER → 2018-08-02 | Outpatient (REF) | payer MEDICARE, MEDICAID ==
[2018-08-02 14:44] LABS: HEMOGLOBIN 10.1 g/dl (13.5-17.5); MEAN CORPUSCULAR HEMOGLOBIN 31.5 pg (27.0-33.0); MEAN CORPUSCULAR HGB CONC 30.6 g/dl (32.0-36.5); MEAN CORPUSCULAR VOLUME 102.8 fl (80.0-96.0); PLATELET COUNT, AUTOMATED 224 10^3/uL (150-450); RED BLOOD COUNT 3.21 10^6/uL (4.30-6.10); WHITE BLOOD COUNT 6.2 10^3/uL (4.0-10.0)
[2018-08-02 15:06] LABS: BLOOD UREA NITROGEN 20 MG/DL (7-18); CALCIUM LEVEL 8.4 MG/DL (8.8-10.2); CARBON DIOXIDE LEVEL 35 MEQ/L (21-32); CHLORIDE LEVEL 101 MEQ/L (98-107); CREATININE FOR GFR 0.88 MG/DL (0.70-1.30); GLOMERULAR FILTRATION RATE > 60.0 (>35); GLUCOSE, FASTING 112 MG/DL (70-100); NT-PRO BNP 170 PG/ML (<450); POTASSIUM SERUM 4.2 MEQ/L (3.5-5.1); SODIUM LEVEL 140 MEQ/L (136-145)
--- NOTE | 2018-08-02 16:06 | REP ---
Chest x-ray: Single AP view: History: Cough. Comparison chest x-ray: July 07, 2018. Findings: Right hemidiaphragm is somewhat elevated as before. There is discoid atelectasis above it in the right base. Mild plate-like atelectasis is seen in the left base. The heart is mildly enlarged unchanged. The thoracic aorta is calcific. Pulmonary vasculature is not increased. Impression: Elevated right hemidiaphragm with bibasilar plate-like atelectasis similar to prior studies. Cardiomegaly. Electronically Signed by Gerardo Solano MD 08/02/2018 04:30 P
== END ==
LOC: SKLAB4 13:43
DX: R05 Cough (principal); D64.9 Anemia, unspecified; I10 Essential (primary) hypertension; E03.9 Hypothyroidism, unspecified; Z79.01 Long term (current) use of anticoagulants

== ENCOUNTER → 2018-08-21 | Outpatient (REF) | payer MEDICARE, MEDICAID ==
[2018-08-21 08:04] LABS: BASO # 0.1 10^3/uL (0.0-0.2); BASO % 1.1 % (0.0-1.0); EOS # 0.1 10^3/uL (0.0-0.50); EOS % 1.5 % (0.0-3.0); HEMATOCRIT 30.3 % (42.0-52.0); HEMOGLOBIN 9.2 g/dl (13.5-17.5); LYMPH # 0.8 10^3/uL (1.5-4.5); LYMPH % 16.1 % (24.0-44.0); MEAN CORPUSCULAR HGB CONC 30.4 g/dl (32.0-36.5); MONO # 0.8 10^3/uL (0.0-0.8); MONO % 16.5 % (0.0-5.0); NEUTROPHILS # 3.1 10^3/uL (1.8-7.7); NEUTROPHILS % 64.4 % (36.0-66.0); PLATELET COUNT, AUTOMATED 252 10^3/uL (150-450); RED BLOOD COUNT 2.97 10^6/uL (4.30-6.10); WHITE BLOOD COUNT 4.7 10^3/uL (4.0-10.0)
--- NOTE | 2018-08-21 08:15 | REP ---
Chest x-ray: Two views. History: Shortness of breath. Cough. Comparison chest x-ray: August 02, 2018. Findings: There is significant elevation of the right hemidiaphragm with hypoventilation of the right lung unchanged. There is discoid atelectasis in the right base above the elevated right hemidiaphragm. Heart is enlarged unchanged . The aorta is calcific. Pulmonary vasculature is somewhat cephalized. No acute bony abnormality. Impression: Cardiomegaly. Chronically elevated right hemidiaphragm. Discoid atelectasis on the right. Pulmonary vascular cephalization. No visible pleural effusion or pulmonary edema. Electronically Signed by Gerardo Solano MD 08/21/2018 08:06 A
[2018-08-21 08:29] LABS: BLOOD UREA NITROGEN 18 MG/DL (7-18); CALCIUM LEVEL 8.7 MG/DL (8.8-10.2); CARBON DIOXIDE LEVEL 34 MEQ/L (21-32); CHLORIDE LEVEL 102 MEQ/L (98-107); CREATININE FOR GFR 0.84 MG/DL (0.70-1.30); GLOMERULAR FILTRATION RATE > 60.0 (>35); GLUCOSE, FASTING 89 MG/DL (70-100); NT-PRO BNP 238 PG/ML (<450); POTASSIUM SERUM 3.9 MEQ/L (3.5-5.1); SODIUM LEVEL 141 MEQ/L (136-145)
== END ==
LOC: SKLAB4 07:10
DX: I51.7 Cardiomegaly (principal); J98.11 Atelectasis; I27.0 Primary pulmonary hypertension; R06.02 Shortness of breath
CPT/HCPCS: 36415; 71046; 80048; 83880; 85025; G0463

== ENCOUNTER → 2018-08-28 | Outpatient (REF) | payer MEDICARE, MEDICAID ==
[2018-08-28 10:24] LABS: HEMATOCRIT 29.2 % (42.0-52.0); MEAN CORPUSCULAR HEMOGLOBIN 31.6 pg (27.0-33.0); MEAN CORPUSCULAR HGB CONC 30.8 g/dl (32.0-36.5); MEAN CORPUSCULAR VOLUME 102.5 fl (80.0-96.0); PLATELET COUNT, AUTOMATED 245 10^3/uL (150-450); RED BLOOD COUNT 2.85 10^6/uL (4.30-6.10); WHITE BLOOD COUNT 6.1 10^3/uL (4.0-10.0)
== END ==
LOC: SKLAB4 11:32
DX: D64.9 Anemia, unspecified (principal); I48.91 Unspecified atrial fibrillation

== ENCOUNTER 2018-09-18 14:12 | Outpatient (CLI) | payer MEDICARE, MEDICAID ==
[~2018-09-18] VITALS: Ht 170.2 cm; Wt 101.0 kg
[2018-09-18] MEDS ORDERED: diphenhydrAMINE 25 MG CAP PO ONE (15:00)
[2018-09-18] MEDS ORDERED: ACETAMINOPHEN 500 MG TAB PO ONE (15:00)
== END 2018-09-18 19:56 ==
LOC: M OPCLI4PV 14:12 → M MSPAV 14:13 → M OPCLI4PV 19:56
PROVIDERS: ATTEND Family Medicine
DX: D58.2 Other hemoglobinopathies (principal)
CPT/HCPCS: 36415; 36430; 85025; 86850; 86900; 86901; 86920; P9016

== ENCOUNTER → 2018-09-18 | Outpatient (REF) | payer MEDICARE, MEDICAID ==
[2018-09-18 08:03] LABS: BASO % 0.7 % (0.0-1.0); EOS # 0.1 10^3/uL (0.0-0.50); EOS % 0.9 % (0.0-3.0); HEMATOCRIT 25.3 % (42.0-52.0); HEMOGLOBIN 7.8 g/dl (13.5-17.5); LYMPH # 0.9 10^3/uL (1.5-4.5); LYMPH % 15.2 % (24.0-44.0); MEAN CORPUSCULAR HEMOGLOBIN 31.6 pg (27.0-33.0); MEAN CORPUSCULAR HGB CONC 30.8 g/dl (32.0-36.5); MEAN CORPUSCULAR VOLUME 102.4 fl (80.0-96.0); MONO % 17.6 % (0.0-5.0); NEUTROPHILS # 3.8 10^3/uL (1.8-7.7); NEUTROPHILS % 65.3 % (36.0-66.0); PLATELET COUNT, AUTOMATED 247 10^3/uL (150-450); RED BLOOD COUNT 2.47 10^6/uL (4.30-6.10); WHITE BLOOD COUNT 5.9 10^3/uL (4.0-10.0)
== END ==
LOC: SKLAB4 07:06
DX: D64.9 Anemia, unspecified (principal)

== ENCOUNTER → 2018-09-19 | Outpatient (REF) | payer MEDICARE, MEDICAID ==
[2018-09-19 12:48] LABS: BASO # 0.1 10^3/uL (0.0-0.2); BASO % 0.9 % (0.0-1.0); EOS # 0.1 10^3/uL (0.0-0.50); EOS % 0.9 % (0.0-3.0); HEMOGLOBIN 9.2 g/dl (13.5-17.5); LYMPH # 0.9 10^3/uL (1.5-4.5); LYMPH % 14.1 % (24.0-44.0); MEAN CORPUSCULAR HGB CONC 30.7 g/dl (32.0-36.5); MONO % 14.3 % (0.0-5.0); NEUTROPHILS # 4.6 10^3/uL (1.8-7.7); NEUTROPHILS % 69.2 % (36.0-66.0); PLATELET COUNT, AUTOMATED 266 10^3/uL (150-450); RED BLOOD COUNT 2.97 10^6/uL (4.30-6.10); WHITE BLOOD COUNT 6.7 10^3/uL (4.0-10.0)
== END ==
LOC: SKLAB4 10:53
DX: D64.9 Anemia, unspecified (principal)

== ENCOUNTER → 2018-09-25 | Outpatient (REF) | payer MEDICARE, MEDICAID ==
--- NOTE | 2018-09-25 13:15 | ECGEPIP ---
[facility] Test Date: 2018-09-25 Pat Name: MADYSON HARO Department: Room: - Gender: Male Hiv/Aids Care Nurse: RF : 1935 Requested By: Talita Price Order Number: [id number] Reading MD: Domingo Wyatt Measurements Intervals [place] Rate: 64 P: CT: 193 QRS: QRSD: 113 T: 34 QT: 384 QTc: 396 Interpretive Statements Normal sinus rhythm Left anterior fascicular block Early anterior R-wave progression suggests prior posterior infarct Nonspecific repolarization abnormalities Some progression in repolarization abnormalities compared to prior tracing of 06/08/2018 Electronically Signed on 09-25-2018 13:15:23 EDT by Domingo Wyatt
== END ==
LOC: SKLAB4 09:36
DX: I50.9 Heart failure, unspecified (principal); D64.9 Anemia, unspecified

== ENCOUNTER → 2018-10-03 | Outpatient (REF) | payer MEDICARE, MEDICAID ==
[2018-10-03 07:31] LABS: BASO % 0.6 % (0.0-1.0); EOS # 0.1 10^3/uL (0.0-0.50); EOS % 1.6 % (0.0-3.0); HEMATOCRIT 27.1 % (42.0-52.0); HEMOGLOBIN 8.2 g/dl (13.5-17.5); LYMPH # 1.1 10^3/uL (1.5-4.5); LYMPH % 17.2 % (24.0-44.0); MEAN CORPUSCULAR HEMOGLOBIN 31.1 pg (27.0-33.0); MEAN CORPUSCULAR HGB CONC 30.3 g/dl (32.0-36.5); MEAN CORPUSCULAR VOLUME 102.7 fl (80.0-96.0); MONO # 1.1 10^3/uL (0.0-0.8); MONO % 18.2 % (0.0-5.0); NEUTROPHILS # 3.8 10^3/uL (1.8-7.7); NEUTROPHILS % 61.9 % (36.0-66.0); PLATELET COUNT, AUTOMATED 267 10^3/uL (150-450); RED BLOOD COUNT 2.64 10^6/uL (4.30-6.10); WHITE BLOOD COUNT 6.2 10^3/uL (4.0-10.0)
== END ==
LOC: SKLAB4 09:44
DX: D64.9 Anemia, unspecified (principal)

== ENCOUNTER → 2018-10-10 | Outpatient (REF) | payer MEDICARE, MEDICAID ==
[~2018-10-10] MED LIST changes: -MELA5TAB17 PO; +MELA5TAB31 PO
[2018-10-10 07:02] LABS: BASO # 0.1 10^3/uL (0.0-0.2); BASO % 0.8 % (0.0-1.0); EOS # 0.1 10^3/uL (0.0-0.50); EOS % 1.1 % (0.0-3.0); HEMATOCRIT 26.4 % (42.0-52.0); MEAN CORPUSCULAR HEMOGLOBIN 30.8 pg (27.0-33.0); MEAN CORPUSCULAR HGB CONC 30.3 g/dl (32.0-36.5); MEAN CORPUSCULAR VOLUME 101.5 fl (80.0-96.0); MONO # 1.2 10^3/uL (0.0-0.8); MONO % 18.6 % (0.0-5.0); NEUTROPHILS # 4.2 10^3/uL (1.8-7.7); PLATELET COUNT, AUTOMATED 253 10^3/uL (150-450); WHITE BLOOD COUNT 6.6 10^3/uL (4.0-10.0)
== END ==
LOC: SKLAB4 09:56
DX: D64.9 Anemia, unspecified (principal); F31.81 Bipolar II disorder; F43.25 Adjustment disorder with mixed disturbance of emotions and conduct; F43.10 Post-traumatic stress disorder, unspecified

== ENCOUNTER → 2018-10-17 | Outpatient (REF) | payer MEDICARE, MEDICAID ==
[2018-10-17 07:08] LABS: BASO # 0.1 10^3/uL (0.0-0.2); EOS # 0.1 10^3/uL (0.0-0.50); EOS % 0.7 % (0.0-3.0); HEMATOCRIT 28.4 % (42.0-52.0); HEMOGLOBIN 8.8 g/dl (13.5-17.5); LYMPH # 1.1 10^3/uL (1.5-4.5); LYMPH % 15.9 % (24.0-44.0); MEAN CORPUSCULAR HEMOGLOBIN 32.2 pg (27.0-33.0); MONO # 1.1 10^3/uL (0.0-0.8); MONO % 16.9 % (0.0-5.0); NEUTROPHILS # 4.4 10^3/uL (1.8-7.7); NEUTROPHILS % 65.1 % (36.0-66.0); PLATELET COUNT, AUTOMATED 227 10^3/uL (150-450); RED BLOOD COUNT 2.73 10^6/uL (4.30-6.10); WHITE BLOOD COUNT 6.8 10^3/uL (4.0-10.0)
[2018-10-17 07:43] LABS: ALBUMIN 3.1 GM/DL (3.2-5.2); ALT/SGPT 18 U/L (12-78); BILIRUBIN,TOTAL 0.2 MG/DL (0.2-1.0); BLOOD UREA NITROGEN 19 MG/DL (7-18); CALCIUM LEVEL 8.9 MG/DL (8.8-10.2); CARBON DIOXIDE LEVEL 38 MEQ/L (21-32); CHLORIDE LEVEL 104 MEQ/L (98-107); CREATININE FOR GFR 1.03 MG/DL (0.70-1.30); GLOMERULAR FILTRATION RATE > 60.0 (>35); GLUCOSE, FASTING 94 MG/DL (70-100); IRON (FE) 21 UG/DL (65-175); POTASSIUM SERUM 3.2 MEQ/L (3.5-5.1); SODIUM LEVEL 136 MEQ/L (136-145); TOTAL PROTEIN 6.7 GM/DL (6.4-8.2)
== END ==
LOC: SKLAB4 09:34
DX: D64.9 Anemia, unspecified (principal)

== ENCOUNTER → 2018-10-30 | Outpatient (REF) | payer MEDICARE, MEDICAID ==
[~2018-10-30] MED LIST changes: +ACET-907 PO; +ANUS25SU PR; -ASPI-222 PO; +ASPI-527 PO; +BACITAB PO; +BAYE325T12 PO; +BISA10SU27 PR; +BREO1INH INH; +BUSP15TA90 PO; +CEFD300CAP PO; +CLON0.5T2 PO; -CLON0.5T8 PO; +CLON1TAB17 PO; +DOXY-350 PO; +ENEMENE PR; +FERR324T2 PO; +LEVA0.636 INH; +LEVO112T25 PO; +META28.32 PO; +MIRT1TAB17 PO; +MOM30SS PO; -OXYB10TA PO; +OXYB10TA23 PO; -OXYB15TA PO; +OXYB15TA14 PO; +POTA10TA17 PO; +RA A PO; +ROPI1TAB PO; +SENN-52 PO; +SENN-53 PO; -SENN1TAB40 PO; +TORS20TA2 PO; +VITACAP8 PO
[2018-10-30 08:01] LABS: HEMATOCRIT 28.5 % (42.0-52.0); HEMOGLOBIN 8.6 g/dl (13.5-17.5); MEAN CORPUSCULAR HEMOGLOBIN 31.6 pg (27.0-33.0); MEAN CORPUSCULAR HGB CONC 30.2 g/dl (32.0-36.5); MEAN CORPUSCULAR VOLUME 104.8 fl (80.0-96.0); PLATELET COUNT, AUTOMATED 247 10^3/uL (150-450); RED BLOOD COUNT 2.72 10^6/uL (4.30-6.10); WHITE BLOOD COUNT 5.6 10^3/uL (4.0-10.0)
[2018-10-30 08:26] LABS: BLOOD UREA NITROGEN 22 MG/DL (7-18); CALCIUM LEVEL 9.1 MG/DL (8.8-10.2); CARBON DIOXIDE LEVEL 42 MEQ/L (21-32); CHLORIDE LEVEL 95 MEQ/L (98-107); CREATININE FOR GFR 0.94 MG/DL (0.70-1.30); GLOMERULAR FILTRATION RATE > 60.0 (>35); GLUCOSE, FASTING 96 MG/DL (70-100); POTASSIUM SERUM 3.5 MEQ/L (3.5-5.1); SODIUM LEVEL 142 MEQ/L (136-145)
== END ==
LOC: SKLAB4 09:59
DX: E87.6 Hypokalemia (principal); D64.9 Anemia, unspecified

== ENCOUNTER → 2018-11-15 | Outpatient (REF) | payer MEDICARE, MEDICAID ==
[~2018-11-15] MED LIST changes: -ACET-907 PO; -ANUS25SU PR; +ASPI-222 PO; -ASPI-527 PO; -BACITAB PO; -BAYE325T12 PO; -BISA10SU27 PR; -BREO1INH INH; -BUSP15TA90 PO; -CEFD300CAP PO; -CLON0.5T2 PO; +CLON0.5T8 PO; -CLON1TAB17 PO; -DOXY-350 PO; -ENEMENE PR; -FERR324T2 PO; -LEVA0.636 INH; -LEVO112T25 PO; -META28.32 PO; -MIRT1TAB17 PO; -MOM30SS PO; +OXYB10TA2 PO; -OXYB10TA23 PO; +OXYB15TA PO; -OXYB15TA14 PO; -POTA10TA17 PO; -RA A PO; -ROPI1TAB PO; -SENN-52 PO; -SENN-53 PO; +SENN1TAB40 PO; -TORS20TA2 PO; -VITACAP8 PO
== END ==
LOC: SKLAB4 07:21
DX: R60.9 Edema, unspecified (principal)

== ENCOUNTER → 2018-11-16 | Outpatient (REF) | payer MEDICARE, MEDICAID ==
--- NOTE | 2018-11-20 09:38 | NOCOX ---
DATE OF PROCEDURE: 11/17/2018 The study was performed on 4 liters nasal cannula oxygen supplementation. The total valid sampling time for the study was 6 hours and 9 minutes. The highest O2 sat was 100% with a low of 54%. The highest heart rate was 132 with a low of 50. The total time spent with an O2 sat less than 88% was 22 minutes. Graphically, the patient was noted to have a few episodes of desaturation with associated heart rate variability. IMPRESSION: Abnormal nocturnal oximetry study. There were periodic episodes of desaturation overnight with associated heart rate variability suggestive of possible obstructive sleep apnea. Would refer for formal sleep testing if clinically indicated. LISA
== END ==
LOC: SKLAB4 10:08
DX: I73.9 Peripheral vascular disease, unspecified (principal)

== ENCOUNTER → 2018-11-20 | Outpatient (CLI) | payer MEDICARE, MEDICAID ==
--- NOTE | 2018-11-20 14:59 | REP ---
Bilateral lower extremity arterial Doppler ultrasound: History: Rule out vascular disease. Findings: Exam quality was slightly inhibited due to a soft tissue edema and patient movement. Ankle brachial indices are normal measured at 1.3 on the right and 1.2 on the left. There is mild scattered soft and calcific plaquing. Essentially normal Doppler wave forms are seen throughout. No high-grade stenosis or occlusion is appreciated. Velocity chart right lower extremity arteries: CF A 120 cm/S Profunda 119 Proximal SFA 105 Mid SFA 143 Distal SFA 116 Popliteal 93 Proximal AT A 76 Tibioperoneal trunk 83 Proximal PLATE GRAINER APPRENTICE 123 Distal PLATE GRAINER APPRENTICE 86 Distal AT A 90 Velocity chart left lower extremity arteries: CF A 190 cm/S Profunda 77 Proximal SFA 130 Mid SFA 146 Distal SFA 112 Popliteal 84 Proximal AT A 96 Tibioperoneal trunk 81 Proximal PLATE GRAINER APPRENTICE 91 Distal PLATE GRAINER APPRENTICE 95 Distal AT A 63 Electronically Signed by Gerardo Solano MD 11/20/2018 02:51 P
== END ==
LOC: M RAD 12:49
PROVIDERS: ATTEND Student in an Organized Health Care Education/Training Program
DX: R60.0 Localized edema (principal); D64.9 Anemia, unspecified; K92.2 Gastrointestinal hemorrhage, unspecified

== ENCOUNTER → 2018-11-20 | Outpatient (REF) | payer MEDICARE, MEDICAID ==
[2018-11-21 15:07] LABS: TISSUE TRANSGLUTAMINASE IgA <2 U/mL (0-3); TISSUE TRANSGLUTAMINASE IgG <2 U/mL (0-5)
== END ==
LOC: SKLAB4 08:13
DX: D64.9 Anemia, unspecified (principal); K92.2 Gastrointestinal hemorrhage, unspecified

== ENCOUNTER → 2018-11-22 | Outpatient (REF) | payer MEDICARE, MEDICAID | LOC: SKLAB4 07:12 | DX: D64.9 Anemia, unspecified (principal); K92.2 Gastrointestinal hemorrhage, unspecified ==

== ENCOUNTER → 2018-11-27 | Outpatient (REF) | payer MEDICARE, MEDICAID ==
--- NOTE | 2018-11-14 21:22 | SKHPN ---
[facility] Progress Note Date of Service/Time Date: Nov 10, 2018 Progress Note SUBJECTIVE: It was noted that patient had fell accidentally 11/13/18 night around midnight from wheelchair as he was trying to move to the bed without calling for assist. Patient did not injure any part of the body including head. It was noted that no change in cognitive functions or neurological functions were noted, and there was no motor deficit noted. Patient continued to complain about his bilateral calf pain and stated that his sleep was disturbed at night due to the leg pain. He stated that he does not watch his fluid intake, and reported he several cups of drinks coffee, tea, and juice throughout the day but is unable to report specific number of cups of fluid intake. OBJECTIVE: PHYSICAL EXAMINATION: VITAL SIGNS: T97.7, HR 63, BP 133/65, Pox 93% on 3L GENERAL:Patient was waking up from sleep arousable. Patient is not in respiratory distress. He is cooperative. The patient is mildly anxious at times. HEENT: Normocephalic, atraumatic. CHEST: No pain palpable to palpation. No rashes or bruises noted. HEART: Systolic murmur, 3/6 that is best heard at the right sternal border. Regular rate and rhythm. LUNGS: Clear to auscultation. No wheezing or rhonchi appreciated. No rales. ABDOMEN: Soft and nondistended, bowel sounds to palpation, nontender to palpation. EXTREMITIES: Lower extremity edema 2+ to knees bilaterally. VASCULAR: Radial pulse regular 2/4 bilaterally. LABORATORY DATA: Please see below. 10/17/2018: WBC 5.6, Hgb 8.6, Hct 28.5, Platelet 247, Creatinine 0.94, K 3.5, GFR>60. ASSESSMENT AND PLAN: 1. Shortness of breath. Patient is on lasix 60 mg daily at this time. One time dose of PO lasix 20mg was ordered on 11/10/18. It was noted that patient's lasix was increased to 80mg daily on 11/10/18. Repeating BMP was ordered 11/15/18 to monitor kidney function on the increase diuretics but was notified that patient refused lab work. Sat well on oxygen. CTA 11/26 shows atelectasis without PE. Wells criteria 1.5 due to prior DVT. Continuous pulse ox with recording ordered to r/o KAREN. Continue xopenex TID PRN and Duoneb QID. Order spirometry; pt on amiodarone. 2. Chronic obstructive pulmonary disease (COPD). Continue with the patient's nebulizers at this time. Still encouraging patient to not use as much oxygen. Cont order to use oxygen 3L PRN when below 90% P02. Continue xopenex TID PRN and Duoneb QID. 3. Bilateral leg edema, likely dependent edema from sitting upright and also component of preserved EF heart failure. Patient's Lasix has been increased from 60 mg to 80mg daily. Leg edema improved compared to prior. Patient refused tubigrips thus was d/c. Patient's past echo in 11/2017 showed grade 1 diastolic dysfunction. CASA ordered to r/o peripheral vascular disease as patient had stated that he has increased leg pain b/l as he attempted to ambulate. 4. Hypokalemia. Resolved. Likely secondary to diuretic use. Started on K 10meq QD on 10/17/18. Last BMP 10/30/18 showed K 3.5. Repeating BMP was ordered but patient refused. 5. Bipolar disorder, with anxiety. Patient's anxiety appears improved compared to last visit. Continue buspar 10mg TID, olanzapine 2.5mg BID, Trazodone 25mg QHS and counseling. Renewed scripts for Klonopin 1 mg QHS and 0.5 mg AM daily. Remeron was increased to 45mg at night following Dr. Flores's recommendation. Continue to go to Dr. Flores, psychiatry. 6. History of colon cancer. Status post resection. We will continue on bowel medicine as needed. Consider making another prn medication daily if needed. Current with surveillance. 7. History of atrial fibrillation. The patient is currently not on anticoagulation at this time. He has had several gastrointestinal (GI) bleeds in the past with evidence of current continuous GI bleed with requirement of several blood transfusions. We will continue the patient on amiodarone 200 mg. TSH 4.94 last checked 10/17/18. Free T4 ordered 11/15/18 but was notified that patient refused lab work. Continue to hold anticoagulation, stop daily aspirin and monitor hemoglobin. Patient currently at sinus rhythm. 8. Diastolic dysfunction grade I. Likely related to mild aortic stenosis and mitral regurgitations. It was noted that Lasix had been increased from 60mg to 80mg daily. Patient's b/l leg edema had improved, will watch pt carefully to avoid overdiuresing patient as it may lower preload and cardiac output. 9. Chronic anemia. Patient's hemoglobin on 10/30/18 is 8.6; roughly unchanged from prior. Positive occult stool. One unit blood transfused 09/27. Holding anticoagluation. Goal maintain above hgb 8, unless actively bleeding. Recheck H&H in 2 weeks. Will order upper GI with small bowel follow through, h. pylori stool antigen, and anti-transglutaminase ab. 10 History of right deep vein thrombosis (DVT). The patient does have a [place] filter at this time. Holding anticoagulation at this time as had evidence of chronic GI blood loss. 11. Chronic leg pain. Patient also had restlessleg. Continue [place] TID and BID PRN for leg pain. The patient will continue with Requip 1mg QHS and Klonopin 1mg. Holding off on decreasing klonopin recommendation from psychiatry as this may worsen agitation and anxiety. CASA ordered as pt reported pain worse with limited ambulation. Continue gabapentin, acetaminophen, and norco. 12. Advanced directives. Patient has a MOLST form that indicates CPR. 13. Constipation. Continue bowel medications Senna plus BID. Cont milk of mag, Ducolax, enema, and suppository PRN . 14. Hypothyroid. Patient was on low dose of levothyroxine and had been discontinued in October 2018. Last TSH in October 2018 was 4.94, elevated. Free T4 ordered but not done as pt refused. Consider repeat TSH in 6-12 weeks. This patient was seen again with precepting attending Dr. Tate on 11/15/18. The above assessment and plan were discussed with Dr. Tate. Allergies Coded Allergies: Penicillins (Verified Allergy, Intermediate, Rash, 09/18/18) nabumetone (Verified Allergy, Unknown, 09/18/18) cyclobenzaprine (Verified Adverse Reaction, Intermediate, GROCERY CLERK SELLING side effects, 09/18/18) sulfamethoxazole (Verified Adverse Reaction, Mild, N/V, 09/18/18) trimethoprim (Verified Adverse Reaction, Mild, N/V, 09/18/18) YADI HAYNES DO Nov 14, 2018 21:22
[2018-11-27 09:43] LABS: HEMATOCRIT 30.6 % (42.0-52.0); HEMOGLOBIN 9.1 g/dl (13.5-17.5); MEAN CORPUSCULAR HEMOGLOBIN 30.6 pg (27.0-33.0); MEAN CORPUSCULAR HGB CONC 29.7 g/dl (32.0-36.5); PLATELET COUNT, AUTOMATED 293 10^3/uL (150-450); RED BLOOD COUNT 2.97 10^6/uL (4.30-6.10); WHITE BLOOD COUNT 6.8 10^3/uL (4.0-10.0)
== END ==
LOC: SKLAB4 09:43
DX: D64.9 Anemia, unspecified (principal)

== ENCOUNTER → 2018-11-28 | Outpatient (CLI) | payer MEDICARE, MEDICAID ==
[~2018-11-28] MED LIST changes: +E-Z-GAS II EFFERVESCENT PACKET (SODIUM BICARB./CITRIC ACID/SIMETHICONE) As Ordered ONE; +E-Z-HD 98% w/w 340GM SUSP BTL As Ordered ONE; +E-Z-PAQUE 96% w/w SUSP 176GM BTL As Ordered ONE
== END ==
LOC: M RAD 11-20 12:42
PROVIDERS: ATTEND Student in an Organized Health Care Education/Training Program
DX: D64.9 Anemia, unspecified (principal); K92.2 Gastrointestinal hemorrhage, unspecified; Z53.8 Procedure and treatment not carried out for other reasons

== ENCOUNTER → 2018-12-01 | Outpatient (REF) | payer MEDICARE, MEDICAID ==
[~2018-12-01] MED LIST changes: -E-Z-GAS II EFFERVESCENT PACKET (SODIUM BICARB./CITRIC ACID/SIMETHICONE) As Ordered ONE; -E-Z-HD 98% w/w 340GM SUSP BTL As Ordered ONE; -E-Z-PAQUE 96% w/w SUSP 176GM BTL As Ordered ONE
[2018-12-01 09:23] LABS: BLOOD UREA NITROGEN 24 MG/DL (7-18); CALCIUM LEVEL 9.2 MG/DL (8.8-10.2); CHLORIDE LEVEL 90 MEQ/L (98-107); CREATININE FOR GFR 1.15 MG/DL (0.70-1.30); GLOMERULAR FILTRATION RATE > 60.0 (>35); GLUCOSE, FASTING 99 MG/DL (70-100); POTASSIUM SERUM 3.1 MEQ/L (3.5-5.1); SODIUM LEVEL 141 MEQ/L (136-145)
[2018-12-01 09:24] LABS: CARBON DIOXIDE LEVEL 50 MEQ/L (21-32)
== END ==
LOC: SKLAB4 07:29
DX: I10 Essential (primary) hypertension (principal)

== ENCOUNTER → 2018-12-04 | Outpatient (REF) | payer MEDICARE, MEDICAID ==
[2018-12-04 08:44] LABS: CALCIUM LEVEL 9.5 MG/DL (8.8-10.2); CREATININE FOR GFR 1.45 MG/DL (0.70-1.30); GLOMERULAR FILTRATION RATE 49.6 (>35)
[2018-12-05 00:49] LABS: MAGNESIUM LEVEL 2.4 MG/DL (1.8-2.4); POTASSIUM SERUM 3.3 MEQ/L (3.5-5.1)
== END ==
LOC: SKLAB4 10:08
DX: E87.6 Hypokalemia (principal); I10 Essential (primary) hypertension

== ENCOUNTER → 2018-12-04 | Outpatient (REF) | payer MEDICARE, MEDICAID ==
[~2018-12-04] MED LIST changes: +ACET-907 PO; +ANUS25SU PR; -ASPI-222 PO; +ASPI-527 PO; +BACITAB PO; +BAYE325T12 PO; +BISA10SU27 PR; +BREO1INH INH; +BUSP15TA90 PO; +CEFD300CAP PO; +CLON0.5T2 PO; -CLON0.5T8 PO; +CLON1TAB17 PO; +DOXY-350 PO; +ENEMENE PR; +FERR324T2 PO; +LEVA0.636 INH; +LEVO112T25 PO; +META28.32 PO; +MIRT1TAB17 PO; +MOM30SS PO; -OXYB10TA2 PO; +OXYB10TA23 PO; -OXYB15TA PO; +OXYB15TA14 PO; +POTA10TA17 PO; +RA A PO; +ROPI1TAB PO; +SENN-52 PO; +SENN-53 PO; -SENN1TAB40 PO; +TORS20TA2 PO; +VITACAP8 PO
== END ==
LOC: M LAB 18:52
DX: E87.6 Hypokalemia (principal)

== ENCOUNTER → 2018-12-04 | Outpatient (REF) | payer MEDICARE, MEDICAID | LOC: M LAB 19:31 | DX: E87.6 Hypokalemia (principal) ==

== ENCOUNTER → 2018-12-06 | Outpatient (REF) | payer MEDICARE, MEDICAID ==
[2018-12-06 08:25] LABS: CREATININE FOR GFR 1.29 MG/DL (0.70-1.30); GLOMERULAR FILTRATION RATE 56.8 (>35); POTASSIUM SERUM 3.2 MEQ/L (3.5-5.1)
== END ==
LOC: SKLAB4 10:22
DX: E87.6 Hypokalemia (principal)

== ENCOUNTER → 2018-12-08 | Outpatient (REF) | payer MEDICARE, MEDICAID ==
[~2018-12-08] MED LIST changes: -ACET-907 PO; -ANUS25SU PR; +ASPI-222 PO; -ASPI-527 PO; -BACITAB PO; -BAYE325T12 PO; -BISA10SU27 PR; -BREO1INH INH; -BUSP15TA90 PO; -CEFD300CAP PO; -CLON0.5T2 PO; +CLON0.5T8 PO; -CLON1TAB17 PO; -DOXY-350 PO; -ENEMENE PR; -FERR324T2 PO; -LEVA0.636 INH; -LEVO112T25 PO; -META28.32 PO; -MIRT1TAB17 PO; -MOM30SS PO; +OXYB10TA2 PO; -OXYB10TA23 PO; +OXYB15TA PO; -OXYB15TA14 PO; -POTA10TA17 PO; -RA A PO; -ROPI1TAB PO; -SENN-52 PO; -SENN-53 PO; +SENN1TAB40 PO; -TORS20TA2 PO; -VITACAP8 PO
[2018-12-08 08:07] LABS: CALCIUM LEVEL 9.2 MG/DL (8.8-10.2); CREATININE FOR GFR 1.29 MG/DL (0.70-1.30); GLOMERULAR FILTRATION RATE 56.8 (>35); POTASSIUM SERUM 3.6 MEQ/L (3.5-5.1)
== END ==
LOC: SKLAB4 07:51
DX: I10 Essential (primary) hypertension (principal); E87.6 Hypokalemia

== ENCOUNTER → 2018-12-11 | Outpatient (REF) | payer MEDICARE, MEDICAID ==
[2018-12-11 09:39] LABS: BLOOD UREA NITROGEN 30 MG/DL (7-18); CALCIUM LEVEL 8.7 MG/DL (8.8-10.2); CARBON DIOXIDE LEVEL 40 MEQ/L (21-32); CHLORIDE LEVEL 97 MEQ/L (98-107); CREATININE FOR GFR 1.11 MG/DL (0.70-1.30); GLOMERULAR FILTRATION RATE > 60.0 (>35); GLUCOSE, FASTING 96 MG/DL (70-100); SODIUM LEVEL 141 MEQ/L (136-145)
== END ==
LOC: SKLAB4 10:08
DX: E03.9 Hypothyroidism, unspecified (principal)

== ENCOUNTER → 2018-12-13 | Outpatient (REF) | payer MEDICARE, MEDICAID ==
--- NOTE | 2018-12-13 09:46 | REP ---
Clinical: Pulmonary embolism. Technique: PA and lateral views of the chest. Comparison: 08/21/2018. Findings: Right pleural effusion and bilateral lower lobe consolidations/atelectasis are appreciated. Elevation to the right hemidiaphragm cannot be excluded. No obvious pneumothorax. Cardiomegaly. Skeletal structures intact. Impression: Right pleural effusion and bilateral lower lobe consolidation/atelectasis with possible chronic elevation to the right hemidiaphragm. Electronically Signed by Marcelino Garcia MD 12/13/2018 09:38 A
== END ==
LOC: SKLAB4 07:25
DX: J90 Pleural effusion, not elsewhere classified (principal); I51.7 Cardiomegaly

== ENCOUNTER → 2018-12-13 | Outpatient (CLI) | payer MEDICARE, MEDICAID ==
[~2018-12-13] MED LIST changes: +ACET-907 PO; +ANUS25SU PR; -ASPI-222 PO; +ASPI-527 PO; +BACITAB PO; +BAYE325T12 PO; +BISA10SU27 PR; +BREO1INH INH; +BUSP15TA90 PO; +CEFD300CAP PO; +CLON0.5T2 PO; -CLON0.5T8 PO; +CLON1TAB17 PO; +DOXY-350 PO; +ENEMENE PR; +FERR324T2 PO; +LEVA0.636 INH; +LEVO112T25 PO; +META28.32 PO; +MIRT1TAB17 PO; +MOM30SS PO; -OXYB10TA2 PO; +OXYB10TA23 PO; -OXYB15TA PO; +OXYB15TA14 PO; +POTA10TA17 PO; +RA A PO; +ROPI1TAB PO; +SENN-52 PO; +SENN-53 PO; -SENN1TAB40 PO; +TORS20TA2 PO; +VITACAP8 PO
== END ==
LOC: M CARPUL 10:43
DX: G47.30 Sleep apnea, unspecified (principal)

== ENCOUNTER → 2018-12-14 | Outpatient (CLI) | payer MEDICARE, MEDICAID ==
[~2018-12-14] MED LIST changes: -ACET-907 PO; -ANUS25SU PR; -BACITAB PO; -BAYE325T12 PO; -BISA10SU27 PR; -BREO1INH INH; -BUSP15TA90 PO; -CEFD300CAP PO; -CLON0.5T2 PO; +CLON0.5T8 PO; -CLON1TAB17 PO; -DOXY-350 PO; -ENEMENE PR; -FERR324T2 PO; -LEVA0.636 INH; -LEVO112T25 PO; -META28.32 PO; -MIRT1TAB17 PO; -MOM30SS PO; +OXYB10TA2 PO; -OXYB10TA23 PO; +OXYB15TA PO; -OXYB15TA14 PO; -POTA10TA17 PO; -RA A PO; -ROPI1TAB PO; -SENN-52 PO; -SENN-53 PO; +SENN1TAB40 PO; -TORS20TA2 PO; -VITACAP8 PO
--- NOTE | 2018-12-14 13:57 | REP ---
Clinical: Lower extremity pain and swelling . Technique: Garay scale and color Doppler evaluation using linear high frequency transducer. Findings: Moderate bilateral subcutaneous edema is appreciated and somewhat limits examination. Ultrasound examination of the right and left lower extremity deep venous structures from the common femoral vein to the popliteal vein demonstrates normal compressibility flow and wave patterns in response to respiration and augmentation. There is no evidence for deep venous thrombosis. Impression: Bilateral subcutaneous edema. No evidence for deep venous thrombosis. Electronically Signed by Marcelino Garcia MD 12/14/2018 01:48 P
== END ==
LOC: M RAD 12:34
PROVIDERS: ATTEND Student in an Organized Health Care Education/Training Program
DX: R22.43 Localized swelling, mass and lump, lower limb, bilateral (principal)

== ENCOUNTER → 2018-12-15 | Outpatient (REF) | payer MEDICARE, MEDICAID ==
--- NOTE | 2018-12-06 18:47 | SKHPN ---
[facility] Progress Note Date of Service/Time Date: Dec 09, 2018 Progress Note SUBJECTIVE: It was noted that pt had refused the upper GI with small bowel follow through for anemia workup; due for colonoscopy with KYLE. Patient was examined on wheelchair. He continues to express bilateral leg pain. Pt complains of dyspnea however after explaining patient will be referred to pulm for evaluation of KAREN, he reported that he is doing fine on his oxygen and denies dyspnea except at night. Patient's diuretics were adjusted since last visit and it was noted that pt had some electrolyte abnormalities thus repletion and diuretics adjustment was made; it was noted that while patient's diuretics were increased no change of symptoms were noted including b/l leg edema(chronic right heart failure/suspected pulmonary hypertension). 2 prescription scripts was given to nursing staff for his Klonipin AM and QHS per psychiatry. Patient also had Maybrook script refilled as well. He expressed blurry vision on right and stated it appeared about a week ago; no further info was able to be obtained from patient as he keeps complaining. OBJECTIVE: PHYSICAL EXAMINATION: VITAL SIGNS: 11/11/18 T98.2 HR 68, HR 18, BP 118/64, Pox 95% on 2L GENERAL:Patient is sitting on the wheel chair. Patient is not in respiratory distress. The patient is mildly to mod anxious HEENT: Normocephalic, atraumatic. CHEST: No pain palpable to palpation. No rashes or bruises noted. HEART: Systolic murmur, 3/6 that is best heard at the right sternal border. Regular rate and rhythm. Cannot visualize neck verin LUNGS: Clear to auscultation. No wheezing or rhonchi appreciated. No rales. ABDOMEN: Soft and nondistended, bowel sounds to palpation, nontender to pal pation. EXTREMITIES: Lower extremity edema VASCULAR: Radial pulse regular 2/4 bilaterally. LABORATORY DATA: Please see below. 12/07/2018: WBC 5.6, Hgb 8.6, Hct 28.5, Platelet 247, 12/11/18 BMP Creatinine 1.1 K 4 , GFR>60 Cl 97 ASSESSMENT AND PLAN: 1. Shortness of breath, chronic. -It was noted that patient's lasix was increased to 80mg daily to Lasix 80mg BID; Metolazone was added on 11/29/18. Pt was noted to have hypokalemia with increased K dosing thus Metolazone was d/c on 12/04/18. Lasix 80mg BID was d ecreased to 80mg daily on 12/04/18, and later decreased to 60mg QD 12/06. -CTA 11/26 shows atelectasis without PE. Wells criteria 1.5 due to prior DVT. Continuous pulse ox showed KAREN with an O2 sat less than 88% was 22 minutes; lowest in the 54%. Pulm consult was subsequently ordered for a formal sleep study; spirometry attempted but was not successful -V/Q scan ordered 12/11/18 to r/o chronic PE - Continue xopenex TID PRN, Duoneb QID, and ox therapy; Pt sat 95% on 2L ox NC. -Given his precarious pulm situation we will stop amiodarone; if pt goes into a. fib, we will use rate control 2. Chronic obstructive pulmonary disease (COPD). - Continue xopenex TID PRN and Duoneb QID. Still encouraging patient to not use as much oxygen however it was noted that patient increased his oxygen on his own repeatedly. - Cont order to use oxygen PRN when below 90% P02. -Spirometry refused; ideally he should have full PFT 3. Bilateral leg edema, likely dependent edema from sitting upright, suspected pulm HTN, also component of preserved EF heart failure. -Patient's Lasix had been increased from 80mg daily to BID with Metolazone added. Leg edema noted to be no change compared to prior with increased diuretics. Now back on Lasix 60mg QD only as pt has hypokalemia requiring several repletions as well as hypochloremia. - Patient's past echo in 11/2017 showed grade 1 diastolic dysfunction. -Pt priorly reported b/l leg pain with increased pain during ambulation thus extremity arterial study ordered; CASA 1.3 on right and 1.2 on left thus r/o peripheral vascular disease. Patient had refused tubigrips thus was d/c. -B/l duplex US ordered to r/o DVT as pt had not been on anticoagulant since September 2018 d/t GI bleed and chronic anemia; prior DVT hx 4. Hypokalemia.Likely secondary to diuretic use; resolved - Initially on K 10meq QD on 10/17/18. - BMP 10/30/18 showed K 3.5. 12/01 BMP was 3.1 thus pt was started on KCl 20meq TID. -12/04 he had K of 3.0; received 80 meq KCl in total; repeat BMP showed K 3.3. -12/06 K 3.2, and KCl was subsequently increased from 20meq TID to 40meq BID. -Cont K 40meq BID -Lasix increased from 60meq to 80meq today. 5. Bipolar disorder, with anxiety. Patient's anxiety appears improved compared to last visit. -Buspar increased from 10mg TID to 15mg TID per Dr. Flores's recommendation. -Cont olanzapine 2.5mg BID, Remeron 45mg QHS, Trazodone 25mg QHS and counseling. -Renewed scripts for Klonopin 1 mg QHS and 0.5 mg AM daily 12/08/18; ordered to change dose to 0.5mg BID to prevent possible interactions as pt on Maybrook. Continue to go to Dr. Flores, psychiatry. -I recognized the risk of patient being on both Ativan and Maybrook, unfortunately at this time I do not have an option. 6. History of colon cancer. Status post resection. We will continue on bowel medicine as needed. - Colonoscopy last done 03/14/18 at [facility]; there was a note from [facility] 07/12/18 indicating pt is due for colonoscopy -Last occult blood pos. Ordered appt to be set up with [facility] for colonoscopy 7. History of atrial fibrillation. - The patient is currently not on anticoagulation at this time. He has had several gastrointestinal (GI) bleeds in the past with evidence of current continuous GI bleed with requirement of several blood transfusions. - We will discontinue e patient on amiodarone for reasons discussed above. TSH 6.61, increased from prior. Free T4 ordered 11/15/18 but was notified that patient refused lab work; reordered. - Continue to hold anticoagulation, stop daily aspirin and monitor hemoglobin. Patient currently at sinus rhythm. 8. Diastolic dysfunction grade I. Likely related to mild aortic stenosis and mitral regurgitations. - It was noted that Lasix had been increased from 80mg daily to BID, but was subsequently decreased as no obvious change in leg edema was noted since the increased of lasix and pt's electrolytes were off - Watch pt carefully to avoid overdiuresing patient as it may lower preload and cardiac output in view of patient's right hear failure. 9. Chronic anemia and chronic GI blood loss. Patient's hemoglobin on 12/07/18 is 8.6; unchanged from prior - Ordered upper GI with small bowel follow through, and pt had refused. H. pylori stool antigen, and anti-transglutaminase ab were both neg. - F/u with CBC. Hx of colon CA with guiac stool pos for blood. No records of upper endoscopy on file; records requested from [facility] -last colonoscopy 03/14/18; it was noted that as of 07/12/18 [facility] indicated pt is due for colonoscopy -Colonoscopy record requested from [facility]; order to set up appt for colonoscopy with KYLE ordered. 10 History of right deep vein thrombosis (DVT). The patient does have a Kaleb filter at this time. Holding anticoagulation at this time as had evidence of chronic GI blood loss. Duplex ultrasound b/l LE ordered. 11. Chronic leg pain. Patient also had restlessleg. Pt continue to complain leg pain. Continue Bengay TID and BID PRN for leg pain. The patient will continue with Requip 1mg QHS; Klonopin 1mg AM changed to 0.5mg. CASA wnl for b/l LE. Duplex US b/l leg ordered. Continue gabapentin, acetaminophen. Continue Maybrook 5/325 BID and PRN Q6H for severe pain. Cannot r/o related to sleep d/o 12. Advanced directives. Patient has a MOLST form that indicates CPR. 13. Constipation. Continue bowel medications Senna plus BID. Cont milk of mag, Ducolax, enema, and suppository PRN . 14. Subclinical hypothyroid. Patient was on low dose of levothyroxine and had been discontinued in October 2018. Last TSH in October 2018 was 4.94 increased to 6.61 from 12/11/18. Free T4 previously ordered but pt refused. Free T4 ordered again. Anti-peroxidase ab ordered. Pt on amiodarone. This patient was seen again with precepting attending Dr. Tate on 12/13/18. The above assessment and plan were discussed with Dr. Tate. Allergies Coded Allergies: Penicillins (Verified Allergy, Intermediate, Rash, 09/18/18) nabumetone (Verified Allergy, Unknown, 09/18/18) cyclobenzaprine (Verified Adverse Reaction, Intermediate, EPIDEMIOLOGY INTERN side effects, 09/18/18) sulfamethoxazole (Verified Adverse Reaction, Mild, N/V, 09/18/18) trimethoprim (Verified Adverse Reaction, Mild, N/V, 09/18/18) YADI HAYNES DO Dec 06, 2018 18:47
[~2018-12-15] MED LIST changes: +ACET-907 PO; +ANUS25SU PR; +BACITAB PO; +BAYE325T12 PO; +BISA10SU27 PR; +BREO1INH INH; +BUSP15TA90 PO; +CEFD300CAP PO; +CLON0.5T2 PO; -CLON0.5T8 PO; +CLON1TAB17 PO; +DOXY-350 PO; +ENEMENE PR; +FERR324T2 PO; +LEVA0.636 INH; +LEVO112T25 PO; +META28.32 PO; +MIRT1TAB17 PO; +MOM30SS PO; -OXYB10TA2 PO; +OXYB10TA23 PO; -OXYB15TA PO; +OXYB15TA14 PO; +POTA10TA17 PO; +RA A PO; +ROPI1TAB PO; +SENN-52 PO; +SENN-53 PO; -SENN1TAB40 PO; +TORS20TA2 PO; +VITACAP8 PO
[2018-12-15 12:30] LABS: BLOOD UREA NITROGEN 22 MG/DL (7-18); CALCIUM LEVEL 9.3 MG/DL (8.8-10.2); CARBON DIOXIDE LEVEL 34 MEQ/L (21-32); CHLORIDE LEVEL 103 MEQ/L (98-107); CREATININE FOR GFR 1.12 MG/DL (0.70-1.30); FREE T3 1.8 PG/ML (2.2-4.0); FREE T4 1.21 NG/DL (0.76-1.46); GLOMERULAR FILTRATION RATE > 60.0 (>35); GLUCOSE, FASTING 136 MG/DL (70-100); POTASSIUM SERUM 4.2 MEQ/L (3.5-5.1); SODIUM LEVEL 142 MEQ/L (136-145)
== END ==
LOC: SKLAB4 11:53
DX: I10 Essential (primary) hypertension (principal); E87.6 Hypokalemia

== ENCOUNTER → 2018-12-20 | Outpatient (REF) | payer MEDICARE, MEDICAID ==
[~2018-12-20] MED LIST changes: -ACET-907 PO; -ANUS25SU PR; -BACITAB PO; -BAYE325T12 PO; -BISA10SU27 PR; -BREO1INH INH; -BUSP15TA90 PO; -CEFD300CAP PO; -CLON0.5T2 PO; +CLON0.5T8 PO; -CLON1TAB17 PO; -DOXY-350 PO; -ENEMENE PR; -FERR324T2 PO; -LEVA0.636 INH; -LEVO112T25 PO; -META28.32 PO; -MIRT1TAB17 PO; -MOM30SS PO; +OXYB10TA2 PO; -OXYB10TA23 PO; +OXYB15TA PO; -OXYB15TA14 PO; -POTA10TA17 PO; -RA A PO; -ROPI1TAB PO; -SENN-52 PO; -SENN-53 PO; +SENN1TAB40 PO; -TORS20TA2 PO; -VITACAP8 PO
[2018-12-20 06:59] LABS: HEMOGLOBIN 7.7 g/dl (13.5-17.5); MEAN CORPUSCULAR HEMOGLOBIN 30.9 pg (27.0-33.0); MEAN CORPUSCULAR HGB CONC 29.6 g/dl (32.0-36.5); MEAN CORPUSCULAR VOLUME 104.4 fl (80.0-96.0); PLATELET COUNT, AUTOMATED 248 10^3/uL (150-450); RED BLOOD COUNT 2.49 10^6/uL (4.30-6.10); WHITE BLOOD COUNT 7.9 10^3/uL (4.0-10.0)
[2018-12-20 07:29] LABS: BLOOD UREA NITROGEN 23 MG/DL (7-18); CALCIUM LEVEL 8.9 MG/DL (8.8-10.2); CARBON DIOXIDE LEVEL 37 MEQ/L (21-32); CHLORIDE LEVEL 101 MEQ/L (98-107); CREATININE FOR GFR 1.08 MG/DL (0.70-1.30); GLOMERULAR FILTRATION RATE > 60.0 (>35); GLUCOSE, FASTING 89 MG/DL (70-100); POTASSIUM SERUM 4.2 MEQ/L (3.5-5.1); SODIUM LEVEL 142 MEQ/L (136-145)
== END ==
LOC: SKLAB4 14:25
DX: I50.9 Heart failure, unspecified (principal)

== ENCOUNTER 2018-12-21 09:59 | Outpatient (CLI) | payer MEDICARE, MEDICAID ==
[~2018-12-21] VITALS: Ht 175.3 cm; Wt 104.3 kg
[~2018-12-21 09:59] MED LIST changes: -ACET-907 PO; -ANUS25SU PR; -BACITAB PO; -BAYE325T12 PO; -BISA10SU27 PR; -BREO1INH INH; -BUSP15TA90 PO; -CEFD300CAP PO; -CLON1TAB17 PO; -DOXY-350 PO; -ENEMENE PR; -FERR324T2 PO; -LEVA0.636 INH; -LEVO112T25 PO; -META28.32 PO; -MIRT1TAB17 PO; -MOM30SS PO; -POTA10TA17 PO; -RA A PO; -ROPI1TAB PO; -SENN-52 PO; -TORS20TA2 PO; -VITACAP8 PO
[2018-12-21 10:10] VITALS: BP 133/62
[2018-12-21 11:09] VITALS: BP 133/62
[2018-12-21 11:24] VITALS: BP 117/59
[2018-12-21 12:24] VITALS: BP 118/58
[2018-12-21 12:55] VITALS: BP 133/67
[2018-12-21 13:30] VITALS: BP 126/70
== END 2018-12-21 13:30 | disposition home or self-care (01) ==
LOC: M INFU 09:59
PROVIDERS: ATTEND Family Medicine
DX: D64.9 Anemia, unspecified (principal)
CPT/HCPCS: 36415; 36430; 85027; 86850; 86900; 86901; 86920; P9016

== ENCOUNTER → 2018-12-21 | Outpatient (REF) | payer MEDICARE, MEDICAID ==
[~2018-12-21] MED LIST changes: +ACET-907 PO; +ANUS25SU PR; +BACITAB PO; +BAYE325T12 PO; +BISA10SU27 PR; +BREO1INH INH; +BUSP15TA90 PO; +CEFD300CAP PO; +CLON0.5T2 PO; -CLON0.5T8 PO; +CLON1TAB17 PO; +DOXY-350 PO; +ENEMENE PR; +FERR324T2 PO; +LEVA0.636 INH; +LEVO112T25 PO; +META28.32 PO; +MIRT1TAB17 PO; +MOM30SS PO; -OXYB10TA2 PO; +OXYB10TA23 PO; -OXYB15TA PO; +OXYB15TA14 PO; +POTA10TA17 PO; +RA A PO; +ROPI1TAB PO; +SENN-52 PO; +SENN-53 PO; -SENN1TAB40 PO; +TORS20TA2 PO; +VITACAP8 PO
[2018-12-21 08:44] LABS: HEMATOCRIT 26.8 % (42.0-52.0); MEAN CORPUSCULAR HEMOGLOBIN 30.9 pg (27.0-33.0); MEAN CORPUSCULAR HGB CONC 29.9 g/dl (32.0-36.5); MEAN CORPUSCULAR VOLUME 103.5 fl (80.0-96.0); PLATELET COUNT, AUTOMATED 276 10^3/uL (150-450); RED BLOOD COUNT 2.59 10^6/uL (4.30-6.10); WHITE BLOOD COUNT 5.9 10^3/uL (4.0-10.0)
== END ==
LOC: SKLAB4 09:59
DX: D64.9 Anemia, unspecified (principal)

== ENCOUNTER → 2018-12-22 | Outpatient (REF) | payer MEDICARE, MEDICAID ==
[~2018-12-22] MED LIST changes: +ACET-907 PO; +ANUS25SU PR; +BACITAB PO; +BAYE325T12 PO; +BISA10SU27 PR; +BREO1INH INH; +BUSP15TA90 PO; +CEFD300CAP PO; +CLON1TAB17 PO; +DOXY-350 PO; +ENEMENE PR; +FERR324T2 PO; +LEVA0.636 INH; +LEVO112T25 PO; +META28.32 PO; +MIRT1TAB17 PO; +MOM30SS PO; +POTA10TA17 PO; +RA A PO; +ROPI1TAB PO; +SENN-52 PO; +TORS20TA2 PO; +VITACAP8 PO
[2018-12-22 07:51] LABS: BASO # 0.1 10^3/uL (0.0-0.2); EOS % 0.5 % (0.0-3.0); HEMATOCRIT 34.2 % (42.0-52.0); LYMPH # 0.9 10^3/uL (1.5-5.0); LYMPH % 15.2 % (24.0-44.0); MEAN CORPUSCULAR HEMOGLOBIN 31.5 pg (27.0-33.0); MEAN CORPUSCULAR HGB CONC 30.7 g/dl (32.0-36.5); MEAN CORPUSCULAR VOLUME 102.7 fl (80.0-96.0); MONO # 0.9 10^3/uL (0.0-0.8); MONO % 14.4 % (0.0-5.0); NEUTROPHILS # 4.3 10^3/uL (1.5-8.5); NEUTROPHILS % 68.6 % (36.0-66.0); PLATELET COUNT, AUTOMATED 283 10^3/uL (150-450); RED BLOOD COUNT 3.33 10^6/uL (4.30-6.10); WHITE BLOOD COUNT 6.2 10^3/uL (4.0-10.0)
[2018-12-22 07:52] LABS: HEMOGLOBIN 10.5 g/dl (13.5-17.5)
== END ==
LOC: SKLAB5 10:16
DX: D64.9 Anemia, unspecified (principal)

== ENCOUNTER → 2018-12-23 | Outpatient (REF) | payer MEDICARE, MEDICAID ==
[2018-12-23 07:19] LABS: BASO # 0.1 10^3/uL (0.0-0.2); BASO % 0.9 % (0.0-1.0); EOS % 0.4 % (0.0-3.0); HEMOGLOBIN 9.2 g/dl (13.5-17.5); LYMPH # 0.9 10^3/uL (1.5-5.0); LYMPH % 13.4 % (24.0-44.0); MEAN CORPUSCULAR HEMOGLOBIN 31.3 pg (27.0-33.0); MEAN CORPUSCULAR HGB CONC 30.7 g/dl (32.0-36.5); MONO # 1.1 10^3/uL (0.0-0.8); MONO % 15.9 % (0.0-5.0); NEUTROPHILS # 4.8 10^3/uL (1.5-8.5); PLATELET COUNT, AUTOMATED 250 10^3/uL (150-450); RED BLOOD COUNT 2.94 10^6/uL (4.30-6.10)
== END ==
LOC: SKLAB4 06:30
DX: D64.9 Anemia, unspecified (principal)

== ENCOUNTER → 2018-12-25 | Outpatient (REF) | payer MEDICARE, MEDICAID ==
[~2018-12-25] MED LIST changes: -ACET-907 PO; -ANUS25SU PR; -BACITAB PO; -BAYE325T12 PO; -BISA10SU27 PR; -BREO1INH INH; -BUSP15TA90 PO; -CEFD300CAP PO; -CLON0.5T2 PO; +CLON0.5T8 PO; -CLON1TAB17 PO; -DOXY-350 PO; -ENEMENE PR; -FERR324T2 PO; -LEVA0.636 INH; -LEVO112T25 PO; -META28.32 PO; -MIRT1TAB17 PO; -MOM30SS PO; +OXYB10TA2 PO; -OXYB10TA23 PO; +OXYB15TA PO; -OXYB15TA14 PO; -POTA10TA17 PO; -RA A PO; -ROPI1TAB PO; -SENN-52 PO; -SENN-53 PO; +SENN1TAB40 PO; -TORS20TA2 PO; -VITACAP8 PO
[2018-12-25 11:56] LABS: HEMATOCRIT 32.4 % (42.0-52.0); HEMOGLOBIN 9.9 g/dl (13.5-17.5); MEAN CORPUSCULAR HGB CONC 30.6 g/dl (32.0-36.5); MEAN CORPUSCULAR VOLUME 104.9 fl (80.0-96.0); PLATELET COUNT, AUTOMATED 242 10^3/uL (150-450); RED BLOOD COUNT 3.09 10^6/uL (4.30-6.10); WHITE BLOOD COUNT 6.7 10^3/uL (4.0-10.0)
== END ==
LOC: SKLAB4 11:21
DX: D64.9 Anemia, unspecified (principal)

== ENCOUNTER → 2018-12-27 | Outpatient (REF) | payer MEDICARE, MEDICAID | LOC: SKLAB4 09:35 | DX: E87.6 Hypokalemia (principal) ==

== ENCOUNTER → 2018-12-29 | Outpatient (REF) | payer MEDICARE, MEDICAID ==
[2018-12-29 07:29] LABS: HEMATOCRIT 31.3 % (42.0-52.0); HEMOGLOBIN 9.6 g/dl (13.5-17.5); MEAN CORPUSCULAR HEMOGLOBIN 32.3 pg (27.0-33.0); MEAN CORPUSCULAR HGB CONC 30.7 g/dl (32.0-36.5); MEAN CORPUSCULAR VOLUME 105.4 fl (80.0-96.0); PLATELET COUNT, AUTOMATED 214 10^3/uL (150-450); RED BLOOD COUNT 2.97 10^6/uL (4.30-6.10)
== END ==
LOC: SKLAB4 11:30
DX: D64.9 Anemia, unspecified (principal)

== ENCOUNTER → 2019-01-18 | Outpatient (REF) | payer MEDICARE, MEDICAID ==
[~2019-01-18] MED LIST changes: +ACET-907 PO; +ANUS25SU PR; +BACITAB PO; +BAYE325T12 PO; +BISA10SU27 PR; +BREO1INH INH; +BUSP15TA90 PO; +CEFD300CAP PO; +CLON0.5T2 PO; -CLON0.5T8 PO; +CLON1TAB17 PO; +DOXY-350 PO; +ENEMENE PR; +FERR324T2 PO; +LEVA0.636 INH; +LEVO112T25 PO; +META28.32 PO; +MIRT1TAB17 PO; +MOM30SS PO; -OXYB10TA2 PO; +OXYB10TA23 PO; -OXYB15TA PO; +OXYB15TA14 PO; +POTA10TA17 PO; +RA A PO; +ROPI1TAB PO; +SENN-52 PO; +SENN-53 PO; -SENN1TAB40 PO; +TORS20TA2 PO; +VITACAP8 PO
[2019-01-18 09:02] LABS: BLOOD UREA NITROGEN 25 MG/DL (7-18); CALCIUM LEVEL 8.8 MG/DL (8.8-10.2); CARBON DIOXIDE LEVEL 38 MEQ/L (21-32); CHLORIDE LEVEL 99 MEQ/L (98-107); CREATININE FOR GFR 1.08 MG/DL (0.70-1.30); GLOMERULAR FILTRATION RATE > 60.0 (>35); GLUCOSE, FASTING 89 MG/DL (70-100); POTASSIUM SERUM 4.1 MEQ/L (3.5-5.1); SODIUM LEVEL 141 MEQ/L (136-145)
== END ==
LOC: SKLAB4 09:53
DX: I50.9 Heart failure, unspecified (principal)

== ENCOUNTER → 2019-01-29 | Outpatient (REF) | payer MEDICARE, MEDICAID ==
[~2019-01-29] MED LIST changes: -ACET-907 PO; -ANUS25SU PR; -BACITAB PO; -BAYE325T12 PO; -BISA10SU27 PR; -BREO1INH INH; -BUSP15TA90 PO; -CEFD300CAP PO; -CLON0.5T2 PO; +CLON0.5T8 PO; -CLON1TAB17 PO; -DOXY-350 PO; -ENEMENE PR; -FERR324T2 PO; -LEVA0.636 INH; -LEVO112T25 PO; -META28.32 PO; -MIRT1TAB17 PO; -MOM30SS PO; +OXYB10TA2 PO; -OXYB10TA23 PO; +OXYB15TA PO; -OXYB15TA14 PO; -POTA10TA17 PO; -RA A PO; -ROPI1TAB PO; -SENN-52 PO; -TORS20TA2 PO; -VITACAP8 PO
[2019-01-29 07:42] LABS: HEMATOCRIT 37.9 % (42.0-52.0); HEMOGLOBIN 11.5 g/dl (13.5-17.5); MEAN CORPUSCULAR HEMOGLOBIN 30.7 pg (27.0-33.0); MEAN CORPUSCULAR HGB CONC 30.3 g/dl (32.0-36.5); MEAN CORPUSCULAR VOLUME 101.3 fl (80.0-96.0); PLATELET COUNT, AUTOMATED 261 10^3/uL (150-450); RED BLOOD COUNT 3.74 10^6/uL (4.30-6.10); WHITE BLOOD COUNT 5.7 10^3/uL (4.0-10.0)
[2019-01-29 10:44] LABS: FREE T4 1.13 NG/DL (0.76-1.46)
[2019-01-29 11:00] LABS: THYROID PEROXIDASE ANTIBODY < 28.0 U/ML (<60.0)
== END ==
LOC: SKLAB4 09:39
PROVIDERS: ATTEND Internal Medicine
DX: E03.9 Hypothyroidism, unspecified (principal); D64.9 Anemia, unspecified

== ENCOUNTER → 2019-02-05 | Outpatient (REF) | payer MEDICARE, MEDICAID ==
[2019-02-05 08:26] LABS: BLOOD UREA NITROGEN 27 MG/DL (7-18); CALCIUM LEVEL 9.1 MG/DL (8.8-10.2); CARBON DIOXIDE LEVEL 36 MEQ/L (21-32); CHLORIDE LEVEL 99 MEQ/L (98-107); CREATININE FOR GFR 1.17 MG/DL (0.70-1.30); GLOMERULAR FILTRATION RATE > 60.0 (>35); GLUCOSE, FASTING 89 MG/DL (70-100); SODIUM LEVEL 140 MEQ/L (136-145)
== END ==
LOC: SKLAB4 12:07
PROVIDERS: ATTEND Internal Medicine
DX: R60.9 Edema, unspecified (principal)

== ENCOUNTER → 2019-02-13 | Outpatient (REF) | payer MEDICARE, MEDICAID ==
[2019-02-13 08:00] LABS: CALCIUM LEVEL 9.3 MG/DL (8.8-10.2); CREATININE FOR GFR 1.34 MG/DL (0.70-1.30); GLOMERULAR FILTRATION RATE 54.3 (>35); POTASSIUM SERUM 4.3 MEQ/L (3.5-5.1)
== END ==
LOC: SKLAB4 11:52
PROVIDERS: ATTEND Internal Medicine
DX: I50.9 Heart failure, unspecified (principal)

== ENCOUNTER 2019-02-28 07:53 | Inpatient (IN) | payer MEDICARE, MEDICAID ==
[~2019-02-28] VITALS: Ht 165.1 cm; Wt 107.2 kg
[2019-02-28] VITALS (8 sets, daily range): BP systolic 87–138; BP diastolic 52–62
[~2019-02-28 07:53] MED LIST changes: +CLON0.5T2 PO; -CLON0.5T8 PO; -OXYB15TA PO; +OXYB1TAB13 PO
[2019-02-28] MEDS ORDERED: IPRATROPIUM 0.5MG/ALBUTEROL 2.5MG INH SOL UD 3ML (DUONEB)(J7620) NEB ONE (08:15)
--- NOTE | 2019-02-28 08:19 | REP ---
Portable chest x-ray: Single view. History: Dyspnea and cough. Comparison chest x-ray: February 23, 2019. Findings: There is a new infiltrate in the left perihilar region consistent with pneumonia. Right hemidiaphragm is elevated and there is blunting of the right lateral pleural angle. Moderate cardiomegaly is again observed unchanged. Monitoring electrodes and oxygen delivery tubing are seen. Impression: New infiltrate left perihilar region consistent with pneumonia. . Elevated right hemidiaphragm with blunting of the right lateral pleural angle. Electronically Signed by Gerardo Solano MD 02/28/2019 08:11 A
[2019-02-28 08:27] LABS: BASO # 0.1 10^3/uL (0.0-0.2); BASO % 0.6 % (0.0-1.0); EOS % 0.1 % (0.0-3.0); HEMATOCRIT 39.4 % (42.0-52.0); HEMOGLOBIN 11.9 g/dl (13.5-17.5); LYMPH # 0.8 10^3/uL (1.5-5.0); LYMPH % 4.5 % (24.0-44.0); MEAN CORPUSCULAR HEMOGLOBIN 30.9 pg (27.0-33.0); MEAN CORPUSCULAR HGB CONC 30.2 g/dl (32.0-36.5); MEAN CORPUSCULAR VOLUME 102.3 fl (80.0-96.0); MONO % 13.9 % (0.0-5.0); NEUTROPHILS # 13.7 10^3/uL (1.5-8.5); NEUTROPHILS % 80.4 % (36.0-66.0); PLATELET COUNT, AUTOMATED 279 10^3/uL (150-450); RED BLOOD COUNT 3.85 10^6/uL (4.30-6.10); WHITE BLOOD COUNT 17.1 10^3/uL (4.0-10.0)
[2019-02-28] MEDS ORDERED: BREO1INH INH (08:27)
[2019-02-28] MEDS ORDERED: CLON0.25 PO (08:27)
[2019-02-28] MEDS ORDERED: ANUS25SU PR (08:27)
[2019-02-28] MEDS ORDERED: SENN-52 PO (08:27)
[2019-02-28] MEDS ORDERED: OLAN2.5T25 PO (08:27)
[2019-02-28] MEDS ORDERED: AMIO200T PO (08:27)
[2019-02-28] MEDS ORDERED: POTA10TA17 PO (08:27)
[2019-02-28] MEDS ORDERED: MIRT1TAB17 PO (08:27)
[2019-02-28] MEDS ORDERED: IPRA0.00 INH (08:27)
[2019-02-28] MEDS ORDERED: BISA10SU27 PR (08:27)
[2019-02-28] MEDS ORDERED: CLON1TAB17 PO (08:27)
[2019-02-28] MEDS ORDERED: FERR324T2 PO (08:27)
[2019-02-28] MEDS ORDERED: FLUTISP (08:27)
[2019-02-28] MEDS ORDERED: BAYE325T12 PO (08:27)
[2019-02-28] MEDS ORDERED: GABA-845 PO (08:27)
[2019-02-28] MEDS ORDERED: HYDR-3713 PO ×2 (08:27)
[2019-02-28] MEDS ORDERED: ROPI1TAB PO (08:27)
[2019-02-28] MEDS ORDERED: MOM30SS PO (08:27)
[2019-02-28] MEDS ORDERED: MUCI600T31 PO (08:27)
[2019-02-28] MEDS ORDERED: TORS20TA2 PO (08:27)
[2019-02-28] MEDS ORDERED: ACET-907 PO (08:27)
[2019-02-28] MEDS ORDERED: LEVO112T25 PO (08:27)
[2019-02-28] MEDS ORDERED: RA A PO (08:27)
[2019-02-28] MEDS ORDERED: LEVA0.636 INH (08:27)
[2019-02-28] MEDS ORDERED: VITA100018 PO (08:27)
[2019-02-28] MEDS ORDERED: ENEMENE PR (08:27)
[2019-02-28] MEDS ORDERED: BUSP15TA90 PO (08:27)
[2019-02-28] MEDS ORDERED: VITACAP8 PO (08:28)
[2019-02-28] MEDS ORDERED: cefTRIAXone SOD 2 GM in D5W MINI-BAG PLUS 50 ML IV ONE (08:30)
[2019-02-28 08:40] LABS: INR 1.21
[2019-02-28 08:48] LABS: MONO # 2.4 10^3/uL (0.0-0.8)
[2019-02-28 08:59] LABS: ALBUMIN 3.4 GM/DL (3.2-5.2); ALT/SGPT 20 U/L (12-78); BILIRUBIN,DIRECT 0.2 MG/DL (0.0-0.2); BILIRUBIN,TOTAL 0.5 MG/DL (0.2-1.0); BLOOD UREA NITROGEN 23 MG/DL (7-18); CALCIUM LEVEL 9.2 MG/DL (8.8-10.2); CARBON DIOXIDE LEVEL 38 MEQ/L (21-32); CHLORIDE LEVEL 98 MEQ/L (98-107); CK-MB VALUE MASS 1.3 NG/ML (<3.6); CPK CREATINE PHOSPHOKINASE 158 U/L (39-308); CREATININE FOR GFR 1.43 MG/DL (0.70-1.30); GLOMERULAR FILTRATION RATE 50.4 (>35); GLUCOSE, FASTING 113 MG/DL (70-100); MB/CK RELATIVE INDEX 0.82 (< OR =4); NT-PRO BNP 547 PG/ML (<450); POTASSIUM SERUM 4.4 MEQ/L (3.5-5.1); SODIUM LEVEL 141 MEQ/L (136-145); TOTAL PROTEIN 7.9 GM/DL (6.4-8.2); TROPONIN I < 0.02 NG/ML (< 0.10)
[2019-02-28] MEDS ORDERED: TORSEMIDE 20 MG TAB PO SCH (09:00)
[2019-02-28] MEDS: ALBUTEROL SULFATE 2.5 MG/0.5 ML INH NEB SOLN INH SCH ×3 (09:30→10:04)
[2019-02-28] MEDS ORDERED: methylPREDNISolone INJ 125 MG/2 ML VIAL (J2930) IV ONE (09:30)
[2019-02-28] MEDS ORDERED: DOXYCYCLINE HYCLATE 100 MG in D5W MINI-BAG PLUS 100 ML IV SCH (09:45)
[2019-02-28] MEDS ORDERED: ANUSOL HC 25MG SUPP PR PRN (10:15)
[2019-02-28] MEDS ORDERED: MOM 30ML SUSPENSION UDC PO PRN (10:15)
[2019-02-28] MEDS ORDERED: FLEET ENEMA PR PRN (10:15)
[2019-02-28] MEDS ORDERED: BISACODYL 10 MG SUPP PR PRN (10:15)
[2019-02-28] MEDS: CYANOCOBALAMIN 500 MCG TAB PO SCH (11:27)
[2019-02-28] MEDS: busPIRone 5 MG TAB PO SCH ×3 (11:27→21:00)
[2019-02-28] MEDS: LACTOBACILLUS ACIDOPHILUS CAP (BACID) PO SCH ×2 (11:28→18:00)
[2019-02-28] MEDS: FERROUS SULFATE 325MG TAB PO SCH (11:28)
[2019-02-28] MEDS: POTASSIUM CHLORIDE 10 MEQ SR TABLET PO SCH ×2 (11:28→21:00)
[2019-02-28] MEDS: AMIODARONE 200 MG TAB (PACERONE) PO SCH ×2 (11:29→21:00)
[2019-02-28] MEDS: guaiFENesin ER 600 MG TAB PO SCH ×2 (11:29→21:00)
[2019-02-28] MEDS: clonazePAM 0.5 MG TAB PO SCH (11:29)
[2019-02-28] MEDS: GABAPENTIN 400 MG CAP PO SCH ×2 (11:29→21:00)
[2019-02-28] MEDS: HEPARIN SOD (PORCINE) 5000 UNITS/ML VIAL SC SCH ×2 (11:30→21:24)
[2019-02-28] MEDS: THIAMINE 100 MG TAB PO SCH (11:30)
[2019-02-28] MEDS: SENOKOT S TAB PO SCH ×2 (11:39→21:00)
[2019-02-28] MEDS: LEVALBUTEROL 1.25 MG/0.5 ML CONCENTRATE NEB NEB SCH ×4 (12:00→23:10)
[2019-02-28] MEDS ORDERED: PILL CUTTER 1 EACH XX PRN (12:15)
--- NOTE | 2019-02-28 12:56 | IPNPDOC ---
Date Seen The patient was seen on 02/28/19. Progress Note addendum to h&P: Neurostimulator device readings (per Dr. Jac Oakley's office after review of the device): seizure activity detected at 4pm, 2 large seizures overnight, last seizure at 0620am. Recommendations by Dr. Oakley's office: Make sure patient is compliant with meds, continue same dose and frequency. VS, I&O, 24H, Fishbone Vital Signs/I&O Vital Signs Date Time Temp Pulse Resp B/P (MAP) Pulse Ox O2 Delivery O2 Flow Rate FiO2 02/28/19 10:19 92 24 87 Nasal Cannula 5.0 02/28/19 10:18 98.5 02/28/19 10:16 99/54 (69) 02/28/19 08:08 50 Laboratory Data 24H LABS Laboratory Tests 2 02/28/19 08:15: Immature Granulocyte % (Auto) 0.5, Neutrophils (%) (Auto) 80.4H, Lymphocytes (%) (Auto) 4.5L, Monocytes (%) (Auto) 13.9H, Eosinophils (%) (Auto) 0.1, Basophils (%) (Auto) 0.6, Neutrophils # (Auto) 13.7H, Lymphocytes # (Auto) 0.8L, Monocytes # (Auto) 2.4H, Eosinophils # (Auto) 0.0, Basophils # (Auto) 0.1, Nucleated Red Blood Cells % (auto) 0.0, Prothrombin Time 15.0H, Prothromb Time International Ratio 1.21, Anion Gap 5L, Glomerular Filtration Rate 50.4, Lactic Acid Level 2.3*H, Calcium Level 9.2, Total Bilirubin 0.5, Direct Bilirubin 0.2, Aspartate Amino Transf (AST/SGOT) 14, Alanine Aminotransferase (ALT/SGPT) 20, Alkaline Phosphatase 97, Total Creatine Kinase 158, Creatine Kinase MB 1.3, Creatine Kinase MB Relative Index 0.82, Troponin I < 0.02, ZB-Tlx-A-Type Natriuretic Peptide 547H, Total Protein 7.9, Albumin 3.4, Albumin/Globulin Ratio 0.76L, Thyroid Stimulating Hormone (TSH) 3.850H 02/28/19 08:17: POC pH (Misc Panel) 7.429, POC Base Excess (Misc Panel) 11.0H, POC Saturated Percent O2 (Misc) 91L, POC pO2 (Misc Panel) 61.0L, POC pCO2 (Misc Panel) 53.4H, POC HCO3 (Misc Panel) 35.3H, POC Total CO2 (Misc Panel) 37.0H 02/28/19 12:38: CBC/BMP Laboratory Tests 02/28/19 08:15 Microbiology Microbiology 02/28/19 Blood Culture, Received Pending 02/28/19 Blood Culture, Received Pending 02/28/19 Respiratory Virus Panel (PCR) (MY) - Final, Complete CORINA CARLTON MD Feb 28, 2019 12:56
[2019-02-28 13:19] LABS: CK-MB VALUE MASS < 1.0 NG/ML (<3.6); CPK CREATINE PHOSPHOKINASE 137 U/L (39-308); MB/CK RELATIVE INDEX 0.73 (< OR =4); TROPONIN I < 0.02 NG/ML (< 0.10)
--- NOTE | 2019-02-28 13:56 | REP ---
Duplex extremity venous ultrasound: Bilateral lower extremity. History: Rule out DVT. Edema in the lower extremities. Findings: The deep veins are anechoic and fully compressible from the groin to the popliteal fossa in the left and right lower extremity. Color flow imaging is homogeneous. Spectral Doppler interrogation demonstrates intact respiratory variation in flow and normal manual augmentation of flow. There is no evidence of deep vein thrombosis. Impression: Negative bilateral lower extremity duplex venous ultrasound. No evidence of deep vein thrombosis. Electronically Signed by Gerardo Solano MD 02/28/2019 01:48 P
[2019-02-28] MEDS: ACETAMINOPHEN TAB 650MG DOSE (2X325MG) PO PRN (14:31)
[2019-02-28] MEDS: OLANZapine 2.5MG TABLET PO SCH ×2 (14:31→21:00)
[2019-02-28] MEDS: FLUTICASONE PROP 0.05% NASAL SPRAY 16 GM (FLONASE) SCH ×2 (14:31→21:00)
[2019-02-28] MEDS: MEROPENEM INJ 1 GM in IV 1 EA IV SCH (16:50)
[2019-02-28 17:20] LABS: ABG BASE EXCESS 9.1 (-2.0-2.0); ABG HCO3 35.7 MEQ/L (22.0-26.0); ABG O2 SATURATION 92.8 % (95.0-99.0); ABG PARTIAL PRESSURE CO2 58.9 mmHg (35.0-45.0); ABG PARTIAL PRESSURE O2 68.9 mmHg (75.0-100.0); ABG STANDARD HCO3 32.8 MEQ/L (22.0-26.0); ABG TOTAL CO2 37.6 MEQ/L (23.0-31.0); ABG pH (ARTERIAL) 7.401 UNITS (7.350-7.450)
[2019-02-28] MEDS ORDERED: VANCOMYCIN HCL 1,000 MG, VIAL MATE ADAPTER 1 EACH in D5W 250 ML IV ONE ×2 (18:00→19:00)
--- NOTE | 2019-02-28 18:48 | ECGEPIP ---
[facility] - ED Test Date: 2019-02-28 Pat Name: MADYSON HARO Department: Room: - Gender: Male [employer]: zachary : 1935 Requested By: Aditi Starks Order Number: [id number] Reading MD: Jan Mohan Measurements Intervals [place] Rate: 97 P: 46 FL: 223 QRS: 228 QRSD: 106 T: 5 QT: 375 QTc: 477 Interpretive Statements SINUS RHYTHM WITH FIRST DEGREE AV BLOCK PATTERN CONSISTENT WITH PULMONARY DISEASE INCOMPLETE RIGHT BUNDLE BRANCH BLOCK RIGHT VENTRICULAR HYPERTROPHY INFERIOR MYOCARDIAL INFARCTION, OF INDETERMINATE AGE SIMILAR TO 09/25/18 Electronically Signed on 02-28-2019 18:48:01 EST by Jan Mohan
[2019-02-28] MEDS: BREO ELLIPTA INH SCH (21:00)
[2019-02-28] MEDS: clonazePAM 1 MG TAB PO SCH (21:00)
[2019-02-28] MEDS: rOPINIRole 1MG TAB PO SCH (21:00)
[2019-02-28] MEDS: ASPIRIN 325 MG TAB PO SCH (21:00)
[2019-02-28] MEDS ORDERED: VIAL MATE ADAPTER XX ONE (21:20)
--- NOTE | 2019-02-28 23:11 | PHACANCOPD ---
PHARMACY VANCOMYCIN DOSING Pt Demographics Demographics Patient Age:83 , Weight:107.200 , Gender: male Adjusted Body Weight Events Past 24 Hours Events Past 24 Hours: NO: Dialysis, Diuretic Therapy, Change in CrCl, Fever, Elevation in WBC, Pending Diagnostics, Pending Procedures, Other Vancomycin Vancomycin indication: PNA Vancomycin Target Ranges: 15-20 mcg/ml Vancomycin Load Y/N: Yes Load Dose Date Time Vancomycin Load Dose: 2GM Date: 02/28/19 Time: 20:00 Vancomycin Dose Date: 03/01/19. Current Vancomycin Dose: [1GM IV Q24H (09:00)] Intermittent Dosing?: No Labs Labs Laboratory Tests 02/28/19 08:15 Micro Microbiology 02/28/19 Blood Culture, Received Pending 02/28/19 Blood Culture, Received Pending 02/28/19 Respiratory Virus Panel (PCR) (MY) - Final, Complete Creatinine Clearance Date:02/28/19. Creatinine Clearance: [>30 ml/min]. Assessment and Plan Maintaining Current Dose?: Yes Reason for dose change: No Dose Change Pharmacist Note Pharmacist Note Date: 02/28/19. PharmD note: VANCOMYCIN 2GM LOAD ADMINISTERED FROM 20:00 TO 22:30 THIS EVENING. FOLLOWING THIS WE WILL INITIATE VANCOMYCIN THERAPY AT 1GM IV Q24H STARTING AT 09:00 03/01/19. A VANCO TROUGH WILL BE DRAWN WHEN HE IS AT [facility] Feb 28, 2019 23:11
[2019-03-01] VITALS: BP 107/52
[2019-03-01] MEDS: MEROPENEM INJ 1 GM in IV 1 EA IV SCH ×4 (00:16→23:16)
[2019-03-01] MEDS: LEVALBUTEROL 1.25 MG/0.5 ML CONCENTRATE NEB NEB SCH ×5 (03:47→20:05)
[2019-03-01 04:00] VITALS: BP 97/53
[2019-03-01] MEDS: LEVOTHYROXINE 112MCG TABLET (0.112MG) PO SCH (05:12)
[2019-03-01 05:39] LABS: ABG BASE EXCESS 7.7 (-2.0-2.0); ABG HCO3 32.3 MEQ/L (22.0-26.0); ABG O2 SATURATION 94.4 % (95.0-99.0); ABG PARTIAL PRESSURE CO2 45.5 mmHg (35.0-45.0); ABG STANDARD HCO3 31.4 MEQ/L (22.0-26.0); ABG TOTAL CO2 33.7 MEQ/L (23.0-31.0); ABG pH (ARTERIAL) 7.469 UNITS (7.350-7.450)
[2019-03-01 05:46] LABS: CALCIUM LEVEL 8.8 MG/DL (8.8-10.2); CHOLESTEROL RISK RATIO 3.254 (<5); CREATININE FOR GFR 1.37 MG/DL (0.70-1.30); FREE THYROXINE INDEX 6.1 % (1.4-3.8); POTASSIUM SERUM 4.5 MEQ/L (3.5-5.1); THYROID STIMULATING HORMONE 1.16 uIU/ML (0.358-3.740); THYROXINE (T4) 15.6 UG/DL (4.5-12.0)
--- NOTE | 2019-03-01 06:53 | IPNPDOC ---
Date Seen The patient was seen on 03/01/19. Progress Note SUBJECTIVE: Required BiPAP for night, does report back pain, is a poor historian and is unable to focus on conversation. OBJECTIVE PHYSICAL EXAMINATION: VITAL SIGNS: Please see below. GENERAL: No distress HEENT: Normocephalic, atraumatic, has bipap maske intact NECK: Supple CARDIOVASCULAR EXAMINATION: S1, S2 RESPIRATORY EXAMINATION: diminished, challenging to auscultate secondary to BiPAP and body habitus ABDOMINAL EXAMINATION: Soft, nontender, nondistended, positive bowel sounds EXTREMITIES: Trace edema SKIN: No rash NEUROLOGICAL EXAMINATION: Alert and oriented 3, no focal deficits PSYCHIATRIC EXAMINATION: Calm and cooperative, flat affect LABORATORY DATA, IMAGING STUDIES, MICROBIOLOGY: Please see below. Echocardiogram: see below. DVT prophylaxis ordered?: heparin ASSESSMENT AND PLAN: Patient is an 83-year-old male with past medical history of HFpEF (echo on 2017 reveals an EF of 65% and grade 1 diastolic dysfunction), bipolar disorder/panic attacks, history of right femoral DVT, history of rectal cancer with distal colon resection, chronic constipation, history of elevated right diaphragm presenting with acute on chronic CHF exacerbation and pneumonia. #. Acute respiratory failure secondary to pneumonia: Empirically treated with ceftriaxone and doxycycline, patient is allergic to penicillins and sulfa medications. Continue meropenem (started 02/28) and vancomycin (started 02/28). Continue symptomatic treatment and nebulizers. Follow-up with cultures, critical care consult for bipap mangement. Discussed with ICU, hold additional diuretics at this time, optimize medical therapy. Continue IV steroid and taper accordingl y. #History of seizures with neurostimulator device: follows Dr. Oakley, add Ativan prn seizures, likely secondary to current infection, if patient has recurrent seizures despite treatment, consider neuro consult/contacting Dr. Oakley, monitor in ICU at this time #. Hypothyroidism: abnormal thyroid labs, will need outpt reassessment and adjustment. Continue home meds #mood disorder: Continue home meds #Anemia: Continue home meds #DVT prophylaxis: Heparin Full code Dispo: resident of [facility] VS, I&O, 24H, Fishbone Vital Signs/I&O Vital Signs Date Time Temp Pulse Resp B/P (MAP) Pulse Ox O2 Delivery O2 Flow Rate FiO2 03/01/19 04:57 40 03/01/19 04:00 97.5 62 97/53 (68) 95 NIPPV (BIPAP/CPAP) 03/01/19 00:00 20 02/28/19 14:00 5.0 I&O- Last 24 Hours up to 6 AM 03/01/19 06:00 Intake Total 1255 ml Output Total 505 ml Balance 750 ml Laboratory Data 24H LABS Laboratory Tests 2 02/28/19 08:15: Immature Granulocyte % (Auto) 0.5, Neutrophils (%) (Auto) 80.4H, Lymphocytes (%) (Auto) 4.5L, Monocytes (%) (Auto) 13.9H, Eosinophils (%) (Auto) 0.1, Basophils (%) (Auto) 0.6, Neutrophils # (Auto) 13.7H, Lymphocytes # (Auto) 0.8L, Monocytes # (Auto) 2.4H, Eosinophils # (Auto) 0.0, Basophils # (Auto) 0.1, Nucleated Red Blood Cells % (auto) 0.0, Prothrombin Time 15.0H, Prothromb Time International Ratio 1.21, Anion Gap 5L, Glomerular Filtration Rate 50.4, Lactic Acid Level 2.3*H, Calcium Level 9.2, Total Bilirubin 0.5, Direct Bilirubin 0.2, Aspartate Amino Transf (AST/SGOT) 14, Alanine Aminotransferase (ALT/SGPT) 20, Alkaline Phosphatase 97, Total Creatine Kinase 158, Creatine Kinase MB 1.3, Creatine Kinase MB Relative Index 0.82, Troponin I < 0.02, LW-Dbi-C-Type Natriuretic Peptide 547H, Total Protein 7.9, Albumin 3.4, Albumin/Globulin Ratio 0.76L, Thyroid Stimulating Hormone (TSH) 3.850H 02/28/19 08:17: POC pH (Misc Panel) 7.429, POC Base Excess (Misc Panel) 11.0H, POC Saturated Percent O2 (Misc) 91L, POC pO2 (Misc Panel) 61.0L, POC pCO2 (Misc Panel) 53.4H, POC HCO3 (Misc Panel) 35.3H, POC Total CO2 (Misc Panel) 37.0H 02/28/19 12:38: Total Creatine Kinase 137, Creatine Kinase MB < 1.0, Creatine Kinase MB Relative Index 0.73, Troponin I < 0.02, Lactic Acid Followup at 4 Hours 1.9 02/28/19 12:48: Methicillin-Resist S.aureus DNA PCR NOT DETECTED 02/28/19 14:37: 02/28/19 17:06: Blood Gas Bicarbonate Standard 32.8H, Arterial Blood pH 7.401, Arterial Blood Partial Pressure CO2 58.9H, Arterial Blood Partial Pressure O2 68.9L, Arterial Blood Total CO2 37.6H, Arterial Blood HCO3 35.7H, Arterial Blood Base Excess 9.1H, Arterial Blood Oxygen Saturation 92.8L 03/01/19 04:54: Anion Gap 7L, Glomerular Filtration Rate 53.0, Calcium Level 8.8, Triglycerides Level 86, Total Cholesterol 179, LDL Cholesterol 107H, Non-HDL Cholesterol (LDL + VLDL) 124, Total HDL Cholesterol 55, Cholesterol/HDL Ratio 3.254, Thyroid Stimulating Hormone (TSH) 1.160, Free Thyroxine Index 6.1H, Thyroxine (T4) 15.6H, Triiodothyronine (T3) Uptake 39 03/01/19 05:20: Blood Gas Bicarbonate Standard 31.4H, Arterial Blood pH 7.469H, Arterial Blood Partial Pressure CO2 45.5H, Arterial Blood Partial Pressure O2 70.0L, Arterial Blood Total CO2 33.7H, Arterial Blood HCO3 32.3H, Arterial Blood Base Excess 7.7H, Arterial Blood Oxygen Saturation 94.4L CBC/BMP Laboratory Tests 02/28/19 08:15 03/01/19 04:54 Microbiology Microbiology 02/28/19 Blood Culture, Received Pending 02/28/19 Blood Culture, Received Pending 02/28/19 Respiratory Virus Panel (PCR) (MY) - Final, Complete DARLENE MORTON MD Mar 01, 2019 06:53
--- NOTE | 2019-03-01 07:31 | HPE ---
DATE OF ADMISSION: 02/28/2019 CHIEF COMPLAINT: Cough, shortness of breath. HISTORY OF PRESENT ILLNESS: This is an 83-year-old full code [facility] resident who was brought into the emergency room due to complaints of shortness of breath and cough productive of yellow-white sputum. Patient has not felt well for the past week, worsened overnight, where he complained of severe shortness of breath and alleviated by his 5 liters of oxygen at the detention and complains of feeling like a sledgehammer hit is chest with chest tightness lasting for several hours without diaphoresis, nausea, vomiting, diarrhea, headache, or feeling of impending doom. Patient was afebrile, 99.3, in the emergency room (ER), found to have a left lower lobe infiltrate. Respiratory panel is pending. He was able to sleep last night despite trouble breathing on his 5 liters of oxygen. Arterial blood gas this morning showed a pH of 7.4, CO2 of 53, and oxygen of 61 due to severe hypoxia, pulse oximetry of 97% on 5 liters nasal cannula and face mask. Patient was placed on bilevel positive airway pressure (BiPAP) therapy. He is currently now back on his 5 liters, saturating at 88%. Patient does have a history of chronic diastolic failure with normal ejection fraction in 2018, hypertensive heart disease, colon cancer with resection colostomy and reversal. Inferior vena cava (IVC) filter placed due to history of right femoral deep vein thrombosis (DVT), chronically elevated right hemidiaphragm, chronic constipation, hypothyroidism, bipolar disorder, and panic attacks. Paroxysmal supraventricular tachycardia (PSVT), on amiodarone. The patient denies any weight gain or weight loss. Says that he has not walked in several months and has chronic edema in the lower extremities. He denies any paroxysmal nocturnal dyspnea (PND) or orthopnea. Denies any dizziness, lightheadedness. Hospitalist was called to admit for left lower lobe pneumonia and acute on chronic hypoxic respiratory failure with hypercarbia and acute respiratory acidosis. PAST MEDICAL HISTORY: 1. Colon cancer with resection, colostomy, and subsequently with reversal. 2. IVC filter placement for a right femoral DVT. 3. Chronic diastolic heart failure, normal ejection fraction on previous echo. 4. Paroxysmal SVT, on chronic amiodarone. 5. Atrial tachycardia. 6. Bipolar disorder. 7. Panic attacks. 8. Rectal cancer. 9. Distal colon resection. 10. Chronically elevated right diaphragm. 11. History of chronic constipation. 12. Subclinical hypothyroidism. 13. Hypertensive heart disease. 14. Overactive bladder. 15. Lumbosacral degenerative disc disease. 16. Chronic obstructive pulmonary disease (COPD). PAST SURGICAL HISTORY: 1. Colon cancer resection. 2. Colostomy with subsequent reversal. 3. Carpal tunnel repair. 4. Tonsillectomy. 5. [place] filter placement due to a right femoral DVT. SOCIAL HISTORY: Patient smoked one pack a day. Started at 21 years old. Quit 30 years ago. 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 He was with two children. One son of brain cancer. FAMILY HISTORY: Father at age 95 with brain aneurysm. Mother at age 89 with brain aneurysm. One brother who had an accident. He had one son who of brain cancer. HOME MEDICATIONS: - acetaminophen 325 every 4 hours as needed for pain or fever - amiodarone 200 mg twice a day - aspirin 325 at bedtime - Bisacodyl 10 mg per rectum daily as needed - vitamin B12 at 2000 mcg daily - fluticasone one spray NA twice a day - gabapentin 400 twice a day - Mucinex 600 mg twice a day - hydrocodone/acetaminophen one tablet by mouth twice a day and one tablet every 6 hours as needed - hydrocortisone/Anusol rectally, 25 per rectum twice a day - ipratropium solution four times a day - Xopenex 0.63 three times a day as needed - Synthroid 112 mcg daily - milk of magnesia 10 mL daily - Zyprexa 2.5 mg twice a day - potassium 40 mEq twice a day - ropinirole 1 mg at bedtime - Senokot-S two tablets twice a day - Fleet enema one tablet as needed daily - torsemide 40 mg daily - buspirone 15 mg three times a day - clonazepam 0.25 daily and 1 mg at bedtime - ferrous sulfate 324 mg every 2 days - Breo Ellipta one puff inhaled at bedtime - antacid 30 mL by mouth every 4 - mirtazapine 45 mg at bedtime - vitamin B one capsule by mouth daily REVIEW OF SYSTEMS: Per history of present illness (HPI). A 12-point system otherwise negative. PHYSICAL EXAMINATION: VITAL SIGNS: Temperature 99.3, pulse 94, respiratory rate 28, blood pressure 128/63. Patient was 87% on BiPAP, 50% FiO2. Currently 5 liters nasal cannula at 88%. GENERAL: Patient is in moderate distress. Positive use of respiratory accessory muscles. Six to seven-word conversational dyspnea. No jugular venous distention (JVD). No thyromegaly or cervical lymphadenopathy. LUNGS: Diminished bilateral expiratory wheezing. Crackles at the left base. HEART: S1, S2, sinus rhythm. ABDOMEN: Soft, nontender, nondistended. Positive bowel sounds. Obese abdomen. EXTREMITIES: Chronic 1+ pitting edema. Chronic venous stasis changes. LABORATORY DATA: White count 17, hemoglobin 11, hematocrit 39, platelet count 279. Sodium 141, potassium 4.4, chloride 98, bicarbonate 38, BUN 23, creatinine 1.43, glucose of 113, baseline creatinine is 1.3, calcium 9.2. Total bilirubin 0.5, direct bilirubin 0.2, AST 14, ALT 20, alkaline phosphatase 97, total CK 158, MB fraction 1.3, troponin less than 0.02. BNP is 547. Troponin 7.9, albumin 3.4. TSH 3.85. INR is 1.21. Blood gas: A pH of 7.429, base excess 11, oxygen 61, CO2 of 53, bicarbonate 35. Microbiology: Respiratory panel February 28: Negative. Two sets of blood cultures are pending. IMAGING STUDIES: Chest x-ray: No infiltrate in the left perihilar region consistent with pneumonia. Elevated right hemidiaphragm with blending of the right lateral pleural angle. ASSESSMENT AND PLAN: This is an 83-year-old male, full code, with history of colon cancer, resection with colostomy and reversal, chronic diastolic heart failure, normal ejection fraction (EF) in November 2017, hypertensive heart disease, atrial tachycardia, on amiodarone, bipolar disorder, panic attacks, right femoral deep vein thrombosis (DVT), status post inferior vena cava (IVC) filter placement, rectal cancer, distal colon resection, chronically elevated right hemidiaphragm, and chronic constipation, subclinical hypothyroidism, overactive bladder, lumbosacral spine disease, previous smoker. Presented to the emergency room with 1-week history of worsening shortness of breath, cough productive of yellow-white sputum with chills but denied any fever. Patient was found to have worsening distress overnight, now with a new left perihilar pneumonia. ACTIVE ISSUES: Patient will be admitted as an inpatient for 2 midnights for the following issues: 1. Left perihilar pneumonia. Patient has been given IV ceftriaxone. Doxycycline will be added for atypical coverage. Sputum culture to be obtained as well as urine streptococcal antigen and urine Legionella. Patient will be given nebulizer treatments every 4 hours with Xopenex due to history of atrial tachycardia. We will try to avoid albuterol. He is currently on oxygen at his chronic 5 liters but was 87% on arrival. 2. Acute on chronic hypoxic respiratory failure, 87% on 5 liters of nasal cannula oxygen. Patient required BiPAP therapy in the emergency room for reversal of patient's severe hypoxia and mild respiratory acidosis. 3. Acute respiratory acidosis, improving. Patient had inciting event of a pneumonia on top of his chronic hypoxic failure. Patient had been on BiPAP but now improved. Only on nasal cannula. No need for Vapotherm. 4. COPD with mild exacerbation. Patient has been given Solu-Medrol. Will continue every 6 hours, 40 mg nebulizer treatment with Xopenex due to history of atrial tachycardia. Will keep on Xopenex and avoid albuterol. Antibiotics with doxycycline for atypical, ceftriaxone for Streptococcus and Haemophilus influenzae. Check methicillin-resistant Staphylococcus aureus (MRSA) screen to rule out MRSA. 5. Chronic bilateral lower extremity edema due to congestive heart failure (CHF). No decompensation. At this time, brain natriuretic peptide (BNP) level is low. Patient had an ultrasound with previous history of DVT, currently with IVC filter placement. 6. Bipolar disorder. May be resumed on home dose of his psychiatric medications. 7. History of colon cancer with resection with chronic constipation. Bowel regimen. 8. History of atrial tachycardia with possible atrial fibrillation, not on anticoagulation due to several gastrointestinal (GI) bleeds in the past and multiple blood transfusions. Rate controlled, currently sinus rhythm with amiodarone. 9. Chronic anemia and chronic GI blood loss. Resume home iron. 10. Advance directive. Medical order for life-sustaining treatment (MOLST) form indicates cardiopulmonary resuscitation (CPR) and full code 11. Subclinical hypothyroidism. Check thyroid profile. [facility]
[2019-03-01 08:00] VITALS: BP 162/61
[2019-03-01] MEDS ORDERED: methylPREDNISolone INJ 125 MG/2 ML VIAL (J2930) IV SCH (08:00)
[2019-03-01] MEDS: LACTOBACILLUS ACIDOPHILUS CAP (BACID) PO SCH ×2 (08:00→18:17)
[2019-03-01] MEDS ORDERED: FUROSEMIDE 40 MG/4 ML VIAL (J1940) IV ONE (08:30)
[2019-03-01] MEDS ORDERED: LORazepam 2 MG/ML VIAL (J2060) IV PRN (08:30)
[2019-03-01 08:45] LABS: BASO % 0.1 % (0.0-1.0); HEMATOCRIT 34.3 % (42.0-52.0); HEMOGLOBIN 10.6 g/dl (13.5-17.5); LYMPH # 0.7 10^3/uL (1.5-5.0); LYMPH % 3.6 % (24.0-44.0); MEAN CORPUSCULAR HEMOGLOBIN 30.5 pg (27.0-33.0); MEAN CORPUSCULAR HGB CONC 30.9 g/dl (32.0-36.5); MEAN CORPUSCULAR VOLUME 98.6 fl (80.0-96.0); MONO % 5.4 % (0.0-5.0); NEUTROPHILS # 17.1 10^3/uL (1.5-8.5); NEUTROPHILS % 89.1 % (36.0-66.0); PLATELET COUNT, AUTOMATED 303 10^3/uL (150-450); RED BLOOD COUNT 3.48 10^6/uL (4.30-6.10); WHITE BLOOD COUNT 19.2 10^3/uL (4.0-10.0)
--- NOTE | 2019-03-01 08:51 | REP ---
Portable chest x-ray: Single view. History: Pneumonia. Comparison chest x-ray: February 28 and February 23 2019. Findings: The recently noted left mid lung zone infiltrate is again seen essentially unchanged. Right hemidiaphragm is quite elevated and there is blunting of the right lateral pleural angle. Moderate to marked cardiac enlargement is observed. Increased markings over the left heart border in the left base are seen unchanged. Impression: No significant change. Electronically Signed by Gerardo Solano MD 03/01/2019 08:43 A
[2019-03-01] MEDS: AMIODARONE 200 MG TAB (PACERONE) PO SCH ×2 (09:00→20:05)
[2019-03-01] MEDS: CYANOCOBALAMIN 500 MCG TAB PO SCH (09:00)
[2019-03-01] MEDS: GABAPENTIN 400 MG CAP PO SCH ×2 (09:00→20:05)
[2019-03-01] MEDS: clonazePAM 0.5 MG TAB PO SCH (09:00)
[2019-03-01] MEDS: THIAMINE 100 MG TAB PO SCH (09:00)
[2019-03-01] MEDS: guaiFENesin ER 600 MG TAB PO SCH ×2 (09:00→20:05)
[2019-03-01] MEDS ORDERED: cefTRIAXone SOD 1 GM in D5W MINI-BAG PLUS 50 ML IV SCH (09:00)
[2019-03-01] MEDS ORDERED: VANCOMYCIN HCL 1,000 MG, VIAL MATE ADAPTER 1 EACH in D5W 250 ML IV SCH (09:00)
[2019-03-01] MEDS: busPIRone 5 MG TAB PO SCH ×3 (09:00→20:05)
[2019-03-01] MEDS: OLANZapine 2.5MG TABLET PO SCH ×2 (09:00→20:05)
[2019-03-01] MEDS: POTASSIUM CHLORIDE 10 MEQ SR TABLET PO SCH ×2 (09:00→20:08)
[2019-03-01] MEDS: SENOKOT S TAB PO SCH ×2 (09:00→20:55)
[2019-03-01] MEDS: FLUTICASONE PROP 0.05% NASAL SPRAY 16 GM (FLONASE) SCH ×2 (09:52→20:08)
[2019-03-01] MEDS: methylPREDNISolone INJ 40 MG/1 ML VIAL (J2920) IV SCH ×3 (09:52→21:04)
[2019-03-01] MEDS: PANTOPRAZOLE 40MG INJ (PROTONIX) (C9113) IV SCH (09:52)
[2019-03-01] MEDS: HEPARIN SOD (PORCINE) 5000 UNITS/ML VIAL SC SCH ×3 (09:52→21:04)
--- NOTE | 2019-03-01 10:42 | CR ---
DATE OF CONSULTATION: 03/01/2019 Pulmonary team was asked by the medicine team for consultation on Mr. Rolando Cosme. Mr. Cosme is an 83-year-old male admitted with pneumonia and possible congestive heart failure. Patient unfortunately is a poor historian and unable to explain much of this medical history. Much of his medical history is coming from history and physical (H and P) as well as his prior medical records in the computer system. The H and P states that the patient was brought from [facility] where he is a resident to the emergency room due to complaints of increased shortness of breath and a productive cough. According to the H and P, the patient stated he had not fell for a week. When I questioned the patient he stated that he felt this was longer and had been going on for a number of weeks. Workup in the emergency room (ER) did show a left lobe pneumonia. The patient does have a history of (dictation cut off) and subsequently was started on diuresis for that in addition to the treatment for the pneumonia. He was placed on meropenem and vancomycin. He was placed on bilevel positive airway pressure (BiPAP) and diuresis was initiated. The patient does have a history of deep venous thrombosis (DVT) and does have filter in place. I cannot see in his H and P where he is on any chronic full dose anticoagulation. He was placed on prophylaxis with heparin dosed at twice a day. The patient was admitted to the intensive care unit (ICU) and pulmonary team was consulted. Additionally, the patient was seen at [facility] about a week ago upon referral from his primary care provider for suspected obstructive sleep apnea. However, the patient was not interested in pursuing any evaluation or possible treatment for possible sleep apnea, and therefore, elected to not followup. PAST MEDICAL HISTORY (past medical history is obtained from the H and P): 1. History of colon cancer with resection, colostomy and subsequently reversal. 2. Inferior vena cava (IVC) filter placement for right femoral DVT. 3. Chronic diastolic heart failure with a left ventricular ejection fraction (LVEF) of 65% on echocardiogram from November 2017. 4. History of paroxysmal supraventricular tachycardia (SVT). 5. Bipolar disorder. 6. History of rectal cancer. 7. Chronic elevated right hemidiaphragm. 8. Constipation. 9. Hypothyroidism. 10. Hypertensive heart disease. 11. Chronic obstructive pulmonary disease (COPD). SOCIAL HISTORY: Is obtained from the H and P. The patient had smoked one pack a day starting at age 21 and quitting 30 years ago. The patient lives at [facility]. FAMILY HISTORY: Is obtained from the history of present illness (HPI) and states that the patient's father at age 95 from a brain aneurysm and mother at age 89 also with a brain aneurysm. CURRENT MEDICATIONS: - acetaminophen 650 mg every 4 hours as needed for pain or fever - heparin 5000 units subcu every 12 - amiodarone 200 mg by mouth twice a day - aspirin 325 mg by mouth nightly - Dulcolax 10 mg suppository as needed for constipation - vitamin B12 2000 mcg daily - Flonase 1 spray twice a day - gabapentin 400 mg by mouth twice a day - guaifenesin 6 mg by mouth twice a day - Anusol 25 mg topically twice a day as needed for hemorrhoids - Synthroid 112 mcg by mouth daily - Milk of Magnesia 10 mL by mouth daily as needed, constipation - Zyprexa 2.5 mg by mouth twice a day - potassium chloride 40 mEq by mouth twice a day - Requip 1 mg by mouth nightly - Senokot-S 2 tablets by mouth twice a day - Fleet enema as needed for constipation - Xopenex 1.25 mg every 4 hours - Breo 1 puff daily - thiamine 5 mg by mouth daily - BuSpar 50 mg by mouth gid - ferrous sulfate 325 mg by mouth every 48 hours - Klonopin 0.25 mg by mouth every morning and 1 mg by mouth nightly - Bacid one tablet twice a day Wednesdays and Mondays - meropenem 1 gram intravenously every 8 hours - vancomycin 1 gram intravenously every 24 hours - Ativan 1 mg intravenously every 2 hours as needed ALLERGIES: Listed to PENICILLIN, CYCLOBENZAPRINE, NABUTAMETONE, SULFA DRUGS. REVIEW OF SYSTEMS: Was unable to be adequately obtained due to patient's poor history, but he did complain of shortness of breath and coughing. Denied chest pain. PHYSICAL EXAMINATION: Vital Signs: Temperature 97.5, pulse 62, blood pressure was 97/53, however had increased to 160/60 after some agitation. The patient initially was on BiPAP but was changed to oxygen by nasal cannula at 5 liters and his oxygen saturations were at 90 on 5 liters of oxygen by nasal cannula. General: The patient is somewhat excitable and agitated, but was able to calm down. He is alert. He is a poor historian. HEENT: Head is normocephalic, atraumatic. Moist mucous membranes. Tongue is midline. Neck: Neck is supple. No cervical lymphadenopathy. No jugular venous distention (JVD). Trachea is midline. Heart: Regular rate and rhythm. S1, S2. No murmurs appreciated. Pulmonary: Diminished breath sounds at the right base. Slight expiratory wheezing. No accessory muscle use. Abdomen: Positive bowel sounds. Soft. Nontender. Abdomen is protuberant and obese. No obvious hepatosplenomegaly. No rebound or guarding. Extremities with no edema. There is stasis dermatitis changes. Skin is warm and dry. No obvious rashes. Neurologic is nonfocal. LABORATORY DATA: WBC is 19.2, hemoglobin 10.6, hematocrit is 34.3, platelets 303. Sodium 138, potassium 4.5, chloride 96, carbon dioxide 35, anion gap is 7, BUN is 32, creatinine 1.37, glucose 147, calcium 8.8, triglycerides 88, cholesterol 179, LDL 107, non HDL is 124, total HDL is 55, TSH 1.160, free T4 index 6.1, thyroxin is 15.6, T3 uptake is 39. ABG pH 7.469, pCO2 is 45.5, pO2 is 70.0, HCO3 is 32.3. His blood cultures showed no growth after 24 hours times two. Respiratory virus panel was negative. Chest x-ray does show chronic elevated right hemidiaphragm. There is a left lung perihilar infiltrate consistent with pneumonia. EKG shows sinus rhythm with a first-degree atrioventricular (AV) block and a right axis deviation. ASSESSMENT/PLAN: 1. Pneumonia of the left lower lobe. The patient is on meropenem and vancomycin. The patient is getting Xopenex nebs. The patient's oxygen saturations are adequate 5 liters by nasal cannula. Will stop BiPAP as this does not look to be a congestive heart failure (CHF) exacerbation. Will stop the diuretics to prevent over diuresis but will continue to monitor fluid status for possible intermittent as needed diuresis. 2. Contraction alkalosis. The patient does have primary metabolic alkalosis with a contraction alkalosis. Therefore, concerned about over diuresis and will advise stopping of diuresis and just continue monitoring for intermittent as needed diuresis. 3. Suspected obstructive sleep apnea (KAREN). The patient is suspected to have obstructive sleep apnea. He was seen in the office last week and has refused any further evaluation or possible treatment for possible sleep apnea. 4. History of deep venous thrombosis. The patient does have a filter. He is not on full dose anticoagulation. The patient is not able to provide any history as to why he is not on full dose anticoagulation. We would advise the medical team to research his records to find out why he is not on full dose anticoagulation or if he should be on it. We will increase his heparin from his prophylactic heparin dose from twice a day dosing to three times a day dosing. 5. Gastrointestinal (GI) prophylaxis. The patient is on Solu-Medrol. Solu-Medrol is decreased from every 80 mg IV every 8 to 40 mg IV every 8. He is not on GI prophylaxis, so will initiate GI prophylaxis.
[2019-03-01 12:00] VITALS: BP 111/55
[2019-03-01] MEDS: ACETAMINOPHEN TAB 650MG DOSE (2X325MG) PO PRN ×2 (14:27→19:11)
[2019-03-01 16:00] VITALS: BP 152/65
[2019-03-01 20:00] VITALS: BP 115/39
[2019-03-01] MEDS: ASPIRIN 325 MG TAB PO SCH (20:05)
[2019-03-01] MEDS: clonazePAM 1 MG TAB PO SCH (20:05)
[2019-03-01] MEDS: rOPINIRole 1MG TAB PO SCH (20:08)
[2019-03-01] MEDS: BREO ELLIPTA INH SCH (20:09)
--- NOTE | 2019-03-01 20:52 | ECHO ---
DATE OF PROCEDURE: 03/01/2019 Date of : 1935 Age: 83 Gender: Male Height: 65 inches Weight: 238 pounds Body surface area: 2.13 meters squared Inpatient: Intensive care unit (ICU), room 3207 REFERRING PHYSICIAN: Dr. Nicholson INDICATION: Cardiomegaly MEASUREMENTS: 2D Measurements: RV: 4.0 cm LV: 4.5 cm Septum: 1.3 cm Posterior wall: 1.3 cm Aortic root: 3.8 cm LA: 4.6 cm LVEF: 80% Doppler Measurements: AV: 2.12 meters per second LVOT: 1.26 meters per second LVOT diameter: 2.0 cm Mean AV systolic gradient: 9 mmHg MV-E: 87, A: 115, EA ratio: 0.8 Early mitral deceleration time: 303 milliseconds E prime medial: 6.7, A prime medial: 11.8, E prime lateral: 11.2 Average E/E prime ratio: 9.7 Pulmonary capillary wedge pressure: 14 mmHg PV: 1.0 meters per second Pulmonary artery acceleration time: 109 milliseconds PASP: 34 mmHg IVC: Could not be visualized. COMMENTS: Normal sinus rhythm without intraventricular conduction disturbance. Technically challenging study in light of the patient's body habitus but diagnostically useful information was still obtained. M-mode and two-dimensional echocardiography was performed with pulsed, continuous wave, color flow and tissue Doppler studies. Mild concentric left ventricular hypertrophy with hyperkinetic wall motion. Mild to moderately dilated left atrium with Doppler evidence of grade one LV diastolic dysfunction but current estimated mean left atrial pressure only upper limits of normal to slightly increased. Normal right heart chamber sizes and motion with Doppler evidence of mild pulmonary hypertension. We could not visualize his inferior vena cava to estimate his central venous pressure. Aortic valvular sclerosis without stenosis. Elevated peak transvalvular gradient is related to his hyperkinetic LV wall motion not LV outflow tract obstruction. Mild degenerative changes of the mitral valvular apparatus without functional valvular abnormality. Normal appearing tricuspid valve with no more than trace insufficiency. No apparent intracardiac mass or pericardial effusion. MTDD
[2019-03-02] VITALS: BP 116/75
[2019-03-02] MEDS: LEVALBUTEROL 1.25 MG/0.5 ML CONCENTRATE NEB NEB SCH ×6 (00:10→19:38)
[2019-03-02 04:00] VITALS: BP 104/54
[2019-03-02] MEDS: methylPREDNISolone INJ 40 MG/1 ML VIAL (J2920) IV SCH ×3 (04:49→17:08)
[2019-03-02] MEDS: HEPARIN SOD (PORCINE) 5000 UNITS/ML VIAL SC SCH ×3 (05:36→21:12)
[2019-03-02] MEDS: LEVOTHYROXINE 112MCG TABLET (0.112MG) PO SCH (05:36)
--- NOTE | 2019-03-02 07:19 | IPNPDOC ---
Date Seen The patient was seen on 03/02/19. Progress Note SUBJECTIVE: Tolerated. No BiPAP o/n, weaning oxygen. 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 OBJECTIVE PHYSICAL EXAMINATION: PHYSICAL EXAMINATION: VITAL SIGNS: Please see below. GENERAL: No distress HEENT: Normocephalic, atraumatic, has bipap maske intact NECK: Supple CARDIOVASCULAR EXAMINATION: S1, S2 RESPIRATORY EXAMINATION: diminished, challenging to auscultate secondary to BiPAP and body habitus ABDOMINAL EXAMINATION: Soft, nontender, nondistended, positive bowel sounds EXTREMITIES: Trace edema SKIN: No rash NEUROLOGICAL EXAMINATION: Alert and oriented 3, no focal deficits PSYCHIATRIC EXAMINATION: flat affect LABORATORY DATA, IMAGING STUDIES, MICROBIOLOGY: Please see below. Echocardiogram: see below. DVT prophylaxis ordered?: heparin ASSESSMENT AND PLAN: Patient is an 83-year-old male with past medical history of HFpEF (echo on 2018 reveals an EF of 65% and grade 1 diastolic dysfunction), bipolar disorder/panic attacks, history of right femoral DVT, history of rectal cancer with distal colon resection, chronic constipation, history of elevated right diaphragm presenting with acute on chronic CHF exacerbation and pneumonia. #. Acute respiratory failure secondary to pneumonia: Empirically treated with ceftriaxone and doxycycline, patient is allergic to penicillins and sulfa medications. Continue meropenem (started 02/28). DC vancomycin (started 02/28). Add atypical coverage Continue symptomatic treatment and nebulizers. Follow-up with cultures, transfer out of ICU, continue IV steroid and taper accordingly. Add acapella and incentive spirometer. #History of seizures with neurostimulator device: follows Dr. Oakley, add Ativan prn seizures, likely secondary to current infection, if patient has recurrent seizures despite treatment, consider neuro consult/contacting Dr. Oakley, monitor #. Hypothyroidism: abnormal thyroid labs, will need outpt reassessment and adjustment. Continue home meds #mood disorder: Continue home meds #Anemia: Continue home meds #DVT prophylaxis: Heparin Full code Dispo: resident of [facility] LABORATORY DATA, IMAGING STUDIES, MICROBIOLOGY: Please see below. DISPOSITION: Tuesday03/05/19. VS, I&O, 24H, Fishbone Vital Signs/I&O Vital Signs Date Time Temp Pulse Resp B/P (MAP) Pulse Ox O2 Delivery O2 Flow Rate FiO2 03/02/19 04:00 5.0 03/02/19 04:00 97.6 55 16 104/54 (89) 92 Nasal Cannula 03/01/19 08:00 40 I&O- Last 24 Hours up to 6 AM 03/02/19 05:59 Intake Total 770 ml Output Total 30 ml Balance 740 ml Laboratory Data Microbiology Microbiology 02/28/19 Blood Culture - Preliminary, Resulted No growth after 24 hours . All specim... 02/28/19 Blood Culture - Preliminary, Resulted No growth after 24 hours . All specim... 02/28/19 Respiratory Virus Panel (PCR) (MY) - Final, Complete DARLENE MORTON MD Mar 02, 2019 07:19
[2019-03-02 08:00] VITALS: BP 135/63
[2019-03-02] MEDS: SENOKOT S TAB PO SCH ×2 (08:22→20:07)
[2019-03-02] MEDS: THIAMINE 100 MG TAB PO SCH (08:23)
[2019-03-02] MEDS: CYANOCOBALAMIN 500 MCG TAB PO SCH (08:23)
[2019-03-02] MEDS: guaiFENesin ER 600 MG TAB PO SCH ×2 (08:24→20:08)
[2019-03-02] MEDS: OLANZapine 2.5MG TABLET PO SCH ×2 (08:24→20:08)
[2019-03-02] MEDS: LACTOBACILLUS ACIDOPHILUS CAP (BACID) PO SCH ×2 (08:24→17:08)
[2019-03-02] MEDS: GABAPENTIN 400 MG CAP PO SCH ×2 (08:24→20:08)
[2019-03-02] MEDS: AMIODARONE 200 MG TAB (PACERONE) PO SCH ×2 (08:24→20:08)
[2019-03-02] MEDS: FERROUS SULFATE 325MG TAB PO SCH (08:25)
[2019-03-02] MEDS: busPIRone 5 MG TAB PO SCH ×3 (08:25→20:08)
[2019-03-02] MEDS: POTASSIUM CHLORIDE 10 MEQ SR TABLET PO SCH ×2 (08:25→20:08)
[2019-03-02] MEDS: MEROPENEM INJ 1 GM in IV 1 EA IV SCH ×3 (08:26→23:11)
[2019-03-02] MEDS: PANTOPRAZOLE 40MG INJ (PROTONIX) (C9113) IV SCH (08:26)
[2019-03-02] MEDS: clonazePAM 0.5 MG TAB PO SCH (08:26)
[2019-03-02 08:48] LABS: HEMATOCRIT 33.5 % (42.0-52.0); HEMOGLOBIN 10.3 g/dl (13.5-17.5); MEAN CORPUSCULAR HEMOGLOBIN 30.5 pg (27.0-33.0); MEAN CORPUSCULAR HGB CONC 30.7 g/dl (32.0-36.5); MEAN CORPUSCULAR VOLUME 99.1 fl (80.0-96.0); PLATELET COUNT, AUTOMATED 314 10^3/uL (150-450); RED BLOOD COUNT 3.38 10^6/uL (4.30-6.10); WHITE BLOOD COUNT 15.2 10^3/uL (4.0-10.0)
[2019-03-02 09:05] LABS: BLOOD UREA NITROGEN 36 MG/DL (7-18); CARBON DIOXIDE LEVEL 35 MEQ/L (21-32); CHLORIDE LEVEL 99 MEQ/L (98-107); CREATININE FOR GFR 1.05 MG/DL (0.70-1.30); GLOMERULAR FILTRATION RATE > 60.0 (>35); GLUCOSE, FASTING 154 MG/DL (70-100); POTASSIUM SERUM 3.9 MEQ/L (3.5-5.1); SODIUM LEVEL 140 MEQ/L (136-145); VANCOMYCIN LEVEL TROUGH 10.6 UG/ML (10.0-20.0)
[2019-03-02] MEDS: FLUTICASONE PROP 0.05% NASAL SPRAY 16 GM (FLONASE) SCH ×2 (09:49→20:08)
--- NOTE | 2019-03-02 09:56 | IPN ---
DATE: 03/02/2019 The patient was seen and examined this morning during bedside rounds. The patient has been complaining of some increased shortness of breath this morning. He does continue to have some cough which is occasionally productive of yellow sputum that he had earlier. The patient was complaining of the inability for phlebotomy to get blood this morning. He denies any abdominal pain. He has not had any nausea or vomiting. The patient has been urinating, but he is incontinent. There were no fevers overnight. PHYSICAL EXAMINATION: Vitals: Temperature 97.6, pulse 55, respirations 16, blood pressure 104/54, O2 sat 92% on 5 liters nasal cannula. General: The patient is an obese male who is lying in bed awake and alert. He does not appear to be in any acute distress. He is somewhat excitable, but easily redirectable. HEENT: Normocephalic, atraumatic. Moist mucous membranes. There is some dry flaky skin on his scalp and face. Neck is supple and no cervical adenopathy. Trachea is midline. Cardiovascular: Regular rate and rhythm. Normal S1 and S2. Unable to appreciate any murmurs. Pulmonary: Diminished breath sounds bilaterally. There is slight expiratory wheeze which appears more with forceful exhalation somewhat upper airways in nature. On the right, there is a borborygmus sound heard in the lower part of the chest. Abdomen is obese and nondistended. There is mild tenderness in the epigastric region. No rebound or guarding. Extremities: There are some chronic venous stasis changes. There is evidence of wrinkling in the lower extremities bilaterally, but no significant edema. LABORATORY DATA: No labs for today. IMAGING STUDIES: Echo showed grade 1 diastolic dysfunction. There is mild to moderate dilated left atrium. There is normal right heart chambers with evidence of mild pulmonary hypertension. There is no significant valvular disease. ASSESSMENT: Mr. Cosme is an 83-year-old male with a past medical history of colon cancer status post resection, history of deep vein thrombosis (DVT) status post IVC filter not on anticoagulation, history of diastolic congestive heart failure (CHF), hypothyroidism, hypertension, chronic obstructive pulmonary disease (COPD), and bipolar disorder who presented with complaints of increased shortness of breath and cough. The patient was febrile with leukocytosis on admission. His chest x-ray showed a possible perihilar infiltrate in the left lung consistent with pneumonia. The patient was started on broad-spectrum antibiotics and is currently on meropenem and vancomycin. He was initially on BiPap for some concern of CHF; however, he does not appear to be overtly fluid overloaded, and his BNP was only mildly elevated on admission. The patient has been off BiPap and only on his 5 liters nasal cannula which he is on chronically. - Continue with broad-spectrum antibiotics with meropenem and vancomycin. Methicillin-resistant Staphylococcus aureus (MRSA) screen was negative, but will followup results of his sputum culture and followup results of atypical pneumonia testing with the urine Legionella and Mycoplasma. - Would check a procalcitonin to help determine de-escalation of antibiotics. - Continue with Xopenex nebs and Solu-Medrol for possible COPD exacerbation. The patient will be weaned from 40 mg every 6 hours to 40 mg every 8 hours of Solu-Medrol and continue weaning down as tolerated. - Continue nasal cannula oxygen supplementation at 5 liters per minute. Suspect he does have a diagnosis of obstructive sleep apnea (KAREN) and possible obesity hypoventilation syndrome (OHS) given his body habitus. The patient was previously seen in the pulmonary office for a workup of sleep apnea which he has refused. - Continue monitoring ins and outs and monitoring his daily weights for signs of fluid overload. His Lasix is currently on hold, but would likely need to restart with his by mouth home dose at some point. Deep vein thrombosis (DVT) prophylaxis with heparin. Gastrointestinal (GI) prophylaxis. FULL CODE. Please do not hesitate to call if any further questions or concerns MTDD
[2019-03-02] MEDS ORDERED: VANCOMYCIN HCL 500 MG in D5W MINI-BAG PLUS 100 ML IV SCH (10:00)
[2019-03-02] MEDS ORDERED: VANCOMYCIN HCL 1,000 MG, VIAL MATE ADAPTER 1 EACH in D5W 250 ML IV SCH (11:00)
[2019-03-02] MEDS: ACETAMINOPHEN TAB 650MG DOSE (2X325MG) PO PRN (11:19)
[2019-03-02 12:00] VITALS: BP 118/56
[2019-03-02] MEDS: AZITHROMYCIN 250 MG TAB PO SCH (15:42)
[2019-03-02] MEDS: clonazePAM 1 MG TAB PO SCH (20:08)
[2019-03-02] MEDS: ASPIRIN 325 MG TAB PO SCH (20:08)
[2019-03-02] MEDS: rOPINIRole 1MG TAB PO SCH (20:08)
[2019-03-02] MEDS: BREO ELLIPTA INH SCH (20:13)
[2019-03-02 22:00] VITALS: BP 128/57
[2019-03-03] VITALS (8 sets, daily range): BP systolic 113–151; BP diastolic 48–65; O2SAT 93
[2019-03-03] MEDS: methylPREDNISolone INJ 40 MG/1 ML VIAL (J2920) IV SCH ×3 (01:23→20:53)
[2019-03-03] MEDS: LEVALBUTEROL 1.25 MG/0.5 ML CONCENTRATE NEB NEB SCH ×5 (01:41→23:20)
[2019-03-03] MEDS: LEVOTHYROXINE 112MCG TABLET (0.112MG) PO SCH (05:04)
[2019-03-03] MEDS: HEPARIN SOD (PORCINE) 5000 UNITS/ML VIAL SC SCH ×3 (05:04→21:05)
[2019-03-03 05:14] LABS: HEMATOCRIT 35.1 % (42.0-52.0); HEMOGLOBIN 10.7 g/dl (13.5-17.5); MEAN CORPUSCULAR HEMOGLOBIN 30.1 pg (27.0-33.0); MEAN CORPUSCULAR HGB CONC 30.5 g/dl (32.0-36.5); MEAN CORPUSCULAR VOLUME 98.9 fl (80.0-96.0); PLATELET COUNT, AUTOMATED 338 10^3/uL (150-450); RED BLOOD COUNT 3.55 10^6/uL (4.30-6.10); WHITE BLOOD COUNT 14.3 10^3/uL (4.0-10.0)
[2019-03-03 05:29] LABS: BLOOD UREA NITROGEN 40 MG/DL (7-18); CALCIUM LEVEL 8.8 MG/DL (8.8-10.2); CARBON DIOXIDE LEVEL 34 MEQ/L (21-32); CHLORIDE LEVEL 102 MEQ/L (98-107); CREATININE FOR GFR 1.04 MG/DL (0.70-1.30); GLOMERULAR FILTRATION RATE > 60.0 (>35); GLUCOSE, FASTING 159 MG/DL (70-100); POTASSIUM SERUM 4.1 MEQ/L (3.5-5.1); SODIUM LEVEL 140 MEQ/L (136-145)
--- NOTE | 2019-03-03 07:18 | IPNPDOC ---
Date Seen The patient was seen on 03/03/19. Progress Note SUBJECTIVE: No o/n issues, weaning off oxygen. transferred out of ICU 03/02/19. Had bright red blood per rectum yesterday, consultative GI, plan for colonoscopy 03/04, pt refuses bowel preparation. OBJECTIVE PHYSICAL EXAMINATION: PHYSICAL EXAMINATION: VITAL SIGNS: Please see below. GENERAL: No distress HEENT: Normocephalic, atraumatic, has bipap mask intact NECK: Supple CARDIOVASCULAR EXAMINATION: S1, S2 RESPIRATORY EXAMINATION: diminished, but clear ABDOMINAL EXAMINATION: Soft, nontender, nondistended, positive bowel sounds : +maroon colored stool, no external hemorrhoids EXTREMITIES: Trace edema SKIN: No rash NEUROLOGICAL EXAMINATION: Alert and oriented 3, no focal deficits PSYCHIATRIC EXAMINATION: flat affect LABORATORY DATA, IMAGING STUDIES, MICROBIOLOGY: Please see below. Echocardiogram: see below. DVT prophylaxis ordered?: heparin ASSESSMENT AND PLAN: Patient is an 83-year-old male with past medical history of HFpEF (echo on 2017 reveals an EF of 65% and grade 1 diastolic dysfunction), bipolar disorder/panic attacks, former smoker with likely hx COPD, history of right femoral DVT, history of rectal cancer with distal colon resection, chronic constipation, history of elevated right diaphragm presenting with acute on ch ronic CHF exacerbation and pneumonia. #Rectal bleeding with history of rectal cancer and distal colon resection: GI consult, plan for colonoscopy # Acute respiratory failure secondary to pneumonia: Empirically treated with ceftriaxone and doxycycline, patient is allergic to penicillins and sulfa med ications. Continue meropenem (started 02/28, 7 day course). DC vancomycin (started 02/28). Add atypical coverage 03/02 (5 day course), Continue symptomatic treatment and nebulizers. Follow-up with cultures. Transition to steroid taper for COPD exacerbation. #HFpEF: lasix 20mg IV x1 #History of seizures with neurostimulator device: follows Dr. Oakley, add Ativan prn seizures, likely secondary to current infection, if patient has recurrent seizures despite treatment, consider neuro consult/contacting Dr. Oakley, monitor #. Hypothyroidism: abnormal thyroid labs, will need outpt reassessment and adjus tment. Continue home meds #mood disorder: Continue home meds #Anemia: Continue home meds #DVT prophylaxis: Heparin Full code Dispo: resident of [facility] nursing LABORATORY DATA, IMAGING STUDIES, MICROBIOLOGY: Please see below. DISPOSITION: possible Tuesday03/05/19. VS, I&O, 24H, Fishbone Vital Signs/I&O Vital Signs Date Time Temp Pulse Resp B/P (MAP) Pulse Ox O2 Delivery O2 Flow Rate FiO2 03/03/19 06:00 98.0 64 18 119/54 (75) 93 Nasal Cannula 5.0 03/01/19 08:00 40 I&O- Last 24 Hours up to 6 AM 03/03/19 06:00 Intake Total 1940 ml Balance 1940 ml Laboratory Data 24H LABS Laboratory Tests 2 03/02/19 08:16: Nucleated Red Blood Cells % (auto) 0.0, Anion Gap 6L, Glomerular Filtration Rate > 60.0, Calcium Level 9.0, Vancomycin Level Trough 10.6 03/03/19 04:52: Nucleated Red Blood Cells % (auto) 0.0, Anion Gap 4L, Glomerular Filtration Rate > 60.0, Calcium Level 8.8 CBC/BMP Laboratory Tests 03/02/19 08:16 03/03/19 04:52 Microbiology Microbiology 03/02/19 Stool Occult Blood (MY) - Final, Complete 03/01/19 Gram Stain - Final, Resulted 03/01/19 Sputum Culture, Resulted Pending 02/28/19 Blood Culture - Preliminary, Resulted No Growth after 48 hours. All Specime... 02/28/19 Blood Culture - Preliminary, Resulted No Growth after 48 hours. All Specime... 02/28/19 Respiratory Virus Panel (PCR) (MY) - Final, Complete DARLENE MORTON MD Mar 03, 2019 07:18
[2019-03-03] MEDS ORDERED: MOM 30ML SUSPENSION UDC PO ONE ×2 (08:00→17:00)
[2019-03-03] MEDS ORDERED: POLYETHYLENE GLYCOL (MIRALAX) 238GM BOTTLE PO ONE ×2 (08:00→17:00)
[2019-03-03] MEDS: MEROPENEM INJ 1 GM in IV 1 EA IV SCH ×3 (08:19→23:25)
[2019-03-03] MEDS: LACTOBACILLUS ACIDOPHILUS CAP (BACID) PO SCH ×2 (10:19→17:43)
[2019-03-03] MEDS: CYANOCOBALAMIN 500 MCG TAB PO SCH (10:22)
[2019-03-03] MEDS: busPIRone 5 MG TAB PO SCH ×3 (10:22→20:50)
[2019-03-03] MEDS: POTASSIUM CHLORIDE 10 MEQ SR TABLET PO SCH ×2 (10:22→20:49)
[2019-03-03] MEDS: guaiFENesin ER 600 MG TAB PO SCH ×2 (10:22→20:51)
[2019-03-03] MEDS: GABAPENTIN 400 MG CAP PO SCH ×2 (10:22→20:54)
[2019-03-03] MEDS: AMIODARONE 200 MG TAB (PACERONE) PO SCH ×2 (10:22→20:51)
[2019-03-03] MEDS: OLANZapine 2.5MG TABLET PO SCH ×2 (10:23→20:52)
[2019-03-03] MEDS: AZITHROMYCIN 250 MG TAB PO SCH (10:23)
[2019-03-03] MEDS: THIAMINE 100 MG TAB PO SCH (10:23)
[2019-03-03] MEDS: SENOKOT S TAB PO SCH ×2 (10:23→20:52)
[2019-03-03] MEDS: FLUTICASONE PROP 0.05% NASAL SPRAY 16 GM (FLONASE) SCH ×2 (10:24→20:53)
[2019-03-03] MEDS: clonazePAM 0.5 MG TAB PO SCH (10:24)
[2019-03-03] MEDS: PANTOPRAZOLE 40MG INJ (PROTONIX) (C9113) IV SCH (10:24)
[2019-03-03] MEDS ORDERED: FUROSEMIDE 20 MG/2 ML VIAL (J1940) IV ONE (11:45)
[2019-03-03] MEDS ORDERED: ALBUTEROL 90 MCG/ACT 8GM HFA INHALER INH PRN (12:45)
[2019-03-03] MEDS: ACETAMINOPHEN TAB 650MG DOSE (2X325MG) PO PRN ×2 (13:00→23:26)
[2019-03-03 17:13] LABS: BODY FLUID CULTURE Not Indicated (.); LEGIONELLA ANTIGEN URINE Negative (Negative); ORGANISM ID Not indicated. (.); SPECIMEN SOURCE Urine (.); URINE STREP PNEUMONIAE ANTIGEN Negative (Negative)
[2019-03-03] MEDS: clonazePAM 1 MG TAB PO SCH (20:49)
[2019-03-03] MEDS: rOPINIRole 1MG TAB PO SCH (20:50)
[2019-03-03] MEDS: ASPIRIN 325 MG TAB PO SCH ×2 (20:54→21:00)
[2019-03-03] MEDS: BREO ELLIPTA INH SCH (21:06)
[2019-03-04 01:42] VITALS: BP 113/53
--- NOTE | 2019-03-04 02:49 | REPVR ---
PROCEDURE INFORMATION: Exam: XR Chest, 1 View Exam date and time: 03/04/2019 2:35 AM Age: 83 years old Clinical history: Shortness of breath TECHNIQUE: Imaging protocol: XR of the chest Views: 1 view. COMPARISON: CR PORTABLE CHEST X-RAY 03/01/2019 8:30 AM (The report from this study was not available for review at the time of this interpretation.) FINDINGS: Lungs: The lung volumes are low. There are bibasilar airspace opacities, which may represent atelectasis and/or consolidation. Pleural space: There are small bilateral pleural effusions. No pneumothorax is identified. Heart/Mediastinum: Unremarkable. The cardiac silhouette is top normal in size. Vasculature: There are atherosclerotic calcifications of the aortic arch. Upper abdomen: There is gaseous distention of the transverse colon. Bones/joints: Unremarkable. IMPRESSION: Small bilateral pleural effusions with associated bibasilar atelectasis and/or consolidation. Electronically signed by: Peter Villanueva On 03/04/2019 02:48:27 AM
[2019-03-04] MEDS: LEVOTHYROXINE 112MCG TABLET (0.112MG) PO SCH (05:39)
[2019-03-04] MEDS: HEPARIN SOD (PORCINE) 5000 UNITS/ML VIAL SC SCH ×3 (05:40→21:23)
[2019-03-04 06:00] VITALS: BP 149/67
[2019-03-04] MEDS ORDERED: PROPOFOL 200 MG/20 ML VIAL As Ordered ONE (07:51)
[2019-03-04] MEDS ORDERED: LIDOCAINE 2% INJ 100 MG/5 ML SDV (FOR ANES.) As Ordered ONE ×2 (07:51→08:50)
[2019-03-04] MEDS: LEVALBUTEROL 1.25 MG/0.5 ML CONCENTRATE NEB NEB SCH ×3 (08:00→20:33)
--- NOTE | 2019-03-04 08:02 | IPNPDOC ---
Date Seen The patient was seen on 03/04/19. Progress Note SUBJECTIVE: No overnight events, did consume bowel prep for colonoscopy. Postop day #0 (03/04/19) status post colonoscopy. Appears baseline anxious, saturating well at baseline O2. OBJECTIVE PHYSICAL EXAMINATION: PHYSICAL EXAMINATION: VITAL SIGNS: Please see below. GENERAL: No distress HEENT: Normocephalic, atraumatic, on baseline 4 L of O2 NECK: Supple CARDIOVASCULAR EXAMINATION: S1, S2 RESPIRATORY EXAMINATION: diminished, but clear ABDOMINAL EXAMINATION: Soft, nontender, nondistended, positive bowel sounds : +maroon colored stool, no external hemorrhoids EXTREMITIES: Trace edema SKIN: No rash NEUROLOGICAL EXAMINATION: Alert and oriented 3, no focal deficits PSYCHIATRIC EXAMINATION: flat affect, baseline anxiety LABORATORY DATA, IMAGING STUDIES, MICROBIOLOGY: Please see below. Echocardiogram: see below. DVT prophylaxis ordered?: heparin ASSESSMENT AND PLAN: Patient is an 83-year-old male with past medical history of HFpEF (echo on 2017 reveals an EF of 65% and grade 1 diastolic dysfunction), bipolar disorder/panic attacks, former smoker with likely hx COPD, history of right femoral DVT, history of rectal cancer with distal colon resection, chronic constipation, history of elevated right diaphragm presenting with acute on chronic CHF exacerbation and pneumonia. # Acute respiratory failure secondary to pneumonia: Empirically treated with ceftriaxone and doxycycline, patient is allergic to penicillins and sulfa medications. Continue meropenem (started 02/28, 7 day course). DC vancomycin (started 02/28). Add atypical coverage 03/02 (5 day course), Continue symptomatic treatment and nebulizers. Sputum culture reveals normal emanuel, respiratory panel was negative, no growth in blood cultures 2 on 01/28/2019. Transition to po steroid taper for COPD exacerbation and po Abx. -Leukocytosis, likely secondary to steroid rather than infectious. Will transition IV to by mouth #Chronic constipation/rectal bleeding with history of rectal cancer and distal colon resection: Spoke with GI s/p colonoscopy, daily miralax/fiber, no additional interventions at this time. #HFpEF: Diuresis as needed #History of seizures with neurostimulator device: follows Dr. Oakley, add Ativan prn seizures, likely secondary to current infection, if patient has recurrent seizures despite treatment, consider neuro consult/contacting Dr. Oakley, monitor #. Hypothyroidism: abnormal thyroid labs, will need outpt reassessment and adjustment. Continue home meds #mood disorder: Continue home meds #Anemia: Continue home meds #DVT prophylaxis: Heparin Full code Dispo: resident of [facility] nursing LABORATORY DATA, IMAGING STUDIES, MICROBIOLOGY: Please see above. DISPOSITION: possible Tuesday03/05/19. VS, I&O, 24H, Fishbone Vital Signs/I&O Vital Signs Date Time Temp Pulse Resp B/P (MAP) Pulse Ox O2 Delivery O2 Flow Rate FiO2 03/04/19 06:00 97.2 63 19 149/67 (94) 91 Nasal Cannula 5.0 03/01/19 08:00 40 I&O- Last 24 Hours up to 6 AM 03/04/19 06:00 Intake Total 3030 ml Output Total 500 ml Balance 2530 ml Laboratory Data 24H LABS Laboratory Tests 2 03/03/19 08:58: Vancomycin Level Trough 10.8 Microbiology Microbiology 03/02/19 Stool Occult Blood (MY) - Final, Complete 03/01/19 Gram Stain - Final, Complete 03/01/19 Sputum Culture - Final, Complete 02/28/19 Blood Culture - Preliminary, Resulted No Growth after 72 hours. All specime... 02/28/19 Blood Culture - Preliminary, Resulted No Growth after 72 hours. All specime... 02/28/19 Respiratory Virus Panel (PCR) (MY) - Final, Complete DARLENE MORTON MD Mar 04, 2019 08:02
[2019-03-04 08:14] LABS: HEMATOCRIT 37.7 % (42.0-52.0); HEMOGLOBIN 11.6 g/dl (13.5-17.5); MEAN CORPUSCULAR HEMOGLOBIN 30.4 pg (27.0-33.0); MEAN CORPUSCULAR HGB CONC 30.8 g/dl (32.0-36.5); MEAN CORPUSCULAR VOLUME 98.7 fl (80.0-96.0); PLATELET COUNT, AUTOMATED 400 10^3/uL (150-450); RED BLOOD COUNT 3.82 10^6/uL (4.30-6.10); WHITE BLOOD COUNT 17.5 10^3/uL (4.0-10.0)
[2019-03-04 08:40] LABS: BLOOD UREA NITROGEN 38 MG/DL (7-18); CALCIUM LEVEL 9.6 MG/DL (8.8-10.2); CARBON DIOXIDE LEVEL 34 MEQ/L (21-32); CHLORIDE LEVEL 105 MEQ/L (98-107); CREATININE FOR GFR 0.95 MG/DL (0.70-1.30); GLOMERULAR FILTRATION RATE > 60.0 (>35); GLUCOSE, FASTING 135 MG/DL (70-100); SODIUM LEVEL 145 MEQ/L (136-145)
[2019-03-04] MEDS ORDERED: ePHEDrine SULFATE 25 MG/5 ML(5MG/ML) SYRINGE As Ordered ONE (08:50)
[2019-03-04] MEDS: MIRALAX *UNIT DOSE* 17GM PACKET PO SCH (09:00)
--- NOTE | 2019-03-04 09:28 | ROOR ---
Patient Name: Rolando Cosme Procedure Date: 03/04/2019 7:59 AM Date of : 1935 Age: 83 Gender: Male Note Status: Finalized Procedure: Colonoscopy Indications: Hematochezia Providers: Kun LUZ MD Referring MD: 2. Inpatient 2. Inpatient Requesting Provider: Medicines: Monitored Anesthesia Care Complications: No immediate complications. Procedure: Pre-Anesthesia Assessment: - The heart rate, respiratory rate, oxygen saturations, blood pressure, adequacy of pulmonary ventilation, and response to care were monitored throughout the procedure. The Colonoscope was introduced through the anus and advanced to 5 cm into the ileum. The colonoscopy was performed without difficulty. The patient tolerated the procedure well. The quality of the bowel preparation was adequate. Findings: The perianal and digital rectal examinations were normal. Internal hemorrhoids were found during retroflexion. The hemorrhoids were moderate. Multiple medium-mouthed diverticula were found in the descending colon and transverse colon. There was evidence of a prior end-to-end colo-rectal anastomosis in the proximal rectum. This was patent and was characterized by healthy appearing mucosa. Retroflexion in the right colon was performed. The exam was otherwise normal throughout the examined colon. The terminal ileum appeared normal. Impression: - Internal hemorrhoids. - Mild diverticulosis in the descending colon and in the transverse colon. - Patent end-to-end colo-rectal anastomosis, widely patent and characterized by healthy appearing mucosa. - The colon is large/compliant and lacks tone, but is otherwise normal. - The examined portion of the ileum was normal. - No specimens collected. Recommendation: -Suspect chronic diarrheal symptoms/incontinence/rectal bleeding may be related to intermittent constipation/fecal impactions/outlet irritation. -Recommend daily Miralax plus fiber supplement. -He does not need routine follow up with me, He can follow up with me PRN. - Use fiber, for example Citrucel, Fibercon, Konsyl or Metamucil daily indefinitely. - Miralax 1 capful (17 grams) in 8 ounces of water PO daily indefinitely. - Regular diet. Kun Luz MD Kun LUZ MD 03/04/2019 9:27:31 AM Electronically signed by Kun LUZ MD Number of Addenda: 0 Note Initiated On: 03/04/2019 7:59 AM Estimated Blood Loss: Estimated blood loss: none.
[2019-03-04] MEDS ORDERED: ALBUTEROL SULFATE 2.5 MG/0.5 ML INH NEB SOLN As Ordered ONE (09:53)
[2019-03-04] MEDS ORDERED: LR 1,000 ML IV SCH (10:00)
[2019-03-04] MEDS ORDERED: ONDANSETRON 4MG/2ML VIAL (J2405) IV PRN (10:00)
[2019-03-04] MEDS ORDERED: ALBUTEROL SULFATE 2.5 MG/0.5 ML INH NEB SOLN INH ONE (10:00)
[2019-03-04] MEDS: PANTOPRAZOLE 40MG INJ (PROTONIX) (C9113) IV SCH (11:15)
[2019-03-04] MEDS: methylPREDNISolone INJ 40 MG/1 ML VIAL (J2920) IV SCH (11:15)
[2019-03-04] MEDS: MEROPENEM INJ 1 GM in IV 1 EA IV SCH (11:16)
[2019-03-04] MEDS: clonazePAM 0.5 MG TAB PO SCH (11:16)
[2019-03-04] MEDS: AZITHROMYCIN 250 MG TAB PO SCH (11:18)
[2019-03-04] MEDS: SENOKOT S TAB PO SCH ×2 (11:18→21:24)
[2019-03-04] MEDS: busPIRone 5 MG TAB PO SCH ×3 (11:19→21:24)
[2019-03-04] MEDS: CYANOCOBALAMIN 500 MCG TAB PO SCH (11:20)
[2019-03-04] MEDS: POTASSIUM CHLORIDE 10 MEQ SR TABLET PO SCH ×2 (11:20→21:24)
[2019-03-04] MEDS: guaiFENesin ER 600 MG TAB PO SCH ×2 (11:21→21:24)
[2019-03-04] MEDS: AMIODARONE 200 MG TAB (PACERONE) PO SCH ×2 (11:21→21:24)
[2019-03-04] MEDS: FERROUS SULFATE 325MG TAB PO SCH (11:22)
[2019-03-04] MEDS: OLANZapine 2.5MG TABLET PO SCH ×2 (11:22→21:26)
[2019-03-04] MEDS: GABAPENTIN 400 MG CAP PO SCH ×2 (11:22→21:24)
[2019-03-04] MEDS: LACTOBACILLUS ACIDOPHILUS CAP (BACID) PO SCH ×2 (11:23→16:49)
[2019-03-04] MEDS: THIAMINE 100 MG TAB PO SCH (11:24)
[2019-03-04] MEDS: FLUTICASONE PROP 0.05% NASAL SPRAY 16 GM (FLONASE) SCH ×2 (13:09→21:27)
[2019-03-04] MEDS ORDERED: FUROSEMIDE 40 MG/4 ML VIAL (J1940) IV ONE (14:00)
--- NOTE | 2019-03-04 16:13 | ECGEPIP ---
[facility] Test Date: 2019-03-04 Pat Name: MADYSON HARO Department: Room: [place] [address] Gender: Male Tube Inspector: : 1935 Requested By: GHASSAN PAREKH Order Number: [id number] Reading MD: Kun Porter Measurements Intervals [place] Rate: 76 P: 43 SC: 222 QRS: 267 QRSD: 106 T: 2 QT: 368 QTc: 414 Interpretive Statements SINUS RHYTHM WITH FIRST DEGREE AV BLOCK INDETERMINATE AXIS Incomplete right bundle branch block Electronically Signed on 03-04-2019 16:12:41 EST by Kun Porter
[2019-03-04] MEDS: METAMUCIL (PSYLLIUM) PACKET PO SCH ×2 (16:49→21:23)
[2019-03-04 20:47] VITALS: BP 131/58
[2019-03-04] MEDS: clonazePAM 1 MG TAB PO SCH (21:22)
[2019-03-04] MEDS: ACETAMINOPHEN TAB 650MG DOSE (2X325MG) PO PRN (21:23)
[2019-03-04] MEDS: ASPIRIN 325 MG TAB PO SCH (21:24)
[2019-03-04] MEDS: CEFDINIR 300 MG CAP (OMNICEF) PO SCH (21:24)
[2019-03-04] MEDS: rOPINIRole 1MG TAB PO SCH (21:24)
[2019-03-04] MEDS: BREO ELLIPTA INH SCH (21:27)
[2019-03-05] MEDS: LEVALBUTEROL 1.25 MG/0.5 ML CONCENTRATE NEB NEB SCH ×4 (02:00→20:08)
[2019-03-05] MEDS: HEPARIN SOD (PORCINE) 5000 UNITS/ML VIAL SC SCH ×3 (05:56→22:21)
[2019-03-05] MEDS: LEVOTHYROXINE 112MCG TABLET (0.112MG) PO SCH (05:56)
[2019-03-05 06:44] VITALS: BP 152/77
[2019-03-05] MEDS: LACTOBACILLUS ACIDOPHILUS CAP (BACID) PO SCH ×2 (08:00→18:37)
[2019-03-05] MEDS ORDERED: TORSEMIDE 20 MG TAB PO SCH (09:00)
[2019-03-05] MEDS: MIRALAX *UNIT DOSE* 17GM PACKET PO SCH (09:00)
[2019-03-05] MEDS: CYANOCOBALAMIN 500 MCG TAB PO SCH (09:00)
[2019-03-05] MEDS: METAMUCIL (PSYLLIUM) PACKET PO SCH ×3 (09:00→21:00)
[2019-03-05] MEDS: POTASSIUM CHLORIDE 10 MEQ SR TABLET PO SCH ×2 (09:00→22:17)
[2019-03-05] MEDS: THIAMINE 100 MG TAB PO SCH (09:00)
[2019-03-05] MEDS: guaiFENesin ER 600 MG TAB PO SCH ×2 (09:00→21:00)
[2019-03-05] MEDS: SENOKOT S TAB PO SCH ×2 (09:00→22:17)
[2019-03-05] MEDS: GABAPENTIN 400 MG CAP PO SCH ×2 (09:00→22:17)
[2019-03-05] MEDS: clonazePAM 0.5 MG TAB PO SCH (09:50)
[2019-03-05] MEDS: busPIRone 5 MG TAB PO SCH ×3 (09:50→22:18)
[2019-03-05] MEDS: PANTOPRAZOLE 40MG INJ (PROTONIX) (C9113) IV SCH (09:51)
[2019-03-05] MEDS: AMIODARONE 200 MG TAB (PACERONE) PO SCH ×2 (09:51→22:18)
[2019-03-05] MEDS: AZITHROMYCIN 250 MG TAB PO SCH (09:51)
[2019-03-05] MEDS: FLUTICASONE PROP 0.05% NASAL SPRAY 16 GM (FLONASE) SCH ×2 (09:51→22:21)
[2019-03-05] MEDS: CEFDINIR 300 MG CAP (OMNICEF) PO SCH ×2 (09:52→22:18)
[2019-03-05] MEDS: predniSONE 10 MG TAB PO SCH (09:52)
[2019-03-05] MEDS: OLANZapine 2.5MG TABLET PO SCH ×2 (09:53→22:17)
--- NOTE | 2019-03-05 11:30 | IPNPDOC ---
Date Seen The patient was seen on 03/05/19. Progress Note SUBJECTIVE: No overnight events, back at his baseline 4 L of nasal cannula. Pt reports nausea and vomiting, patient does not have nausea and vomiting per nursing staff. Per nursing staff, patient has decreased by mouth intake, and upon review with PT, patient is refusing PT. OBJECTIVE PHYSICAL EXAMINATION: PHYSICAL EXAMINATION: VITAL SIGNS: Please see below. GENERAL: No distress HEENT: Normocephalic, atraumatic, on baseline 4 L of O2 NECK: Supple CARDIOVASCULAR EXAMINATION: S1, S2 RESPIRATORY EXAMINATION: diminished, but clear ABDOMINAL EXAMINATION: Soft, +tender, not guarding, nondistended, positive bowel sounds : +maroon colored stool, no external hemorrhoids EXTREMITIES: Trace edema SKIN: No rash PSYCHIATRIC EXAMINATION: flat affect, baseline anxiety LABORATORY DATA, IMAGING STUDIES, MICROBIOLOGY: Please see below. Echocardiogram: see below. DVT prophylaxis ordered?: heparin ASSESSMENT AND PLAN: Patient is an 83-year-old male with past medical history of HFpEF (echo on 2017 reveals an EF of 65% and grade 1 diastolic dysfunction), bipolar disorder/panic attacks, former smoker with likely hx COPD, history of right femoral DVT, history of rectal cancer with distal colon resection, chronic constipation, history of elevated right diaphragm presenting with acute on chronic CHF exacerbation and pneumonia. # Acute respiratory failure secondary to pneumonia: Empirically treated with ceftriaxone and doxycycline, patient is allergic to penicillins and sulfa medications. Continue meropenem (started 02/28, 7 day course). DC vancomycin (started 02/28). Add atypical coverage 03/02 (5 day course), Continue symptomatic treatment and nebulizers. Sputum culture reveals normal emanuel, respiratory panel was negative, no growth in blood cultures 2 on 01/28/2019. Transition to po steroid taper for COPD exacerbation and po Abx. -Leukocytosis, likely secondary to steroid rather than infectious. Transition IV to by mouth -Deconditioning, likely secondary to infection, will follow with PT #Chronic constipation/rectal bleeding with history of rectal cancer and distal colon resection: Spoke with GI s/p colonoscopy, daily miralax/fiber, no additional interventions at this time. Postop day #1 (03/04/19) status post colonoscopy #HFpEF: Diuresis as needed #History of seizures with neurostimulator device: follows Dr. Oakley, add Ativan prn seizures, likely secondary to current infection, if patient has recurrent seizures despite treatment, consider neuro consult/contacting Dr. Oakley, monitor #. Hypothyroidism: abnormal thyroid labs, will need outpt reassessment and adjustment. Continue home meds #mood disorder: Continue home meds #Anemia: Continue home meds #DVT prophylaxis: Heparin Full code Dispo: resident of [facility] nursing consider dc 03/06 VS, I&O, 24H, Fishbone Vital Signs/I&O Vital Signs Date Time Temp Pulse Resp B/P (MAP) Pulse Ox O2 Delivery O2 Flow Rate FiO2 03/05/19 06:44 97.6 59 18 152/77 (102) 96 Nasal Cannula 4.0 03/01/19 08:00 40 I&O- Last 24 Hours up to 6 AM 03/05/19 05:59 Intake Total 575 ml Output Total 575 ml Balance 0 ml Laboratory Data Microbiology Microbiology 03/02/19 Stool Occult Blood (MY) - Final, Complete 03/01/19 Gram Stain - Final, Complete 03/01/19 Sputum Culture - Final, Complete 02/28/19 Blood Culture - Final, Complete NO GROWTH AFTER 5 DAYS 02/28/19 Blood Culture - Final, Complete NO GROWTH AFTER 5 DAYS 02/28/19 Respiratory Virus Panel (PCR) (MY) - Final, Complete DARLENE MORTON MD Mar 05, 2019 11:30
[2019-03-05] MEDS: ONDANSETRON 4MG/2ML VIAL (J2405) IV SCH ×2 (12:37→18:37)
[2019-03-05] MEDS: BREO ELLIPTA INH SCH (21:00)
[2019-03-05 22:00] VITALS: BP 113/68
[2019-03-05] MEDS: rOPINIRole 1MG TAB PO SCH (22:17)
[2019-03-05] MEDS: ASPIRIN 325 MG TAB PO SCH (22:18)
[2019-03-05] MEDS: clonazePAM 1 MG TAB PO SCH (22:19)
[2019-03-05] MEDS: ACETAMINOPHEN TAB 650MG DOSE (2X325MG) PO PRN (22:19)
[2019-03-06] MEDS: LEVALBUTEROL 1.25 MG/0.5 ML CONCENTRATE NEB NEB SCH ×4 (00:18→21:00)
[2019-03-06] MEDS: ONDANSETRON 4MG/2ML VIAL (J2405) IV SCH ×4 (00:52→18:28)
[2019-03-06] MEDS: HEPARIN SOD (PORCINE) 5000 UNITS/ML VIAL SC SCH ×3 (05:36→21:52)
[2019-03-06] MEDS: LEVOTHYROXINE 112MCG TABLET (0.112MG) PO SCH (05:36)
[2019-03-06 06:45] VITALS: BP 115/72
[2019-03-06] MEDS ORDERED: PRED10TA2 PO (07:15)
[2019-03-06] MEDS ORDERED: CEFD300CAP PO (07:15)
[2019-03-06] MEDS ORDERED: BACITAB PO (07:15)
[2019-03-06] MEDS ORDERED: DOXY-350 PO (07:15)
[2019-03-06] MEDS ORDERED: META28.32 PO (07:15)
[2019-03-06] MEDS ORDERED: metOLazone 5 MG TAB PO ONE (08:30)
[2019-03-06] MEDS: LACTOBACILLUS ACIDOPHILUS CAP (BACID) PO SCH ×2 (08:37→18:29)
[2019-03-06] MEDS: MIRALAX *UNIT DOSE* 17GM PACKET PO SCH (09:00)
[2019-03-06] MEDS: OLANZapine 2.5MG TABLET PO SCH ×2 (09:00→21:52)
[2019-03-06] MEDS: METAMUCIL (PSYLLIUM) PACKET PO SCH ×3 (09:00→21:00)
[2019-03-06] MEDS ORDERED: BUMETANIDE 1 MG TAB PO SCH (09:00)
[2019-03-06] MEDS: GABAPENTIN 400 MG CAP PO SCH ×2 (09:00→21:52)
[2019-03-06] MEDS: clonazePAM 0.5 MG TAB PO SCH (09:00)
[2019-03-06] MEDS: SENOKOT S TAB PO SCH ×2 (10:24→21:51)
[2019-03-06] MEDS: POTASSIUM CHLORIDE 10 MEQ SR TABLET PO SCH ×2 (10:24→21:51)
[2019-03-06] MEDS: PANTOPRAZOLE 40MG INJ (PROTONIX) (C9113) IV SCH (10:24)
[2019-03-06] MEDS: CEFDINIR 300 MG CAP (OMNICEF) PO SCH ×2 (10:25→21:51)
[2019-03-06] MEDS: CYANOCOBALAMIN 500 MCG TAB PO SCH (10:25)
[2019-03-06] MEDS: busPIRone 5 MG TAB PO SCH ×3 (10:25→21:51)
[2019-03-06] MEDS: predniSONE 10 MG TAB PO SCH (10:25)
[2019-03-06] MEDS: guaiFENesin ER 600 MG TAB PO SCH ×2 (10:26→21:52)
[2019-03-06] MEDS: THIAMINE 100 MG TAB PO SCH (10:26)
[2019-03-06] MEDS: AMIODARONE 200 MG TAB (PACERONE) PO SCH ×2 (10:26→21:52)
[2019-03-06] MEDS: FERROUS SULFATE 325MG TAB PO SCH (10:26)
[2019-03-06] MEDS: AZITHROMYCIN 250 MG TAB PO SCH (10:26)
[2019-03-06] MEDS: FLUTICASONE PROP 0.05% NASAL SPRAY 16 GM (FLONASE) SCH ×2 (10:26→21:53)
[2019-03-06 13:27] LABS: C REACTIVE PROTEIN QUANTITATIV 4.25 MG/DL (0.00-0.30)
[2019-03-06] MEDS: ACETAMINOPHEN TAB 650MG DOSE (2X325MG) PO PRN (13:28)
[2019-03-06 14:14] VITALS: BP 117/66
[2019-03-06 20:00] VITALS: BP 111/47
--- NOTE | 2019-03-06 20:54 | IPN ---
DATE: 03/06/2019 The patient complains of worsening shortness of breath, thick sputum production that is garcia-white in color and mucoid in appearance. He did not sleep much last night. He states that he is very uncomfortable this morning despite resuming his torsemide and being 93% on 3 liters nasal cannula. The patient is refusing to be discharged due to worsening shortness of breath. He denies any chest pain, pressure, tightness, dizziness or lightheadedness. This morning he was afebrile. No complaints of chills. PHYSICAL EXAMINATION: VITAL SIGNS: Temperature 97.8, pulse 56 to 68, sinus rhythm, respiratory rate 18, blood pressure 115/72, 95% on 3 liters nasal cannula. GENERAL: The patient is awake, alert, oriented to himself only but he is able to provider much of the history. He is somewhat irritable this morning "turn off the lights, I am trying to sleep here." Mild jugular venous distention (JVD). No thyromegaly or cervical lymphadenopathy. LUNGS: Diminished breath sounds with bibasilar crackles. HEART: S1, S2. Sinus rhythm. ABDOMEN: Obese, soft, nontender, nondistended. Positive bowel sounds times four quadrants. EXTREMITIES: Trace edema in bilateral lower extremities. LABORATORY DATA: White count is 17.5, hemoglobin 11.6, hematocrit 37, platelet count 400. Sodium 145, potassium 4.0, chloride 105, bicarbonate 34, BUN 38, creatinine 0.95, glucose 135. Hemoccult stool on 03/02/[address] Luz shows mild diverticulosis and internal hemorrhoids, patent end to end anastomosis, widely patent. Colon is large and compliant, lax tone, but is otherwise normal. Suspect chronic diarrheal symptoms, incontinence and rectal bleeding may be related to intermittent constipation or fecal impaction outlet irritation with recommendation for MiraLAX plus fiber supplements. No routine followup required. LABORATORY DATA: White count 17.5. ASSESSMENT AND PLAN: This is an 83-year-old male from [facility], FULL CODE, who presented due to worsening shortness of breath, cough with productive yellow-white sputum [facility], who was found to have acute respiratory acidosis, treated for pneumonia, chronic obstructive pulmonary disease (COPD) and resumed back on his home dose of torsemide. The patient does have a history of paroxysmal supraventricular tachycardia (PSVT) and has been on chronic amiodarone and has had regular rhythm during this admission. ACTIVE ISSUES: 1. Pneumonia. The patient is status post ceftriaxone, doxycycline and was given 7 days of meropenem. Currently on Cefdinir. 2. Chronic obstructive pulmonary disease (COPD) exacerbation. On oral prednisone taper. Dr. Peralta was consulted and agreed with oral cefdinir and oral prednisone. 3. Chronic constipation and rectal bleeding due to a history of rectal cancer and distal colon resection. Per window shade estimator, most likely secondary to constipation and recommends daily MiraLAX and fiber. No need for outpatient followup. 4. Congestive heart failure (CHF), preserved ejection fraction with bibasilar pleural effusions. The patient had been resumed on his home dose of torsemide. Remains in positive balance. We will give one dose of Bumex today. 5. History of hypothyroidism. Continue on home medications. 6. Chronic hypoxic respiratory failure. Currently at baseline oxygen requirement at 3 liters nasal cannula. 7. Colon cancer with resection and colostomy with subsequent reversal. Currently on bowel regimen. 8. History of right femoral deep vein thrombosis (DVT) with IVC filter placement. No acute issues. 9. History of paroxysmal supraventricular tachycardia (PSVT). On chronic amiodarone. 10. Bipolar disorder. Resume psychiatric medications. 11. Chronic neuropathy. On Neurontin 400 mg twice a day. 12. Chronic constipation. On Senokot S and bowel regimen with MiraLAX. 13. Anemia secondary to gastrointestinal bleed from intermittent constipation. On ferrous sulfate. 14. Bipolar disorder. On BuSpar, Klonopin and Zyprexa. MTDD
[2019-03-06] MEDS: clonazePAM 1 MG TAB PO SCH (21:51)
[2019-03-06] MEDS: ASPIRIN 325 MG TAB PO SCH (21:51)
[2019-03-06] MEDS: rOPINIRole 1MG TAB PO SCH (21:53)
[2019-03-06] MEDS: BREO ELLIPTA INH SCH (21:53)
[2019-03-07] MEDS: ONDANSETRON 4MG/2ML VIAL (J2405) IV SCH ×2 (00:22→06:08)
[2019-03-07] MEDS: LEVALBUTEROL 1.25 MG/0.5 ML CONCENTRATE NEB NEB SCH ×2 (00:30→08:23)
[2019-03-07 05:30] VITALS: BP 118/58
[2019-03-07] MEDS: HEPARIN SOD (PORCINE) 5000 UNITS/ML VIAL SC SCH (06:00)
[2019-03-07] MEDS: LEVOTHYROXINE 112MCG TABLET (0.112MG) PO SCH (06:09)
[2019-03-07 08:07] LABS: BASO % 0.1 % (0.0-1.0); EOS % 0.1 % (0.0-3.0); HEMATOCRIT 38.5 % (42.0-52.0); HEMOGLOBIN 11.9 g/dl (13.5-17.5); LYMPH # 1.1 10^3/uL (1.5-5.0); LYMPH % 6.2 % (24.0-44.0); MEAN CORPUSCULAR HEMOGLOBIN 30.3 pg (27.0-33.0); MEAN CORPUSCULAR HGB CONC 30.9 g/dl (32.0-36.5); NEUTROPHILS # 13.8 10^3/uL (1.5-8.5); NEUTROPHILS % 79.2 % (36.0-66.0); PLATELET COUNT, AUTOMATED 413 10^3/uL (150-450); RED BLOOD COUNT 3.93 10^6/uL (4.30-6.10); WHITE BLOOD COUNT 17.4 10^3/uL (4.0-10.0)
--- NOTE | 2019-03-07 08:27 | REP ---
Clinical: Shortness of breath. Technique: Axial noncontrast images from the thoracic inlet to the upper abdomen with coronal and sagittal re-formations. Comparison: 12/04/2017. Findings: Elevation to the right hemidiaphragm is again appreciated with right lower lobe consolidation demonstrating air bronchograms. Smaller areas of consolidation/atelectasis with air bronchograms involving the lingula and left lower lobe are also identified. No effusion. No pneumothorax. Mediastinum demonstrates stable atherosclerotic changes to the thoracic aorta and coronary arteries along with cardiomegaly. No pericardial effusion. Musculoskeletal structures demonstrate age-related degenerative changes. Impression: 1. Chronic elevation to the right hemidiaphragm with right lower lobe consolidation as well as small areas of consolidation with air bronchograms involving the left lower lobe and lingula. No effusion. 2. Atherosclerotic disease and cardiomegaly similar to prior examination. Electronically Signed by Marcelino Garcia MD 03/07/2019 08:19 A
[2019-03-07 08:46] LABS: MONO # 2.1 10^3/uL (0.0-0.8)
[2019-03-07 08:50] LABS: BLOOD UREA NITROGEN 40 MG/DL (7-18); CALCIUM LEVEL 9.2 MG/DL (8.8-10.2); CARBON DIOXIDE LEVEL 42 MEQ/L (21-32); CHLORIDE LEVEL 95 MEQ/L (98-107); CREATININE FOR GFR 1.19 MG/DL (0.70-1.30); GLOMERULAR FILTRATION RATE > 60.0 (>35); GLUCOSE, FASTING 112 MG/DL (70-100); SODIUM LEVEL 140 MEQ/L (136-145)
[2019-03-07] MEDS ORDERED: TORSEMIDE 20 MG TAB PO SCH (09:00)
[2019-03-07] MEDS: FLUTICASONE PROP 0.05% NASAL SPRAY 16 GM (FLONASE) SCH (09:00)
[2019-03-07] MEDS: PANTOPRAZOLE 40MG INJ (PROTONIX) (C9113) IV SCH (10:24)
[2019-03-07] MEDS: guaiFENesin ER 600 MG TAB PO SCH (10:37)
[2019-03-07] MEDS: CYANOCOBALAMIN 500 MCG TAB PO SCH (10:38)
[2019-03-07] MEDS: busPIRone 5 MG TAB PO SCH (10:39)
[2019-03-07] MEDS: OLANZapine 2.5MG TABLET PO SCH (10:39)
[2019-03-07] MEDS: THIAMINE 100 MG TAB PO SCH (10:40)
[2019-03-07] MEDS: GABAPENTIN 400 MG CAP PO SCH (10:40)
[2019-03-07] MEDS: clonazePAM 0.5 MG TAB PO SCH (10:40)
[2019-03-07] MEDS: POTASSIUM CHLORIDE 10 MEQ SR TABLET PO SCH (10:41)
[2019-03-07] MEDS: AMIODARONE 200 MG TAB (PACERONE) PO SCH (10:41)
[2019-03-07] MEDS: CEFDINIR 300 MG CAP (OMNICEF) PO SCH (10:41)
[2019-03-07] MEDS: SENOKOT S TAB PO SCH (10:42)
[2019-03-07] MEDS: predniSONE 10 MG TAB PO SCH (10:42)
[2019-03-07] MEDS: LACTOBACILLUS ACIDOPHILUS CAP (BACID) PO SCH (10:43)
[2019-03-07] MEDS: MIRALAX *UNIT DOSE* 17GM PACKET PO SCH (10:43)
[2019-03-07] MEDS: METAMUCIL (PSYLLIUM) PACKET PO SCH (10:43)
[2019-03-07] MEDS ORDERED: MIRA3350 PO (12:34)
--- NOTE | 2019-03-08 20:33 | DSES ---
DATE OF ADMISSION: 02/28/2019 DATE OF DISCHARGE: 03/07/2019 CONSULTANTS DURING THIS ADMISSION: Dr. Nu Peralta, pulmonology/independent living specialist, and Dr. Kun Luz. PRIMARY DISCHARGE DIAGNOSES: 1. Pneumonia. 2. Chronic obstructive pulmonary disease (COPD) exacerbation. 3. Obstructive sleep apnea. 4. Possible obesity hypoventilation syndrome. 5. Abnormal EKG with chronic first-degree atrioventricular (AV) block and incomplete right bundle branch block. 6. Obesity, body mass index (BMI) of 39.3. 7. Left ventricular hypertrophy. 8. Grade 1 left ventricular diastolic dysfunction. 9. Mild pulmonary hypertension. 10. Hematochezia. 11. Internal hemorrhoids. 12. Mild diverticulosis. 13. Chronic diarrheal symptoms, incontinence, and rectal bleeding related to intermittent constipation, fecal impaction, and outlet irritation. DISCHARGE MEDICATIONS: - Metamucil one packet daily - prednisone taper - Bacid one tablet with meals - doxycycline 100 mg twice a day for 4 days - cefdinir 300 mg twice a day for 4 days - acetaminophen 325 mg tablets every 4 hours - amiodarone 200 twice a day - aspirin 325 nightly - bisacodyl 10 mg per rectum daily - buspirone 15 mg three times a day - clonazepam 0.25 daily, 1 mg nightly - vitamin B12 2000 mcg daily - ferrous sulfate 324 mg daily - fluticasone one spray twice a day - Breo Ellipta one puff nightly - gabapentin 400 twice a day - Mucinex 600 twice a day - hydrocodone/acetaminophen one tablet every 6 hours as needed and one tablet twice a day - hydrocortisone acetate per rectum 25 mg as needed for hemorrhoids - Combivent one inhalation four times a day - levalbuterol 0.63 inhaled three times a day as needed - levothyroxine 112 mcg daily - Bacid 30 mL by mouth every 4 hours as needed for indigestion - milk of magnesium 10 mg daily for constipation - mirtazapine 45 mg nightly - olanzapine 2.5 twice a day - potassium chloride 40 twice a day - ropinirole 1 mg nightly - Senokot two tablets twice a day - Fleet enema daily as needed - torsemide 40 daily - vitamin B one capsule daily - MiraLAX daily PROCEDURES DURING THIS ADMISSION: Colonoscopy by Dr. Luz 03/04/2019 showing mild diverticulosis, patent end-to-end colorectal anastomosis with healthy mucosa, colon is compliant, lacks tone but is otherwise normal, normal ileum, suspect chronic diarrheal and incontinent symptoms, rectal bleeding may be related to intermittent constipation and fecal impaction, outlet irritation. Recommend daily MiraLAX plus fiber supplement. He does not need routine followup with Dr. Luz. Use fiber such as Citrucel, FiberCon, or Metamucil daily indefinitely and MiraLAX daily indefinitely. HOSPITAL COURSE: This is an 83-year-old male, [facility] resident, presented with worsening shortness of breath, was found to have COPD exacerbation and pneumonia, treated with IV Solu-Medrol and IV antibiotics with some improvement. Patient continues to have cough productive of yellow-white sputum. Oxygen level had improved and was transitioned over to prednisone taper, seen by Dr. Peralta. Patient did well on Omnicef 300 twice a day and prednisone taper. He remains afebrile with leukocytosis thought to be secondary to steroids. Blood cultures were negative. Sputum culture on 03/01/2019 showed normal emanuel. Respiratory panel was negative due to hematochezia despite normal hemoglobin of 11.6 and 11.9. Patient underwent a colonoscopy with Dr. Luz which shows internal hemorrhoids and diverticulosis. Patient's rectal bleeding may have been related to chronic constipation with recommendations to use fiber daily and MiraLAX. Patient continued to complain of persistent cough and shortness of breath despite having oxygen saturations adequately at 97% on 3 liters nasal cannula. Repeat CT chest on 03/07/2019 showed chronic elevation of the right hemidiaphragm, right lower lobe consolidation with left lower lobe and lingula air bronchograms, no effusion, atherosclerotic disease and cardiomegaly were similar to prior examination. LABORATORY DATA ON DISCHARGE: White count 17.4, hemoglobin 11, hematocrit 38, platelet count 413, sodium 140, potassium 3, chloride 95, bicarbonate 42, BUN 40, creatinine 1.19, glucose of 112. Microbiology: Sputum culture normal emanuel, Hemoccult stool 03/02/2019 was positive. Two sets of blood cultures negative. Respiratory panel was negative. TIME SPENT ON DISCHARGE: 30 minutes
== END 2019-03-07 11:15 | DRG 193 ==
LOC: EDBD 07:53 → M ED 07:53 → M ED INP 09:19 → M ICU 10:41 → M MS5PR 03-03 16:11
PROVIDERS: ADMIT General Practice; ATTEND General Practice
PROC: 0DJD8ZZ Inspection of Lower Intestinal Tract, Via Natural or Artificial Opening Endoscopic (ICD-10-PCS; principal; 2019-03-04 08:30)
DX: J18.9 Pneumonia, unspecified organism (principal); J96.21 Acute and chronic respiratory failure with hypoxia; J96.22 Acute and chronic respiratory failure with hypercapnia; J44.1 Chronic obstructive pulmonary disease with (acute) exacerbation; E87.2 Acidosis; I50.32 Chronic diastolic (congestive) heart failure; E66.2 Morbid (severe) obesity with alveolar hypoventilation; G47.33 Obstructive sleep apnea (adult) (pediatric); K57.30 Diverticulosis of large intestine without perforation or abscess without bleeding; Z68.39 Body mass index [BMI] 39.0-39.9, adult; I27.20 Pulmonary hypertension, unspecified; K64.8 Other hemorrhoids; Z79.899 Other long term (current) drug therapy; I11.0 Hypertensive heart disease with heart failure; Z85.038 Personal history of other malignant neoplasm of large intestine; K59.00 Constipation, unspecified; E03.9 Hypothyroidism, unspecified; F31.9 Bipolar disorder, unspecified; Z86.718 Personal history of other venous thrombosis and embolism; M51.36 Other intervertebral disc degeneration, lumbar region; Z87.891 Personal history of nicotine dependence; D50.0 Iron deficiency anemia secondary to blood loss (chronic); G62.9 Polyneuropathy, unspecified

== ENCOUNTER → 2019-03-01 | Outpatient (REF) | payer MEDICARE, MEDICAID ==
[~2019-03-01] MED LIST changes: +ACET-907 PO; +ANUS25SU PR; +BAYE325T12 PO; +BISA10SU27 PR; +BREO1INH INH; +BUSP15TA90 PO; -CLON0.5T2 PO; +CLON0.5T8 PO; +CLON1TAB17 PO; +ENEMENE PR; +FERR324T2 PO; +LEVA0.636 INH; +LEVO112T25 PO; +MIRT1TAB17 PO; +MOM30SS PO; +OXYB15TA PO; -OXYB1TAB13 PO; +POTA10TA17 PO; +RA A PO; +ROPI1TAB PO; +SENN-52 PO; +TORS20TA2 PO; +VITACAP8 PO
== END ==
LOC: SKLAB4 10:08
PROVIDERS: ATTEND Internal Medicine
DX: D64.9 Anemia, unspecified (principal); E03.9 Hypothyroidism, unspecified